=== PATIENT | male | born 1955 | race African-American/Black ===

== ENCOUNTER 2022-12-24 16:46 | Inpatient (IN) | payer OTHER, SELFPAY ==
--- NOTE | ~2022-12-24 | US_ITS ---
EXAMINATION: US EXTRACRANIAL CAROTID DUPLEX, BILATERAL CLINICAL INFORMATION: Acute cva COMPARISON: None TECHNIQUE: Real-time ultrasound and Doppler techniques (integrating B-mode 2-D vascular images, Doppler spectral analysis and color-flow Doppler imaging) were utilized to interrogate the extracranial carotid arteries, the vertebral arteries and proximal subclavian arteries bilaterally. The degree of stenosis is determined by criteria similar to NASCET. FINDINGS: Right Side: 1. There is mild atherosclerotic plaque seen in the bifurcation/proximal ICA region. 2. The common carotid artery PSV proximally is 137 cm/s and distally 121 cm/s. 3. The proximal internal carotid artery velocities are 60 cm/s systolic and 15 cm/s diastolic. 4. The proximal external carotid artery PSV is 118 cm/s. 5. The vertebral artery shows antegrade flow. 6. The subclavian artery waveforms are normal. Left Side: 1. There is no significant atherosclerotic plaque seen in the bifurcation/proximal ICA region. 2. The common carotid artery PSV proximally is 148 cm/s and distally 96 cm/s. 3. The proximal internal carotid artery velocities are 108 cm/s systolic and 21 cm/s diastolic. 4. The proximal external carotid artery PSV is 107 cm/s. 5. The vertebral artery shows antegrade flow. 6. The subclavian artery waveforms are normal. US/US carotid duplex BI IMPRESSION: 1. RIGHT: Minimal, non-hemodynamically significant stenosis of the proximal right internal carotid artery corresponding to a 0-49% stenosis by velocity criteria. 2. LEFT: Normal left internal carotid artery without atherosclerotic plaque or hemodynamically significant stenosis.
--- NOTE | ~2022-12-24 | XR_ITS ---
EXAMINATION: XR CHEST CLINICAL INFORMATION: Shortness of breath COMPARISON: Chest x-ray 12/24/2022 TECHNIQUE: Frontal view of the chest was obtained. FINDINGS: The lungs are clear. No airspace consolidation, pleural effusion, or pneumothorax. The cardiomediastinal silhouette is within normal limits. No acute osseous injury. XR/XR chest 1V IMPRESSION: No acute pulmonary disease.
--- NOTE | ~2022-12-24 | MR_ITS ---
MRI OF THE BRAIN WITHOUT IV CONTRAST INDICATION: CVA. COMPARISON: Head CT 12/24/2022. TECHNIQUE: Multiplanar multisequence MR imaging of the brain was obtained without IV contrast. FINDINGS: There is no hydrocephalus, extra-axial surface collection, or herniation. There is global cerebral volume loss, there is moderate chronic microangiopathy, and there are chronic lacunar infarcts within the deep reynoso nuclei bilaterally and the left willis. The major flow voids at the skull base are preserved. There is a punctate acute to subacute infarct within the right peritrigonal white matter. No additional acute infarcts. There is no intracranial hemorrhage on the gradient recalled echo acquisition. The midline structures are normal. The cerebellar tonsils are normally positioned. The craniocervical junction is normal. Osseous marrow signal intensity is homogenous. The visualized soft tissues are unremarkable. Small left mastoid effusion. MR/MR head/brain wo con IMPRESSION: - There is a punctate acute to subacute infarct within the right peritrigonal white matter. No additional acute infarcts. - There is global cerebral volume loss, there is moderate chronic microangiopathy, and there are chronic lacunar infarcts within the deep reynoso nuclei bilaterally and the left willis.
--- NOTE | ~2022-12-24 | CT_ITS ---
EXAMINATION: CT HEAD WITHOUT CONTRAST (STROKE PROTOCOL) CLINICAL INFORMATION: Stroke protocol. Unresponsive COMPARISON: CT head 12/24/2022. MRI of the brain 12/25/2022 TECHNIQUE: Contiguous axial imaging was performed from the skull base to vertex without intravenous administration of contrast. This CT examination was performed using dose optimization techniques as appropriate, variously including the following: *Automated exposure control *Adjustment of mA and/or kV according to patient size (this includes techniques or standardized protocols for targeted exams where dose is matched to indication/reason for exam; i.e. extremities or head) *Use of iterative reconstruction technique DLP: 740 mGy-cm FINDINGS: There is no evidence of acute intracranial hemorrhage or territorial infarction. No abnormal mass-effect or midline shift is seen. [place] to white matter differentiation is well preserved. No extra-axial fluid collections are identified. There is generalized global volume loss. There is moderate prominence of the ventricles and the sulci . There is moderate hypodensity of the periventricular white matter due to chronic small vessel ischemic disease. There are vascular calcifications of the internal carotid arteries bilaterally. There is no osseous abnormality. The mastoid air cells and visualized portions of the paranasal sinuses are well-aerated. CT/CT head for stroke IMPRESSION: No acute intracranial pathology. This critical result was discussed with Donnell Shaver at 2025 hours on 12/26/2022. It was ascertained that the content and urgency of the report was understood at the time of direct communication.
--- NOTE | ~2022-12-24 | CT_ITS ---
EXAMINATION: CT head/brain wo IV con CLINICAL INFORMATION: Reason for Exam left UE weakness, 3 days old stroke?? COMPARISON: None. TECHNIQUE: Contiguous axial imaging was performed from the skull base to vertex without intravenous contrast. Sagittal and coronal reformatted images were obtained. This CT examination was performed using dose optimization techniques as appropriate, variously including the following: * Automated exposure control * Adjustment of mA and/or kV according to patient size (this includes techniques or standardized protocols for targeted exams where dose is matched to indication/reason for exam; i.e. extremities or head) Use of iterative reconstruction technique DLP: 663 mGy-cm FINDINGS: No acute osseous or soft tissue abnormality. The mastoid air cells and visualized portions of the paranasal sinuses are well aerated. There is no evidence of acute intracranial hemorrhage or territorial infarction. No abnormal mass effect or midline shift is seen. [place] to white matter differentiation is well preserved. No extra-axial fluid collections are identified. No hydrocephalus. Proportional prominence of the ventricles and sulcal spaces is consistent with mild to moderate volume loss. Patchy periventricular and deep white matter hypoattenuation is consistent with mild small vessel ischemic changes. Small chronic lacunar infarcts involving the deep eldridge nuclei. CT/CT head/brain wo IV con IMPRESSION: No acute intracranial abnormality including hemorrhage, mass effect, hydrocephalus, or acute territorial edematous infarction.
--- NOTE | ~2022-12-24 | XR_ITS ---
EXAMINATION: XR CHEST CLINICAL INFORMATION: Upper extremity weakness. COMPARISON: None TECHNIQUE: Frontal view of the chest was obtained. FINDINGS: No significant abnormality is noted involving the heart, lungs, mediastinum, bony thorax or soft tissues. XR/XR chest 1V IMPRESSION: No acute cardiopulmonary process.
[2022-12-24 16:56] VITALS: BP 138/82; PULSE 72
[2022-12-24 17:00] VITALS: BP 137/88; PULSE 65; RESP 15; O2SAT 98; BMI 23.3
--- NOTE | 2022-12-24 17:40 | ECG_ITS ---
Test Reason : weakness Blood Pressure : / mmHG Vent. Rate : 066 BPM Atrial Rate : 066 BPM P-R Int : 150 ms QRS Dur : 084 ms QT Int : 458 ms P-R-T Axes : 080 -44 -78 degrees QTc Int : 480 ms Sinus rhythm with occasional Premature ventricular complexes Left axis deviation Minimal voltage criteria for LVH, may be normal variant ( Stefan product ) ST & T wave abnormality, consider inferolateral ischemia Prolonged QT Abnormal ECG When compared with ECG of 10-DEC-2019 19:26, Premature ventricular complexes are now Present Non-specific change in ST segment in Lateral leads T wave inversion now evident in Anterolateral leads Referred By: Ronald Dodson Electronically Signed By:BRAD CORBETT
--- NOTE | 2022-12-24 17:43 | ED.NEUROSD ---
HPI - Neuro Symptoms/Deficit General Chief Complaint: Stroke Stated Complaint: STROKE ALERT,LEFT SIDED WEAKNESS X'S 4 DAYS Time Seen by Provider: 12/24/22 17:18 Source: patient and EMS Mode of arrival: EMS Limitations: no limitations History of Present Illness HPI Narrative: 67-year-old male came in by EMS for evaluation of left upper extremities weakness for the past 3 days. Patient lives home alone mostly independently started to notice left upper extremities weakness and numbness for the past 3 days patient did not seek medical attention thought is due to temporary situation, no speech problem, no other weakness or numbness. No headache, nausea or vomiting. Related Data Allergies Allergy/AdvReac Type Severity Reaction Status Date / Time fish derived [FISH] Allergy Unknown UNKNOWN Unverified 07/20/20 18:20 morphine [MORPHINE] Allergy Unknown UNKNOWN Unverified 07/20/20 18:20 Review of Systems Review of Systems: All other systems are reviewed and are negative Constitutional: Reports as per HPI and Reports no additional constitutional complaints Eyes: Reports as per HPI and Reports no additional eye complaints Reports system reviewed and no additional complaints, except as documented Cardiovascular: Reports as per HPI and Reports no additional cardiovascular complaints Respiratory: Reports as per HPI and Reports no additional respiratory complaints Gastrointestinal: Reports as per HPI and Reports no additional gastrointestinal complaints Genitourinary: Reports no additional female genitourinary complaints Musculoskeletal: Reports no additional musculoskeletal complaints Skin/Breast: Reports system reviewed and no additional complaints, except as docu Psychiatric: Reports no additional psychiatric complaints Endocrine: Reports no additional endocrine complaints Hematologic/Lymphatic: Reports no additional hematologic/lymphatic complaints Allergic/Immunologic: Reports no additional allergic/immunologic complaints Reports system reviewed and no additional complaints, except as documented and Reports Abnormal speech present [facility] Social History Social History Advance Directives: No Advance Directives Information Provided: Yes Physical Exam Vital Signs: Vital Signs: Last Vital Signs Temp 98.0 F 12/24/22 19:49 Pulse 71 12/24/22 19:49 Resp 17 12/24/22 19:49 BP 121/79 12/24/22 19:49 Pulse Ox 96 12/24/22 19:49 O2 Del Method 12/24/22 19:49 BMI result Body Mass Index 23.3 Vital signs have been reviewed as appeared to be correct. Blood pressure normal. Heart rate normal. Respiration rate normal. Temperature normal. Oxygen saturation normal. Appearance: Alert. Oriented X3. No acute distress. Head: Normal external exam. Normocephalic. Atraumatic. No Pichardo signs noted. No raccoon eyes noted Eyes: PERRLA. EOMI. Conjunctiva and sclera normal. Eyelids normal. ENT: TM's Normal. Pharynx normal. Uvula midline. Moist mucous membranes. No trismus noted. No drooling noted. No muffled voice noted. Neck: Normal inspection. Neck supple. FROM. No adenopathy. Thyroid Normal. No meningeal signs. No neck mass noted. CVS: Normal heart rate and rhythm. Heart sound normal. No murmurs noted. Pulses normal throughout. Respiratory: No respiratory distress. Painless inspiration. Breath sounds normal. No wheezes/rales/rhonchi noted. Chest nontender. No accessory muscle usage noted or decreased air movement noted. Abdomen: Soft and nontender. Bowel sounds normal in all 4 quadrants. No distention noted. No organomegaly noted. No visible injury noted. Back: No CVA tenderness. Full range of motion noted. Skin: Skin warm and dry. Normal skin color. Normal skin turgor. No rashes/lesions/lacerations noted. Extremities: No lower extremity edema. Extremities exhibit normal range of motion. Extremities nontender. Neuro: Oriented X 3. Cranial nerve exam: II-XII are grossly intact Left upper extremity weakness with pronator drift. No sensory deficit. Reflexes normal. Course Course Course Narrative: 67-year-old male came in with a left upper extremity weakness, NIH score is 2, symptoms happened 3 days ago patient did not seek medical attention the but came in today patient is out of window for tPA, unremarkable a screening workup in the ED, will administer aspirin and admit for further neurological evaluation. Patient in acute kidney insufficiency would not consider CT angiogram of the head and neck now. Medications Administered Discontinued Medications Generic Name Dose Route Start Last Admin Trade Name Freq PRN Reason Stop Dose Admin Sodium Chloride 1,000 mls @ 999 mls/hr 12/24/22 17:40 12/24/22 18:40 Ns IV 12/24/22 18:40 999 mls/hr .Q1H1M ONE Administration Medical Decision Making Differential Diagnosis Differential Diagnoses: The differential diagnosis associated with the presentation includes (Ian, CVA ischemic, hemorrhagic CVA unlikely, cardiac arrhythmia, ACS.) Admission/Observation Consideration of admission/observation: Escalation of care including admission/observation considered Consult Healthcare Provider Management of the patient was discussed with: Hospitalist Lab Data MDM Lab Attestation statement: I reviewed the patient's lab results. 12/24/22 18:25 12/24/22 18:25 Labs: Lab Results 12/24/22 12/24/22 12/24/22 Range/Units 17:51 18:25 18:25 WBC 8.4 (4.8-10.8) X10*3/uL RBC 5.00 (4.60-5.80) X10*6/uL Hgb 14.2 (14.0-18.0) g/dl Hct 44.8 (42.0-52.0) % MCV 89.6 (80.0-98.0) fL MCH 28.4 (27.0-33.0) pg MCHC 31.7 (31.0-36.0) g/dl RDW 13.3 (11.0-16.0) % Plt Count 289 (160-400) X10*3/uL MPV 10.1 (9.4-12.4) fL Immature Gran % (Auto) 0.5 H (0.0-0.4) % Neut % (Auto) 59.3 (45-73) % Lymph % (Auto) 25.0 (20-40) % [place] % (Auto) 14.7 H (2-11) % Eos % (Auto) 0.1 (0-4) % Baso % (Auto) 0.4 (0-2) % Lymph # (Auto) 2.1 (1.2-4.9) X10*3/uL [place] # (Auto) 1.2 (0.1-1.2) X10*3/uL Eos # (Auto) 0.0 (0.0-0.4) X10*3/uL Baso # (Auto) 0.0 (0.0-0.2) X10*3/uL Abs Immat Gran (auto) 0.04 H (0.00-0.03) X10*3/uL Absolute Neuts (auto) 5.0 (2.0-8.3) x10*3/uL Absolute Nucleated RBC 0.000 (0.0-0.012) X10*3/uL Nucleated RBC % (auto) 0.0 (0.0-0.2) /100WBC Sodium 139 (135-145) mmol/L Potassium 4.2 (3.3-5.1) mmol/L Chloride 102 (96-108) mmol/L Carbon Dioxide 24 (22-29) mmol/L Anion Gap 17 (12-20) BUN 25 H (9-16) mg/dL Creatinine 2.07 H (0.5-1.4) mg/dL Estim Creat Clear Calc 32.1 Estimated GFR 32 Random Glucose 108 (60-115) mg/dL Calcium 9.4 (8.4-10.2) mg/dL Total Bilirubin 0.7 (0.0-1.0) mg/dL Direct Bilirubin < 0.2 (0.0-0.5) mg/dL AST 37 (5-37) U/L ALT 28 (0-40) U/L Alkaline Phosphatase 78 (39-117) U/L Troponin I High Sens (<3.5-35.0) ng/L Total Protein 8.1 H (6.5-8.0) g/dL Albumin 4.2 (3.5-5.0) g/dL Lipase 16 (8-78) U/L COVID-19 (MARK) Negative (Negative) COVID-19 Clin Com See Note 12/24/22 Range/Units 18:25 WBC (4.8-10.8) X10*3/uL RBC (4.60-5.80) X10*6/uL Hgb (14.0-18.0) g/dl Hct (42.0-52.0) % MCV (80.0-98.0) fL MCH (27.0-33.0) pg MCHC (31.0-36.0) g/dl RDW (11.0-16.0) % Plt Count (160-400) X10*3/uL MPV (9.4-12.4) fL Immature Gran % (Auto) (0.0-0.4) % Neut % (Auto) (45-73) % Lymph % (Auto) (20-40) % [place] % (Auto) (2-11) % Eos % (Auto) (0-4) % Baso % (Auto) (0-2) % Lymph # (Auto) (1.2-4.9) X10*3/uL Baldwin # (Auto) (0.1-1.2) X10*3/uL Eos # (Auto) (0.0-0.4) X10*3/uL Baso # (Auto) (0.0-0.2) X10*3/uL Abs Immat Gran (auto) (0.00-0.03) X10*3/uL Absolute Neuts (auto) (2.0-8.3) x10*3/uL Absolute Nucleated RBC (0.0-0.012) X10*3/uL Nucleated RBC % (auto) (0.0-0.2) /100WBC Sodium (135-145) mmol/L Potassium (3.3-5.1) mmol/L Chloride (96-108) mmol/L Carbon Dioxide (22-29) mmol/L Anion Gap (12-20) BUN (9-16) mg/dL Creatinine (0.5-1.4) mg/dL Estim Creat Clear Calc Estimated GFR Random Glucose (60-115) mg/dL Calcium (8.4-10.2) mg/dL Total Bilirubin (0.0-1.0) mg/dL Direct Bilirubin (0.0-0.5) mg/dL AST (5-37) U/L ALT (0-40) U/L Alkaline Phosphatase (39-117) U/L Troponin I High Sens 37.9 H (<3.5-35.0) ng/L Total Protein (6.5-8.0) g/dL Albumin (3.5-5.0) g/dL Lipase (8-78) U/L COVID-19 (MARK) (Negative) COVID-19 Clin Com Independent Interpretation I performed an independent interpretation of an: EKG (Normal sinus rhythm at 66 beats per minutes, occasional PVCs, left axis deviation, LVH, nonspecific ST-T changes. No old EKG to compare.), Plain X-Ray (Chest: No acute intrathoracic pathology.) and CT Scan (Head: No acute intracranial pathology.) Radiology Impression Discussion of test interpretation with radiology: I have reviewed the radiologist's reading. NIH Stroke Scale Time: 17:52 Level of Consciousness: Alert Level of Consciousness Questions: Answers both questions correctly Level of Consciousness Commands: Performs both tasks correctly Best Gaze: Normal Visual: No visual loss Facial Palsy: Normal Motor Arm (Right): No drift Motor Arm (Left): Some effort against gravity Motor Leg (Right): No drift Motor Leg (Left): No drift Limb Ataxia: Absent Sensory: Normal Best Language: No aphasia Dysarthia: Normal Extinction and Inattention: No abnormality Score: 2 Discharge Plan Discharge Clinical Impression: Cerebrovascular accident, IAN (acute kidney injury) Patient Disposition: Admitted As Inpatient
[2022-12-24 18:32] LABS: MANUAL DIFF FLAG NO
[2022-12-24 18:33] LABS: Basophils Percent Auto 0.4 % (0-2); Eosinophils Percent Auto 0.1 % (0-4); Hematocrit 44.8 % (42.0-52.0); Hemoglobin 14.2 g/dl (14.0-18.0); Imm Gran Abs Auto 0.04 X10*3/uL (0.00-0.03); Imm Gran Pct Auto 0.5 % (0.0-0.4); Lymphocytes Absolute Auto 2.1 X10*3/uL (1.2-4.9); Mean Corpuscular HGB Conc 31.7 g/dl (31.0-36.0); Mean Corpuscular Hemoglobin 28.4 pg (27.0-33.0); Mean Corpuscular Volume 89.6 fL (80.0-98.0); Mean Platelet Volume 10.1 fL (9.4-12.4); Monocytes Absolute Auto 1.2 X10*3/uL (0.1-1.2); Monocytes Percent Auto 14.7 % (2-11); Neutrophils Percent Auto 59.3 % (45-73); Platelet Count 289 X10*3/uL (160-400); Red Cell Distribution Width 13.3 % (11.0-16.0); White Blood Count 8.4 X10*3/uL (4.8-10.8)
[2022-12-24] MEDS: 0.9 % Sodium Chloride 1,000 ML 999 ML IV (18:40)
[2022-12-24 19:08] LABS: Troponin-I High Sensitivity 37.9 ng/L (<3.5-35.0)
[2022-12-24 19:27] LABS: Alanine Aminotransferase 28 U/L (0-40); Albumin Level 4.2 g/dL (3.5-5.0); Alkaline Phosphatase 78 U/L (39-117); Anion Gap 17 (12-20); Aspartate Amino Transferase 37 U/L (5-37); Bilirubin Direct < 0.2 mg/dL (0.0-0.5); Bilirubin Total 0.7 mg/dL (0.0-1.0); Blood Urea Nitrogen 25 mg/dL (9-16); Calcium 9.4 mg/dL (8.4-10.2); Carbon Dioxide 24 mmol/L (22-29); Chloride 102 mmol/L (96-108); Creatinine Clr Calc Pharmacy 32.1; Estimated Glomerular Filt Rate 32; Glucose Random 108 mg/dL (60-115); Lipase 16 U/L (8-78); Potassium 4.2 mmol/L (3.3-5.1); Sodium 139 mmol/L (135-145); Total Protein 8.1 g/dL (6.5-8.0)
[2022-12-24 19:34] LABS: IDNOW Serial# 6674DD1D
[2022-12-24 19:35] LABS: COVID-19 Test Negative (Negative)
[2022-12-24 19:49] VITALS: BP 121/79; PULSE 71; RESP 17; TEMP 36.7; O2SAT 96
[2022-12-24] MEDS: Aspirin Enteric Coated 81 MG TABLET.DR PO (20:55)
[2022-12-24 21:35] LABS: Troponin-I High Sensitivity 40.3 ng/L (<3.5-35.0)
--- NOTE | 2022-12-24 22:34 | P.HPHOSP_ITS ---
History of Present Illness Date of Service: 12/24/22 Chief Complaint: left sided weakness 67-year-old male who denies any past medical history presents to the hospital with complaints of left-sided weakness. Patient reports weakness started about 3 days ago, has remained the same, weakness is related to the upper and lower extremity. Denies any speech change, no facial droop, no change in vision, no headache. Patient denies any right-sided weakness numbness or tingling. He reports no recent head injury. Denies any chest pain, no shortness of breath, no abdominal pain nausea or vomiting, no diarrhea constipation, no urinary symptoms and no lower extremity edema. On arrival to the ED patient hemodynamically stable with no significant abnormal vitals labs reviewed showed a creatinine of 2.07 with a BUN of 25, with no previous for comparison, labs otherwise unremarkable, has a troponin of 37.9 with a repeat of 40.3, patient denies any chest pain head CT without Ki be contrast shows no acute intracranial abnormality Review of Systems Review of Systems: Yes all other systems are reviewed and are negative [facility] Medical History (Updated 12/25/22 @ 06:25 by Donnell Strong MD) No pertinent past medical history Surgical History (Updated 12/25/22 @ 06:25 by Donnell Strong MD) History of left hip replacement Social History (Updated 12/25/22 @ 06:26 by Donnell Strong MD) Alcohol intake: current Patient Tobacco Use Status: Current everyday Tobacco user Cigarette Packs Per Day: 10 Use of substances other than those prescribed or required for medical reasons: No Advance Directives: No Advance Directives Information Provided: Yes Meds Allergies Allergy/AdvReac Type Severity Reaction Status Date / Time fish derived [FISH] Allergy Unknown UNKNOWN Unverified 07/20/20 18:20 morphine [MORPHINE] Allergy Unknown UNKNOWN Unverified 07/20/20 18:20 Active Medications: Current Medications Pharmacy Consult (Consult Rx Perform Med Rec) 1 each MISCELLANE ONCE PRN PRN Reason: Consult order Physical Exam Vital Signs and Narrative: Vital Signs: Last Vital Signs Temp 98.0 F 12/24/22 19:49 Pulse 71 12/24/22 19:49 Resp 17 12/24/22 19:49 BP 121/79 12/24/22 19:49 Pulse Ox 96 12/24/22 19:49 O2 Del Method 12/24/22 19:49 BMI result Body Mass Index 23.3 Const: General: cooperative and no acute distress Orientation/consciousness: patient oriented x3 Eyes: General: appearance normal, both eyes and all related structures Resp: Effort & Inspection: normal respiratory effort Auscultation: clear to auscultation bilaterally Cardio: Rate: regular rate Rhythm: regular rhythm GI: Palpation (GI): Soft to palpation Auscultation: normal bowel sounds Skin: General skin exam: no rashes or lesions noted Neuro: Other: cranial nerves 2-12 intact, no dysarthria, aphasia has 3/5 strength in left upper and lower extremity motor 5/5 in the right General: patient oriented x3 Cognition (Neuro): normal cognition Extrem: General: Yes normal to inspection and Yes no pedal edema Results Labs 12/24/22 18:25 12/24/22 18:25 Labs: Laboratory Results - last 24 hr 12/24/22 12/24/22 12/24/22 17:51 18:25 18:25 MCV 89.6 MCH 28.4 MCHC 31.7 RDW 13.3 Plt Count 289 MPV 10.1 Immature Gran % (Auto) 0.5 H Neut % (Auto) 59.3 Lymph % (Auto) 25.0 [place] % (Auto) 14.7 H Eos % (Auto) 0.1 Baso % (Auto) 0.4 Lymph # (Auto) 2.1 [place] # (Auto) 1.2 Eos # (Auto) 0.0 Baso # (Auto) 0.0 Abs Immat Gran (auto) 0.04 H Absolute Neuts (auto) 5.0 Absolute Nucleated RBC 0.000 Nucleated RBC % (auto) 0.0 Anion Gap 17 Estim Creat Clear Calc 32.1 Estimated GFR 32 Random Glucose 108 Calcium 9.4 Total Bilirubin 0.7 Direct Bilirubin < 0.2 AST 37 ALT 28 Alkaline Phosphatase 78 Troponin I High Sens Total Protein 8.1 H Albumin 4.2 Lipase 16 COVID-19 (MARK) Negative COVID-19 Clin Com See Note 12/24/22 12/24/22 18:25 20:59 MCV MCH MCHC RDW Plt Count MPV Immature Gran % (Auto) Neut % (Auto) Lymph % (Auto) [place] % (Auto) Eos % (Auto) Baso % (Auto) Lymph # (Auto) [place] # (Auto) Eos # (Auto) Baso # (Auto) Abs Immat Gran (auto) Absolute Neuts (auto) Absolute Nucleated RBC Nucleated RBC % (auto) Anion Gap Estim Creat Clear Calc Estimated GFR Random Glucose Calcium Total Bilirubin Direct Bilirubin AST ALT Alkaline Phosphatase Troponin I High Sens 37.9 H 40.3 H Total Protein Albumin Lipase COVID-19 (MARK) COVID-19 Clin Com Imaging Radiologist's Impressions: Impressions Chest X-Ray 12/24/22 18:35 IMPRESSION: No acute cardiopulmonary process. Head CT 12/24/22 19:28 IMPRESSION: No acute intracranial abnormality including hemorrhage, mass effect, hydrocephalus, or acute territorial edematous infarction. Assessment and Plan (1) Cerebrovascular accident: Status: Acute (2) CHIOMA (acute kidney injury): Status: Acute Plan 67-year-old male with no significant past medical history that he reports comes into the hospital complaints of left-sided weakness # acute CVA - pending MRI - head CT negative - has neurological deficits on the left upper and lower extremities - pending MRI of the brain - CT angiogram was unable to be obtained due to his underlying kidney disease - lipid battery, neurology consulted # CHIOMA - pre azotemia - unknown baseline - will treat with IV fluids - follow BMP DVT prophylaxis: Early ambulation Time Spent With Patient Time: Total time managing care of this patient today ____ minutes. Quality Stroke Does the patient have a stroke diagnosis?: No VTE Prior VTE?: No VTE Risk Level:: Medical - low VTE Device Contraindication: Treatment Not Indicated VTE Drug Contraindication: Treatment Not Indicated
[2022-12-24 22:43] VITALS: BP 112/76; PULSE 81; RESP 17; TEMP 36.7; O2SAT 95
[2022-12-24] MEDS: Lactated Ringers 1,000 ML 100 ML IVCONT (23:34)
[2022-12-24] MEDS: Acetaminophen 325 MG TABLET 650 MG PO (23:39)
--- NOTE | 2022-12-25 04:03 | PC.NURSE ---
Assumed care of pt. at 1900. Pt. resting in bed at this time. Pt. medicated approximately 2330 with tylenol for pain in the neck and head rated 4/10. Pt. requested food and liquids. Provided with a sandwich and juice. Pt. currently watching tv in bed, under no apparent distress. Will continue to monitor.
[2022-12-25 07:07] LABS: MANUAL DIFF FLAG NO
[2022-12-25 07:10] LABS: Basophils Percent Auto 0.6 % (0-2); Eosinophils Absolute Auto 0.1 X10*3/uL (0.0-0.4); Eosinophils Percent Auto 1.3 % (0-4); Hematocrit 38.8 % (42.0-52.0); Hemoglobin 12.3 g/dl (14.0-18.0); Imm Gran Abs Auto 0.02 X10*3/uL (0.00-0.03); Imm Gran Pct Auto 0.3 % (0.0-0.4); Lymphocytes Absolute Auto 2.1 X10*3/uL (1.2-4.9); Mean Corpuscular HGB Conc 31.7 g/dl (31.0-36.0); Mean Corpuscular Volume 91.5 fL (80.0-98.0); Monocytes Absolute Auto 0.9 X10*3/uL (0.1-1.2); Monocytes Percent Auto 11.9 % (2-11); Neutrophils Percent Auto 55.9 % (45-73); Platelet Count 225 X10*3/uL (160-400); Red Blood Count 4.24 X10*6/uL (4.60-5.80); Red Cell Distribution Width 13.2 % (11.0-16.0); White Blood Count 7.1 X10*3/uL (4.8-10.8)
[2022-12-25 07:15] LABS: Appearance Urine Clear; Color Urine Dark Yellow; Glucose Urine UA Negative (Negative); Leukocyte Esterase Urine Negative (Negative); Nitrite Urine Negative (Negative); Specific Gravity - Urine 1.025 (1.005-1.025); UMIC TRIGGER UACC YES; Urine Blood Negative (Negative); Urine Ketones Trace mg/dL (Negative); Urine Protein 30 (1+) mg/dL (Neg-Trace)
[2022-12-25 07:20] LABS: Bacteria Urine None Seen (None Seen); RBC Urine 0-2 /HPF (0-2); Squamous Epithelial Cell Urine 0-2 /HPF (0-2); WBC Urine 0-5 /HPF (0-5)
[2022-12-25 07:24] LABS: Anion Gap 13 (12-20); Blood Urea Nitrogen 38 mg/dL (9-16); Calcium 8.6 mg/dL (8.4-10.2); Carbon Dioxide 25 mmol/L (22-29); Chloride 104 mmol/L (96-108); Estimated Glomerular Filt Rate 42; Glucose Random 97 mg/dL (60-115); Potassium 3.9 mmol/L (3.3-5.1); Sodium 138 mmol/L (135-145)
[2022-12-25 07:27] LABS: Cholesterol 117 mg/dL; HDL Cholesterol 51 mg/dL; LDL Cholesterol Calculated 47 mg/dl; Triglycerides 95 mg/dL
[2022-12-25 07:57] VITALS: BP 184/92; PULSE 62; RESP 18; O2SAT 98
--- NOTE | 2022-12-25 08:09 | PC.NURSE ---
Patient AOx 4 some left sided weakness no respiratory distress noted tolerating IVF with no ill effect. MRI screening complete has orthopedic hardware and unsure of fragments in head will CTM
[2022-12-25] MEDS: Lactated Ringers 1,000 ML 100 ML IVCONT (08:20)
[2022-12-25] MEDS: Aspirin Enteric Coated 81 MG TABLET.DR PO (08:20)
[2022-12-25] MEDS: Nicotine 14 MG PATCH.TD24 TRANSDERMA (08:20)
--- NOTE | 2022-12-25 08:24 | PC.NURSE ---
Inpatient MD at bedside
--- NOTE | 2022-12-25 09:49 | PHA.MEDREC ---
Pharmacy Consult ? Medication Reconciliation Pharmacy has completed the medication reconciliation. Patient says he has been out of beds for 2 months
--- NOTE | 2022-12-25 09:56 | PC.NURSE ---
Inpatient MD notified patient is hypertensive, report to Dolores TAMEZ
[2022-12-25 10:37] VITALS: BP 164/89; PULSE 63; RESP 12; TEMP 37; O2SAT 99
[2022-12-25 10:44] VITALS: BMI 24.0
[2022-12-25 11:14] VITALS: BP 164/89; PULSE 63; O2SAT 99
--- NOTE | 2022-12-25 11:26 | PM.NEUROCN ---
History of Present Illness Data of Consult Service Date: 12/25/22 Primary Care Provider: Unknown Physician HPI Reason for consult: Stroke 67 years old man with hypertension who came to hospital with couple of days history of left-sided weakness. There was no pain headache blurred vision double vision or speech or language difficulty. Review of Systems Review of Systems: No recent cold or flu-like illness PMFSH Past Medical History Medical History No pertinent past medical history Surgical History Surgical History History of left hip replacement Social History Social History (Updated 12/25/22 @ 06:26 by Donnell Strong MD) Household Members: None Housing: Apartment Do you presently have visiting nurse or other home services: No Alcohol intake: current Patient Tobacco Use Status: Current everyday Tobacco user Cigarette Packs Per Day: 10 Meds Allergies Allergy/AdvReac Type Severity Reaction Status Date / Time fish derived [FISH] Allergy Unknown UNKNOWN Unverified 07/20/20 18:20 morphine [MORPHINE] Allergy Unknown UNKNOWN Unverified 07/20/20 18:20 cheese Allergy Anaphylaxis Uncoded 12/25/22 10:36 Active Medications: Current Medications Acetaminophen (Acetaminophen 325 Mg Tablet) 650 mg PO Q6H PRN PRN Reason: Pain, Mild (Pain Scale 1-3) Last Admin: 12/24/22 23:39 Dose: 650 mg Aspirin (Aspirin Enteric Coated 81 Mg Tablet.Dr) 81 mg PO DAILY [facility] Last Admin: 12/25/22 08:20 Dose: 81 mg Docusate Sodium (Docusate Sodium 100 Mg Capsule) 100 mg PO DAILY PRN PRN Reason: Constipation Lactated Ringer's (Lr) 1,000 mls @ 100 mls/hr IVCONT .Q10H [facility] Last Admin: 12/25/22 08:20 Dose: 100 mls/hr Nicotine (Nicotine 14 Mg Patch.Td24) 14 mg TRANSDERMA DAILY [facility] Last Admin: 12/25/22 08:20 Dose: 14 mg Ondansetron HCl (Ondansetron Hcl 4 Mg/2 Ml Vial) 4 mg IVPUSH Q8H PRN PRN Reason: Nausea and Vomiting Pharmacy Consult (Consult Rx Perform Med Rec) 1 each MISCELLANE ONCE PRN PRN Reason: Consult order Home Medications Medication Instructions Recorded Confirmed Last Taken Type clonidine HCl 0.1 mg tablet 0.2 mg PO BID 12/25/22 12/25/22 10/24/20 History lisinopril 10 mg tablet 1 tab PO DAILY 12/25/22 12/25/22 10/24/20 History Physical Exam Vital Signs: Vital Signs: Last Vital Signs Temp 98.6 F 12/25/22 10:37 Pulse 63 12/25/22 11:14 Resp 12 12/25/22 10:37 BP 164/89 H 12/25/22 11:14 Pulse Ox 99 12/25/22 11:14 O2 Del Method 12/25/22 10:37 BMI result Body Mass Index 24.0 Neuro: Other: Alert and awake with normal spontaneity of speech fluency comprehension and affect. Face is symmetrical. Visual mobley are full. Tongue is midline. There is [id number] left arm and leg weakness with equivocal plantars and trace reflexes. Results Labs 12/25/22 06:31 12/25/22 06:31 Labs: Short CBC 12/24/22 12/25/22 Range/Units 18:25 06:31 WBC 8.4 7.1 (4.8-10.8) X10*3/uL Hgb 14.2 12.3 L (14.0-18.0) g/dl Hct 44.8 38.8 L (42.0-52.0) % Plt Count 289 225 (160-400) X10*3/uL BMP 12/24/22 12/25/22 18:25 06:31 Sodium 139 138 Potassium 4.2 3.9 Chloride 102 104 Carbon Dioxide 24 25 BUN 25 H 38 H Creatinine 2.07 H 1.66 H Calcium 9.4 8.6 D Liver Function 12/24/22 Range/Units 18:25 Total Bilirubin 0.7 (0.0-1.0) mg/dL Direct Bilirubin < 0.2 (0.0-0.5) mg/dL AST 37 (5-37) U/L ALT 28 (0-40) U/L Alkaline Phosphatase 78 (39-117) U/L Albumin 4.2 (3.5-5.0) g/dL Urine 12/25/22 Range/Units 06:24 Urine Color Dark Yellow Urine Appearance Clear Urine pH 5.0 (5.0-9.0) Ur Specific [place] 1.025 (1.005-1.025) Urine Protein 30 (1+) H (Neg-Trace) mg/dL Urine Glucose (UA) Negative (Negative) mg/dL noncontrast head CT revealed moderate mostly central atrophy and some cerebellar atrophy would not with moderate amount of chronic microvascular ischemic changes. Assessment and Plan (1) Cerebrovascular accident: Status: Acute 67 years old man with uncontrolled hypertension chronic microvascular ischemic changes and some cerebral atrophy came with new onset of left-sided weakness started a day or 2 before he came to hospital. Overall evaluation was suggestive of a new ischemic infarct and right hemisphere. Mainstay of management is blood pressure control. For now anti-platelet agents such as baby aspirin daily and statin are also recommended. And noncontrast MRI of brain can help to definitively diagnose. Time Spent With Patient Time: Total time managing care of this patient today ____ minutes. Procedures Date of Service Date of Service: 12/25/22
--- NOTE | 2022-12-25 14:51 | P.PNIM_ITS ---
Subjective Subjective Date of Service: 12/25/22 Interval History: Complaining of persistent left-sided weakness, denies headache, no difficulty swallowing, no visual symptoms, eating breakfast, no new neuro deficits since admission. Review of Systems Review of Systems: Yes all other systems are reviewed and are negative Physical Exam Vital Signs: Vital Signs: Last Vital Signs Temp 98.6 F 12/25/22 10:37 Pulse 63 12/25/22 11:14 Resp 12 12/25/22 10:37 BP 164/89 H 12/25/22 11:14 Pulse Ox 99 12/25/22 11:14 O2 Del Method 12/25/22 10:37 BMI result Body Mass Index 24.0 Const: Other: General awake alert x3, sitting, comfortably in no acute distress. Neck is supple no JVD. CVS regular rate rhythm, Respiratory lungs clear to auscultation, no respiratory distress, no wheeze, no rhonchi. Gastrointestinal abdomen soft, nontender, bowel sounds audible, no guarding , no rigidity. Extremities no edema. 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 Skin no rash Psych appropriate affect Objective Data Active Medications Acetaminophen (Acetaminophen 325 Mg Tablet) 650 mg PO Q6H PRN PRN Reason: Pain, Mild (Pain Scale 1-3) Last Admin: 12/24/22 23:39 Dose: 650 mg Documented By: STEVE Aspirin (Aspirin Enteric Coated 81 Mg Tablet.Dr) 81 mg PO DAILY [facility] Last Admin: 12/25/22 08:20 Dose: 81 mg Documented By: HANDY Docusate Sodium (Docusate Sodium 100 Mg Capsule) 100 mg PO DAILY PRN PRN Reason: Constipation Lactated Ringer's (Lr) 1,000 mls @ 100 mls/hr IVCONT .Q10H [facility] Last Admin: 12/25/22 08:20 Dose: 100 mls/hr Documented By: HANDY Nicotine (Nicotine 14 Mg Patch.Td24) 14 mg TRANSDERMA DAILY [facility] Last Admin: 12/25/22 08:20 Dose: 14 mg Documented By: HANDY Ondansetron HCl (Ondansetron Hcl 4 Mg/2 Ml Vial) 4 mg IVPUSH Q8H PRN PRN Reason: Nausea and Vomiting Pharmacy Consult (Consult Rx Perform Med Rec) 1 each MISCELLANE ONCE PRN PRN Reason: Consult order Labs 12/25/22 06:31 12/25/22 06:31 Labs: Laboratory Results - last 24 hr 12/24/22 12/24/22 12/24/22 17:51 18:25 18:25 MCV 89.6 MCH 28.4 MCHC 31.7 RDW 13.3 Plt Count 289 MPV 10.1 Immature Gran % (Auto) 0.5 H Neut % (Auto) 59.3 Lymph % (Auto) 25.0 [place] % (Auto) 14.7 H Eos % (Auto) 0.1 Baso % (Auto) 0.4 Lymph # (Auto) 2.1 [place] # (Auto) 1.2 Eos # (Auto) 0.0 Baso # (Auto) 0.0 Abs Immat Gran (auto) 0.04 H Absolute Neuts (auto) 5.0 Absolute Nucleated RBC 0.000 Nucleated RBC % (auto) 0.0 Anion Gap 17 Estim Creat Clear Calc 32.1 Estimated GFR 32 Random Glucose 108 Calcium 9.4 Total Bilirubin 0.7 Direct Bilirubin < 0.2 AST 37 ALT 28 Alkaline Phosphatase 78 Troponin I High Sens Total Protein 8.1 H Albumin 4.2 Triglycerides Cholesterol LDL Cholesterol, Calc HDL Cholesterol Lipase 16 Urine Color Urine Appearance Urine pH Ur Specific [place] Urine Protein Urine Glucose (UA) Urine Ketones Urine Blood Urine Nitrite Ur Leukocyte Esterase Urine RBC Urine WBC Ur Squamous Epith Cells Urine Bacteria Hyaline Casts COVID-19 (MARK) Negative COVID-19 Clin Com See Note 12/24/22 12/24/22 12/25/22 18:25 20:59 06:24 MCV MCH MCHC RDW Plt Count MPV Immature Gran % (Auto) Neut % (Auto) Lymph % (Auto) [place] % (Auto) Eos % (Auto) Baso % (Auto) Lymph # (Auto) [place] # (Auto) Eos # (Auto) Baso # (Auto) Abs Immat Gran (auto) Absolute Neuts (auto) Absolute Nucleated RBC Nucleated RBC % (auto) Anion Gap Estim Creat Clear Calc Estimated GFR Random Glucose Calcium Total Bilirubin Direct Bilirubin AST ALT Alkaline Phosphatase Troponin I High Sens 37.9 H 40.3 H Total Protein Albumin Triglycerides Cholesterol LDL Cholesterol, Calc HDL Cholesterol Lipase Urine Color Dark Yellow Urine Appearance Clear Urine pH 5.0 Ur Specific [place] 1.025 Urine Protein 30 (1+) H Urine Glucose (UA) Negative Urine Ketones Trace Urine Blood Negative Urine Nitrite Negative Ur Leukocyte Esterase Negative Urine RBC 0-2 Urine WBC 0-5 Ur Squamous Epith Cells 0-2 Urine Bacteria None Seen Hyaline Casts 6-10 COVID-19 (MARK) COVID-19 Clin Com 12/25/22 12/25/22 12/25/22 06:31 06:31 06:31 MCV 91.5 MCH 29.0 MCHC 31.7 RDW 13.2 Plt Count 225 MPV 11.0 Immature Gran % (Auto) 0.3 Neut % (Auto) 55.9 Lymph % (Auto) 30.0 [place] % (Auto) 11.9 H Eos % (Auto) 1.3 Baso % (Auto) 0.6 Lymph # (Auto) 2.1 [place] # (Auto) 0.9 Eos # (Auto) 0.1 Baso # (Auto) 0.0 Abs Immat Gran (auto) 0.02 Absolute Neuts (auto) 4.0 Absolute Nucleated RBC 0.000 Nucleated RBC % (auto) 0.0 Anion Gap 13 Estim Creat Clear Calc 40.0 Estimated GFR 42 Random Glucose 97 Calcium 8.6 D Total Bilirubin Direct Bilirubin AST ALT Alkaline Phosphatase Troponin I High Sens Total Protein Albumin Triglycerides 95 Cholesterol 117 LDL Cholesterol, Calc 47 HDL Cholesterol 51 Lipase Urine Color Urine Appearance Urine pH Ur Specific [place] Urine Protein Urine Glucose (UA) Urine Ketones Urine Blood Urine Nitrite Ur Leukocyte Esterase Urine RBC Urine WBC Ur Squamous Epith Cells Urine Bacteria Hyaline Casts COVID-19 (MARK) COVID-19 Clin Com Assessment and Plan (1) Cerebrovascular accident: Status: Acute (2) CHIOMA (acute kidney injury): Status: Acute Plan 67-year-old male with past medical history of hypertension comes into the hospital complaints of left-sided weakness of 2 days duration, did not qualify for tPA. #? acute CVA Persistent left-sided weakness, normal CT head -?MRI brain showed acute to subacute infarction within the right jamie trigonal white matter, with global cerebral volume loss, moderate chronic microangiopathy and chronic lacunar infarction within deep reynoso nuclei bilaterally and and left willis ? CT angiogram unable to obtain due to his underlying kidney disease LDL 47, total cholesterol 117, hold Lipitor, continue aspirin, good blood p ressure control Patient seen by Dr. Padron he recommend echocardiogram, carotid ultrasound and urine toxicology #? CHIOMA -? pre azotemia,? unknown baseline, creatinine improved from 2 to 1.66 will DC IV fluids, follow BMP -? follow BMP, avoid nephrotoxins # hypertension, elevated blood pressure on clonidine and lisinopril at home , will place on Norvasc and follow blood pressures # tobacco use disorder continue nicotine patch ?DVT prophylaxis:? Lovenox Patient will need continued inpatient stay due to acute CVA requiring further testing PT and OT eval. Time Spent With Patient Time: Total time managing care of this patient today ____ minutes. Quality Stroke Does the patient have a stroke diagnosis?: No VTE Prior VTE?: No VTE Risk Level:: Medical - low VTE Device Contraindication: Treatment Not Indicated VTE Drug Contraindication: Treatment Not Indicated
--- NOTE | 2022-12-25 15:07 | MHC.STROKE ---
Addendum entered by Beth Dennison RN 12/27/22 11:24: SEEN BY PSYCHIATRY FOR DEPRESSION, DRUG SCREEN RESULTS +FENTANYL AND +OPIATES, AT AROUND 1934 LAST EVENING, A RAPID RESPONSE WAS CALLED UNRESPONSIVE SEEN BY PROVIDER. CTH FOR STROKE DONE AT 2007, NO BLEED, BP PRIOR WAS 210/110. BS 130'S, DR. MOBLEY NOTIFIED AND MADE RECOMMENDATIONS. I DID [facility] WITH UPDATE THIS AM. Original Note: 12/24/22 1640 EMS PRE-NOTIFIED STROKE ALERT LEFT SIDED WEAKNESS ONSET 3-4 DAYS AGO. ARRIVED 1646. SEEN BY PROVIDER AT 1718 NIHSS = 2, OUT OF THE WINDOW FOR TPA-ALTEPLASE. CT HEAD DONE AT 1845. HE PASSED SWALLOW SCREEN PRIOR TO ANY PO. I MET WITH THE PATIENT TODAY AFTER HIS MRI, DR MOBLEY REVIEWED THE MRI, HE IS RECOMMENDING ECHO, CAROTID US AND DRUG SCREEN (HX OF IV DRUG USE, BUT HASN'T USED ANY DRUGS IN ORDER A YEAR). PATIENT SAID HE IS IN A GROUP LIVING SETTING IN [place] BUT HE IS IN THE PROCESS OF BEING EVICTED, HE HAS NOT TAKEN ANY OF HIS BP MEDS IN MONTHS. HE SAID SOMEONE STOLE HIS DISABILITY CHECKS. I DID RELAY ALL OF THIS INFORMATION TO KELIS THE MORTAR MAN. I PROVIDED STROKE EDUCATION, WE REVIEWED ALL ITEMS INCLUDING HIS INDIVIDUAL RISK FACTORS, PT IS RECOMMENDING ACUTE REHAB AND HE IS WILLING TO GO BUT IS CONCERNED ABOUT WHERE HE CAN GO AFTER THAT REHAB STAY. I EXPLAINED THE PLAN OF CARE, ADDITIONAL TESTS AND WHY. VTE PROPHYLAXIS RECOMMENDED TO DR MOSQUERA WELL DR MOBLEY'S RECOMMENDATIONS IN HIS ADDENDUM. WE TALKED ABOUT SMOKING CESSATION, USING THE NICOTINE PATCH. I REVIEWED THE PLAN OF CARE WITH OMAR TAMEZ. I WILL CONTINUE TO FOLLOW.
[2022-12-25] MEDS: Enoxaparin Sodium 40 MG/0.4 ML SYRINGE SUBCUT (15:16)
--- NOTE | 2022-12-25 15:20 | MHC.CM.PN ---
IMM DELIVERED CM MET WITH PT, LIVES AT [facility] IN AN APT, CONCERNED THAT HE IS GOING TO BE EVICTED FROM APT FOR NON PAYMENT. VERY EMOTIONAL. UNABLE TO TELL ME WHO TO CONTACT AT FACILITY TO ENSURE THEY ARE AWARE HE IS IN THE HOSPITAL. NO HCP OR NEXT OF KIN, NO CONTACTS. +COVID VAX X3. PCP DR. LEES IN [place]. DP: PT REC AR, REFERRALS SENT, PT HAS NO PREFERENCE. CM WILL CONT TO FOLLOW
[2022-12-25 16:00] VITALS: BP 170/99; PULSE 68; RESP 18; TEMP 37.1; O2SAT 100
[2022-12-25 18:18] LABS: Amphetamine Screen Urine Not Detected (Not Detect); Barbiturates, Urine Not Detected (Not Detect); Benzodiazepines Screen Urine Not Detected (Not Detect); Cannabinoid Screen Urine Not Detected (Not Detect); Cocaine Screen Urine Not Detected (Not Detect); Fentanyl, urine POSITIVE (Not Detect); Opiate Screen Urine POSITIVE (Not Detect); Phencyclidine Screen Urine Not Detected (Not Detect)
[2022-12-25 19:35] VITALS: BP 185/78; PULSE 69; RESP 17; TEMP 37.1; O2SAT 96
[2022-12-26] VITALS (8 sets, daily range): BP systolic 160–210; BP diastolic 63–110; PULSE 63–79; RESP 14–18; TEMP 36.4–37.1; O2SAT 98–100
--- NOTE | 2022-12-26 | ECG_ITS ---
Test Reason : CP Blood Pressure : / mmHG Vent. Rate : 071 BPM Atrial Rate : 071 BPM P-R Int : 162 ms QRS Dur : 088 ms QT Int : 444 ms P-R-T Axes : 076 -46 -62 degrees QTc Int : 482 ms Normal sinus rhythm Minimal voltage criteria for LVH, may be normal variant ( [place] product ) ST & T wave abnormality, consider inferior ischemia Abnormal ECG When compared with ECG of 26-DEC-2022 13:10, No significant change was found Referred By: Donnell Strong Electronically Signed By:BRAD CORBETT
--- NOTE | 2022-12-26 | ECG_ITS ---
Test Reason : bigeminy Blood Pressure : / mmHG Vent. Rate : 067 BPM Atrial Rate : 067 BPM P-R Int : 162 ms QRS Dur : 080 ms QT Int : 458 ms P-R-T Axes : 054 -49 -64 degrees QTc Int : 483 ms Normal sinus rhythm Left anterior fascicular block ST & T wave abnormality, consider inferior ischemia Abnormal ECG When compared with ECG of 24-DEC-2022 17:22, Premature ventricular complexes are no longer Present Referred By: Inge Dixon Electronically Signed By:BRAD CORBETT
--- NOTE | 2022-12-26 | EEG_ITS ---
This is a 16 channel EEG with an EKG lead. The patient is reported awake, drowsy, and sleeping during the tracing. Background EEG rhythm is low to medium amplitude fast with no obvious asymmetry or paroxysmal tendency. Photic stimulation does not produce any significant abnormality. Hyperventilation is not performed. Cardiac lead does not reveal any significant abnormality. IMPRESSION: Unremarkable EEG. MD ALBERTO Newton/BRANDEE / [id number]
--- NOTE | 2022-12-26 07:00 | CA_ITS ---
Transthoracic Echocardiogram Patient (Last, First, Middle): Dewey Antoine, Gender: Male Date of : 1955 Age: 67 Procedure Date: 12/26/2022 Procedure Type: Transthoracic [place]ogram [place] [facility] [place]: 167. cm Weight: 67.13 kg BSA: 1.76 m2 Heart Rate: 67 bpm BP: 164 / 88 mmHg Roll Setter: OLI Referring MD: Osei Zarco MD Symptoms: acute cva Study Quality: Good ECG Rhythm: Sinus Conclusions: - The left ventricular systolic function is normal. The calculated ejection fraction is 56% by biplane method. - No obvious valvular pathology seen on this study. Findings Left Ventricle Normal left ventricular cavity size. There is moderately increased left ventricular wall thickness. The left ventricular systolic function is normal. The calculated ejection fraction is 56% by biplane method. There is no evidence of regional wall motion abnormalities. Diastolic function is normal for age. Right Ventricle Mildly increased right ventricular cavity size. There is normal right ventricular systolic function. Atria Both atria are normal in size. Aortic Valve There is a normal trileaflet aortic valve. There is no aortic valve stenosis. There is no aortic valve regurgitation. Mitral Valve There is mild anterior mitral leaflet thickening. There is no mitral valve regurgitation. There is no mitral valve stenosis. Pulmonic Valve The pulmonic valve is likely normal. Tricuspid Valve Normal tricuspid valve structure. There is trace tricuspid valve regurgitation. There is no evidence of pulmonary hypertension. Great Vessels The asc aorta is normal in size. Venous The inferior vena cava is normal in size and collapses greater than 50% with inspiration. Pericardium/Pleural There is no evidence of pericardial effusion. Prior Study Comparison No prior study available for comparison. If clinically indicated, consider bubble study. Recommendations, Care & Conclusions No obvious valvular pathology seen on this study. Measurements 2D Linear Measurements IVSd: 1.30 0.6-0.9/0.6-1.0 cm LVIDd: 5.02 3.9-5.3/4.2-5.9 cm LVIDd Index: 2.85 2.4-3.2/2.2-3.1 cm/m2 LVIDs: 3.21 2.0-3.6 cm LVPWd: 1.22 0.7-1.1 cm LA Diam: 3.40 2.7-3.8/3.0-4.0 cm LAIDs Index: 1.93 1.5-2.3 cm/m2 LV Mass: 314.24 67-162/88-224 g LV Mass Index: 178.55 43-95/49-115 g/m2 LVOT Diam: 2.40 3.0+(-)1.3 cm 2D Systolic Function EF 4C: 52.10 >55% EF 2C: 60.70 >55% EF BiP: 56.30 >55% Mitral Valve MV Pk E: 0.68 MV PK A: 0.96 MV Decel Time: 247.00 E/A: 0.70 E'Lateral: 8.49 E'Medial: 6.31 E/E' Med: 10.80 E/E' Lat: 8.10 PHT: 72.00 MVA PHT: 3.06 Decel Sevier: 2.77 Aortic Valve AoV Pk Neptali: 1.53 AoV Mn Neptali: 0.95 AoV VTI: 0.29 AoV Pk Grad: 9.00 Aov Mn Grad: 4.00 ROSALEE Cont.VTI: 3.51 LVOT LVOT Pk Neptali: 1.34 LVOT Mn Neptali: 0.78 LVOT VTI: 0.22 LVOT Pk Grad: 7.00 LVOT Mn Grad: 3.00 LVOT Diam: 2.40 LVOT Area: 4.52 Diastolic Function MV Pk E: 0.68 MV Pk A: 0.96 E/A: 0.70 E'Medial: 6.31 E/E' Med: 10.80 E' Laterial: 8.49 E/E' Lat: 8.10 Right Ventricle TAPSE (mm): 32.50 TVS' Neptali: 16.10 Tricuspid Valve TR Pk Neptali: 1.69 TR Pk Grad: 11.00 RA Press: 3.00 RVSP: 14.00 Great Vessels Aorta Sinus of Valsalva: 3.40 2.0-3.5 cm Ao Asc: 2.60 2.1-3.4 cm Pulmonary Valve PV Pk Neptali: 1.13 Peak PV Grad: 5.00 Updated in Other Vendor System with Status of Final Jeyson Echevarria MD electronically signed on 12/26/2022 4:28:47 PM with status of Final
[2022-12-26 07:57] LABS: Anion Gap 11 (12-20); Blood Urea Nitrogen 25 mg/dL (9-16); Calcium 8.9 mg/dL (8.4-10.2); Carbon Dioxide 26 mmol/L (22-29); Chloride 109 mmol/L (96-108); Creatinine Clr Calc Pharmacy 59.8; Estimated Glomerular Filt Rate > 60; Glucose Random 105 mg/dL (60-115); Potassium 4.3 mmol/L (3.3-5.1); Sodium 142 mmol/L (135-145)
[2022-12-26] MEDS: Aspirin Enteric Coated 81 MG TABLET.DR PO (08:31)
[2022-12-26] MEDS: Nicotine 14 MG PATCH.TD24 TRANSDERMA (08:31)
[2022-12-26] MEDS: amLODIPine Besylate 5 MG TABLET PO (08:31)
--- NOTE | 2022-12-26 11:50 | PC.NURSE ---
Pt refusing bed alarm. pt agreed to keep Camera in room for safety. Stated that he will use call hathaway if he needs to ambulate, but that he did not want the bed alarm on.
--- NOTE | 2022-12-26 13:29 | HO.PM.IMPN ---
Subjective Subjective Date of Service: 12/26/22 Interval History: seen and examined this morning follow up for stroke initially responding, then had a period of not verbally answering questions although remained awake, lasting a minute or so and then began talking again reports feeling tired today, no other specific complaints. no chest pain, palpitations, shortness of breath Review of Systems Review of Systems: Yes all other systems are reviewed and are negative Constitutional Constitutional: Denies chills and Denies fever(s) Cardiovascular Cardiovascular: Denies chest pain, Denies palpitations and Denies dyspnea Respiratory Respiratory: Denies cough and Denies dyspnea Gastrointestinal Gastrointestinal: Denies abdominal pain Endocrine Endocrine: Denies palpitations Physical Exam Vital Signs: Vital Signs: Last Vital Signs Temp 98.6 F 12/26/22 11:16 Pulse 63 12/26/22 11:24 Resp 16 12/26/22 11:16 BP 163/79 H 12/26/22 11:24 Pulse Ox 100 12/26/22 11:24 O2 Del Method 12/26/22 11:16 BMI result Body Mass Index 24.0 Const: General: alert and awake Nutritional Appearance: average body habitus Resp: Effort & Inspection: normal respiratory effort and able to speak in complete sentences Cardio: Rate: regular rate Heart sounds: S1 normal heart sound present and S2 normal heart sound present GI: Inspection: No distended Palpation (GI): Soft to palpation Neuro: Other: awake, alert (except for episode as above) weakness LUE, left hand grasp weak; able to move all extremities spontaneously Extrem: General: Yes no pedal edema Objective Data Active Medications Acetaminophen (Acetaminophen 325 Mg Tablet) 650 mg PO Q6H PRN PRN Reason: Pain, Mild (Pain Scale 1-3) Last Admin: 12/24/22 23:39 Dose: 650 mg Documented By: STEVE Amlodipine Besylate (Amlodipine Besylate 5 Mg Tablet) 5 mg PO DAILY [facility]; Protocol Last Admin: 12/26/22 08:31 Dose: 5 mg Documented By: MILES Aspirin (Aspirin Enteric Coated 81 Mg Tablet.) 81 mg PO DAILY [facility] Last Admin: 12/26/22 08:31 Dose: 81 mg Documented By: MILES Docusate Sodium (Docusate Sodium 100 Mg Capsule) 100 mg PO DAILY PRN PRN Reason: Constipation Enoxaparin Sodium (Enoxaparin Sodium 40 Mg/0.4 Ml Syringe) 40 mg SUBCUT Q24H [facility] Last Admin: 12/25/22 15:16 Dose: 40 mg Documented By: MILES Nicotine (Nicotine 14 Mg Patch.Td24) 14 mg TRANSDERMA DAILY [facility] Last Admin: 12/26/22 08:31 Dose: 14 mg Documented By: MILES Ondansetron HCl (Ondansetron Hcl 4 Mg/2 Ml Vial) 4 mg IVPUSH Q8H PRN PRN Reason: Nausea and Vomiting Pharmacy Consult (Consult Rx Perform Med Rec) 1 each MISCELLANE ONCE PRN PRN Reason: Consult order Labs 12/25/22 06:31 12/26/22 07:02 Labs: Laboratory Results - last 24 hr 12/25/22 12/26/22 16:49 07:02 Anion Gap 11 L Estim Creat Clear Calc 59.8 Estimated GFR > 60 Random Glucose 105 Calcium 8.9 Urine Opiates Screen POSITIVE H Urine Fentanyl Screen POSITIVE H Ur Barbiturates Screen Not Detected Ur Phencyclidine Scrn Not Detected Ur Amphetamines Screen Not Detected U Benzodiazepines Scrn Not Detected Urine Cocaine Screen Not Detected U Marijuana (THC) Screen Not Detected Assessment and Plan (1) Cerebrovascular accident: Status: Acute (2) CHIOMA (acute kidney injury): Status: Acute Plan 67-year-old male with past medical history of hypertension comes into the hospital complaints of left-sided weakness of 2 days duration, did not qualify for tPA. acute CVA Persistent left-sided weakness, normal CT head MRI brain showed acute to subacute infarction within the right peritrigonal white matter, with global cerebral volume loss, moderate chronic microangiopathy and chronic lacunar infarction within deep reynoso nuclei bilaterally and and left willis CT angiogram unable to obtain due to his underlying kidney disease, carotid doppler with no hemodynamically significant stenosis LDL 47, total cholesterol 117, hold Lipitor, continue aspirin, good blood pressure control seen by neuro, recommend echocardiogram (pending), and urine toxicology - positive for opiates and fentanyl -pt unsure how this got in his system episode of decreased responsiveness this morning - discussed with neurology - no need to repeat brain CT, rec EEG, but no need to initiate seizure meds at this time seen by PT - rec acute rehab CHIOMA pre azotemia,? unknown baseline, creatinine improved from 2 to 1.11 with IVF follow BMP, avoid nephrotoxins consider resuming home dose of lisinopril in am hypertension elevated blood pressure on clonidine and lisinopril at home, have been on hold was started on Norvasc monitor bp closely abnormal EKG having bigeminy on monitor, EKG from day of admission reviewed, showing some twave inversions repeat EKG obtained, showing new t wave inversions echo pending for stroke protocol lytes checked and wnl will obtain cardiology consult tobacco use disorder NRT DVT prophylaxis:? Rita attending - dr. Owusu Patient will need continued inpatient stay due to acute CVA, work up for abnormal EKG and EEG Time Spent With Patient Time: Total time managing care of this patient today ____ minutes. Quality Stroke Does the patient have a stroke diagnosis?: No VTE Prior VTE?: No VTE Risk Level:: Medical - low VTE Device Contraindication: Treatment Not Indicated VTE Drug Contraindication: Treatment Not Indicated
[2022-12-26 13:35] LABS: Magnesium 2.2 mg/dL (1.6-2.6)
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
[2022-12-26] MEDS: Enoxaparin Sodium 40 MG/0.4 ML SYRINGE SUBCUT (17:38)
[2022-12-26 19:47] LABS: Glucose, Whole Blood 131 mg/dL (60-115)
--- NOTE | 2022-12-26 19:51 | PM.EVENT ---
Event Note Date of Service: 12/26/22 Event Note: a rapid was called on the pt for unresponsiveness. Pt had come back from the bathroom and became dyspneic and several minutes later became unresponsive, ultimately gaining responsiveness about 30 seconds later. during the rapid response evaluation, pt had several more similar episodes where he becomes unresponsive lasting about 30-45 seconds, then he gains consciousness. Pt is very anxious and scared. States that he can hear our voices but is unable to respond. Head CT for stroke was ordered which was negative for acute changes. Vitals showed elevated bp, all other vitals including O2 stable. Spoke to neurology likely seizure episodes will start him on Keppra for seizures Time Spent With Patient Time: Total time managing care of this patient today ____ minutes.
[2022-12-26 20:10] LABS: MANUAL DIFF FLAG NO
[2022-12-26 20:12] LABS: Basophils Percent Auto 0.3 % (0-2); Eosinophils Absolute Auto 0.1 X10*3/uL (0.0-0.4); Eosinophils Percent Auto 0.9 % (0-4); Hematocrit 39.9 % (42.0-52.0); Hemoglobin 13.3 g/dl (14.0-18.0); Imm Gran Abs Auto 0.02 X10*3/uL (0.00-0.03); Imm Gran Pct Auto 0.3 % (0.0-0.4); Lymphocytes Absolute Auto 1.5 X10*3/uL (1.2-4.9); Lymphocytes Percent Auto 25.1 % (20-40); Mean Corpuscular HGB Conc 33.3 g/dl (31.0-36.0); Mean Corpuscular Hemoglobin 29.4 pg (27.0-33.0); Mean Corpuscular Volume 88.3 fL (80.0-98.0); Mean Platelet Volume 9.9 fL (9.4-12.4); Monocytes Absolute Auto 0.5 X10*3/uL (0.1-1.2); Monocytes Percent Auto 8.3 % (2-11); Neutrophils Absolute Auto 3.8 x10*3/uL (2.0-8.3); Neutrophils Percent Auto 65.1 % (45-73); Platelet Count 239 X10*3/uL (160-400); Red Blood Count 4.52 X10*6/uL (4.60-5.80); White Blood Count 5.8 X10*3/uL (4.8-10.8)
[2022-12-26 20:19] LABS: Prothrombin Time 11.8 SEC (10.0-13.1)
[2022-12-26 20:26] LABS: Lactic Acid 1.9 mmol/L (0.5-2.0)
[2022-12-26 20:30] LABS: Alanine Aminotransferase 17 U/L (0-40); Alkaline Phosphatase 76 U/L (39-117); Anion Gap 16 (12-20); Aspartate Amino Transferase 16 U/L (5-37); Bilirubin Total 0.7 mg/dL (0.0-1.0); Blood Urea Nitrogen 25 mg/dL (9-16); Calcium 9.1 mg/dL (8.4-10.2); Carbon Dioxide 23 mmol/L (22-29); Chloride 107 mmol/L (96-108); Creatinine Clr Calc Pharmacy 59.3; Estimated Glomerular Filt Rate > 60; Glucose Random 131 mg/dL (60-115); Potassium 3.9 mmol/L (3.3-5.1); Sodium 142 mmol/L (135-145); Total Protein 6.8 g/dL (6.5-8.0)
[2022-12-26 20:37] LABS: Troponin-I High Sensitivity 20.7 ng/L (<3.5-35.0)
[2022-12-26 21:11] LABS: B Type Natriuretic Peptide 111 pg/mL (<100)
[2022-12-26] MEDS: LORazepam 2 MG/ML VIAL 0.5 MG IVPUSH ×2 (21:27→22:33)
[2022-12-26] MEDS: Labetalol HCL 100 MG/20 ML VIAL 10 MG IVPUSH (21:27)
[2022-12-26] MEDS: levETIRAcetam in NaCl (iso-os) 1,000 MG/100 ML PIGGYBACK 400 MG IV (21:39)
[2022-12-26 22:10] LABS: ABG Refer to POC result
[2022-12-26] MEDS: traZODone HCL 50 MG TABLET PO (22:10)
[2022-12-26 22:13] LABS: ABG Base Excess -0.3 mmol/L; ABG HCO3 22 mmol/L (22-26); ABG pCO2 30 mmHg (32-45); ABG pH 7.46 (7.35-7.45); ABG pO2 151 mmHg (83-108)
[2022-12-27] VITALS (7 sets, daily range): BP systolic 167–193; BP diastolic 80–106; PULSE 66–87; RESP 16–18; TEMP 36.5–37.2; O2SAT 97–100
[2022-12-27] MEDS: diphenhydrAMINE HCL 25 MG CAPSULE 50 MG PO (02:43)
--- NOTE | 2022-12-27 07:23 | PC.NURSE ---
193 Upon entering the room I found the patient to be having dyspnea on exertion , he was getting up fro the chair and became weak and dizzy he was appearing to black out, he then fell forward the BULL BUCKER and I secured him and moved him into bed, where he became unresponsive to sternal rub and name. MERCHANDISE TEAM MANAGER called , ordered EKG, BS taken , ativan IV push given , lebetolol given for BP 140/84 Pt then brought to CT, NIH scale of 3 reported to . referring patient to Neurologist.
[2022-12-27 08:40] LABS: Anion Gap 14 (12-20); Blood Urea Nitrogen 18 mg/dL (9-16); Carbon Dioxide 24 mmol/L (22-29); Chloride 110 mmol/L (96-108); Creatinine Clr Calc Pharmacy 71.4; Estimated Glomerular Filt Rate > 60; Folate 12.2 ng/mL (> or = 4.0); Glucose Random 108 mg/dL (60-115); Potassium 4.1 mmol/L (3.3-5.1); Sodium 144 mmol/L (135-145); Thyroid Stimulating Hormone 0.21 uIU/mL (0.32-4.0); Vitamin B12 532 pg/mL (200-900)
[2022-12-27] MEDS: amLODIPine Besylate 10 MG TABLET PO (09:29)
[2022-12-27] MEDS: Aspirin Enteric Coated 81 MG TABLET.DR PO (09:29)
[2022-12-27] MEDS: levETIRAcetam 500 MG TABLET PO ×2 (09:29→20:07)
[2022-12-27] MEDS: Nicotine 14 MG PATCH.TD24 TRANSDERMA (09:30)
--- NOTE | 2022-12-27 10:54 | P.CONCA_ITS ---
History of Present Illness History of Present Illness Date of Service: 12/27/22 Chief complaint: Depression Narrative: This is a cardiology consultation regarding EKG abnormalities. Patient has been admitted to the hospital with left-sided weakness. He has been diagnosed with acute stroke. In this context, EKG thought to be abnormal and hence we have been asked to see him. Patient himself denies any cardiac issues like coronary disease myocardial infarction or in fact any other cardiac issues in the past. He has a history of smoking. Also hypertension. He states he takes medications at baseline. Has had some random chest pains in the past but no clear-cut anginal-type symptoms. Review of Systems Review of Systems: Yes all other systems are reviewed and are negative Constitutional: Constitutional: Reports as per HPI and Reports no additional constitutional complaints Eyes: Eyes: Reports as per HPI and Denies no additional eye complaints ENT: Denies system reviewed and no additional complaints, except as documented and Reports as per HPI Cardiovascular: Cardiovascular: Reports as per HPI, Reports no additional cardiovascular complaints, Denies acrocyanosis, Denies cool extremities, Denies chest pain, Denies leg edema, Denies lightheadedness, Denies palpitations and Denies dyspnea Respiratory: Respiratory: Reports as per HPI, Denies no additional respiratory complaints and Denies dyspnea Gastrointestinal: Gastrointestinal: Reports as per HPI and Denies no additional gastrointestinal complaints Genitourinary: Genitourinary: Reports no additional male genitourinary complaints and Reports as per HPI Musculoskeletal: Musculoskeletal: Reports no additional musculoskeletal complaints and Reports as per HPI Integumentary/Breasts: Skin/Breast: Reports system reviewed and no additional complaints, except as docu Neurologic: Reports system reviewed and no additional complaints, except as d ocumented and Reports as per HPI Psychiatric: Psychiatric: Reports no additional psychiatric complaints and Reports as per HPI Endocrine: Endocrine: Reports no additional endocrine complaints, Reports as per HPI and Denies palpitations Hematologic/Lymphatic: Hematologic/Lymphatic: Reports no additional hematologic/lymphatic complaints and Reports as per HPI Allergic/Immunologic: Allergic/Immunologic: Reports no additional allergic/immunologic complaints and Reports as per HPI [facility] [place] Past Medical History Medical History (Updated 12/27/22 @ 10:59 by Jeyson Echevarria MD) No pertinent past medical history Recurrent major depression-severe Family History Family History Mother No problems noted. Father No problems noted. Surgical History Surgical History History of left hip replacement Social History Social History (Updated 12/25/22 @ 06:26 by Donnell Strong MD) Household Members: None Housing: Apartment Do you presently have visiting nurse or other home services: No Alcohol intake: current Patient Tobacco Use Status: Current everyday Tobacco user Cigarette Packs Per Day: 10 service: No Current occupational status: unemployed Meds Allergies Allergy/AdvReac Type Severity Reaction Status Date / Time fish derived [FISH] Allergy Unknown UNKNOWN Unverified 07/20/20 18:20 morphine [MORPHINE] Allergy Unknown UNKNOWN Unverified 07/20/20 18:20 cheese Allergy Anaphylaxis Uncoded 12/25/22 10:36 Active Medications: Current Medications Acetaminophen (Acetaminophen 325 Mg Tablet) 650 mg PO Q6H PRN PRN Reason: Pain, Mild (Pain Scale 1-3) Last Admin: 12/24/22 23:39 Dose: 650 mg Amlodipine Besylate (Amlodipine Besylate 10 Mg Tablet) 10 mg PO DAILY [facility]; Protocol Last Admin: 12/27/22 09:29 Dose: 10 mg Aspirin (Aspirin Enteric Coated 81 Mg Tablet.Dr) 81 mg PO DAILY [facility] Last Admin: 12/27/22 09:29 Dose: 81 mg Docusate Sodium (Docusate Sodium 100 Mg Capsule) 100 mg PO DAILY PRN PRN Reason: Constipation Enoxaparin Sodium (Enoxaparin Sodium 40 Mg/0.4 Ml Syringe) 40 mg SUBCUT Q24H [facility] Last Admin: 12/26/22 17:38 Dose: 40 mg Levetiracetam (Levetiracetam 500 Mg Tablet) 500 mg PO BID [facility] Last Admin: 12/27/22 09:29 Dose: 500 mg Nicotine (Nicotine 14 Mg Patch.Td24) 14 mg TRANSDERMA DAILY [facility] Last Admin: 12/27/22 09:30 Dose: 14 mg Ondansetron HCl (Ondansetron Hcl 4 Mg/2 Ml Vial) 4 mg IVPUSH Q8H PRN PRN Reason: Nausea and Vomiting Pharmacy Consult (Consult Rx Perform Med Rec) 1 each MISCELLANE ONCE PRN PRN Reason: Consult order Home Medications Medication Instructions Recorded Confirmed Last Taken Type clonidine HCl 0.1 mg tablet 0.2 mg PO BID 12/25/22 12/25/22 10/24/20 History lisinopril 10 mg tablet 1 tab PO DAILY 12/25/22 12/25/22 10/24/20 History Physical Exam Vital Signs: Vital Signs: Last Vital Signs Temp 98.6 F 12/27/22 07:03 Pulse 70 12/27/22 07:03 Resp 18 12/27/22 07:03 BP 179/101 H 12/27/22 07:03 Pulse Ox 97 12/27/22 07:03 O2 Del Method 12/27/22 07:03 BMI result Body Mass Index 24.0 Const: General: comfortable and no acute distress Orientation/consciousness: patient oriented x3 HEENT: Other: Unremarkable Head: Yes normal to inspection Neck: Neck: Yes normal visual inspection Chest: Chest palpation & inspection: normal inspection of the chest Resp: Auscultation: clear to auscultation bilaterally Cardio: Palpation: normal PMI Heart sounds: S1 normal heart sound present, S2 normal heart sound present, no gallops, no murmurs and no rubs GI: Palpation (GI): Soft to palpation Back/Spine/Pelvis: Other: unremarkable Skin: General skin exam: no rashes or lesions noted Neuro: General: patient oriented x3 Extrem: General: Yes normal to inspection Psych: Mental Status: mental status grossly normal Objective Labs and Meds 12/26/22 20:06 12/27/22 06:50 Lab results: Laboratory Results - last 24 hr 12/26/22 12/26/22 12/26/22 07:02 19:44 20:06 WBC 5.8 RBC 4.52 L Hgb 13.3 L Hct 39.9 L MCV 88.3 MCH 29.4 MCHC 33.3 RDW 13.0 Plt Count 239 MPV 9.9 Immature Gran % (Auto) 0.3 Neut % (Auto) 65.1 Lymph % (Auto) 25.1 Roberts % (Auto) 8.3 Eos % (Auto) 0.9 Baso % (Auto) 0.3 Lymph # (Auto) 1.5 Roberts # (Auto) 0.5 Eos # (Auto) 0.1 Baso # (Auto) 0.0 Abs Immat Gran (auto) 0.02 Absolute Neuts (auto) 3.8 Absolute Nucleated RBC 0.000 Nucleated RBC % (auto) 0.0 PT INR O2 Saturation ABG pH at Pt Temp ABG pCO2 at Pt Temp ABG pO2 at Pt Temp ABG HCO3 ABG Base Excess (Actual) Sodium Potassium Chloride Carbon Dioxide Anion Gap BUN Creatinine Estim Creat Clear Calc Estimated GFR POC Glucose 131 H Random Glucose Lactic Acid Calcium Magnesium 2.2 Total Bilirubin AST ALT Alkaline Phosphatase Troponin I High Sens B-Natriuretic Peptide Total Protein Albumin Vitamin B12 Folate [facility] 12/26/22 12/26/22 12/26/22 20:06 20:06 20:06 WBC RBC Hgb Hct MCV MCH MCHC RDW Plt Count MPV Immature Gran % (Auto) Neut % (Auto) Lymph % (Auto) Roberts % (Auto) Eos % (Auto) Baso % (Auto) Lymph # (Auto) Roberts # (Auto) Eos # (Auto) Baso # (Auto) Abs Immat Gran (auto) Absolute Neuts (auto) Absolute Nucleated RBC Nucleated RBC % (auto) PT INR O2 Saturation ABG pH at Pt Temp ABG pCO2 at Pt Temp ABG pO2 at Pt Temp ABG HCO3 ABG Base Excess (Actual) Sodium 142 Potassium 3.9 Chloride 107 Carbon Dioxide 23 Anion Gap 16 BUN 25 H Creatinine 1.12 Estim Creat Clear Calc 59.3 Estimated GFR > 60 POC Glucose Random Glucose 131 H Lactic Acid 1.9 Calcium 9.1 Magnesium Total Bilirubin 0.7 AST 16 ALT 17 Alkaline Phosphatase 76 Troponin I High Sens 20.7 B-Natriuretic Peptide Total Protein 6.8 Albumin 4.0 Vitamin B12 Folate [facility] 12/26/22 12/26/22 12/26/22 20:06 20:06 22:06 WBC RBC Hgb Hct MCV MCH MCHC RDW Plt Count MPV Immature Gran % (Auto) Neut % (Auto) Lymph % (Auto) Roberts % (Auto) Eos % (Auto) Baso % (Auto) Lymph # (Auto) Roberts # (Auto) Eos # (Auto) Baso # (Auto) Abs Immat Gran (auto) Absolute Neuts (auto) Absolute Nucleated RBC Nucleated RBC % (auto) PT 11.8 INR 1.0 O2 Saturation 99.0 ABG pH at Pt Temp 7.46 H ABG pCO2 at Pt Temp 30 L ABG pO2 at Pt Temp 151 H ABG HCO3 22 ABG Base Excess (Actual) -0.3 Sodium Potassium Chloride Carbon Dioxide Anion Gap BUN Creatinine Estim Creat Clear Calc Estimated GFR POC Glucose Random Glucose Lactic Acid Calcium Magnesium Total Bilirubin AST ALT Alkaline Phosphatase Troponin I High Sens B-Natriuretic Peptide 111 H Total Protein Albumin Vitamin B12 Folate TSH 12/27/22 06:50 WBC RBC Hgb Hct MCV MCH MCHC RDW Plt Count MPV Immature Gran % (Auto) Neut % (Auto) Lymph % (Auto) Roberts % (Auto) Eos % (Auto) Baso % (Auto) Lymph # (Auto) Roberts # (Auto) Eos # (Auto) Baso # (Auto) Abs Immat Gran (auto) Absolute Neuts (auto) Absolute Nucleated RBC Nucleated RBC % (auto) PT INR O2 Saturation ABG pH at Pt Temp ABG pCO2 at Pt Temp ABG pO2 at Pt Temp ABG HCO3 ABG Base Excess (Actual) Sodium 144 Potassium 4.1 Chloride 110 H Carbon Dioxide 24 Anion Gap 14 BUN 18 H Creatinine 0.93 Estim Creat Clear Calc 71.4 Estimated GFR > 60 POC Glucose Random Glucose 108 Lactic Acid Calcium 9.0 Magnesium Total Bilirubin AST ALT Alkaline Phosphatase Troponin I High Sens B-Natriuretic Peptide Total Protein Albumin Vitamin B12 532 Folate 12.2 TSH 0.21 L ECG Interpretation: EKG with sinus rhythm at 67/Min; inferior T inversions. Prior EKG of 2018, 2019 show these findings. Currently, but more prominent. Imaging Radiologist's impression: Impressions Head CT 12/26/22 20:13 IMPRESSION: No acute intracranial pathology. This critical result was discussed with Donnell Shaver at 2025 hours on 12/26/2022. It was ascertained that the content and urgency of the report was understood at the time of direct communication. Chest X-Ray 12/26/22 20:55 IMPRESSION: No acute pulmonary disease. Assessment and Plan (1) Cerebrovascular accident: Status: Acute (2) Abnormal EKG: Status: Acute (3) Uncontrolled hypertension: Status: Acute Plan High sensitivity troponins are 37.9 and 40.3. Most recently 20.7. Cardiac BNP is 111. Echocardiogram with LVEF of 56%. Moderate LVH. Otherwise unremarkable. He has had 2 stress tests in the past that I could find. 2018, fixed defect in the inferior segment with normal wall motion, thought to be artifactual. Another stress test in 2019, [facility] again mild fixed defect in the inferior wall thought to be artifactual. No ischemia. MRI brain does reveal acute infarct in the right side. Moderate chronic microangiopathy and chronic lacunar infarcts. Carotid Doppler does not show any significant stenosis. He probably has sequelae of poorly controlled hypertension. EKG changes seem fairly chronic. Based on the prior stress test, no ischemic findings. Overall, aggressive risk factor modification. Smoking cessation. Blood pressure management. Aspirin. Statins. LDL is reasonable even at baseline. Discussed with Inge Dixon. Time Spent With Patient Time: Total time managing care of this patient today 75 minutes. Procedures Date of Service Date of Service: 12/27/22
[2022-12-27] MEDS: lisinopriL 10 MG TABLET PO (11:26)
--- NOTE | 2022-12-27 13:05 | MHC.CM.PN ---
Per MD rounds no discharge today. Patient s/p CVA. Seizure activity overnight. Keppra ordered. Patient had a Rapid Response today. Pt sent to CT . DP Acute rehab via BLS.
--- NOTE | 2022-12-27 13:59 | HO.PM.IMPN ---
Subjective Subjective Date of Service: 12/27/22 Interval History: seen and examined this morning follow up for stroke had another episode of decreased mental status necessitating rapid response and was started on keppra for likely seizure denies chest pain, shortness of breath Review of Systems Review of Systems: Yes all other systems are reviewed and are negative Constitutional Constitutional: Denies chills and Denies fever(s) Cardiovascular Cardiovascular: Denies chest pain, Denies palpitations and Denies dyspnea Respiratory Respiratory: Denies cough and Denies dyspnea Gastrointestinal Gastrointestinal: Denies abdominal pain Endocrine Endocrine: Denies palpitations Physical Exam Vital Signs: Vital Signs: Last Vital Signs Temp 98.6 F 12/27/22 07:03 Pulse 70 12/27/22 07:03 Resp 18 12/27/22 07:03 BP 193/102 H 12/27/22 11:44 Pulse Ox 97 12/27/22 07:03 O2 Del Method 12/27/22 07:03 BMI result Body Mass Index 24.0 Const: General: alert and awake Nutritional Appearance: average body habitus Orientation/consciousness: patient oriented x3 Resp: Effort & Inspection: normal respiratory effort and able to speak in complete sentences Cardio: Rate: regular rate Heart sounds: S1 normal heart sound present and S2 normal heart sound present GI: Inspection: No distended Palpation (GI): Soft to palpation Neuro: Other: awake, alert, weakness LUE, left hand grasp; able to move all extremities spontaneously General: patient oriented x3 Extrem: General: Yes no pedal edema Objective Data Active Medications Acetaminophen (Acetaminophen 325 Mg Tablet) 650 mg PO Q6H PRN PRN Reason: Pain, Mild (Pain Scale 1-3) Last Admin: 12/24/22 23:39 Dose: 650 mg Documented By: STEVE Amlodipine Besylate (Amlodipine Besylate 10 Mg Tablet) 10 mg PO DAILY [facility]; Protocol Last Admin: 12/27/22 09:29 Dose: 10 mg Documented By: MIKAYLA Aspirin (Aspirin Enteric Coated 81 Mg Tablet.) 81 mg PO DAILY [facility] Last Admin: 12/27/22 09:29 Dose: 81 mg Documented By: MIKAYLA Docusate Sodium (Docusate Sodium 100 Mg Capsule) 100 mg PO DAILY PRN PRN Reason: Constipation Enoxaparin Sodium (Enoxaparin Sodium 40 Mg/0.4 Ml Syringe) 40 mg SUBCUT Q24H [facility] Last Admin: 12/26/22 17:38 Dose: 40 mg Documented By: MILES Levetiracetam (Levetiracetam 500 Mg Tablet) 500 mg PO BID [facility] Last Admin: 12/27/22 09:29 Dose: 500 mg Documented By: MIKAYLA Lisinopril (Lisinopril 10 Mg Tablet) 10 mg PO DAILY [facility]; Protocol Last Admin: 12/27/22 11:26 Dose: 10 mg Documented By: MIKAYLA Nicotine (Nicotine 14 Mg Patch.Td24) 14 mg TRANSDERMA DAILY [facility] Last Admin: 12/27/22 09:30 Dose: 14 mg Documented By: MIKAYLA Ondansetron HCl (Ondansetron Hcl 4 Mg/2 Ml Vial) 4 mg IVPUSH Q8H PRN PRN Reason: Nausea and Vomiting Pharmacy Consult (Consult Rx Perform Med Rec) 1 each MISCELLANE ONCE PRN PRN Reason: Consult order Labs 12/26/22 20:06 12/27/22 06:50 Labs: Laboratory Results - last 24 hr 12/26/22 12/26/22 12/26/22 19:44 20:06 20:06 MCV 88.3 MCH 29.4 MCHC 33.3 RDW 13.0 Plt Count 239 MPV 9.9 Immature Gran % (Auto) 0.3 Neut % (Auto) 65.1 Lymph % (Auto) 25.1 [place] % (Auto) 8.3 Eos % (Auto) 0.9 Baso % (Auto) 0.3 Lymph # (Auto) 1.5 [place] # (Auto) 0.5 Eos # (Auto) 0.1 Baso # (Auto) 0.0 Abs Immat Gran (auto) 0.02 Absolute Neuts (auto) 3.8 Absolute Nucleated RBC 0.000 Nucleated RBC % (auto) 0.0 PT INR O2 Saturation ABG pH at Pt Temp ABG pCO2 at Pt Temp ABG pO2 at Pt Temp ABG HCO3 ABG Base Excess (Actual) Anion Gap 16 Estim Creat Clear Calc 59.3 Estimated GFR > 60 POC Glucose 131 H Random Glucose 131 H Lactic Acid Calcium 9.1 Total Bilirubin 0.7 AST 16 ALT 17 Alkaline Phosphatase 76 Troponin I High Sens B-Natriuretic Peptide Total Protein 6.8 Albumin 4.0 Vitamin B12 Folate TSH 12/26/22 12/26/22 12/26/22 20:06 20:06 20:06 MCV MCH MCHC RDW Plt Count MPV Immature Gran % (Auto) Neut % (Auto) Lymph % (Auto) [place] % (Auto) Eos % (Auto) Baso % (Auto) Lymph # (Auto) [place] # (Auto) Eos # (Auto) Baso # (Auto) Abs Immat Gran (auto) Absolute Neuts (auto) Absolute Nucleated RBC Nucleated RBC % (auto) PT 11.8 INR 1.0 O2 Saturation ABG pH at Pt Temp ABG pCO2 at Pt Temp ABG pO2 at Pt Temp ABG HCO3 ABG Base Excess (Actual) Anion Gap Estim Creat Clear Calc Estimated GFR POC Glucose Random Glucose Lactic Acid 1.9 Calcium Total Bilirubin AST ALT Alkaline Phosphatase Troponin I High Sens 20.7 B-Natriuretic Peptide Total Protein Albumin Vitamin B12 Folate [facility] 12/26/22 12/26/22 12/27/22 20:06 22:06 06:50 MCV MCH MCHC RDW Plt Count MPV Immature Gran % (Auto) Neut % (Auto) Lymph % (Auto) [place] % (Auto) Eos % (Auto) Baso % (Auto) Lymph # (Auto) [place] # (Auto) Eos # (Auto) Baso # (Auto) Abs Immat Gran (auto) Absolute Neuts (auto) Absolute Nucleated RBC Nucleated RBC % (auto) PT INR O2 Saturation 99.0 ABG pH at Pt Temp 7.46 H ABG pCO2 at Pt Temp 30 L ABG pO2 at Pt Temp 151 H ABG HCO3 22 ABG Base Excess (Actual) -0.3 Anion Gap 14 Estim Creat Clear Calc 71.4 Estimated GFR > 60 POC Glucose Random Glucose 108 Lactic Acid Calcium 9.0 Total Bilirubin AST ALT Alkaline Phosphatase Troponin I High Sens B-Natriuretic Peptide 111 H Total Protein Albumin Vitamin B12 532 Folate 12.2 TSH 0.21 L Assessment and Plan (1) Uncontrolled hypertension: Status: Acute (2) Abnormal EKG: Status: Acute (3) Cerebrovascular accident: Status: Acute (4) CHIOMA (acute kidney injury): Status: Acute Plan 67-year-old male with past medical history of hypertension comes into the hospital complaints of left-sided weakness of 2 days duration, did not qualify for tPA. acute CVA Persistent left-sided weakness, normal CT head MRI brain showed acute to subacute infarction within the right peritrigonal white matter, with global cerebral volume loss, moderate chronic microangiopathy and chronic lacunar infarction within deep reynoso nuclei bilaterally and and left willis CT angiogram unable to obtain due to his underlying kidney disease, carotid doppler with no hemodynamically significant stenosis LDL 47, total cholesterol 117 continue aspirin, start statin seen by neuro, recommend echocardiogram (pending), and urine toxicology - positive for opiates and fentanyl -pt unsure how this got in his system episode of decreased responsiveness - repeat brain CT negative, started on keppra due to concern for seizure EEG obtained - unremarkable seen by PT - rec acute rehab CHIOMA pre azotemia,? unknown baseline, creatinine improved from 2 to 1.11 with IVF follow BMP, avoid nephrotoxins hypertension elevated blood pressure on clonidine and lisinopril at home, have been on hold was started on Norvasc, will increase dose to 10 mg will resume home dose of lisinopril monitor bp closely - if continues to be elevated cardiology rec to add coreg abnormal EKG having bigeminy on monitor, EKG from day of admission reviewed, showing some twave inversions repeat EKG obtained, showing new t wave inversions lytes checked and wnl echo wnl seen by cardiology - [place] [facility] [place] x2 in past no further cardiac work up indicated at this time tobacco use disorder smoking cessation advised NRT depression seen by psych did not want to start medication at this time DVT prophylaxis:? Rita attending - dr. Owsuu Patient will need continued inpatient stay due to acute CVA, work up for abnormal EKG and EEG Time Spent With Patient Time: Total time managing care of this patient today ____ minutes. Quality Stroke Does the patient have a stroke diagnosis?: No VTE Prior VTE?: No VTE Risk Level:: Medical - low VTE Device Contraindication: Treatment Not Indicated VTE Drug Contraindication: Treatment Not Indicated
[2022-12-27] MEDS: Enoxaparin Sodium 40 MG/0.4 ML SYRINGE SUBCUT (15:12)
[2022-12-27] MEDS: carvediloL 3.125 MG TABLET PO ×2 (15:22→20:07)
[2022-12-27] MEDS: Atorvastatin Calcium 40 MG TABLET PO (20:07)
[2022-12-28] MEDS: diphenhydrAMINE HCL 50 MG/ML VIAL 25 MG IVPUSH (01:57)
[2022-12-28] MEDS: levETIRAcetam 500 MG TABLET PO ×2 (09:27→23:30)
[2022-12-28] MEDS: carvediloL 3.125 MG TABLET PO ×2 (09:27→23:30)
[2022-12-28] MEDS: amLODIPine Besylate 10 MG TABLET PO (09:28)
[2022-12-28] MEDS: Aspirin Enteric Coated 81 MG TABLET.DR PO (09:28)
[2022-12-28] MEDS: lisinopriL 10 MG TABLET PO (09:28)
[2022-12-28 09:31] VITALS: BP 144/72; PULSE 78; RESP 20; TEMP 37.1; O2SAT 96
--- NOTE | 2022-12-28 09:53 | MHC.CM.PN ---
All 3 Acute Rehabs in this area are following Patient and all 3 have indicated that they will need to go for [facility] auth on Friday.YEHUDA has relayed this message to Naima. CM will update referrals on Friday and provide choice of accepting facilities as well. CM will follow.
--- NOTE | 2022-12-28 11:41 | PM.EVENT ---
Event Note Date of Service: 12/28/22 Event Note: Addiction consult placed for patient with CVA and +UDS (fentanyl) Attempted to meet with patient this morning, patient sleeping--opened eyes briefly and fell back to sleep. Will check back in Friday --no concern or risk for opiate withdrawal Time Spent With Patient Time: Total time managing care of this patient today ____ minutes.
--- NOTE | 2022-12-28 11:47 | HO.PM.IMPN ---
Subjective Subjective Date of Service: 12/28/22 Interval History: seen and examined this morning follow up for stroke, elevated blood pressure bp better this am still with right side weakness no further seizure episodes Review of Systems Review of Systems: Yes all other systems are reviewed and are negative Constitutional Constitutional: Denies chills and Denies fever(s) Cardiovascular Cardiovascular: Denies chest pain, Denies palpitations and Denies dyspnea Respiratory Respiratory: Denies cough and Denies dyspnea Gastrointestinal Gastrointestinal: Denies abdominal pain, Denies nausea and Denies vomiting Endocrine Endocrine: Denies palpitations Physical Exam Vital Signs: Vital Signs: Last Vital Signs Temp 98.7 F 12/28/22 09:31 Pulse 78 12/28/22 09:31 Resp 20 12/28/22 09:31 BP 144/72 H 12/28/22 09:31 Pulse Ox 96 12/28/22 09:31 O2 Del Method 12/28/22 09:31 BMI result Body Mass Index 24.0 Const: General: comfortable, no acute distress, alert and awake Nutritional Appearance: average body habitus Orientation/consciousness: patient oriented x3 Resp: Effort & Inspection: normal respiratory effort and able to speak in complete sentences Cardio: Rate: regular rate Heart sounds: S1 normal heart sound present and S2 normal heart sound present GI: Inspection: No distended Palpation (GI): Soft to palpation Neuro: Other: awake, alert, weakness LUE, left hand grasp; able to move all extremities spontaneously General: patient oriented x3 Extrem: General: Yes no pedal edema Objective Data Active Medications Acetaminophen (Acetaminophen 325 Mg Tablet) 650 mg PO Q6H PRN PRN Reason: Pain, Mild (Pain Scale 1-3) Last Admin: 12/24/22 23:39 Dose: 650 mg Documented By: STEVE Amlodipine Besylate (Amlodipine Besylate 10 Mg Tablet) 10 mg PO DAILY [facility]; Protocol Last Admin: 12/28/22 09:28 Dose: 10 mg Documented By: MICKI Aspirin (Aspirin Enteric Coated 81 Mg Tablet.) 81 mg PO DAILY [facility] Last Admin: 12/28/22 09:28 Dose: 81 mg Documented By: MICKI Atorvastatin Calcium (Atorvastatin Calcium 40 Mg Tablet) 40 mg PO BEDTIME [facility] Last Admin: 12/27/22 20:07 Dose: 40 mg Documented By: JOY Carvedilol (Carvedilol 3.125 Mg Tablet) 3.125 mg PO BID [facility]; Protocol Last Admin: 12/28/22 09:27 Dose: 3.125 mg Documented By: MICKI Docusate Sodium (Docusate Sodium 100 Mg Capsule) 100 mg PO DAILY PRN PRN Reason: Constipation Enoxaparin Sodium (Enoxaparin Sodium 40 Mg/0.4 Ml Syringe) 40 mg SUBCUT Q24H [facility] Last Admin: 12/27/22 15:12 Dose: 40 mg Documented By: MIKAYLA Levetiracetam (Levetiracetam 500 Mg Tablet) 500 mg PO BID [facility] Last Admin: 12/28/22 09:27 Dose: 500 mg Documented By: MICKI Lisinopril (Lisinopril 10 Mg Tablet) 10 mg PO DAILY [facility]; Protocol Last Admin: 12/28/22 09:28 Dose: 10 mg Documented By: MICKI Nicotine (Nicotine 14 Mg Patch.Td24) 14 mg TRANSDERMA DAILY [facility] Last Admin: 12/28/22 09:29 Dose: Not Given Documented By: MICKI Non-Admin Reason: Patient Refused Ondansetron HCl (Ondansetron Hcl 4 Mg/2 Ml Vial) 4 mg IVPUSH Q8H PRN PRN Reason: Nausea and Vomiting Pharmacy Consult (Consult Rx Perform Med Rec) 1 each MISCELLANE ONCE PRN PRN Reason: Consult order Trazodone HCl (Trazodone Hcl 25 Mg Halftab) 25 mg PO BEDTIME MRX1 PRN PRN Reason: Sleep Labs 12/26/22 20:06 12/27/22 06:50 Assessment and Plan (1) Cerebrovascular accident: Status: Acute (2) Seizure: Status: Acute Plan 67-year-old male with past medical history of hypertension comes into the hospital complaints of left-sided weakness of 2 days duration, did not qualify for tPA. acute CVA Persistent left-sided weakness, normal CT head MRI brain showed acute to subacute infarction within the right peritrigonal white matter, with global cerebral volume loss, moderate chronic microangiopathy and chronic lacunar infarction within deep reynoso nuclei bilaterally and and left willis CT angiogram unable to obtain due to his underlying kidney disease, carotid doppler with no hemodynamically significant stenosis LDL 47, total cholesterol 117 continue aspirin, start statin seen by neuro, recommend echocardiogram (pending), and urine toxicology - positive for opiates and fentanyl -pt unsure how this got in his system episode of decreased responsiveness - repeat brain CT negative, started on keppra due to concern for seizure EEG obtained - unremarkable seen by PT - rec acute rehab seizure. no further episodes continue keppra as above EEG unremarkable [facility] pre azotemia,? unknown baseline, creatinine improved with IVF follow BMP, avoid nephrotoxins hypertension, bp improving elevated blood pressure on clonidine and lisinopril at home, have been on hold was started on Norvasc, will increase dose to 10 mg will resume home dose of lisinopril coreg added abnormal EKG having bigeminy on monitor, EKG from day of admission reviewed, showing some twave inversions repeat EKG obtained, showing new t wave inversions lytes checked and wnl echo wnl seen by cardiology - EKG similar to records from [facility] [place], stress test negative x2 in past no further cardiac work up indicated at this time tobacco use disorder smoking cessation advised NRT depression seen by psych - does not want to start medication at this time +tox screen patient denies using drugs addiction med consult pending DVT prophylaxis:? Rita attending - dr. Rios dispo - Acute rehab Friday, needs insurance auth Patient will need continued inpatient stay due to acute CVA, placement in acute rehab Time Spent With Patient Time: Total time managing care of this patient today ____ minutes. Quality Stroke Does the patient have a stroke diagnosis?: No VTE Prior VTE?: No VTE Risk Level:: Medical - low VTE Device Contraindication: Treatment Not Indicated VTE Drug Contraindication: Treatment Not Indicated
[2022-12-28 11:59] VITALS: BP 162/94; PULSE 67; RESP 20; TEMP 36.8; O2SAT 99
[2022-12-28] MEDS: Enoxaparin Sodium 40 MG/0.4 ML SYRINGE SUBCUT (14:54)
[2022-12-28 15:33] VITALS: BP 163/100; PULSE 76; RESP 20; TEMP 37.2; O2SAT 97
[2022-12-28 19:20] VITALS: PULSE 84; RESP 20; TEMP 37.3; O2SAT 96
[2022-12-28 23:10] VITALS: BP 156/70; PULSE 80; RESP 20; TEMP 37.3; O2SAT 98
[2022-12-28] MEDS: Atorvastatin Calcium 40 MG TABLET PO (23:30)
[2022-12-29 09:22] VITALS: BP 182/90; PULSE 78; RESP 20; TEMP 36.3; O2SAT 98
[2022-12-29] MEDS: lisinopriL 10 MG TABLET PO (09:43)
[2022-12-29] MEDS: carvediloL 3.125 MG TABLET PO (09:43)
[2022-12-29] MEDS: levETIRAcetam 500 MG TABLET PO ×2 (09:43→20:04)
[2022-12-29] MEDS: amLODIPine Besylate 10 MG TABLET PO (09:43)
[2022-12-29] MEDS: Aspirin Enteric Coated 81 MG TABLET.DR PO (09:43)
[2022-12-29 12:46] VITALS: BP 180/90; PULSE 72; RESP 20; TEMP 37.1; O2SAT 98
--- NOTE | 2022-12-29 15:00 | P.PNIM_ITS ---
Subjective Subjective Date of Service: 12/29/22 Interval History: seen and examined this morning follow up for stroke, seizure having weakness when walking to the bathroom still with left side weakness, especially left arm had an episode of diarrhea this morning Review of Systems Review of Systems: Yes all other systems are reviewed and are negative Constitutional Constitutional: Denies chills and Denies fever(s) ENT Ears, Nose, Mouth, and Throat: Denies dizziness Cardiovascular Cardiovascular: Denies chest pain, Denies palpitations and Denies dyspnea Respiratory Respiratory: Denies cough and Denies dyspnea Gastrointestinal Gastrointestinal: Denies abdominal pain Neurologic Neurologic: Denies dizziness Endocrine Endocrine: Denies palpitations Physical Exam Vital Signs: Vital Signs: Last Vital Signs Temp 98.7 F 12/29/22 12:46 Pulse 72 12/29/22 12:46 Resp 20 12/29/22 12:46 BP 180/90 H 12/29/22 12:46 Pulse Ox 98 12/29/22 12:46 O2 Del Method 12/29/22 12:46 BMI result Body Mass Index 24.0 Const: General: comfortable, no acute distress, alert and awake Nutritional Appearance: average body habitus Orientation/consciousness: patient oriented x3 Resp: Effort & Inspection: normal respiratory effort and able to speak in complete sentences Cardio: Rate: regular rate Heart sounds: S1 normal heart sound present and S2 normal heart sound present GI: Inspection: No distended Palpation (GI): Soft to palpation Neuro: Other: awake, alert, weakness LUE, left hand grasp; able to move all extremities spontaneously General: patient oriented x3 Extrem: General: Yes no pedal edema Objective Data Active Medications Acetaminophen (Acetaminophen 325 Mg Tablet) 650 mg PO Q6H PRN PRN Reason: Pain, Mild (Pain Scale 1-3) Last Admin: 12/24/22 23:39 Dose: 650 mg Documented By: STEVE Amlodipine Besylate (Amlodipine Besylate 10 Mg Tablet) 10 mg PO DAILY [facility]; Protocol Last Admin: 12/29/22 09:43 Dose: 10 mg Documented By: ALEC Aspirin (Aspirin Enteric Coated 81 Mg Tablet.) 81 mg PO DAILY [facility] Last Admin: 12/29/22 09:43 Dose: 81 mg Documented By: ALEC Atorvastatin Calcium (Atorvastatin Calcium 40 Mg Tablet) 40 mg PO BEDTIME [facility] Last Admin: 12/28/22 23:30 Dose: 40 mg Documented By: BERENICE Carvedilol (Carvedilol 3.125 Mg Tablet) 3.125 mg PO BID [facility]; Protocol Last Admin: 12/29/22 09:43 Dose: 3.125 mg Documented By: ALEC Docusate Sodium (Docusate Sodium 100 Mg Capsule) 100 mg PO DAILY PRN PRN Reason: Constipation Enoxaparin Sodium (Enoxaparin Sodium 40 Mg/0.4 Ml Syringe) 40 mg SUBCUT Q24H [facility] Last Admin: 12/28/22 14:54 Dose: 40 mg Documented By: MICKI Levetiracetam (Levetiracetam 500 Mg Tablet) 500 mg PO BID [facility] Last Admin: 12/29/22 09:43 Dose: 500 mg Documented By: ALEC Lisinopril (Lisinopril 10 Mg Tablet) 10 mg PO DAILY [facility]; Protocol Last Admin: 12/29/22 09:43 Dose: 10 mg Documented By: ALEC Nicotine (Nicotine 14 Mg Patch.Td24) 14 mg TRANSDERMA DAILY [facility] Last Admin: 12/29/22 09:44 Dose: Not Given Documented By: ALEC Non-Admin Reason: Patient Refused Ondansetron HCl (Ondansetron Hcl 4 Mg/2 Ml Vial) 4 mg IVPUSH Q8H PRN PRN Reason: Nausea and Vomiting Pharmacy Consult (Consult Rx Perform Med Rec) 1 each MISCELLANE ONCE PRN PRN Reason: Consult order Trazodone HCl (Trazodone Hcl 25 Mg Halftab) 25 mg PO BEDTIME MRX1 PRN PRN Reason: Sleep Labs 12/26/22 20:06 12/27/22 06:50 Assessment and Plan (1) Seizure: Status: Acute (2) Uncontrolled hypertension: Status: Acute (3) Cerebrovascular accident: Status: Acute Plan 67-year-old male with past medical history of hypertension comes into the hospital complaints of left-sided weakness of 2 days duration, did not qualify for tPA. acute CVA Persistent left-sided weakness, normal CT head MRI brain showed acute to subacute infarction within the right peritrigonal white matter, with global cerebral volume loss, moderate chronic microangiopathy and chronic lacunar infarction within deep reynoso nuclei bilaterally and and left willis CT angiogram unable to obtain due to his underlying kidney disease, carotid doppler with no hemodynamically significant stenosis LDL 47, total cholesterol 117 continue aspirin, start statin seen by neuro, recommend echocardiogram (pending), and urine toxicology - positive for opiates and fentanyl -pt unsure how this got in his system episode of decreased responsiveness - repeat brain CT negative, started on keppra due to concern for seizure EEG obtained - unremarkable seen by PT - rec acute rehab seizure. no further episodes continue keppra as above EEG unremarkable [facility] pre azotemia,? unknown baseline, creatinine improved with IVF follow BMP, avoid nephrotoxins hypertension, bp improving elevated blood pressure on clonidine and lisinopril at home, have been on hold was started on Norvasc, will increase dose to 10 mg will resume home dose of lisinopril coreg added, will increase to 6.25 abnormal EKG having bigeminy on monitor, EKG from day of admission reviewed, showing some twave inversions repeat EKG obtained, showing new t wave inversions lytes checked and wnl echo wnl seen by cardiology - [place] [facility] test negative x2 in past no further cardiac work up indicated at this time tobacco use disorder smoking cessation advised NRT depression seen by psych - does not want to start medication at this time +tox screen patient denies using drugs addiction med consult pending DVT prophylaxis:? Rita attending - dr. Strong dispo - Acute rehab Friday, needs insurance auth Patient will need continued inpatient stay due to acute CVA, placement in acute rehab Time Spent With Patient Time: Total time managing care of this patient today ____ minutes. Quality Stroke Does the patient have a stroke diagnosis?: No VTE Prior VTE?: No VTE Risk Level:: Medical - low VTE Device Contraindication: Treatment Not Indicated VTE Drug Contraindication: Treatment Not Indicated
[2022-12-29] MEDS: Enoxaparin Sodium 40 MG/0.4 ML SYRINGE SUBCUT (15:04)
[2022-12-29 15:18] VITALS: BP 170/92; PULSE 80; RESP 20; TEMP 37.3; O2SAT 94
[2022-12-29 19:13] VITALS: BP 182/97; PULSE 79; RESP 20; TEMP 37.1; O2SAT 96
[2022-12-29] MEDS: Atorvastatin Calcium 40 MG TABLET PO (20:03)
[2022-12-29] MEDS: carvediloL 3.125 MG TABLET 6.25 MG PO (20:04)
[2022-12-29] MEDS: diphenhydrAMINE HCL 50 MG/ML VIAL 25 MG IM (22:25)
[2022-12-30 00:31] VITALS: BP 186/98; PULSE 78; RESP 20; TEMP 37.2; O2SAT 97
[2022-12-30 00:45] VITALS: BP 174/100
[2022-12-30 08:00] VITALS: BP 150/85; PULSE 75; RESP 18; TEMP 36.9; O2SAT 98
[2022-12-30 08:30] VITALS: BP 159/87; PULSE 76; O2SAT 96
[2022-12-30] MEDS: levETIRAcetam 500 MG TABLET PO (08:56)
[2022-12-30] MEDS: Aspirin Enteric Coated 81 MG TABLET.DR PO (08:57)
[2022-12-30] MEDS: amLODIPine Besylate 10 MG TABLET PO (09:01)
[2022-12-30] MEDS: carvediloL 3.125 MG TABLET 6.25 MG PO (09:01)
[2022-12-30] MEDS: lisinopriL 5 MG TABLET 15 MG PO (09:02)
--- NOTE | 2022-12-30 10:57 | PM.DS ---
DS: Providers Provider Date of Service: 12/30/22 Date of admission: 12/24/22 22:26 Primary care physician: Ysabel Beaulieu MD Consults: 12/24/22 22:26 Consult to Neurology Routine Consulting Provider: [facility] Reason for consultation: CVA Has provider been notified: No 12/26/22 13:28 Consult to Psychiatry Routine Consulting Provider: Psych Covering Reason for consultation: depression; not on meds Has provider been notified: No 12/26/22 13:29 Consult to Cardiology Routine Consulting Provider: Jeyson Echevarria Reason for consultation: ischemic EKG changes; admitted for stroke Has provider been notified: No 12/27/22 11:41 Addiction Medicine Routine Consulting Provider: Addiction Covering Reason for consultation: stroke; tox +for opiates/fentanyl Has provider been notified: No 12/30/22 09:30 Consult to Psychiatry Routine Consulting Provider: Psych Covering Reason for consultation: severe depression after stroke Has provider been notified: No Attending physician on discharge: John Owusu Discharging clinician: Beth Nina DS: Diagnosis Discharge Diagnosis (1) Seizure: Status: Acute (2) Uncontrolled hypertension: Status: Acute (3) Cerebrovascular accident: Status: Acute DS: Summary Hospital Course Hospital Course: History and physical as per admitting provider 67-year-old male who denies any past medical history presents to the hospital with complaints of left-sided weakness.? Patient reports weakness started about 3 days ago, has remained the same, weakness is related to the upper and lower extremity.? Denies any speech change, no facial droop, no change in vision, no headache.? Patient denies any right-sided weakness numbness or tingling.? He reports no recent head injury.? Denies any chest pain, no shortness of breath, no abdominal pain nausea or vomiting, no diarrhea constipation, no urinary symptoms and no lower extremity edema. On arrival to the ED patient hemodynamically stable with no significant abnormal vitals?labs reviewed showed a creatinine of 2.07 with a BUN of 25, with no previous for comparison, labs otherwise unremarkable, has a troponin of 37.9 with a repeat of 40.3, patient denies any chest pain head CT without Ki be contrast shows no acute intracranial abnormality . Acute CVA. Persistent left-sided weakness but able to lift left upper and lower extremities at this point. MRI brain showed acute to subacute infarction within the right peritrigonal white matter, with global cerebral volume loss, moderate chronic microangiopathy and chronic lacunar infarction within deep reynoso nuclei bilaterally and and left willis . carotid doppler with no hemodynamically significant stenosis . LDL 47, total cholesterol 117. Continue aspirin and statin. Seen and evaluated by Physical therapy with recommendation for acute rehab. seizure. no further episodes. Unremarkable EEG. Continue Keppra. Follow-up with outpatient Neurology if needed [facility] . Pre azotemia. Creatinine improved with IV fluids hypertension, bp improving. Lisinopril increased to 15 mg daily, Norvasc increased to 10 mg daily, Coreg 6.25 mg twice daily. Will need to continue titrating medication side on outpatient basis. abnormal EKG. Noted bigeminy on telemetry monitoring with some new T-wave inversions on EKG. Electrolytes within normal limits as well as echocardiogram not showing any cardiomyopathy or other abnormalities. Seen and evaluated by Cardiology had a similar EKG had [facility] with negative stress test in the past. No further cardiac workup indicated. tobacco use disorder. Discussed importance of smoking cessation. NRT offered Depression. seen by psych - does not want to start medication at this time , but would benefit from them as he is pretty depressed after this stroke. +tox screen. patient denies using drugs. Time Spent with Patient Time attestation: Total time managing care of this patient today ____ minutes. Discharge coordination time: Greater than 30 minutes Quality: Safe Use of Opioids Does Pt have an Active Cancer Diagnosis on the Problem List?: No Quality: Stroke Does the patient have a stroke diagnosis?: No Physical Exam Vital Signs: Vital Signs: Last Vital Signs Temp 98.5 F 12/30/22 08:00 Pulse 76 12/30/22 08:30 Resp 18 12/30/22 08:00 BP 159/87 H 12/30/22 08:30 Pulse Ox 96 12/30/22 08:30 O2 Del Method 12/30/22 08:30 BMI result Body Mass Index 24.0 Appearing in no acute distress head is normocephalic atraumatic eyes pupils are PERRLA sclera is anicteric mouth throat mucous membranes are intact and moist neck is supple no lymphadenopathy, no JVD noted lung sounds are clear to auscultation heart regular rate rhythm, clear S1, S2 positive bowel sounds, abdomen is soft, nontender neuro patient is alert x3, no focal deficits, left upper and lower extremity 2/5 strength, right upper and lower extremity 5/5 strength Discharge Plan Discharge Anticipated Discharge Date/Time: 12/30/22 11:04 Patient Disposition: Xfer Inpatient Rehab Fac Discharge Diagnosis: acute stroke seizure [facility] Referrals: Ysabel Beaulieu MD [Primary Care Provider] - 1 Week Cesar Padron MD [Physician] - 1 Month Discharge Medications: New levetiracetam 500 mg Tablet 500 mg PO BID 30 Days Qty: 60 0RF amlodipine 10 mg Tablet 10 mg PO DAILY 30 Days Qty: 30 0RF Protocol: Hold for SBP< HOLD for SBP < : 90 atorvastatin 40 mg Tablet 40 mg PO BEDTIME 30 Days Qty: 30 0RF aspirin 81 mg Tablet,Delayed Release (Dr/Ec) 81 mg PO DAILY 30 Days Qty: 30 0RF nicotine 14 mg/24 hr Patch 24 Hour 14 mg transdermal DAILY Qty: 7 0RF carvedilol 3.125 mg Tablet 6.25 mg PO BID 30 Days Qty: 120 0RF Protocol: Hold for SBP/HR < HOLD for SBP < : 90 HOLD for HR < : 60 Changed lisinopril 10 mg tablet 15 mg PO DAILY Qty: 45 0RF Discontinued clonidine HCl 0.1 mg tablet 0.2 mg PO BID Diet: Advance to usual diet Activity on Discharge: As tolerated Stand Alone Forms: Patient Portal Discharge page Care Plan Goals: Improving in left side weakness, blood pressure Health Concerns: acute stroke seizures uncontrolled blood pressure [facility] Plan of Treatment: you have been started on amlodipine and Coreg for blood pressure control your lisinopril dose was increased to 15 mg daily Stop taking clonidine for stroke start taking Liptor and baby aspirin for seizures start taking Keppra as prescribed no driving for 6 months outpatient follow up with neurology Assessment: acute stroke and seizure with persistent left side weakness
[2022-12-30 11:41] LABS: COVID-19 Test Negative (Negative); IDNOW Serial# 16C4AD1C
--- NOTE | 2022-12-30 11:51 | HO.PM.IMPN ---
Subjective Subjective Date of Service: 12/30/22 Interval History: seen and examined this morning follow up for stroke, seizure having weakness when walking to the bathroom still with left side weakness, especially left arm had an episode of diarrhea this morning Review of Systems Review of Systems: Yes all other systems are reviewed and are negative Constitutional Constitutional: Denies chills and Denies fever(s) ENT Ears, Nose, Mouth, and Throat: Denies dizziness Cardiovascular Cardiovascular: Denies chest pain, Denies palpitations and Denies dyspnea Respiratory Respiratory: Denies cough and Denies dyspnea Gastrointestinal Gastrointestinal: Denies abdominal pain Neurologic Neurologic: Denies dizziness Endocrine Endocrine: Denies palpitations Physical Exam Vital Signs: Vital Signs: Last Vital Signs Temp 98.5 F 12/30/22 08:00 Pulse 76 12/30/22 08:30 Resp 18 12/30/22 08:00 BP 159/87 H 12/30/22 08:30 Pulse Ox 96 12/30/22 08:30 O2 Del Method 12/30/22 08:30 BMI result Body Mass Index 24.0 Appearing in no acute distress lung sounds are clear to auscultation heart regular rate rhythm, clear S1, S2 positive bowel sounds, abdomen is soft, nontender neuro patient is alert x3, Left upper and lower ext weakness 2/5 Objective Data Active Medications Acetaminophen (Acetaminophen 325 Mg Tablet) 650 mg PO Q6H PRN PRN Reason: Pain, Mild (Pain Scale 1-3) Last Admin: 12/24/22 23:39 Dose: 650 mg Documented By: STEVE Amlodipine Besylate (Amlodipine Besylate 10 Mg Tablet) 10 mg PO DAILY [facility]; Protocol Last Admin: 12/30/22 09:01 Dose: 10 mg Documented By: SARA Aspirin (Aspirin Enteric Coated 81 Mg Tablet.) 81 mg PO DAILY [facility] Last Admin: 12/30/22 08:57 Dose: 81 mg Documented By: SARA Atorvastatin Calcium (Atorvastatin Calcium 40 Mg Tablet) 40 mg PO BEDTIME [facility] Last Admin: 12/29/22 20:03 Dose: 40 mg Documented By: DAMON Carvedilol (Carvedilol 3.125 Mg Tablet) 6.25 mg PO BID [facility]; Protocol Last Admin: 12/30/22 09:01 Dose: 6.25 mg Documented By: SARA Docusate Sodium (Docusate Sodium 100 Mg Capsule) 100 mg PO DAILY PRN PRN Reason: Constipation Enoxaparin Sodium (Enoxaparin Sodium 40 Mg/0.4 Ml Syringe) 40 mg SUBCUT Q24H [facility] Last Admin: 12/29/22 15:04 Dose: 40 mg Documented By: ALEC Levetiracetam (Levetiracetam 500 Mg Tablet) 500 mg PO BID [facility] Last Admin: 12/30/22 08:56 Dose: 500 mg Documented By: SARA Lisinopril (Lisinopril 5 Mg Tablet) 15 mg PO DAILY [facility]; Protocol Last Admin: 12/30/22 09:02 Dose: 15 mg Documented By: SARA Nicotine (Nicotine 14 Mg Patch.Td24) 14 mg TRANSDERMA DAILY [facility] Last Admin: 12/30/22 09:03 Dose: Not Given Documented By: SARA Non-Admin Reason: Patient Refused Ondansetron HCl (Ondansetron Hcl 4 Mg/2 Ml Vial) 4 mg IVPUSH Q8H PRN PRN Reason: Nausea and Vomiting Pharmacy Consult (Consult Rx Perform Med Rec) 1 each MISCELLANE ONCE PRN PRN Reason: Consult order Trazodone HCl (Trazodone Hcl 25 Mg Halftab) 25 mg PO BEDTIME MRX1 PRN PRN Reason: Sleep Labs 12/26/22 20:06 12/27/22 06:50 Labs: Laboratory Results - last 24 hr 12/30/22 11:00 COVID-19 ([facility]) Negative COVID-19 Clin Com See Note Assessment and Plan (1) Seizure: Status: Acute (2) Uncontrolled hypertension: Status: Acute (3) Cerebrovascular accident: Status: Acute Plan 67-year-old male with past medical history of hypertension comes into the hospital complaints of left-sided weakness of 2 days duration, did not qualify for tPA. acute CVA Persistent left-sided weakness, normal CT head MRI brain showed acute to subacute infarction within the right peritrigonal white matter, with global cerebral volume loss, moderate chronic microangiopathy and chronic lacunar infarction within deep reynoso nuclei bilaterally and and left willis CT angiogram unable to obtain due to his underlying kidney disease, carotid doppler with no hemodynamically significant stenosis LDL 47, total cholesterol 117 continue aspirin, start statin seen by neuro, recommend echocardiogram (pending), and urine toxicology - positive for opiates and fentanyl -pt unsure how this got in his system episode of decreased responsiveness - repeat brain CT negative, started on keppra due to concern for seizure EEG obtained - unremarkable seen by PT - rec acute rehab seizure. no further episodes continue keppra as above EEG unremarkable CHIOMA pre azotemia,? unknown baseline, creatinine improved with IVF follow BMP, avoid nephrotoxins hypertension, bp improving elevated blood pressure on clonidine and lisinopril at home, have been on hold was started on Norvasc, will increase dose to 10 mg will resume home dose of lisinopril coreg added, will increase to 6.25 abnormal EKG having bigeminy on monitor, EKG from day of admission reviewed, showing some twave inversions repeat EKG obtained, showing new t wave inversions lytes checked and wnl echo wnl seen by cardiology - EKG similar to records from [facility] [place], stress test negative x2 in past no further cardiac work up indicated at this time tobacco use disorder smoking cessation advised NRT depression seen by psych - does not want to start medication at this time +tox screen patient denies using drugs addiction med consult pending DVT prophylaxis:? Rita attending - dr. Owusu dispo - Acute rehab Friday, needs insurance auth Patient will need continued inpatient stay due to acute CVA, placement in acute rehab Time Spent With Patient Time: Total time managing care of this patient today ____ minutes. Quality Stroke Does the patient have a stroke diagnosis?: No VTE Prior VTE?: No VTE Risk Level:: Medical - low VTE Device Contraindication: Treatment Not Indicated VTE Drug Contraindication: Treatment Not Indicated
--- NOTE | 2022-12-30 13:38 | HO.ADDICTPRO ---
Subjective Subjective Date of Service: 12/30/22 Reason For Visit: Depression Interim History: Patient is a 67 year old male currently medically admitted following CVA. Consult requested as UDS +fentantyl at time of admission. This loan underwriter met briefly with patient as he reported he does not have issues with drug use, and buys pills every once in a while . Discussed fentanyl in drug supply at this time, and risk of overdose much higher due to infrequent use. Patient verbalized understading. He did not appear to be experiencing any withdrawal sx, and denied any sx. Tearful towards the end of the visit discussing lack of family supports and feeling alone. Review of Systems Constitutional: Reports as per HPI Mental Status Exam Mental Status Exam Patient Appearance: Well Grooomed and Appropriate Level of Consciousness: Awake, Appropriate and Alert Patient Behavior: Cooperative Mood Description: Calm and Sad Affect Description: Blunted Speech Pattern: Clear Judgement: Good Diagnostics Vital Signs (24Hr): Vital Signs - 24 hr 12/29/22 15:18 12/29/22 19:13 12/30/22 00:31 Temperature 99.1 F 98.8 F 99.0 F Pulse Rate 80 79 78 Respiratory Rate 20 20 20 Blood Pressure 170/92 H 182/97 H 186/98 H Pulse Oximetry 94 96 97 Oxygen Delivery Method Room Air Room Air Room Air 12/30/22 00:45 12/30/22 08:00 12/30/22 08:30 Temperature 98.5 F Pulse Rate 75 76 Respiratory Rate 18 Blood Pressure 174/100 H 150/85 H 159/87 H Pulse Oximetry 98 96 Oxygen Delivery Method Room Air Room Air BMI result Body Mass Index 24.0 Labs 12/26/22 20:06 12/27/22 06:50 Labs: Laboratory Results - last 48 hr 12/30/22 11:00 COVID-19 ([facility]) Negative COVID-19 Clin Com See Note Imaging Radiology Impressions: ITS Impressions Chest X-Ray 12/24/22 18:35 IMPRESSION: No acute cardiopulmonary process. Head CT 12/24/22 19:28 IMPRESSION: No acute intracranial abnormality including hemorrhage, mass effect, hydrocephalus, or acute territorial edematous infarction. Brain MRI 12/25/22 13:05 IMPRESSION: - There is a punctate acute to subacute infarct within the right peritrigonal white matter. No additional acute infarcts. - There is global cerebral volume loss, there is moderate chronic microangiopathy, and there are chronic lacunar infarcts within the deep reynoso nuclei bilaterally and the left willis. Carotid Doppler Study 12/25/22 18:39 IMPRESSION: 1. RIGHT: Minimal, non-hemodynamically significant stenosis of the proximal right internal carotid artery corresponding to a 0-49% stenosis by velocity criteria. 2. LEFT: Normal left internal carotid artery without atherosclerotic plaque or hemodynamically significant stenosis. Head CT 12/26/22 20:13 IMPRESSION: No acute intracranial pathology. This critical result was discussed with Donnell Shaver at 2025 hours on 12/26/2022. It was ascertained that the content and urgency of the report was understood at the time of direct communication. Chest X-Ray 12/26/22 20:55 IMPRESSION: No acute pulmonary disease. Medications Medications Current Medications Acetaminophen (Acetaminophen 325 Mg Tablet) 650 mg PO Q6H PRN PRN Reason: Pain, Mild (Pain Scale 1-3) Last Admin: 12/24/22 23:39 Dose: 650 mg Amlodipine Besylate (Amlodipine Besylate 10 Mg Tablet) 10 mg PO DAILY [facility]; Protocol Last Admin: 12/30/22 09:01 Dose: 10 mg Aspirin (Aspirin Enteric Coated 81 Mg Tablet.) 81 mg PO DAILY [facility] Last Admin: 12/30/22 08:57 Dose: 81 mg Atorvastatin Calcium (Atorvastatin Calcium 40 Mg Tablet) 40 mg PO BEDTIME [facility] Last Admin: 12/29/22 20:03 Dose: 40 mg Carvedilol (Carvedilol 3.125 Mg Tablet) 6.25 mg PO BID [facility]; Protocol Last Admin: 12/30/22 09:01 Dose: 6.25 mg Docusate Sodium (Docusate Sodium 100 Mg Capsule) 100 mg PO DAILY PRN PRN Reason: Constipation Enoxaparin Sodium (Enoxaparin Sodium 40 Mg/0.4 Ml Syringe) 40 mg SUBCUT Q24H [facility] Last Admin: 12/29/22 15:04 Dose: 40 mg Levetiracetam (Levetiracetam 500 Mg Tablet) 500 mg PO BID [facility] Last Admin: 12/30/22 08:56 Dose: 500 mg Lisinopril (Lisinopril 5 Mg Tablet) 15 mg PO DAILY [facility]; Protocol Last Admin: 12/30/22 09:02 Dose: 15 mg Nicotine (Nicotine 14 Mg Patch.Td24) 14 mg TRANSDERMA DAILY [facility] Last Admin: 12/30/22 09:03 Dose: Not Given Ondansetron HCl (Ondansetron Hcl 4 Mg/2 Ml Vial) 4 mg IVPUSH Q8H PRN PRN Reason: Nausea and Vomiting Pharmacy Consult (Consult Rx Perform Med Rec) 1 each MISCELLANE ONCE PRN PRN Reason: Consult order Trazodone HCl (Trazodone Hcl 25 Mg Halftab) 25 mg PO BEDTIME MRX1 PRN PRN Reason: Sleep Allergies Allergies Allergy/AdvReac Type Severity Reaction Status Date / Time fish derived [FISH] Allergy Unknown UNKNOWN Verified 12/28/22 09:27 morphine [MORPHINE] Allergy Unknown UNKNOWN Verified 12/28/22 09:27 cheese Allergy Anaphylaxis Uncoded 12/25/22 10:36 Assessment & Plan Assessment & Plan (1) Cerebrovascular accident: Status: Acute Code(s): I63.9 - Cerebral infarction, unspecified Assessment and Plan: overdose prevention discussion no follow up indicated, please re consult if needed Total time managing care of this patient today __20__ minutes.
[2022-12-30] MEDS: Enoxaparin Sodium 40 MG/0.4 ML SYRINGE SUBCUT (14:31)
[2022-12-30 15:21] VITALS: BP 135/83; PULSE 80; RESP 18; TEMP 36.6; O2SAT 98
--- NOTE | 2022-12-30 15:35 | MHC.CM.PN ---
Addendum entered by Erlinda Veloz 12/30/22 16:28: auth obtained, will transport to [facility] at 5: 30 pm. Original Note: DP: PT HAS BEEN MEDICALLY CLEARED FOR DC TO [facility]. RN AWARE. PT AWARE HIS FIRST CHOICE ([facility] ) WAS NOT ABLE TO OFFER . TRANSPORT BOOKED FOR 5:30 PM VIA [facility]. (STILL AWAITING AUTH FROM [facility])
== END 2022-12-30 18:19 | DRG 65 ==
LOC: HO.ED 20:31 → HO.EDOVER 22:36 → HO.IMC 12-25 08:45
PROVIDERS: Clinical Nurse Specialist Psychiatric/Mental Health, Adult; Hospitalist; Physician Assistant Medical; Admitting Provider Internal Medicine; Emergency Provider Emergency Medicine; PCP Family Medicine; Visit Provider Nurse Practitioner Acute Care
DX: I63.9 Cerebral infarction, unspecified (principal); G81.94 Hemiplegia, unspecified affecting left nondominant side; N17.9 Acute kidney failure, unspecified; R29.702 NIHSS score 2; I10 Essential (primary) hypertension; R56.9 Unspecified convulsions; Z20.822 Contact with and (suspected) exposure to COVID-19; Z88.5 Allergy status to narcotic agent; Z79.82 Long term (current) use of aspirin; Z79.899 Other long term (current) drug therapy
CPT/HCPCS: 36415; 36600; 70450; 70551; 71045; 80048; 80053; 80061; 80076; 80307; 81001; 81003; 82607; 82746; 82803; 82947; 83605; 83690; 83735; 83880; 84443; 84484; 85025; 85610; 87635; 93005; 93306; 93880; 95816; 97110; 97116; 97162; 97166; 97530; 99285; J1200; J1650; J1953; J2060; Q9957

== ENCOUNTER 2023-01-07 16:16 | Emergency (ER) | payer OTHER, SELFPAY ==
[2023-01-07] VITALS (10 sets, daily range): BP systolic 100–159; BP diastolic 67–97; PULSE 18–95; RESP 14–18; TEMP 36.6–36.7; O2SAT 94–98; BMI 19.3
--- NOTE | 2023-01-07 16:25 | ED.ALCOHOL ---
HPI - Alcohol General Chief Complaint: ETOH/Substance Use Stated Complaint: ETOH USE PER EMS Time Seen by Provider: 01/07/23 16:22 Source: patient and EMS Mode of arrival: EMS Limitations: altered mental status History of Present Illness HPI narrative: 67-year-old male signs of being on domiciled presents to the emergency department after being found altered outside of a grocery store patient did not want to come in he has no complaints appears intoxicated concerns for PCP and alcohol abuse patient was seen here approximately Two weeks ago. he has very strange affect moaning very loudly but then comes down answers questions and then starts to gurgle and make very large sounds and moan. complaint: alcohol intoxication Related Data Previous Rx's Medication Instructions Recorded amlodipine 10 mg tablet 10 mg PO DAILY 30 days #30 tabs 12/29/22 aspirin 81 mg tablet,delayed 81 mg PO DAILY 30 days #30 tabs 12/29/22 release atorvastatin 40 mg tablet 40 mg PO BEDTIME 30 days #30 tabs 12/29/22 carvedilol 3.125 mg tablet 6.25 mg PO BID 30 days #120 tabs 12/29/22 levetiracetam 500 mg tablet 500 mg PO BID 30 days #60 tabs 12/29/22 nicotine 14 mg/24 hr daily 14 mg transdermal DAILY #7 ea 12/29/22 transdermal patch lisinopril 10 mg tablet 15 mg PO DAILY #45 tabs 12/30/22 Allergies Allergy/AdvReac Type Severity Reaction Status Date / Time fish derived [FISH] Allergy Unknown UNKNOWN Verified 01/07/23 16:24 morphine [MORPHINE] Allergy Unknown UNKNOWN Verified 01/07/23 16:24 cheese Allergy Anaphylaxis Uncoded 01/07/23 16:24 Review of Systems Review of Systems: Yes Unobtainable due to mental status PMFSH Past Medical History Medical History (Updated 01/07/23 @ 21:02 by Francisco Rolle DO) No pertinent past medical history Recurrent major depression-severe Surgical History History of left hip replacement Family History Family History (Updated 12/27/22 @ 10:55 by Jeyson Echevarria MD) Mother No problems noted. Father No problems noted. Social History Social History (Updated 12/25/22 @ 06:26 by Donnell Strong MD) Household Members: None Housing: Apartment Do you presently have visiting nurse or other home services: No Alcohol intake: unknown Patient Tobacco Use Status: Current everyday Tobacco user Cigarette Packs Per Day: 10 Use of substances other than those prescribed or required for medical reasons: Unknown Advance Directives: No Advance Directives Information Provided: Yes service: No Current occupational status: unemployed Physical Exam ED Vital Signs: Vital Signs - 24 hr 01/07/23 16:18 01/07/23 17:15 01/07/23 17:30 Temperature Pulse Rate 95 Respiratory Rate 18 18 16 Blood Pressure 114/76 Pulse Oximetry 97 Oxygen Delivery Method Room Air 01/07/23 17:45 01/07/23 18:00 01/07/23 18:35 Temperature 98.0 F Pulse Rate 60 61 Respiratory Rate 14 14 14 Blood Pressure 100/67 Pulse Oximetry 94 95 Oxygen Delivery Method Room Air Room Air 01/07/23 19:38 Temperature Pulse Rate 62 Respiratory Rate 16 Blood Pressure 131/77 Pulse Oximetry 95 Oxygen Delivery Method Room Air BMI result Body Mass Index 19.3 General: Well-appearing well-nourished in no signs of distress HEENT: Normocephalic atraumatic Neck: No signs of JVD, no masses no tenderness or lymphadenopathy Cardiovascular: Regular rate and rhythm Respiratory: Clear to auscultation bilaterally Abdomen: Soft nontender no masses Extremities: Normal pedal pulses no signs of edema Skin: Dry warm no rashes Back: No tenderness full ROM Medical Decision Making Medical Decision Making MDM Narrative: Concern for altered mental status patient is in the home he does have seizures are or give Ativan on arrival consistent waking up from his seizure and he is postictal also give patient some Haldol concern for fall risk and has altered mental status. Is could be danger to himself. Again EKG labs. Patient was admitted here recently for stroke and CHIOMA. I will give fluids as well. no concerns for head trauma I will hold off on CT at this time. Labs were all normal patient was medicated initially woke up and states he took a pill from a friend. he doesn't know what it was. I have no reason to keep him here I will discharge him home. Differential Diagnosis Differential Diagnoses: The differential diagnosis associated with the presentation includes Admission/Observation Consideration of admission/observation: Escalation of care including admission/observation considered Lab Data MDM Lab Attestation statement: I reviewed the patient's lab results. 01/07/23 17:00 01/07/23 17:00 Labs: Lab Results 01/07/23 01/07/23 01/07/23 Range/Units 17:00 17:02 17:37 WBC 6.7 (4.8-10.8) X10*3/uL RBC 4.13 L (4.60-5.80) X10*6/uL Hgb 12.1 L (14.0-18.0) g/dl Hct 39.2 L (42.0-52.0) % MCV 94.9 (80.0-98.0) fL MCH 29.3 (27.0-33.0) pg MCHC 30.9 L (31.0-36.0) g/dl RDW 13.3 (11.0-16.0) % Plt Count 244 (160-400) X10*3/uL MPV 10.5 (9.4-12.4) fL Immature Gran % (Auto) 0.9 H (0.0-0.4) % Neut % (Auto) 58.9 (45-73) % Lymph % (Auto) 28.3 (20-40) % [place] % (Auto) 9.6 (2-11) % Eos % (Auto) 1.6 (0-4) % Baso % (Auto) 0.7 (0-2) % Lymph # (Auto) 1.9 (1.2-4.9) X10*3/uL [place] # (Auto) 0.7 (0.1-1.2) X10*3/uL Eos # (Auto) 0.1 (0.0-0.4) X10*3/uL Baso # (Auto) 0.1 (0.0-0.2) X10*3/uL Abs Immat Gran (auto) 0.06 H (0.00-0.03) X10*3/uL Absolute Neuts (auto) 4.0 (2.0-8.3) x10*3/uL Absolute Nucleated RBC 0.000 (0.0-0.012) X10*3/uL Nucleated RBC % (auto) 0.0 (0.0-0.2) /100WBC Sodium 141 (135-145) mmol/L Potassium 4.7 (3.3-5.1) mmol/L Chloride 106 (96-108) mmol/L Carbon Dioxide 24 (22-29) mmol/L Anion Gap 16 (12-20) BUN 28 H (9-16) mg/dL Creatinine 1.57 H (0.5-1.4) mg/dL Estim Creat Clear Calc 36.1 Estimated GFR 45 Random Glucose 106 (60-115) mg/dL Calcium 9.1 (8.4-10.2) mg/dL Total Bilirubin 0.5 (0.0-1.0) mg/dL Direct Bilirubin 0.2 (0.0-0.5) mg/dL AST 65 H (5-37) U/L ALT 91 H (0-40) U/L Alkaline Phosphatase 64 (39-117) U/L Total Protein 6.9 (6.5-8.0) g/dL Albumin 4.3 (3.5-5.0) g/dL Lipase 35 (8-78) U/L Ethyl Alcohol < 10 mg/dL COVID-19 ([facility]) Negative (Negative) COVID-19 Clin Com See Note Independent Interpretation I performed an independent interpretation of an: EKG Interpretation: Rate 63 nsr normal intervals no signs of ischemia Medications Administered Discontinued Medications Generic Name Dose Route Start Last Admin Trade Name Freq PRN Reason Stop Dose Admin Haloperidol Lactate 5 mg 01/07/23 16:27 01/07/23 17:00 Haloperidol Lactate 5 Mg/Ml Vial IM 01/07/23 16:28 5 mg STAT STA Administration Sodium Chloride 1,000 mls @ 999 mls/hr 01/07/23 16:45 01/07/23 18:31 Ns IV 01/07/23 17:45 Infused .Q1H1M [facility] Infusion Sodium Chloride 1,000 mls @ 999 mls/hr 01/07/23 18:30 01/07/23 19:26 Ns IV 01/07/23 19:30 Infused .Q1H1M [facility] Infusion Lorazepam 2 mg 01/07/23 16:27 01/07/23 17:00 Lorazepam 2 Mg/Ml Vial IM 01/07/23 16:28 2 mg ONCE ONE Administration Discharge Plan Discharge Clinical Impression: Active substance abuse, Acute delirium Patient Disposition: Home, Self-Care Instructions: Acute Delirium (ED), Polysubstance Abuse (ED) Additional Instructions: Please call to follow up as needed. Prescriptions: No Action nicotine 14 mg/24 hr Patch 24 Hour 14 mg transdermal DAILY Qty: 7 0RF amlodipine 10 mg Tablet 10 mg PO DAILY 30 Days Qty: 30 0RF Protocol: Hold for SBP< HOLD for SBP < : 90 atorvastatin 40 mg Tablet 40 mg PO BEDTIME 30 Days Qty: 30 0RF carvedilol 3.125 mg Tablet 6.25 mg PO BID 30 Days Qty: 120 0RF Protocol: Hold for SBP/HR < HOLD for SBP < : 90 HOLD for HR < : 60 aspirin 81 mg Tablet,Delayed Release (Dr/Ec) 81 mg PO DAILY 30 Days Qty: 30 0RF levetiracetam 500 mg Tablet 500 mg PO BID 30 Days Qty: 60 0RF lisinopril 10 mg tablet 15 mg PO DAILY Qty: 45 0RF
--- NOTE | 2023-01-07 16:31 | ECG_ITS ---
Test Reason : AMS Blood Pressure : / mmHG Vent. Rate : 063 BPM Atrial Rate : 063 BPM P-R Int : 160 ms QRS Dur : 078 ms QT Int : 442 ms P-R-T Axes : 051 -24 -43 degrees QTc Int : 452 ms Normal sinus rhythm Minimal voltage criteria for LVH, may be normal variant ( Stefan product ) T inversion inferior leads, consider ischemia Nonspecific ST and T wave abnormality Abnormal ECG When compared with ECG of 26-DEC-2022 19:59, lateral non specific ST-T changes more prominent Referred By: Francisco Rolle Electronically Signed By:BRAD CORBETT
[2023-01-07] MEDS: Haloperidol Lactate 5 MG/ML VIAL IM (17:00)
[2023-01-07] MEDS: LORazepam 2 MG/ML VIAL IM (17:00)
[2023-01-07 17:06] LABS: MANUAL DIFF FLAG NO
[2023-01-07] MEDS: 0.9 % Sodium Chloride 1,000 ML 999 ML IV ×2 (17:06→18:25)
[2023-01-07 17:08] LABS: Basophils Absolute Auto 0.1 X10*3/uL (0.0-0.2); Basophils Percent Auto 0.7 % (0-2); Eosinophils Absolute Auto 0.1 X10*3/uL (0.0-0.4); Eosinophils Percent Auto 1.6 % (0-4); Hematocrit 39.2 % (42.0-52.0); Hemoglobin 12.1 g/dl (14.0-18.0); Imm Gran Abs Auto 0.06 X10*3/uL (0.00-0.03); Imm Gran Pct Auto 0.9 % (0.0-0.4); Lymphocytes Absolute Auto 1.9 X10*3/uL (1.2-4.9); Lymphocytes Percent Auto 28.3 % (20-40); Mean Corpuscular HGB Conc 30.9 g/dl (31.0-36.0); Mean Corpuscular Hemoglobin 29.3 pg (27.0-33.0); Mean Corpuscular Volume 94.9 fL (80.0-98.0); Mean Platelet Volume 10.5 fL (9.4-12.4); Monocytes Absolute Auto 0.7 X10*3/uL (0.1-1.2); Monocytes Percent Auto 9.6 % (2-11); Neutrophils Percent Auto 58.9 % (45-73); Platelet Count 244 X10*3/uL (160-400); Red Blood Count 4.13 X10*6/uL (4.60-5.80); Red Cell Distribution Width 13.3 % (11.0-16.0); White Blood Count 6.7 X10*3/uL (4.8-10.8)
--- NOTE | 2023-01-07 17:15 | PC.NURSE ---
pt uncooperative, agitated and alert only to self, pt medicated chemical restraint- unable to obtain vitals at this time.
[2023-01-07 17:27] LABS: COVID-19 Test Negative (Negative); IDNOW Serial# 16C4AD1C
--- NOTE | 2023-01-07 18:00 | PC.NURSE ---
pt currently sleeping, full set of vitals was obtained, pt noted to be hypotensive, provider notified, additional ivf ordered
[2023-01-07 18:13] LABS: Alanine Aminotransferase 91 U/L (0-40); Albumin Level 4.3 g/dL (3.5-5.0); Alkaline Phosphatase 64 U/L (39-117); Anion Gap 16 (12-20); Aspartate Amino Transferase 65 U/L (5-37); Bilirubin Direct 0.2 mg/dL (0.0-0.5); Bilirubin Total 0.5 mg/dL (0.0-1.0); Blood Urea Nitrogen 28 mg/dL (9-16); Calcium 9.1 mg/dL (8.4-10.2); Carbon Dioxide 24 mmol/L (22-29); Chloride 106 mmol/L (96-108); Creatinine Clr Calc Pharmacy 36.1; Estimated Glomerular Filt Rate 45; Ethanol < 10 mg/dL; Glucose Random 106 mg/dL (60-115); Lipase 35 U/L (8-78); Potassium 4.7 mmol/L (3.3-5.1); Sodium 141 mmol/L (135-145); Total Protein 6.9 g/dL (6.5-8.0)
--- NOTE | 2023-01-07 18:25 | PC.NURSE ---
pt continues to sleep, ivf were put on pressure bag, repeat vitals performed, pts pressure soft but wnl, vitals otherwise stable.
--- NOTE | 2023-01-07 19:40 | PC.NURSE ---
pt continues to sleep, vitals stable, sitter at bedside, will continue to monitor
--- NOTE | 2023-01-07 20:05 | PC.NURSE ---
Report received and care assumed; pt noted to be resting comfortably and quietly with eyes closed, respirations even and unlabored without distress noted. Patient observer at bedside for observation
--- NOTE | 2023-01-07 20:32 | MHC.RECOVSUP ---
? Reason for consult:ETOH o? Current location:ED6H? o? Identified substance use concern:? ? Intervention: o? Community resources provided ? Plan: ? Additional information:RC attempted to speak with this pt, but he was heavily sedated. I attempted to call his name and tapped him on his shoulder but he didn't wake up. Please follow up with this pt!
--- NOTE | 2023-01-07 20:42 | PC.NURSE ---
patient woke to verbal stimulus, pt was asked if he took any drugs, pt stated that a friend gave him a pill and he thought it was oxycontin. pt currently calm, resting, vitals continue to be stable, will notify the provider and continue to monitor.
--- NOTE | 2023-01-07 23:51 | PC.NURSE ---
RN to bedside to provide the pt with a sandwich and gingerale per request. The pt remains awake and alert, conversing in full and complete sentences without distress noted. Pt reports having no means of transportation home as he is alone without family in the area. RN communicated this information with the charge aide who will be working on obtaining a Ly[employer] ride for the patient. IV line discontinued with catheter tip intact, discarhe instructions reviewed and understanding verbalized.
== END 2023-01-08 05:24 | disposition home or self-care (01) ==
PROVIDERS: Emergency Provider Student in an Organized Health Care Education/Training Program
DX: F16.121 Hallucinogen abuse with intoxication with delirium (principal); F10.129 Alcohol abuse with intoxication, unspecified; Y90.0 Blood alcohol level of less than 20 mg/100 ml; F17.210 Nicotine dependence, cigarettes, uncomplicated; Z20.822 Contact with and (suspected) exposure to COVID-19; Z20.828 Contact with and (suspected) exposure to other viral communicable diseases; Z79.899 Other long term (current) drug therapy; Z71.6 Tobacco abuse counseling
CPT/HCPCS: 80048; 80076; 82077; 83690; 85025; 87635; 93005; 96360; 96361; 96372; 99284; 99285; J2060

== ENCOUNTER 2023-03-20 14:37 | Observation (INO) | payer OTHER, SELFPAY ==
[2023-03-20] VITALS (9 sets, daily range): BP systolic 182–210; BP diastolic 100–127; PULSE 60–77; RESP 15–23; TEMP 36.2–37.6; O2SAT 94–99; BMI 26.6
--- NOTE | 2023-03-20 | ECG_ITS ---
Test Reason : WEAKNESS Blood Pressure : / mmHG Vent. Rate : 075 BPM Atrial Rate : 075 BPM P-R Int : 170 ms QRS Dur : 084 ms QT Int : 432 ms P-R-T Axes : 077 -58 -35 degrees QTc Int : 482 ms Normal sinus rhythm Left anterior fascicular block Left ventricular hypertrophy with repolarization abnormality ( Stefan product ) Prolonged QT Abnormal ECG When compared with ECG of 07-JAN-2023 17:23, ST less depressed in Inferior leads Referred By: Generic ED Physician Electronically Signed By:
--- NOTE | ~2023-03-20 | XR_ITS ---
EXAMINATION: XR CHEST CLINICAL INFORMATION: Reason for Exam sob COMPARISON: Chest radiograph 12/26/2022 TECHNIQUE: One view of the chest FINDINGS: Lines and tubes: EKG leads overlies the patient. Clear lungs. No pleural effusion. No pneumothorax. Unchanged cardiomediastinal silhouette. XR/XR chest 1V IMPRESSION: * Clear lungs.
--- NOTE | ~2023-03-20 | CT_ITS ---
EXAMINATION: CT head/brain wo IV con CLINICAL INFORMATION: Reason for Exam AMS COMPARISON: CT brain 12/26/2022 TECHNIQUE: Contiguous axial imaging was performed from the skull base to vertex without intravenous contrast. Sagittal and coronal reformatted images were obtained. This CT examination was performed using dose optimization techniques as appropriate, variously including the following: * Automated exposure control * Adjustment of mA and/or kV according to patient size (this includes techniques or standardized protocols for targeted exams where dose is matched to indication/reason for exam; i.e. extremities or head) Use of iterative reconstruction technique DLP: 723.37 mGy-cm mGy-cm FINDINGS: No acute osseous or soft tissue abnormality. Partial opacification of the right ethmoid air cells. There is no evidence of acute intracranial hemorrhage or territorial infarction. No abnormal mass effect or midline shift is seen. [place] to white matter differentiation is well preserved. No extra-axial fluid collections are identified. No hydrocephalus. Proportional prominence of the ventricles and sulcal spaces is consistent with moderate volume loss. Patchy periventricular and deep white matter hypoattenuation is consistent with moderate small vessel ischemic changes. Stable appearance of bilateral basal ganglia and left pontine lacunar infarcts. CT/CT head/brain wo IV con IMPRESSION: 1. No acute intracranial abnormality. 2. Stable appearance of bilateral basal ganglia and left pontine lacunar infarcts, superimposed on a background of moderate chronic small vessel ischemic change and moderate global volume loss.
[2023-03-20] MEDS: hydrALAZINE HCl 20 MG/ML VIAL 5 MG IVPUSH (16:15)
[2023-03-20] MEDS: levETIRAcetam 500 MG/5 ML VIAL 1500 MG IV (16:16)
[2023-03-20 16:19] LABS: MANUAL DIFF FLAG NO
[2023-03-20 16:22] LABS: Basophils Percent Auto 0.3 % (0-2); Eosinophils Percent Auto 0.2 % (0-4); Hematocrit 44.4 % (42.0-52.0); Hemoglobin 14.5 g/dl (14.0-18.0); Imm Gran Abs Auto 0.01 X10*3/uL (0.00-0.03); Imm Gran Pct Auto 0.2 % (0.0-0.4); Lymphocytes Percent Auto 17.2 % (20-40); Mean Corpuscular HGB Conc 32.7 g/dl (31.0-36.0); Mean Corpuscular Hemoglobin 28.8 pg (27.0-33.0); Mean Corpuscular Volume 88.3 fL (80.0-98.0); Mean Platelet Volume 10.1 fL (9.4-12.4); Monocytes Absolute Auto 0.4 X10*3/uL (0.1-1.2); Monocytes Percent Auto 6.4 % (2-11); Neutrophils Absolute Auto 4.4 x10*3/uL (2.0-8.3); Neutrophils Percent Auto 75.7 % (45-73); Platelet Count 334 X10*3/uL (160-400); Red Blood Count 5.03 X10*6/uL (4.60-5.80); Red Cell Distribution Width 12.8 % (11.0-16.0); White Blood Count 5.8 X10*3/uL (4.8-10.8)
[2023-03-20 16:31] LABS: Lactic Acid 1.1 mmol/L (0.5-2.0)
[2023-03-20 16:37] LABS: Alanine Aminotransferase 19 U/L (0-40); Albumin Level 4.9 g/dL (3.5-5.0); Alkaline Phosphatase 92 U/L (39-117); Anion Gap 15 (12-20); Aspartate Amino Transferase 22 U/L (5-37); Blood Urea Nitrogen 14 mg/dL (9-16); Calcium 10.8 mg/dL (8.4-10.2); Carbon Dioxide 28 mmol/L (22-29); Chloride 103 mmol/L (96-108); Creatinine Clr Calc Pharmacy 65.5; Estimated Glomerular Filt Rate > 60; Glucose Random 99 mg/dL (60-115); Potassium 4.2 mmol/L (3.3-5.1); Sodium 142 mmol/L (135-145); Total Protein 8.7 g/dL (6.5-8.0)
[2023-03-20 16:39] LABS: Ethanol < 10 mg/dL
[2023-03-20 16:44] LABS: Troponin-I High Sensitivity 16.1 ng/L (<3.5-35.0)
[2023-03-20] MEDS: Labetalol HCL 100 MG/20 ML VIAL 20 MG IVPUSH ×2 (16:53→22:14)
[2023-03-20 17:02] LABS: Magnesium 2.3 mg/dL (1.6-2.6)
--- NOTE | 2023-03-20 17:03 | ED_ITS ---
HPI - Weakness General Chief complaint: Failure to Thrive <Davina Frey MD - Last Filed: 03/20/23 17:12> Stated complaint: weakness per ems <Davina Frey MD - Last Filed: 03/20/23 17:12> Time Seen by Provider: 03/20/23 15:38 <Davina Frey MD - Last Filed: 03/20/23 17:12> Source: patient <Davina Frey MD - Last Filed: 03/20/23 17:12> Mode of arrival: EMS <Davina Frey MD - Last Filed: 03/20/23 17:12> History of Present Illness HPI Narrative: 67-year-old male who is brought in by EMS who states that he was disch arged from rehab and has been declining over the past few weeks, had some residual left-sided deficits to include left upper extremity and left lower extremity. Patient states he does not have food home he has been incredibly weak and fatigued. Patient reports that he lives on the [address] floor apartment without visiting nurse assignment that he states was supposed to be scheduled for him but no one ever showed up. Patient denies any family and states that he ran out of medication. <Davina Frey MD - Last Filed: 03/20/23 17:12> 67-year-old male who is brought in by EMS who states that he was discharged from rehab and has been declining over the past few weeks, had some residual left-sided deficits to include left upper extremity and left lower extremity. Patient states he does not have food home he has been incredibly weak and fatigued. Patient reports that he lives on the [address] floor apartment without visiting nurse assignment that he states was supposed to be scheduled for him but no one ever showed up. Patient denies any family and states that he ran out of medication for last 6 days <Yazan Shrestha MD - Last Filed: 03/21/23 01:07> Related Data Home medications: Previous Rx's Medication Instructions Recorded amlodipine 10 mg tablet 10 mg PO DAILY 30 days #30 tabs 12/29/22 aspirin 81 mg tablet,delayed 81 mg PO DAILY 30 days #30 tabs 12/29/22 release atorvastatin 40 mg tablet 40 mg PO BEDTIME 30 days #30 tabs 02/26/23 carvedilol 3.125 mg tablet 6.25 mg PO BID 30 days #120 tabs 12/29/22 levetiracetam 500 mg tablet 500 mg PO BID 30 days #60 tabs 12/29/22 nicotine 14 mg/24 hr daily 14 mg transdermal DAILY #7 ea 12/29/22 transdermal patch lisinopril 10 mg tablet 15 mg PO DAILY #45 tabs 12/30/22 <Davina Frey MD - Last Filed: 03/20/23 17:12> Allergies/Adverse reactions: Allergies Allergy/AdvReac Type Severity Reaction Status Date / Time fish derived [FISH] Allergy Unknown UNKNOWN Verified 01/07/23 16:24 morphine [MORPHINE] Allergy Unknown UNKNOWN Verified 01/07/23 16:24 lactose Allergy Unknown Verified 03/20/23 18:07 cheese Allergy Anaphylaxis Uncoded 01/07/23 16:24 <Davina Frey MD - Last Filed: 03/20/23 17:12> Review of Systems Review of Systems: Pertinent positives and negatives as stated in HPI <Davina Frey MD - Last Filed: 03/20/23 17:12> Yes all other systems are reviewed and are negative <Yazan Shrestha MD - Last Filed: 03/21/23 01:07> PMFSH Past Medical History Medical History: Medical History No pertinent past medical history Recurrent major depression-severe <Davina Frey MD - Last Filed: 03/20/23 17:12> Surgical History: Surgical History History of left hip replacement <Davina Frey MD - Last Filed: 03/20/23 17:12> Family History Family History: Family History Mother No problems noted. Father No problems noted. <Davina Frey MD - Last Filed: 03/20/23 17:12> Social History Social History: Social History Household Members: None Housing: Apartment Do you presently have visiting nurse or other home services: No Alcohol intake: never Patient Tobacco Use Status: Current everyday Tobacco user Cigarette Packs Per Day: 10 Smoked in Last 30 Days: Yes Use of substances other than those prescribed or required for medical reasons: No Advance Directives: No Advance Directives Information Provided: No service: No Current occupational status: unemployed <Davina Frey MD - Last Filed: 03/20/23 17:12> Physical Exam Vital Signs: Vital Signs: Last Vital Signs Temp 98.3 F 03/21/23 01:02 Pulse 76 03/21/23 01:02 Resp 24 H 03/21/23 01:02 BP 149/76 H 03/21/23 01:02 Pulse Ox 96 03/21/23 01:02 O2 Del Method Room Air 03/21/23 00:32 BMI result Body Mass Index 26.6 VITAL SIGNS: Reviewed. GENERAL: Chronically ill, cachectic, in no acute distress. HEAD: Normocephalic/atraumatic, EYES: PERRLA, EOMI EARS: Ext canals without abnormality NOSE: Nares patent bilateral OROPHARYNX: no oral lesions noted, posterior pharynx clear, dry mucosa NECK: Supple, no adenopathy LUNGS: Good inspiratory effort, left-sided crackles noted, no tachypnea. SpO2<98> CARDIOVASCULAR: Regular rate and rhythm without noted murmurs ABDOMEN: Soft, non-tender, non-distended with bowel sounds. MUSCULOSKELETAL: No tenderness, deformities, or effusions noted on gross inspection. EXTREMITIES: No cyanosis, clubbing or edema. SKIN: Inspection of the skin reveals no rashes NEUROLOGIC: Alert and oriented x 4. Strength and sensation to light touch were grossly intact x 4, baseline left-sided hemiparesis, intermittent dysarthria noted, spasms noted <Davina Frey MD - Last Filed: 03/20/23 17:12> Vital Signs: Last Vital Signs Temp 98.3 F 03/21/23 01:02 Pulse 76 03/21/23 01:02 Resp 24 H 03/21/23 01:02 BP 149/76 H 03/21/23 01:02 Pulse Ox 96 03/21/23 01:02 O2 Del Method Room Air 03/21/23 00:32 BMI result Body Mass Index 26.6 <Yazan Shrestha MD - Last Filed: 03/21/23 01:07> Medications Administered Discontinued Medications Generic Name Dose Route Start Last Admin Trade Name Freq PRN Reason Stop Dose Admin Amlodipine Besylate 10 mg 03/20/23 22:35 03/20/23 22:53 Amlodipine Besylate 10 Mg Tablet PO 03/20/23 22:36 10 mg ONCE ONE Administration Protocol Clonidine HCl 0.2 mg 03/20/23 22:48 03/20/23 22:52 Clonidine Hcl 0.2 Mg Tablet PO 03/20/23 22:49 0.2 mg ONCE ONE Administration Protocol Hydralazine HCl 5 mg 03/20/23 15:42 03/20/23 16:15 Hydralazine Hcl 20 Mg/Ml Vial IVPUSH 03/20/23 15:43 5 mg ONCE ONE Administration Protocol Hydralazine HCl 10 mg 03/20/23 23:38 03/20/23 23:43 Hydralazine Hcl 20 Mg/Ml Vial IVPUSH 03/20/23 23:39 10 mg ONCE ONE Administration Protocol Sodium Chloride 1,000 mls @ 999 mls/hr 03/20/23 16:35 03/20/23 18:08 Ns IV 03/20/23 17:35 Infused .Q1H1M ONE Infusion Labetalol HCl 20 mg 03/20/23 16:34 03/20/23 16:53 Labetalol Hcl 100 Mg/20 Ml Vial IVPUSH 03/20/23 16:35 20 mg ONCE ONE Administration Labetalol HCl 20 mg 03/20/23 21:57 03/20/23 22:14 Labetalol Hcl 100 Mg/20 Ml Vial IVPUSH 03/20/23 21:58 20 mg ONCE ONE Administration Levetiracetam 1,500 mg 03/20/23 15:52 03/20/23 16:16 Levetiracetam 500 Mg/5 Ml Vial IV 03/20/23 15:53 1,500 mg ONCE ONE Administration Lisinopril 10 mg 03/20/23 22:35 03/20/23 22:52 Lisinopril 10 Mg Tablet PO 03/20/23 22:36 10 mg ONCE ONE Administration Protocol Lorazepam 1 mg 03/20/23 23:05 03/20/23 23:09 Lorazepam 2 Mg/Ml Vial IVPUSH 03/20/23 23:06 1 mg ONCE ONE Administration Nitroglycerin 1 inch 03/20/23 23:38 03/20/23 23:44 Nitroglycerin 2 % Oint 1 Gm Packet TRANSDERMA 03/20/23 23:39 1 inch ONCE ONE Administration <Davina Frey MD - Last Filed: 03/20/23 17:12> Medications Administered Discontinued Medications Generic Name Dose Route Start Last Admin Trade Name Freq PRN Reason Stop Dose Admin Amlodipine Besylate 10 mg 03/20/23 22:35 03/20/23 22:53 Amlodipine Besylate 10 Mg Tablet PO 03/20/23 22:36 10 mg ONCE ONE Administration Protocol Clonidine HCl 0.2 mg 03/20/23 22:48 03/20/23 22:52 Clonidine Hcl 0.2 Mg Tablet PO 03/20/23 22:49 0.2 mg ONCE ONE Administration Protocol Hydralazine HCl 5 mg 03/20/23 15:42 03/20/23 16:15 Hydralazine Hcl 20 Mg/Ml Vial IVPUSH 03/20/23 15:43 5 mg ONCE ONE Administration Protocol Hydralazine HCl 10 mg 03/20/23 23:38 03/20/23 23:43 Hydralazine Hcl 20 Mg/Ml Vial IVPUSH 03/20/23 23:39 10 mg ONCE ONE Administration Protocol Sodium Chloride 1,000 mls @ 999 mls/hr 03/20/23 16:35 03/20/23 18:08 Ns IV 03/20/23 17:35 Infused .Q1H1M ONE Infusion Labetalol HCl 20 mg 03/20/23 16:34 03/20/23 16:53 Labetalol Hcl 100 Mg/20 Ml Vial IVPUSH 03/20/23 16:35 20 mg ONCE ONE Administration Labetalol HCl 20 mg 03/20/23 21:57 03/20/23 22:14 Labetalol Hcl 100 Mg/20 Ml Vial IVPUSH 03/20/23 21:58 20 mg ONCE ONE Administration Levetiracetam 1,500 mg 03/20/23 15:52 03/20/23 16:16 Levetiracetam 500 Mg/5 Ml Vial IV 03/20/23 15:53 1,500 mg ONCE ONE Administration Lisinopril 10 mg 03/20/23 22:35 03/20/23 22:52 Lisinopril 10 Mg Tablet PO 03/20/23 22:36 10 mg ONCE ONE Administration Protocol Lorazepam 1 mg 03/20/23 23:05 03/20/23 23:09 Lorazepam 2 Mg/Ml Vial IVPUSH 03/20/23 23:06 1 mg ONCE ONE Administration Nitroglycerin 1 inch 03/20/23 23:38 03/20/23 23:44 Nitroglycerin 2 % Oint 1 Gm Packet TRANSDERMA 03/20/23 23:39 1 inch ONCE ONE Administration <Yazan Shrestha MD - Last Filed: 03/21/23 01:07> Medical Decision Making Medical Decision Making MDM Narrative: 67-year-old male with uncontrolled hypertension arrives in poor clinical status apparently dehydrated and intermittent waxing and waning responsiveness but unclear whether not this is at baseline. Labs, blood pressure control, imaging studies. Signed out to Dr Shrestha. <Davina rFey MD - Last Filed: 03/20/23 17:12> 67-year-old male with uncontrolled hypertension arrives in poor clinical status apparently dehydrated and intermittent waxing and waning responsiveness but unclear whether not this is at baseline. Labs, blood pressure control, imaging studies. Signed out to Dr Shrestha. 18:00 patient seen and evaluated patient noncompliant with medication came with hypertension and like a medication for last 60 blood pressure improved after IV labetalol and hydralazine lab workup is stable will get Case Management involved for placement 01:00 Patient requiring multiple doses of IV antihypertensive medications to control the blood pressure drug screening showed positive for fentanyl and opiates likely patient with withdrawal patient's blood pressure improved after clonidine p.o. 0.2 mg and Ativan IV blood pressure now 156/79 will admit patient to medical service <Yazan Shrestha MD - Last Filed: 03/21/23 01:07> Differential Diagnosis Please see the discussion above <Davina Frey MD - Last Filed: 03/20/23 17:12> Lab Data [facility] Lab Attestation statement: I reviewed the patient's lab results. <Yazan Shrestha MD - Last Filed: 03/21/23 01:07> Result Diagrams: 03/20/23 16:12 03/20/23 16:12 <Davina Frey MD - Last Filed: 03/20/23 17:12> Labs: Lab Results 03/20/23 03/20/23 03/20/23 Range/Units 16:12 16:12 16:12 WBC 5.8 (4.8-10.8) X10*3/uL RBC 5.03 D (4.60-5.80) X10*6/uL Hgb 14.5 (14.0-18.0) g/dl Hct 44.4 (42.0-52.0) % MCV 88.3 (80.0-98.0) fL MCH 28.8 (27.0-33.0) pg MCHC 32.7 (31.0-36.0) g/dl RDW 12.8 (11.0-16.0) % Plt Count 334 D (160-400) X10*3/uL MPV 10.1 (9.4-12.4) fL Immature Gran % (Auto) 0.2 (0.0-0.4) % Neut % (Auto) 75.7 H (45-73) % Lymph % (Auto) 17.2 L (20-40) % [place] % (Auto) 6.4 (2-11) % Eos % (Auto) 0.2 (0-4) % Baso % (Auto) 0.3 (0-2) % Lymph # (Auto) 1.0 L (1.2-4.9) X10*3/uL [place] # (Auto) 0.4 (0.1-1.2) X10*3/uL Eos # (Auto) 0.0 (0.0-0.4) X10*3/uL Baso # (Auto) 0.0 (0.0-0.2) X10*3/uL Abs Immat Gran (auto) 0.01 (0.00-0.03) X10*3/uL Absolute Neuts (auto) 4.4 (2.0-8.3) x10*3/uL Absolute Nucleated RBC 0.000 (0.0-0.012) X10*3/uL Nucleated RBC % (auto) 0.0 (0.0-0.2) /100WBC Sodium 142 (135-145) mmol/L Potassium 4.2 (3.3-5.1) mmol/L Chloride 103 (96-108) mmol/L Carbon Dioxide 28 (22-29) mmol/L Anion Gap 15 (12-20) BUN 14 (9-16) mg/dL Creatinine 1.05 (0.5-1.4) mg/dL Estim Creat Clear Calc 65.5 Estimated GFR > 60 Random Glucose 99 (60-115) mg/dL Lactic Acid (0.5-2.0) mmol/L Calcium 10.8 H D (8.4-10.2) mg/dL Magnesium 2.3 (1.6-2.6) mg/dL Total Bilirubin 1.0 (0.0-1.0) mg/dL AST 22 (5-37) U/L ALT 19 (0-40) U/L Alkaline Phosphatase 92 (39-117) U/L Total Creatine Kinase 138 (38-174) U/L Troponin I High Sens 16.1 (<3.5-35.0) ng/L Total Protein 8.7 H (6.5-8.0) g/dL Albumin 4.9 (3.5-5.0) g/dL Urine Color Urine Appearance Urine pH (5.0-9.0) Ur Specific [place] (1.005-1.025) Urine Protein (Neg-Trace) mg/dL Urine Glucose (UA) (Negative) mg/dL Urine Ketones (Negative) mg/dL Urine Blood (Negative) Urine Nitrite (Negative) Ur Leukocyte Esterase (Negative) Urine Opiates Screen (Not Detect) Urine Fentanyl Screen (Not Detect) Ur Barbiturates Screen (Not Detect) Ur Phencyclidine Scrn (Not Detect) Ur Amphetamines Screen (Not Detect) U Benzodiazepines Scrn (Not Detect) Urine Cocaine Screen (Not Detect) U Marijuana (THC) Screen (Not Detect) Ethyl Alcohol mg/dL 03/20/23 03/20/23 03/20/23 Range/Units 16:12 16:13 17:40 WBC (4.8-10.8) X10*3/uL RBC (4.60-5.80) X10*6/uL Hgb (14.0-18.0) g/dl Hct (42.0-52.0) % MCV (80.0-98.0) fL MCH (27.0-33.0) pg MCHC (31.0-36.0) g/dl RDW (11.0-16.0) % Plt Count (160-400) X10*3/uL MPV (9.4-12.4) fL Immature Gran % (Auto) (0.0-0.4) % Neut % (Auto) (45-73) % Lymph % (Auto) (20-40) % [place] % (Auto) (2-11) % Eos % (Auto) (0-4) % Baso % (Auto) (0-2) % Lymph # (Auto) (1.2-4.9) X10*3/uL [place] # (Auto) (0.1-1.2) X10*3/uL Eos # (Auto) (0.0-0.4) X10*3/uL Baso # (Auto) (0.0-0.2) X10*3/uL Abs Immat Gran (auto) (0.00-0.03) X10*3/uL Absolute Neuts (auto) (2.0-8.3) x10*3/uL Absolute Nucleated RBC (0.0-0.012) X10*3/uL Nucleated RBC % (auto) (0.0-0.2) /100WBC Sodium (135-145) mmol/L Potassium (3.3-5.1) mmol/L Chloride (96-108) mmol/L Carbon Dioxide (22-29) mmol/L Anion Gap (12-20) BUN (9-16) mg/dL Creatinine (0.5-1.4) mg/dL Estim Creat Clear Calc Estimated GFR Random Glucose (60-115) mg/dL Lactic Acid 1.1 (0.5-2.0) mmol/L Calcium (8.4-10.2) mg/dL Magnesium (1.6-2.6) mg/dL Total Bilirubin (0.0-1.0) mg/dL AST (5-37) U/L ALT (0-40) U/L Alkaline Phosphatase (39-117) U/L Total Creatine Kinase (38-174) U/L Troponin I High Sens (<3.5-35.0) ng/L Total Protein (6.5-8.0) g/dL Albumin (3.5-5.0) g/dL Urine Color Yellow Urine Appearance Clear Urine pH 8.0 (5.0-9.0) Ur Specific [place] 1.010 (1.005-1.025) Urine Protein Negative (Neg-Trace) mg/dL Urine Glucose (UA) Negative (Negative) mg/dL Urine Ketones Negative (Negative) mg/dL Urine Blood Negative (Negative) Urine Nitrite Negative (Negative) Ur Leukocyte Esterase Negative (Negative) Urine Opiates Screen (Not Detect) Urine Fentanyl Screen (Not Detect) Ur Barbiturates Screen (Not Detect) Ur Phencyclidine Scrn (Not Detect) Ur Amphetamines Screen (Not Detect) U Benzodiazepines Scrn (Not Detect) Urine Cocaine Screen (Not Detect) U Marijuana (THC) Screen (Not Detect) Ethyl Alcohol < 10 mg/dL 03/20/23 03/20/23 Range/Units 17:40 23:15 WBC (4.8-10.8) X10*3/uL RBC (4.60-5.80) X10*6/uL Hgb (14.0-18.0) g/dl Hct (42.0-52.0) % MCV (80.0-98.0) fL MCH (27.0-33.0) pg MCHC (31.0-36.0) g/dl RDW (11.0-16.0) % Plt Count (160-400) X10*3/uL MPV (9.4-12.4) fL Immature Gran % (Auto) (0.0-0.4) % Neut % (Auto) (45-73) % Lymph % (Auto) (20-40) % [place] % (Auto) (2-11) % Eos % (Auto) (0-4) % Baso % (Auto) (0-2) % Lymph # (Auto) (1.2-4.9) X10*3/uL [place] # (Auto) (0.1-1.2) X10*3/uL Eos # (Auto) (0.0-0.4) X10*3/uL Baso # (Auto) (0.0-0.2) X10*3/uL Abs Immat Gran (auto) (0.00-0.03) X10*3/uL Absolute Neuts (auto) (2.0-8.3) x10*3/uL Absolute Nucleated RBC (0.0-0.012) X10*3/uL Nucleated RBC % (auto) (0.0-0.2) /100WBC Sodium (135-145) mmol/L Potassium (3.3-5.1) mmol/L Chloride (96-108) mmol/L Carbon Dioxide (22-29) mmol/L Anion Gap (12-20) BUN (9-16) mg/dL Creatinine (0.5-1.4) mg/dL Estim Creat Clear Calc Estimated GFR Random Glucose (60-115) mg/dL Lactic Acid 2.0 (0.5-2.0) mmol/L Calcium (8.4-10.2) mg/dL Magnesium (1.6-2.6) mg/dL Total Bilirubin (0.0-1.0) mg/dL AST (5-37) U/L ALT (0-40) U/L Alkaline Phosphatase (39-117) U/L Total Creatine Kinase (38-174) U/L Troponin I High Sens (<3.5-35.0) ng/L Total Protein (6.5-8.0) g/dL Albumin (3.5-5.0) g/dL Urine Color Urine Appearance Urine pH (5.0-9.0) Ur Specific [place] (1.005-1.025) Urine Protein (Neg-Trace) mg/dL Urine Glucose (UA) (Negative) mg/dL Urine Ketones (Negative) mg/dL Urine Blood (Negative) Urine Nitrite (Negative) Ur Leukocyte Esterase (Negative) Urine Opiates Screen POSITIVE H (Not Detect) Urine Fentanyl Screen POSITIVE H (Not Detect) Ur Barbiturates Screen Not Detected (Not Detect) Ur Phencyclidine Scrn Not Detected (Not Detect) Ur Amphetamines Screen Not Detected (Not Detect) U Benzodiazepines Scrn Not Detected (Not Detect) Urine Cocaine Screen Not Detected (Not Detect) U Marijuana (THC) Screen Not Detected (Not Detect) Ethyl Alcohol mg/dL <Davina Frey MD - Last Filed: 03/20/23 17:12> Lab Results 03/20/23 03/20/23 03/20/23 Range/Units 16:12 16:12 16:12 WBC 5.8 (4.8-10.8) X10*3/uL RBC 5.03 D (4.60-5.80) X10*6/uL Hgb 14.5 (14.0-18.0) g/dl Hct 44.4 (42.0-52.0) % MCV 88.3 (80.0-98.0) fL MCH 28.8 (27.0-33.0) pg MCHC 32.7 (31.0-36.0) g/dl RDW 12.8 (11.0-16.0) % Plt Count 334 D (160-400) X10*3/uL MPV 10.1 (9.4-12.4) fL Immature Gran % (Auto) 0.2 (0.0-0.4) % Neut % (Auto) 75.7 H (45-73) % Lymph % (Auto) 17.2 L (20-40) % [place] % (Auto) 6.4 (2-11) % Eos % (Auto) 0.2 (0-4) % Baso % (Auto) 0.3 (0-2) % Lymph # (Auto) 1.0 L (1.2-4.9) X10*3/uL [place] # (Auto) 0.4 (0.1-1.2) X10*3/uL Eos # (Auto) 0.0 (0.0-0.4) X10*3/uL Baso # (Auto) 0.0 (0.0-0.2) X10*3/uL Abs Immat Gran (auto) 0.01 (0.00-0.03) X10*3/uL Absolute Neuts (auto) 4.4 (2.0-8.3) x10*3/uL Absolute Nucleated RBC 0.000 (0.0-0.012) X10*3/uL Nucleated RBC % (auto) 0.0 (0.0-0.2) /100WBC Sodium 142 (135-145) mmol/L Potassium 4.2 (3.3-5.1) mmol/L Chloride 103 (96-108) mmol/L Carbon Dioxide 28 (22-29) mmol/L Anion Gap 15 (12-20) BUN 14 (9-16) mg/dL Creatinine 1.05 (0.5-1.4) mg/dL Estim Creat Clear Calc 65.5 Estimated GFR > 60 Random Glucose 99 (60-115) mg/dL Lactic Acid (0.5-2.0) mmol/L Calcium 10.8 H D (8.4-10.2) mg/dL Magnesium 2.3 (1.6-2.6) mg/dL Total Bilirubin 1.0 (0.0-1.0) mg/dL AST 22 (5-37) U/L ALT 19 (0-40) U/L Alkaline Phosphatase 92 (39-117) U/L Total Creatine Kinase 138 (38-174) U/L Troponin I High Sens 16.1 (<3.5-35.0) ng/L Total Protein 8.7 H (6.5-8.0) g/dL Albumin 4.9 (3.5-5.0) g/dL Urine Color Urine Appearance Urine pH (5.0-9.0) Ur Specific [place] (1.005-1.025) Urine Protein (Neg-Trace) mg/dL Urine Glucose (UA) (Negative) mg/dL Urine Ketones (Negative) mg/dL Urine Blood (Negative) Urine Nitrite (Negative) Ur Leukocyte Esterase (Negative) Urine Opiates Screen (Not Detect) Urine Fentanyl Screen (Not Detect) Ur Barbiturates Screen (Not Detect) Ur Phencyclidine Scrn (Not Detect) Ur Amphetamines Screen (Not Detect) U Benzodiazepines Scrn (Not Detect) Urine Cocaine Screen (Not Detect) U Marijuana (THC) Screen (Not Detect) Ethyl Alcohol mg/dL 03/20/23 03/20/23 03/20/23 Range/Units 16:12 16:13 17:40 WBC (4.8-10.8) X10*3/uL RBC (4.60-5.80) X10*6/uL Hgb (14.0-18.0) g/dl Hct (42.0-52.0) % MCV (80.0-98.0) fL MCH (27.0-33.0) pg MCHC (31.0-36.0) g/dl RDW (11.0-16.0) % Plt Count (160-400) X10*3/uL MPV (9.4-12.4) fL Immature Gran % (Auto) (0.0-0.4) % Neut % (Auto) (45-73) % Lymph % (Auto) (20-40) % [place] % (Auto) (2-11) % Eos % (Auto) (0-4) % Baso % (Auto) (0-2) % Lymph # (Auto) (1.2-4.9) X10*3/uL [place] # (Auto) (0.1-1.2) X10*3/uL Eos # (Auto) (0.0-0.4) X10*3/uL Baso # (Auto) (0.0-0.2) X10*3/uL Abs Immat Gran (auto) (0.00-0.03) X10*3/uL Absolute Neuts (auto) (2.0-8.3) x10*3/uL Absolute Nucleated RBC (0.0-0.012) X10*3/uL Nucleated RBC % (auto) (0.0-0.2) /100WBC Sodium (135-145) mmol/L Potassium (3.3-5.1) mmol/L Chloride (96-108) mmol/L Carbon Dioxide (22-29) mmol/L Anion Gap (12-20) BUN (9-16) mg/dL Creatinine (0.5-1.4) mg/dL Estim Creat Clear Calc Estimated GFR Random Glucose (60-115) mg/dL Lactic Acid 1.1 (0.5-2.0) mmol/L Calcium (8.4-10.2) mg/dL Magnesium (1.6-2.6) mg/dL Total Bilirubin (0.0-1.0) mg/dL AST (5-37) U/L ALT (0-40) U/L Alkaline Phosphatase (39-117) U/L Total Creatine Kinase (38-174) U/L Troponin I High Sens (<3.5-35.0) ng/L Total Protein (6.5-8.0) g/dL Albumin (3.5-5.0) g/dL Urine Color Yellow Urine Appearance Clear Urine pH 8.0 (5.0-9.0) Ur Specific [place] 1.010 (1.005-1.025) Urine Protein Negative (Neg-Trace) mg/dL Urine Glucose (UA) Negative (Negative) mg/dL Urine Ketones Negative (Negative) mg/dL Urine Blood Negative (Negative) Urine Nitrite Negative (Negative) Ur Leukocyte Esterase Negative (Negative) Urine Opiates Screen (Not Detect) Urine Fentanyl Screen (Not Detect) Ur Barbiturates Screen (Not Detect) Ur Phencyclidine Scrn (Not Detect) Ur Amphetamines Screen (Not Detect) U Benzodiazepines Scrn (Not Detect) Urine Cocaine Screen (Not Detect) U Marijuana (THC) Screen (Not Detect) Ethyl Alcohol < 10 mg/dL 03/20/23 03/20/23 Range/Units 17:40 23:15 WBC (4.8-10.8) X10*3/uL RBC (4.60-5.80) X10*6/uL Hgb (14.0-18.0) g/dl Hct (42.0-52.0) % MCV (80.0-98.0) fL MCH (27.0-33.0) pg MCHC (31.0-36.0) g/dl RDW (11.0-16.0) % Plt Count (160-400) X10*3/uL MPV (9.4-12.4) fL Immature Gran % (Auto) (0.0-0.4) % Neut % (Auto) (45-73) % Lymph % (Auto) (20-40) % [place] % (Auto) (2-11) % Eos % (Auto) (0-4) % Baso % (Auto) (0-2) % Lymph # (Auto) (1.2-4.9) X10*3/uL [place] # (Auto) (0.1-1.2) X10*3/uL Eos # (Auto) (0.0-0.4) X10*3/uL Baso # (Auto) (0.0-0.2) X10*3/uL Abs Immat Gran (auto) (0.00-0.03) X10*3/uL Absolute Neuts (auto) (2.0-8.3) x10*3/uL Absolute Nucleated RBC (0.0-0.012) X10*3/uL Nucleated RBC % (auto) (0.0-0.2) /100WBC Sodium (135-145) mmol/L Potassium (3.3-5.1) mmol/L Chloride (96-108) mmol/L Carbon Dioxide (22-29) mmol/L Anion Gap (12-20) BUN (9-16) mg/dL Creatinine (0.5-1.4) mg/dL Estim Creat Clear Calc Estimated GFR Random Glucose (60-115) mg/dL Lactic Acid 2.0 (0.5-2.0) mmol/L Calcium (8.4-10.2) mg/dL Magnesium (1.6-2.6) mg/dL Total Bilirubin (0.0-1.0) mg/dL AST (5-37) U/L ALT (0-40) U/L Alkaline Phosphatase (39-117) U/L Total Creatine Kinase (38-174) U/L Troponin I High Sens (<3.5-35.0) ng/L Total Protein (6.5-8.0) g/dL Albumin (3.5-5.0) g/dL Urine Color Urine Appearance Urine pH (5.0-9.0) Ur Specific [place] (1.005-1.025) Urine Protein (Neg-Trace) mg/dL Urine Glucose (UA) (Negative) mg/dL Urine Ketones (Negative) mg/dL Urine Blood (Negative) Urine Nitrite (Negative) Ur Leukocyte Esterase (Negative) Urine Opiates Screen POSITIVE H (Not Detect) Urine Fentanyl Screen POSITIVE H (Not Detect) Ur Barbiturates Screen Not Detected (Not Detect) Ur Phencyclidine Scrn Not Detected (Not Detect) Ur Amphetamines Screen Not Detected (Not Detect) U Benzodiazepines Scrn Not Detected (Not Detect) Urine Cocaine Screen Not Detected (Not Detect) U Marijuana (THC) Screen Not Detected (Not Detect) Ethyl Alcohol mg/dL <Yazan Shrestha MD - Last Filed: 03/21/23 01:07> Independent Interpretation I performed an independent interpretation of an: EKG <Yazan Shrestha MD - Last Filed: 03/21/23 01:07> Interpretation: Normal sinus rhythm heart rate 75 beats per minute left anterior fascicular block no acute ST changes no acute ischemia <Yazan Shrestha MD - Last Filed: 03/21/23 01:07> Critical Care Time Critical Care Time Critical Care Time: Yes <Yazan Shrestha MD - Last Filed: 03/21/23 01:07> Total Critical Care Time: 100 <Yazan Shrestha MD - Last Filed: 03/21/23 01:07> Attestation: The patient was critically ill with a high probability of imminent or life threatening deterioration. I spent greater than 105 minutes of discontinuous time evaluating the patient,delivering critical care at the bedside, discussing and evaluating pertinent data with consultants. Critical care time does not include time spent performing separately billable procedures or teaching. Total time spent performing critical care was 100 minutes. <Yazan Shrestha MD - Last Filed: 03/21/23 01:07> Discharge Plan Discharge Clinical Impression: Uncontrolled hypertension, Adult failure to thrive, Physical deconditioning <Davina Frey MD - Last Filed: 03/20/23 17:12> Patient Disposition: Admitted As Inpatient <Davina Frey MD - Last Filed: 03/20/23 17:12>
[2023-03-20] MEDS: 0.9 % Sodium Chloride 1,000 ML 999 ML IV (17:07)
[2023-03-20 18:00] LABS: Amphetamine Screen Urine Not Detected (Not Detect); Barbiturates, Urine Not Detected (Not Detect); Benzodiazepines Screen Urine Not Detected (Not Detect); Cannabinoid Screen Urine Not Detected (Not Detect); Cocaine Screen Urine Not Detected (Not Detect); Fentanyl, urine POSITIVE (Not Detect); Opiate Screen Urine POSITIVE (Not Detect); Phencyclidine Screen Urine Not Detected (Not Detect)
[2023-03-20 18:10] LABS: Appearance Urine Clear; Color Urine Yellow; Glucose Urine UA Negative (Negative); Leukocyte Esterase Urine Negative (Negative); Nitrite Urine Negative (Negative); Urine Blood Negative (Negative); Urine Ketones Negative (Negative); Urine Protein Negative (Neg-Trace)
--- NOTE | 2023-03-20 19:49 | MHC.CM.ED ---
Addendum entered by Janine Lopes 03/20/23 21:44: Patient is finally awake and able to participate in CM interview. Pt very unkempt. Dirty and covered in old, dried feces. Odor quite strong. Pt lives alone at [facility] on 6th floor. Pt does not have a cell phone. States friend called the ambulance, since he has been going down hill since he left rehab. Pt was in [place] for acute rehab after a CVA. [place] [facility] Pt has cane. [facility] insurance. No family. No HCP. States [facility] did not come to his house. CM explained that if he doesn't have a phone, then the [facility] cannot call him. Pt states he needs help. Has no food and ran out of medications 6 days ago. Pt has u-tox that was positive for opiates and fentanyl. Pt denies drug use. Pt did meet with addiction medicine on 12/25, but denied substance abuse at that time. Pt has hx of depression. Was seen on last admission by Dee REDDY and patient refused any medication for depression. Pt states he wishes he would , but does not express suicide ideation. Pt states he is tired of living. Pt states he was in the 40 years ago and had a medical discharge. Has no VA services. Does not believe he is eligible. CM called [facility], as that was listed as ambulance that brought [place] [facility] They had no record of this patient.Called [facility]. They did transport patient [place] [facility] [place] CM spoke with Catalog Librarian who transported patient. He tells CM that a friend in the building called the ambulance for the patient and told him the patient has been going down hill since he came home from rehab. Pt appeared unkempt to patient, but was A&Ox3. They picked up patient in a community room in the apartment house. They did not see the patients living situation. PT is pending. CM will need to call [facility] in the morning. CM spoke with patient about need for STR with possible LTC. Patient is thinking about needing LTC. Pt does admit that he cannot care for himself. D/C plan: STR with possible transition to LTC. Local referrals placed. Will need to report to [facility] [employer] services if patient d/c home for self neglect. Original Note: CM attempted to meet with patient twice for discharge planning. Pt opens eyes to name, but does not engage or answer any questions. Dr. Henrietta cabrera.
--- NOTE | 2023-03-20 20:11 | PC.NURSE ---
Assumed care from DASHAWN Benítez at 19:00 ,pt change management lead to hospital attire, pt reposition for comfort, Will continue to monitor.
--- NOTE | 2023-03-20 20:34 | MHC.EDTECH ---
Patient clean and given new clarissa and new bed linen
--- NOTE | 2023-03-20 21:02 | MHC.EDTECH ---
Food and drink given
--- NOTE | 2023-03-20 21:54 | PC.NURSE ---
Pharmacy called for med rec.
--- NOTE | 2023-03-20 21:54 | PC.NURSE ---
Pt b/p high. Provider made aware. Waiting on orders. Will continue to monitor.
--- NOTE | 2023-03-20 22:20 | PC.NURSE ---
provider notified of elevated blood pressure, medicated for per Mar will continue to monitor.
[2023-03-20] MEDS: cloNIDine HCL 0.2 MG TABLET PO (22:52)
[2023-03-20] MEDS: lisinopriL 10 MG TABLET PO (22:52)
[2023-03-20] MEDS: amLODIPine Besylate 10 MG TABLET PO (22:53)
[2023-03-20] MEDS: LORazepam 2 MG/ML VIAL 1 MG IVPUSH (23:09)
[2023-03-20] MEDS: hydrALAZINE HCl 20 MG/ML VIAL 10 MG IVPUSH (23:43)
[2023-03-20] MEDS: Nitroglycerin 2 % Oint 1 GM Packet 1 INCH TRANSDERMA (23:44)
--- NOTE | 2023-03-20 23:59 | PC.NURSE ---
pt is extremely sleepy, pt medicated multiple time for hypertension, provider into assess. pt denies any pain at this time, will continue to monitor.
[2023-03-21] VITALS (15 sets, daily range): BP systolic 149–185; BP diastolic 76–101; PULSE 23–99; RESP 15–24; TEMP 36.2–37.2; O2SAT 94–100; BMI 22.1
--- NOTE | 2023-03-21 00:34 | PC.NURSE ---
Updated provider on blood pressure, will continue to monitor.
--- NOTE | 2023-03-21 01:18 | PC.NURSE ---
Removed nitro paste off, provider aware. Will continue to monitor.
[2023-03-21] MEDS: Lactated Ringers 1,000 ML 100 ML IVCONT ×3 (01:36→20:22)
--- NOTE | 2023-03-21 01:56 | PC.NURSE ---
New IV line placed by fire extinguisher charger on rt forearm. Old IV on rt ac no longer working, removed. IV fluids started. Pt resting comfortably. Will continue to monitor.
--- NOTE | 2023-03-21 03:42 | PC.NURSE ---
Pt a&ox3, no signs of distress. Pt denies pain and sob. Will continue to monitor.
--- NOTE | 2023-03-21 03:55 | PC.NURSE ---
Provider made aware of pts b/p. anupam continue to monitor.
--- NOTE | 2023-03-21 04:16 | PC.NURSE ---
Pt ca&ox3, no signs of distress. Pt used urinal at bedside. Pt then requesting to use bathroom, pt assisted to bathroom by matilda paulino. Will continue to monitor.
--- NOTE | 2023-03-21 04:25 | PC.NURSE ---
Bed change completed, pt requested and given drink. Pt back in bed resting comfortably. Will continue to monitor.
--- NOTE | 2023-03-21 06:00 | P.HPHOSP_ITS ---
History of Present Illness Date of Service: 03/21/23 Chief Complaint: fatigue, weakness keith is a 67-year-old male with recent history of stroke with left-sided residual hemiparesis, history of seizures, HTN who presents to the hospital from home stating weakness, and inability to obtain food and medication. Patient is not cooperating with my exam, not answering my questions, waking up but goes right back to sleep, therefore history is obtained mostly from ED physician. It appears the patient was recently discharged from hospital in December, he states that after being discharged from rehab he was unable to obtain any food or his medication, he was supposed to have a visiting nurse but no one visited him, he has had progressive weakness, and fatigue, he lives on the 6th floor, and was unable to get around due to the worsening weakness. Unable to obtain review of system is patient is not cooperating On arrival to the ED patient found to have blood pressure of 207/112, continue to be hypertensive, received several doses of labetalol, hydralazine, clonidine, and nitro paste with improvement of his blood pressure. head CT showed no acute intracranial abnormality, stable appearance of bi lateral basal ganglia and left pontine lacunar infarcts, superimposed on a background of moderate chronic small-vessel ischemic change and moderate global volume loss labs reviewed positive for opioids, and fentanyl, otherwise unremarkable Review of Systems Review of Systems: Yes Unobtainable due to mental condition and Unobtainable due to mental status PMFSH Medical History CHIOMA (acute kidney injury) Cerebrovascular accident No pertinent past medical history Recurrent major depression-severe Seizure Uncontrolled hypertension Family History Mother No problems noted. Father No problems noted. Surgical History History of left hip replacement Social History Household Members: None Housing: Apartment Do you presently have visiting nurse or other home services: No Alcohol intake: never Patient Tobacco Use Status: Current everyday Tobacco user Cigarette Packs Per Day: 10 Smoked in Last 30 Days: Yes Use of substances other than those prescribed or required for medical reasons: No Advance Directives: No Advance Directives Information Provided: No service: No Current occupational status: unemployed Meds Allergies Allergy/AdvReac Type Severity Reaction Status Date / Time fish derived [FISH] Allergy Unknown UNKNOWN Verified 01/07/23 16:24 morphine [MORPHINE] Allergy Unknown UNKNOWN Verified 01/07/23 16:24 lactose Allergy Unknown Verified 03/20/23 18:07 cheese Allergy Anaphylaxis Uncoded 01/07/23 16:24 Active Medications: Current Medications Acetaminophen (Acetaminophen 325 Mg Tablet) 650 mg PO Q6H PRN PRN Reason: Pain, Mild (Pain Scale 1-3) Lactated Ringer's (Lr) 1,000 mls @ 100 mls/hr IVCONT .Q10H [facility] Last Admin: 03/21/23 01:36 Dose: 100 mls/hr Ondansetron HCl (Ondansetron Hcl 4 Mg/2 Ml Vial) 4 mg IVPUSH Q8H PRN PRN Reason: Nausea and Vomiting Sodium Chloride (0.9 % Sodium Chloride Flush 3 Ml Syringe) 3 ml IVFLUSH QSHIFT [facility] Physical Exam Vital Signs and Narrative: Vital Signs: Last Vital Signs Temp 98.2 F 03/21/23 02:10 Pulse 68 03/21/23 02:40 Resp 21 H 03/21/23 02:40 BP 170/94 H 03/21/23 02:40 Pulse Ox 94 03/21/23 02:10 O2 Del Method Room Air 03/21/23 02:10 BMI result Body Mass Index 26.6 Const: Other: patient obtunded but arousable, when I try to examine his pupils, patient jerked and closed his eyes unable to obtain complete physical exam General: cooperative and no acute distress Eyes: General: appearance normal, both eyes and all related structures Resp: Effort & Inspection: normal respiratory effort Auscultation: clear to auscultation bilaterally Cardio: Rate: regular rate Rhythm: regular rhythm GI: Palpation (GI): Soft to palpation Auscultation: normal bowel sounds Skin: General skin exam: no rashes or lesions noted Extrem: General: Yes normal to inspection and Yes no pedal edema Results Labs 03/20/23 16:12 03/20/23 16:12 Labs: Laboratory Results - last 24 hr 03/20/23 03/20/23 03/20/23 16:12 16:12 16:12 MCV 88.3 MCH 28.8 MCHC 32.7 RDW 12.8 Plt Count 334 D MPV 10.1 Immature Gran % (Auto) 0.2 Neut % (Auto) 75.7 H Lymph % (Auto) 17.2 L [place]field % (Auto) 6.4 Eos % (Auto) 0.2 Baso % (Auto) 0.3 Lymph # (Auto) 1.0 L [place] # (Auto) 0.4 Eos # (Auto) 0.0 Baso # (Auto) 0.0 Abs Immat Gran (auto) 0.01 Absolute Neuts (auto) 4.4 Absolute Nucleated RBC 0.000 Nucleated RBC % (auto) 0.0 Anion Gap 15 Estim Creat Clear Calc 65.5 Estimated GFR > 60 Random Glucose 99 Lactic Acid Calcium 10.8 H D Magnesium 2.3 Total Bilirubin 1.0 AST 22 ALT 19 Alkaline Phosphatase 92 Total Creatine Kinase 138 Troponin I High Sens 16.1 Total Protein 8.7 H Albumin 4.9 Urine Color Urine Appearance Urine pH Ur Specific [place] Urine Protein Urine Glucose (UA) Urine Ketones Urine Blood Urine Nitrite Ur Leukocyte Esterase Urine Opiates Screen Urine Fentanyl Screen Ur Barbiturates Screen Ur Phencyclidine Scrn Ur Amphetamines Screen U Benzodiazepines Scrn Urine Cocaine Screen U Marijuana (THC) Screen Ethyl Alcohol 03/20/23 03/20/23 03/20/23 16:12 16:13 17:40 MCV MCH MCHC RDW Plt Count MPV Immature Gran % (Auto) Neut % (Auto) Lymph % (Auto) [place] % (Auto) Eos % (Auto) Baso % (Auto) Lymph # (Auto) [place] # (Auto) Eos # (Auto) Baso # (Auto) Abs Immat Gran (auto) Absolute Neuts (auto) Absolute Nucleated RBC Nucleated RBC % (auto) Anion Gap Estim Creat Clear Calc Estimated GFR Random Glucose Lactic Acid 1.1 Calcium Magnesium Total Bilirubin AST ALT Alkaline Phosphatase Total Creatine Kinase Troponin I High Sens Total Protein Albumin Urine Color Yellow Urine Appearance Clear Urine pH 8.0 Ur Specific [place] 1.010 Urine Protein Negative Urine Glucose (UA) Negative Urine Ketones Negative Urine Blood Negative Urine Nitrite Negative Ur Leukocyte Esterase Negative Urine Opiates Screen Urine Fentanyl Screen Ur Barbiturates Screen Ur Phencyclidine Scrn Ur Amphetamines Screen U Benzodiazepines Scrn Urine Cocaine Screen U Marijuana (THC) Screen Ethyl Alcohol < 10 03/20/23 03/20/23 17:40 23:15 MCV MCH MCHC RDW Plt Count MPV Immature Gran % (Auto) Neut % (Auto) Lymph % (Auto) [place] % (Auto) Eos % (Auto) Baso % (Auto) Lymph # (Auto) [place] # (Auto) Eos # (Auto) Baso # (Auto) Abs Immat Gran (auto) Absolute Neuts (auto) Absolute Nucleated RBC Nucleated RBC % (auto) Anion Gap Estim Creat Clear Calc Estimated GFR Random Glucose Lactic Acid 2.0 Calcium Magnesium Total Bilirubin AST ALT Alkaline Phosphatase Total Creatine Kinase Troponin I High Sens Total Protein Albumin Urine Color Urine Appearance Urine pH Ur Specific [place] Urine Protein Urine Glucose (UA) Urine Ketones Urine Blood Urine Nitrite Ur Leukocyte Esterase Urine Opiates Screen POSITIVE H Urine Fentanyl Screen POSITIVE H Ur Barbiturates Screen Not Detected Ur Phencyclidine Scrn Not Detected Ur Amphetamines Screen Not Detected U Benzodiazepines Scrn Not Detected Urine Cocaine Screen Not Detected U Marijuana (THC) Screen Not Detected Ethyl Alcohol Imaging Radiologist's Impressions: Impressions Chest X-Ray 03/20/23 16:49 IMPRESSION: * Clear lungs. Head CT 03/20/23 16:56 IMPRESSION: 1. No acute intracranial abnormality. 2. Stable appearance of bilateral basal ganglia and left pontine lacunar infarcts, superimposed on a background of moderate chronic small vessel ischemic change and moderate global volume loss. Assessment and Plan (1) Hypertensive urgency: Status: Acute (2) Physical deconditioning: Status: Acute (3) Adult failure to thrive: Status: Acute (4) Uncontrolled hypertension: Status: Acute Plan 67-year-old male with recent diagnosis of CVA, seizure disorder presents to the hospital after being released from rehab and unable to take care of himself, find food or medications # hypertensive urgency - on arrival patient had blood pressures systolic in the 210s, diastolic in the 110s to 120s - controlled with several different medications including way below, h ydralazine, patient also received clonidine and nitro paste was seen to work - appears that he has not been able to obtain his medications for the past 6 days - will resume his lisinopril, and amlodipine - monitor BP q.4 hours - head CT negative for any new changes # physical deconditioning, failure to thrive - possibly due to recent hospitalization , but he was discharged to rehab except that he states inability to find food for the past week - will obtain physical therapy consult - continue regular diet - ensure with meals # seizure disorder - continue Keppra 500 b.i.d. # CVA - continue aspirin, statin DVT prophylaxis: Lovenox given patient's need for further management of his hypertensive urgency patient will require minimum 2 night inpatient hospital stay for further management and monitoring Time Spent With Patient Time: Total time managing care of this patient today ____ minutes. Quality Stroke Does the patient have a stroke diagnosis?: No VTE Prior VTE?: No VTE Risk Level:: Medical - low VTE Device Contraindication: N/A - Device Ordered VTE Drug Contraindication: Treatment Not Indicated
[2023-03-21] MEDS: Enoxaparin Sodium 40 MG/0.4 ML SYRINGE SUBCUT (06:40)
--- NOTE | 2023-03-21 06:43 | PC.NURSE ---
Meds admin per jan. Pt a&ox3, no signs of distress. will continue to monitor.
--- NOTE | 2023-03-21 06:51 | PC.NURSE ---
Report received from DASHAWN Julien
[2023-03-21 08:08] LABS: Alanine Aminotransferase 16 U/L (0-40); Albumin Level 4.1 g/dL (3.5-5.0); Alkaline Phosphatase 75 U/L (39-117); Anion Gap 15 (12-20); Aspartate Amino Transferase 18 U/L (5-37); Bilirubin Total 0.9 mg/dL (0.0-1.0); Blood Urea Nitrogen 10 mg/dL (9-16); Calcium 9.5 mg/dL (8.4-10.2); Carbon Dioxide 21 mmol/L (22-29); Chloride 108 mmol/L (96-108); Estimated Glomerular Filt Rate > 60; Glucose Random 132 mg/dL (60-115); Potassium 3.8 mmol/L (3.3-5.1); Sodium 140 mmol/L (135-145); Total Protein 7.2 g/dL (6.5-8.0)
--- NOTE | 2023-03-21 08:14 | PHA.MEDREC ---
Pharmacy Consult ? Medication Reconciliation Pharmacy has completed the medication reconciliation. Patient only knows of keppra, atorvastatin and lisinopril. He states that he was fine until his stroke, and then was started on a bunch of medications. He was transferred to a detention for a while, where he said he received better care, but since then, he has not been taking medications. States that when he is sick, he cannot leave is apartment and everything close by to him has closed so he cannot get his meds. Cannot quantify how long he has been without meds. States that he takes random ones on random days, but has not had them for a few weeks. Per patient, the meds he left here on would be the most accurate representation of what he thinks he should take. Prior to stroke pt reports nonadherence Rogelio
--- NOTE | 2023-03-21 08:23 | PC.NURSE ---
Attempt to call report to [facility]. [facility] will call back.
[2023-03-21] MEDS: 0.9 % Sodium Chloride Flush 3 ML SYRINGE IVFLUSH ×2 (08:40→20:23)
[2023-03-21] MEDS: Nicotine 14 MG PATCH.TD24 TRANSDERMA (08:40)
[2023-03-21] MEDS: amLODIPine Besylate 10 MG TABLET PO (08:40)
[2023-03-21] MEDS: lisinopriL 20 MG TABLET PO (08:40)
[2023-03-21] MEDS: levETIRAcetam 500 MG TABLET PO ×2 (08:40→20:21)
--- NOTE | 2023-03-21 09:15 | PC.NURSE ---
Report called to SHEELA Alicea RN
--- NOTE | 2023-03-21 13:09 | MHC.CM.PN ---
CM attempted to meet with patient to deliver GRAHAM notice- patient would not engage to sign, patient opened eyes but would not engage in conversation. CM will follow patient during hospitalization for d/c planning needs.
--- NOTE | 2023-03-21 14:52 | HO.PM.IMPN ---
Subjective Subjective Date of Service: 03/21/23 Interval History: hypertensive urgency Review of Systems Denies any chest pain shortness of breath abdominal pain or fever chills or cough or phlegm. Blood pressure improving Physical Exam Vital Signs: Vital Signs: Last Vital Signs Temp 98.6 F 03/21/23 11:23 Pulse 84 03/21/23 14:24 Resp 20 03/21/23 11:23 BP 156/90 H 03/21/23 14:24 Pulse Ox 100 03/21/23 14:24 O2 Del Method Room Air 03/21/23 11:23 BMI result Body Mass Index 22.1 Appearance: Alert.? Oriented X3.? not in distress.? cvs: [id number], [id number]. res: clear to auscultation ,no rhonchii or wheezing abd: no rebound or guarding ,nt, bs present. ext pulses present , no cyanosis. neuro: axo3 , nonfocal. Objective Data Active Medications Acetaminophen (Acetaminophen 325 Mg Tablet) 650 mg PO Q6H PRN PRN Reason: Pain, Mild (Pain Scale 1-3) Amlodipine Besylate (Amlodipine Besylate 10 Mg Tablet) 10 mg PO DAILY [facility]; Protocol Last Admin: 03/21/23 08:40 Dose: 10 mg Documented By: PAULINO Atorvastatin Calcium (Atorvastatin Calcium 40 Mg Tablet) 40 mg PO BEDTIME [facility] Enoxaparin Sodium (Enoxaparin Sodium 40 Mg/0.4 Ml Syringe) 40 mg SUBCUT Q24H [facility] Last Admin: 03/21/23 06:40 Dose: 40 mg Documented By: CHRISTY Lactated Ringer's (Lr) 1,000 mls @ 100 mls/hr IVCONT .Q10H [facility] Last Admin: 03/21/23 13:07 Dose: 100 mls/hr Documented By: DAREK Levetiracetam (Levetiracetam 500 Mg Tablet) 500 mg PO BID [facility] Last Admin: 03/21/23 08:40 Dose: 500 mg Documented By: PAULINO Lisinopril (Lisinopril 20 Mg Tablet) 20 mg PO DAILY [facility]; Protocol Last Admin: 03/21/23 08:40 Dose: 20 mg Documented By: PAULINO Nicotine (Nicotine 14 Mg Patch.Td24) 14 mg TRANSDERMA DAILY [facility] Last Admin: 03/21/23 08:40 Dose: 14 mg Documented By: PAULINO Ondansetron HCl (Ondansetron Hcl 4 Mg/2 Ml Vial) 4 mg IVPUSH Q8H PRN PRN Reason: Nausea and Vomiting Sodium Chloride (0.9 % Sodium Chloride Flush 3 Ml Syringe) 3 ml IVFLUSH QSHIFT [facility] Last Admin: 03/21/23 08:40 Dose: 3 ml Documented By: PAULINO Labs 03/20/23 16:12 03/21/23 07:41 Labs: Laboratory Results - last 24 hr 03/20/23 03/20/23 03/20/23 16:12 16:12 16:12 MCV 88.3 MCH 28.8 MCHC 32.7 RDW 12.8 Plt Count 334 D MPV 10.1 Immature Gran % (Auto) 0.2 Neut % (Auto) 75.7 H Lymph % (Auto) 17.2 L [place] % (Auto) 6.4 Eos % (Auto) 0.2 Baso % (Auto) 0.3 Lymph # (Auto) 1.0 L [place] # (Auto) 0.4 Eos # (Auto) 0.0 Baso # (Auto) 0.0 Abs Immat Gran (auto) 0.01 Absolute Neuts (auto) 4.4 Absolute Nucleated RBC 0.000 Nucleated RBC % (auto) 0.0 Anion Gap 15 Estim Creat Clear Calc 65.5 Estimated GFR > 60 Random Glucose 99 Lactic Acid Calcium 10.8 H D Magnesium 2.3 Total Bilirubin 1.0 AST 22 ALT 19 Alkaline Phosphatase 92 Total Creatine Kinase 138 Troponin I High Sens 16.1 Total Protein 8.7 H Albumin 4.9 Urine Color Urine Appearance Urine pH Ur Specific [place] Urine Protein Urine Glucose (UA) Urine Ketones Urine Blood Urine Nitrite Ur Leukocyte Esterase Urine Opiates Screen Urine Fentanyl Screen Ur Barbiturates Screen Ur Phencyclidine Scrn Ur Amphetamines Screen U Benzodiazepines Scrn Urine Cocaine Screen U Marijuana (THC) Screen Ethyl Alcohol 03/20/23 03/20/23 03/20/23 16:12 16:13 17:40 MCV MCH MCHC RDW Plt Count MPV Immature Gran % (Auto) Neut % (Auto) Lymph % (Auto) [place] % (Auto) Eos % (Auto) Baso % (Auto) Lymph # (Auto) [place] # (Auto) Eos # (Auto) Baso # (Auto) Abs Immat Gran (auto) Absolute Neuts (auto) Absolute Nucleated RBC Nucleated RBC % (auto) Anion Gap Estim Creat Clear Calc Estimated GFR Random Glucose Lactic Acid 1.1 Calcium Magnesium Total Bilirubin AST ALT Alkaline Phosphatase Total Creatine Kinase Troponin I High Sens Total Protein Albumin Urine Color Yellow Urine Appearance Clear Urine pH 8.0 Ur Specific [place] 1.010 Urine Protein Negative Urine Glucose (UA) Negative Urine Ketones Negative Urine Blood Negative Urine Nitrite Negative Ur Leukocyte Esterase Negative Urine Opiates Screen Urine Fentanyl Screen Ur Barbiturates Screen Ur Phencyclidine Scrn Ur Amphetamines Screen U Benzodiazepines Scrn Urine Cocaine Screen U Marijuana (THC) Screen Ethyl Alcohol < 10 03/20/23 03/20/23 03/21/23 17:40 23:15 07:41 MCV MCH MCHC RDW Plt Count MPV Immature Gran % (Auto) Neut % (Auto) Lymph % (Auto) [place] % (Auto) Eos % (Auto) Baso % (Auto) Lymph # (Auto) [place] # (Auto) Eos # (Auto) Baso # (Auto) Abs Immat Gran (auto) Absolute Neuts (auto) Absolute Nucleated RBC Nucleated RBC % (auto) Anion Gap 15 Estim Creat Clear Calc 81.0 Estimated GFR > 60 Random Glucose 132 H Lactic Acid 2.0 Calcium 9.5 D Magnesium Total Bilirubin 0.9 AST 18 ALT 16 Alkaline Phosphatase 75 Total Creatine Kinase Troponin I High Sens Total Protein 7.2 Albumin 4.1 Urine Color Urine Appearance Urine pH Ur Specific [place] Urine Protein Urine Glucose (UA) Urine Ketones Urine Blood Urine Nitrite Ur Leukocyte Esterase Urine Opiates Screen POSITIVE H Urine Fentanyl Screen POSITIVE H Ur Barbiturates Screen Not Detected Ur Phencyclidine Scrn Not Detected Ur Amphetamines Screen Not Detected U Benzodiazepines Scrn Not Detected Urine Cocaine Screen Not Detected U Marijuana (THC) Screen Not Detected Ethyl Alcohol Assessment and Plan (1) Hypertensive urgency: Status: Acute (2) CHIOMA (acute kidney injury): Status: Acute (3) Uncontrolled hypertension: Status: Acute Plan 67-year-old male with recent diagnosis of CVA, seizure disorder presents to the hospital after being released from rehab and unable to take care of himself, find food or medications Unconrtolled hhtn improving ? controlled with several different medications including way below, hydralazine, patient also received clonidine and nitro paste was seen to work -? appears that he has not been able to obtain his medications for the past 6 days resorated his lisinopril, and amlodipine,head CT negative for any new changes physical deconditioning, poor oral inatke -? possibly due to recent hospitalization ,? but he was discharged to rehab except that he states inability to find food for the past week -? will obtain physical therapy consult -? continue regular diet -? ensure? with meals seizure disorder-? continue Keppra 500 b.i.d. ? CVA-? continue aspirin, statin ?DVT prophylaxis:? Lovenox continue stay need-uncontrolled htn was off meds ,need close monitering blood pressure ,,pt eval for deconditioning. Says Time Spent With Patient Time: Total time managing care of this patient today ____ minutes. Quality Stroke Does the patient have a stroke diagnosis?: No VTE Prior VTE?: No VTE Risk Level:: Medical - low VTE Device Contraindication: N/A - Device Ordered VTE Drug Contraindication: Treatment Not Indicated
--- NOTE | 2023-03-21 15:05 | MHC.CLN ---
PT DOES NOT HAVE ALLERGY TO LACTOSE. PT IS LACTOSE INTOLERANT. PT CAN TOLERATE SMALL AMOUNTS OF MILK AND MILK PRODUCTS REMOVED LACTOSE AN ALLERGY
[2023-03-21] MEDS: Atorvastatin Calcium 40 MG TABLET PO (20:21)
[2023-03-21] MEDS: ondansetron HCL 4 MG/2 ML VIAL IVPUSH (20:57)
[2023-03-22] VITALS (8 sets, daily range): BP systolic 152–200; BP diastolic 74–110; PULSE 65–84; RESP 16–20; TEMP 36.8–37.3; O2SAT 92–98
[2023-03-22] MEDS: Lactated Ringers 1,000 ML 100 ML IVCONT (06:24)
[2023-03-22] MEDS: Enoxaparin Sodium 40 MG/0.4 ML SYRINGE SUBCUT (06:25)
[2023-03-22] MEDS: Acetaminophen 325 MG TABLET 650 MG PO (06:33)
[2023-03-22] MEDS: hydrALAZINE HCl 20 MG/ML VIAL 5 MG IVPUSH (06:34)
[2023-03-22] MEDS: Nicotine 14 MG PATCH.TD24 TRANSDERMA (08:30)
[2023-03-22] MEDS: levETIRAcetam 500 MG TABLET PO ×2 (08:30→20:07)
[2023-03-22] MEDS: lisinopriL 20 MG TABLET PO (08:30)
[2023-03-22] MEDS: amLODIPine Besylate 10 MG TABLET PO (08:30)
[2023-03-22] MEDS: carvediloL 3.125 MG TABLET PO (08:30)
--- NOTE | 2023-03-22 10:32 | PC.NURSE ---
md informed of pt's elevated bp throughout the day. no new orders at this time. also informed md of pt's neuro event, md arrived to bedside (see chart for more details), no new orders at this time.
--- NOTE | 2023-03-22 12:18 | P.PNIM_ITS ---
Subjective Subjective Date of Service: 03/23/23 Interval History: htn uncontrolled Review of Systems Denies any chest pain shortness of breath abdominal pain or fever chills or cough or phlegm. Blood pressure improving Physical Exam Vital Signs: Vital Signs: Last Vital Signs Temp 98.9 F 03/22/23 11:24 Pulse 76 03/22/23 11:24 Resp 20 03/22/23 11:24 BP 180/74 H 03/22/23 11:24 Pulse Ox 97 03/22/23 11:24 O2 Del Method Room Air 03/22/23 11:24 BMI result Body Mass Index 22.1 Appearance: Alert.? Oriented X3.? not in distress.? cvs: [id number], [id number]. res: clear to auscultation ,no rhonchii or wheezing abd: no rebound or guarding ,nt, bs present. ext pulses present , no cyanosis. neuro: axo3 , nonfocal. Objective Data Active Medications Acetaminophen (Acetaminophen 325 Mg Tablet) 650 mg PO Q6H PRN PRN Reason: Pain, Mild (Pain Scale 1-3) Last Admin: 03/22/23 06:33 Dose: 650 mg Documented By: YUKI Amlodipine Besylate (Amlodipine Besylate 10 Mg Tablet) 10 mg PO DAILY [facility]; Protocol Last Admin: 03/22/23 08:30 Dose: 10 mg Documented By: WALTER Atorvastatin Calcium (Atorvastatin Calcium 40 Mg Tablet) 40 mg PO BEDTIME [facility] Last Admin: 03/21/23 20:21 Dose: 40 mg Documented By: YUKI Carvedilol (Carvedilol 3.125 Mg Tablet) 3.125 mg PO BID [facility]; Protocol Last Admin: 03/22/23 08:30 Dose: 3.125 mg Documented By: WALTER Enoxaparin Sodium (Enoxaparin Sodium 40 Mg/0.4 Ml Syringe) 40 mg SUBCUT Q24H [facility] Last Admin: 03/22/23 06:25 Dose: 40 mg Documented By: YUKI Levetiracetam (Levetiracetam 500 Mg Tablet) 500 mg PO BID [facility] Last Admin: 03/22/23 08:30 Dose: 500 mg Documented By: WALTER Lisinopril (Lisinopril 20 Mg Tablet) 20 mg PO DAILY [facility]; Protocol Last Admin: 03/22/23 08:30 Dose: 20 mg Documented By: WALTER Nicotine (Nicotine 14 Mg Patch.Td24) 14 mg TRANSDERMA DAILY [facility] Last Admin: 03/22/23 08:30 Dose: 14 mg Documented By: WALTER Ondansetron HCl (Ondansetron Hcl 4 Mg/2 Ml Vial) 4 mg IVPUSH Q8H PRN PRN Reason: Nausea and Vomiting Last Admin: 03/21/23 20:57 Dose: 4 mg Documented By: YUKI Sodium Chloride (0.9 % Sodium Chloride Flush 3 Ml Syringe) 3 ml IVFLUSH QSHIFT [facility] Last Admin: 03/22/23 07:23 Dose: Not Given Documented By: WALTER Non-Admin Reason: See Note Labs 03/20/23 16:12 03/21/23 07:41 Microbiology Microbiology Results: Microbiology 03/21/23 07:41 Blood Culture - Preliminary Blood - Venous No growth after 24 hours. 03/21/23 07:41 Blood Culture - Preliminary Blood - Venous No growth after 24 hours. 03/20/23 20:16 Blood Culture - Preliminary Blood - Venous No growth after 24 hours. 03/20/23 16:13 Blood Culture - Preliminary Blood - Venous No growth after 24 hours. Assessment and Plan (1) Uncontrolled hypertension: Status: Acute (2) Physical deconditioning: Status: Acute Plan 67-year-old male with recent diagnosis of CVA, seizure disorder presents to the hospital after being released from rehab and unable to take care of himself, find food or medications Unconrtolled? htn head CT negative for any new changes improving ?controlled with several different medications including way below, hydralazine, patient also received clonidine and nitro paste was seen to work appears that he has not been able to obtain his medications for the past 6 days resorated his lisinopril, and amlodipine,added hydralazine also. ?physical deconditioning, poor oral inatke possibly due to recent hospitalization ,? but he was discharged to rehab except that he states inability to find food for the past wee.k continue regular diet ensure? with meals PT -recomends rehab ?seizure disorder-? continue Keppra 500 b.i.d. ? CVA-? continue aspirin, statin tox screen positive for -fentanyl ,opoids ?DVT prophylaxis:? Lovenox continue stay need-uncontrolled htn was off meds ,need close monitering blood pressure ,pt eval for deconditioning-pt recomends rehab-awaiting placement.? Time Spent With Patient Time: Total time managing care of this patient today ____ minutes. Quality Stroke Does the patient have a stroke diagnosis?: No VTE Prior VTE?: No VTE Risk Level:: Medical - low VTE Device Contraindication: N/A - Device Ordered VTE Drug Contraindication: Treatment Not Indicated
--- NOTE | 2023-03-22 13:37 | MHC.CM.PN ---
Per MD, Patient is medically cleared for dc to SNF/STR. CM has updated SNF referrals and awaits a bed offer, pending [facility] auth on a Friday. CM will follow.
--- NOTE | 2023-03-22 14:29 | MHC.CM.PN ---
Patient has a bed offer at [facility], who will attempt [facility] auth on 03/24/2023. CM will follow.
[2023-03-22] MEDS: hydrALAZINE HCl 10 MG TABLET PO ×2 (14:51→20:08)
[2023-03-22] MEDS: 0.9 % Sodium Chloride Flush 3 ML SYRINGE IVFLUSH (15:32)
[2023-03-22] MEDS: Atorvastatin Calcium 40 MG TABLET PO (20:08)
[2023-03-23] MEDS: 0.9 % Sodium Chloride Flush 3 ML SYRINGE IVFLUSH ×4 (00:03→21:37)
[2023-03-23 03:17] VITALS: BP 160/105; PULSE 87; RESP 20; TEMP 37.2; O2SAT 98
--- NOTE | 2023-03-23 06:15 | PC.NURSE ---
Patient has a 42 beat of question Vtach vs SVT / asymptomatic . Notified Dr. Strong . Lab work ordered for am BMP, CBC, and Magnesium level. Will continue to monitor.
[2023-03-23] MEDS: Enoxaparin Sodium 40 MG/0.4 ML SYRINGE SUBCUT (06:43)
[2023-03-23] MEDS: Acetaminophen 325 MG TABLET 650 MG PO (06:43)
--- NOTE | 2023-03-23 06:59 | PM.EVENT ---
Event Note Date of Service: 03/23/23 Event Note: Pt had run of vtach labs ordered Time Spent With Patient Time: Total time managing care of this patient today ____ minutes.
[2023-03-23 07:06] LABS: MANUAL DIFF FLAG NO
[2023-03-23 07:08] LABS: Basophils Percent Auto 0.3 % (0-2); Eosinophils Percent Auto 0.5 % (0-4); Hematocrit 39.3 % (42.0-52.0); Hemoglobin 12.8 g/dl (14.0-18.0); Imm Gran Abs Auto 0.04 X10*3/uL (0.00-0.03); Imm Gran Pct Auto 0.5 % (0.0-0.4); Lymphocytes Absolute Auto 1.3 X10*3/uL (1.2-4.9); Lymphocytes Percent Auto 17.3 % (20-40); Mean Corpuscular HGB Conc 32.6 g/dl (31.0-36.0); Mean Corpuscular Hemoglobin 28.4 pg (27.0-33.0); Mean Corpuscular Volume 87.3 fL (80.0-98.0); Mean Platelet Volume 9.5 fL (9.4-12.4); Monocytes Absolute Auto 0.8 X10*3/uL (0.1-1.2); Monocytes Percent Auto 9.7 % (2-11); Neutrophils Absolute Auto 5.5 x10*3/uL (2.0-8.3); Neutrophils Percent Auto 71.7 % (45-73); Platelet Count 272 X10*3/uL (160-400); Red Cell Distribution Width 13.1 % (11.0-16.0); White Blood Count 7.7 X10*3/uL (4.8-10.8)
[2023-03-23 07:31] LABS: Anion Gap 10 (12-20); Blood Urea Nitrogen 15 mg/dL (9-16); Calcium 9.5 mg/dL (8.4-10.2); Carbon Dioxide 25 mmol/L (22-29); Chloride 109 mmol/L (96-108); Creatinine Clr Calc Pharmacy 80.1; Estimated Glomerular Filt Rate > 60; Glucose Random 111 mg/dL (60-115); Magnesium 2.2 mg/dL (1.6-2.6); Potassium 3.8 mmol/L (3.3-5.1); Sodium 140 mmol/L (135-145)
[2023-03-23 07:32] VITALS: BP 170/80; PULSE 69; RESP 20; TEMP 36.8; O2SAT 98
[2023-03-23] MEDS: lisinopriL 20 MG TABLET PO (09:34)
[2023-03-23] MEDS: hydrALAZINE HCl 25 MG TABLET PO (09:34)
[2023-03-23] MEDS: levETIRAcetam 500 MG TABLET PO ×2 (09:34→21:34)
[2023-03-23] MEDS: amLODIPine Besylate 10 MG TABLET PO (09:35)
[2023-03-23 11:12] VITALS: BP 170/80; PULSE 63; RESP 20; TEMP 36.7; O2SAT 99
--- NOTE | 2023-03-23 11:57 | P.PNIM_ITS ---
Subjective Subjective Date of Service: 03/23/23 Interval History: htn uncontrolled Review of Systems Denies any chest pain shortness of breath abdominal pain or fever chills or cough or phlegm. Blood pressure improving Physical Exam Vital Signs: Vital Signs: Last Vital Signs Temp 98.0 F 03/23/23 11:12 Pulse 63 03/23/23 11:12 Resp 20 03/23/23 11:12 BP 170/80 H 03/23/23 11:12 Pulse Ox 99 03/23/23 11:12 O2 Del Method Room Air 03/23/23 11:12 BMI result Body Mass Index 22.1 Appearance: Alert.? Oriented X3.? not in distress.? cvs: rrr, [id number]. res: clear to auscultation ,no rhonchii or wheezing abd: no rebound or guarding ,nt, bs present. ext pulses present , no cyanosis. neuro: axo3 , nonfocal. Objective Data Active Medications Acetaminophen (Acetaminophen 325 Mg Tablet) 650 mg PO Q6H PRN PRN Reason: Pain, Mild (Pain Scale 1-3) Last Admin: 03/23/23 06:43 Dose: 650 mg Documented By: CHRISTINE Amlodipine Besylate (Amlodipine Besylate 10 Mg Tablet) 10 mg PO DAILY [facility]; Protocol Last Admin: 03/23/23 09:35 Dose: 10 mg Documented By: ROSIE Atorvastatin Calcium (Atorvastatin Calcium 40 Mg Tablet) 40 mg PO BEDTIME [facility] Last Admin: 03/22/23 20:08 Dose: 40 mg Documented By: ASA Enoxaparin Sodium (Enoxaparin Sodium 40 Mg/0.4 Ml Syringe) 40 mg SUBCUT Q24H [facility] Last Admin: 03/23/23 06:43 Dose: 40 mg Documented By: CHRISTINE Hydralazine HCl (Hydralazine Hcl 25 Mg Tablet) 25 mg PO TID [facility]; Protocol Last Admin: 03/23/23 09:34 Dose: 25 mg Documented By: ROSIE Levetiracetam (Levetiracetam 500 Mg Tablet) 500 mg PO BID [facility] Last Admin: 03/23/23 09:34 Dose: 500 mg Documented By: ROSIE Lisinopril (Lisinopril 20 Mg Tablet) 20 mg PO DAILY [facility]; Protocol Last Admin: 03/23/23 09:34 Dose: 20 mg Documented By: ROSIE Nicotine (Nicotine 14 Mg Patch.Td24) 14 mg TRANSDERMA DAILY [facility] Last Admin: 03/23/23 09:40 Dose: Not Given Documented By: ROSIE Non-Admin Reason: Patient Refused Ondansetron HCl (Ondansetron Hcl 4 Mg/2 Ml Vial) 4 mg IVPUSH Q8H PRN PRN Reason: Nausea and Vomiting Last Admin: 03/21/23 20:57 Dose: 4 mg Documented By: YUKI Sodium Chloride (0.9 % Sodium Chloride Flush 3 Ml Syringe) 3 ml IVFLUSH QSHIFT [facility] Last Admin: 03/23/23 09:35 Dose: 3 ml Documented By: ROSIE Labs 03/23/23 06:58 03/23/23 06:58 Labs: Laboratory Results - last 24 hr 03/23/23 03/23/23 06:58 06:58 MCV 87.3 MCH 28.4 MCHC 32.6 RDW 13.1 Plt Count 272 MPV 9.5 Immature Gran % (Auto) 0.5 H Neut % (Auto) 71.7 Lymph % (Auto) 17.3 L [place] % (Auto) 9.7 Eos % (Auto) 0.5 Baso % (Auto) 0.3 Lymph # (Auto) 1.3 [place] # (Auto) 0.8 Eos # (Auto) 0.0 Baso # (Auto) 0.0 Abs Immat Gran (auto) 0.04 H Absolute Neuts (auto) 5.5 Absolute Nucleated RBC 0.000 Nucleated RBC % (auto) 0.0 Anion Gap 10 L Estim Creat Clear Calc 80.1 Estimated GFR > 60 Random Glucose 111 Calcium 9.5 Magnesium 2.2 Microbiology Microbiology Results: Microbiology 03/21/23 07:41 Blood Culture - Preliminary Blood - Venous No growth after 48 hours. 03/21/23 07:41 Blood Culture - Preliminary Blood - Venous No growth after 48 hours. 03/20/23 20:16 Blood Culture - Preliminary Blood - Venous No growth after 48 hours. 03/20/23 16:13 Blood Culture - Preliminary Blood - Venous No growth after 48 hours. Assessment and Plan (1) Uncontrolled hypertension: Status: Acute (2) Physical deconditioning: Status: Acute (3) NSVT (nonsustained ventricular tachycardia): Status: Acute Plan 67-year-old male with recent diagnosis of CVA, seizure disorder presents to the hospital after being released from rehab and unable to take care of himself, find food or medications Unconrtolled? htn head CT negative for any new changes improving ?controlled with several different medications including way below, hydralazine, patient also received clonidine and nitro paste was seen to work appears that he has not been able to obtain his medications for the past 6 days resorated his lisinopril, and amlodipine,coreg also. patient had run of nsvt ? 19 beats last night no new episode so far afterwards ,only few pvc's bmp noted -keep potassium 4 ,magnesium 2.2 range added po potassium, coreg. patient is asymptomatic If any new episode of NSVT consider Cardiology eval. ?physical deconditioning, poor oral inatke possibly due to recent hospitalization ,? but he was discharged to rehab except that he states inability to find food for the past wee.k continue regular diet ensure? with meals PT -recomends rehab ?seizure disorder-? continue Keppra 500 b.i.d. ? CVA-? continue aspirin, statin tox screen positive for -fentanyl ,opoids ?DVT prophylaxis:? Lovenox continue stay need-uncontrolled htn was off meds ,need close monitering blood pressure ,pt eval for deconditioning-pt recomends rehab-awaiting placement.? Time Spent With Patient Time: Total time managing care of this patient today ____ minutes. Quality Stroke Does the patient have a stroke diagnosis?: No VTE Prior VTE?: No VTE Risk Level:: Medical - low VTE Device Contraindication: N/A - Device Ordered VTE Drug Contraindication: Treatment Not Indicated
[2023-03-23] MEDS: Potassium Chloride Packet 20 MEQ PACKET PO (12:32)
[2023-03-23 15:52] VITALS: BP 152/81; PULSE 81; RESP 18; TEMP 36.8; O2SAT 97
[2023-03-23 19:56] VITALS: BP 159/89; PULSE 89; RESP 18; TEMP 36.7; O2SAT 98
[2023-03-23] MEDS: carvediloL 6.25 MG TABLET PO (21:34)
[2023-03-23] MEDS: Atorvastatin Calcium 40 MG TABLET PO (21:34)
[2023-03-23 23:24] VITALS: BP 172/91; PULSE 80; RESP 18; TEMP 37.4; O2SAT 100
[2023-03-24] MEDS: traZODone HCL 50 MG TABLET PO (03:27)
[2023-03-24 03:34] VITALS: BP 154/91; PULSE 67; RESP 18; TEMP 36.9; O2SAT 97
[2023-03-24 07:55] VITALS: BP 170/98; PULSE 74; RESP 20; TEMP 36.9; O2SAT 100
[2023-03-24] MEDS: lisinopriL 10 MG TABLET 30 MG PO (08:56)
[2023-03-24] MEDS: levETIRAcetam 500 MG TABLET PO ×2 (08:57→20:08)
[2023-03-24] MEDS: 0.9 % Sodium Chloride Flush 3 ML SYRINGE IVFLUSH ×2 (08:57→16:22)
[2023-03-24] MEDS: carvediloL 6.25 MG TABLET PO ×2 (08:57→20:08)
[2023-03-24] MEDS: amLODIPine Besylate 10 MG TABLET PO (08:57)
--- NOTE | 2023-03-24 09:36 | PC.NURSE ---
Patient agitated about bed alarm and high fall risk interventions. Patient asking for this RN to removed bed alarm. Patient ambulated steady to bathroom with walker. Patient downgraded to low fall risk. Camera in place at bedside for safety. Patient educated on using call bed for assistance if needed.
[2023-03-24 12:00] VITALS: BP 170/98; PULSE 82; RESP 20; TEMP 36.9; O2SAT 99
--- NOTE | 2023-03-24 12:25 | MHC.CM.PN ---
EMR reviewed and per MD rounds, pt medically cleared for D/C. [facility] in [place] willing to accept pt and have requested auth. CM will continue to follow for pts D/C.
--- NOTE | 2023-03-24 14:07 | PC.NURSE ---
Patient ambulating with walker out of room with PT and had an episode of weakness and blacking out per patient. Patient was assisted into chair with PT and wheeled back into room. MD notified. NSR on tele with no changes during event. VSS. Patient refusing bed alarm on. Patient educated on importance of high risk interventions for safety. Patient still refusing bed alarm but insists he will call for assistance with any ambulation or transfers. Camera at bedside for safety.
[2023-03-24 14:45] VITALS: BP 149/91; BP 152/90; BP 169/99; PULSE 73; PULSE 78; PULSE 87
--- NOTE | 2023-03-24 15:15 | P.PNIM_ITS ---
Subjective Subjective Date of Service: 03/24/23 Interval History: htn uncontrolled Review of Systems ? mild dizzinessbrief episode while walking with PT. Denies any chest pain or palpitations or any new symptoms Telemetry seems fine Physical Exam Vital Signs: Vital Signs: Last Vital Signs Temp 98.4 F 03/24/23 12:00 Pulse 87 03/24/23 14:45 Resp 20 03/24/23 12:00 BP 152/90 H 03/24/23 14:45 Pulse Ox 99 03/24/23 12:00 O2 Del Method Room Air 03/24/23 12:00 BMI result Body Mass Index 22.1 Appearance: Alert.? Oriented X3.? not in distress.? cvs: rrr, [id number]. res: clear to auscultation ,no rhonchii or wheezing abd: no rebound or guarding ,nt, bs present. ext pulses present , no cyanosis. neuro: axo3 , nonfocal. Objective Data Active Medications Acetaminophen (Acetaminophen 325 Mg Tablet) 650 mg PO Q6H PRN PRN Reason: Pain, Mild (Pain Scale 1-3) Last Admin: 03/23/23 06:43 Dose: 650 mg Documented By: CHRISTINE Amlodipine Besylate (Amlodipine Besylate 10 Mg Tablet) 10 mg PO DAILY [facility]; Protocol Last Admin: 03/24/23 08:57 Dose: 10 mg Documented By: CELSO Atorvastatin Calcium (Atorvastatin Calcium 40 Mg Tablet) 40 mg PO BEDTIME [facility] Last Admin: 03/23/23 21:34 Dose: 40 mg Documented By: DOV Carvedilol (Carvedilol 6.25 Mg Tablet) 6.25 mg PO BID [facility]; Protocol Last Admin: 03/24/23 08:57 Dose: 6.25 mg Documented By: CELSO Enoxaparin Sodium (Enoxaparin Sodium 40 Mg/0.4 Ml Syringe) 40 mg SUBCUT Q24H [facility] Last Admin: 03/24/23 09:09 Dose: Not Given Documented By: CELSO Non-Admin Reason: given by previous nurse at 0630, not scanned Levetiracetam (Levetiracetam 500 Mg Tablet) 500 mg PO BID [facility] Last Admin: 03/24/23 08:57 Dose: 500 mg Documented By: CELSO Lisinopril (Lisinopril 10 Mg Tablet) 30 mg PO DAILY [facility]; Protocol Last Admin: 03/24/23 08:56 Dose: 30 mg Documented By: CELSO Nicotine (Nicotine 14 Mg Patch.Td24) 14 mg TRANSDERMA DAILY [facility] Last Admin: 03/24/23 08:55 Dose: Not Given Documented By: CELSO Non-Admin Reason: Patient Refused Ondansetron HCl (Ondansetron Hcl 4 Mg/2 Ml Vial) 4 mg IVPUSH Q8H PRN PRN Reason: Nausea and Vomiting Last Admin: 03/21/23 20:57 Dose: 4 mg Documented By: YUKI Sodium Chloride (0.9 % Sodium Chloride Flush 3 Ml Syringe) 3 ml IVFLUSH QSHIFT [facility] Last Admin: 03/24/23 08:57 Dose: 3 ml Documented By: CELSO Labs 03/23/23 06:58 03/23/23 06:58 Assessment and Plan (1) NSVT (nonsustained ventricular tachycardia): Status: Acute (2) Hypertensive urgency: Status: Acute Plan 67-year-old male with recent diagnosis of CVA, seizure disorder presents to the hospital after being released from rehab and unable to take care of himself, find food or medications Unconrtolled? htn head CT negative for any new changes improving ?controlled with several different medications including way below, hydralazine, patient also received clonidine and nitro paste was seen to work ?appears that he has not been able to obtain his medications for the past 6 days continue lisinopril, amlodipine,coreg? also. patient had run of nsvt ? 19 beats yesterday,today episode of dizziness ? keep potassium 4 ,magnesium 2.2 range continue po potassium, coreg. patient is asymptomatic check orthostasis echo 12/26:Normal left ventricular cavity size.? There is moderately increased left ventricular wall thickness.? The left ventricular systolic function is normal.? The calculated ejection fraction is 56% by biplane method.? There is no evidence of regional wall motion abnormalities.? Diastolic function is normal for age. will add cardiology eval . ?physical deconditioning, poor oral inatke ?possibly due to recent hospitalization ,? but he was discharged to rehab except that he states inability to find food for the past wee.k ?continue regular diet ensure? with meals PT -recomends rehab ?seizure disorder-? continue Keppra 500 b.i.d. ? CVA-? continue aspirin, statin tox screen positive for -fentanyl ,opoids ?DVT prophylaxis:? Lovenox. pt recomends rehab-awaiting placement.? continue stay need-uncontrolled htn was off meds ,need close monitering blood pressure ,cardio eval,pt eval for deconditioning Time Spent With Patient Time: Total time managing care of this patient today ____ minutes. Quality Stroke Does the patient have a stroke diagnosis?: No VTE Prior VTE?: No VTE Risk Level:: Medical - low VTE Device Contraindication: N/A - Device Ordered VTE Drug Contraindication: Treatment Not Indicated
[2023-03-24 15:19] VITALS: BP 157/82; PULSE 73; RESP 18; TEMP 37; O2SAT 96
--- NOTE | 2023-03-24 15:24 | P.CDIM_ITS ---
PROVIDER RESPONSE TEXT: To clarify, the appropriate diagnosis supported by the clinical indicators: Other (explain): no guevara QUERY TEXT: PHYSICIAN'S DOCUMENTATION REQUEST Date of Query: 03/24/2023 09:52 AM EDT Patient Name: Dewey Antoine Admit Date: 03/21/2023 Dear Vicki Strong, A review of the medical record indicates additional documentation may be needed. Please review below and update the documentation accordingly. Clinical Indicators: Per Hospitalist Progress Note 03/21/23: GUEVARA On 03/21/23: BUN 10 Creatinine .85 Please clarify which of the following accurately represents the patient's renal status: Acute renal failure, treated Acute renal failure, ruled out Other (explain)Clinically unable to determine (explain)Thank you, Violeta Venegas RN Use of terms such as suspected, likely, concern for, or probable (associated with a specific diagnosi s that is being evaluated, monitored, or treated as if it exists) are acceptable and can be coded in the inpatient se tting, when documented at the time of discharge. Please use your independent medical judgment in providing your response. THIS QUERY IS PART OF THE PERMANENT MEDICAL RECORD
[2023-03-24] MEDS: Potassium Chloride ER 10 MEQ TABLET.ER PO (16:21)
[2023-03-24 19:23] VITALS: BP 158/76; PULSE 89; RESP 18; TEMP 37; O2SAT 98
[2023-03-24] MEDS: Atorvastatin Calcium 40 MG TABLET PO (20:08)
[2023-03-25 04:00] VITALS: BP 159/89; PULSE 72; RESP 18; TEMP 36.6; O2SAT 98
[2023-03-25] MEDS: Enoxaparin Sodium 40 MG/0.4 ML SYRINGE SUBCUT (06:47)
[2023-03-25 07:36] VITALS: BP 162/88; PULSE 66; RESP 20; TEMP 36.6; O2SAT 99
[2023-03-25] MEDS: levETIRAcetam 500 MG TABLET PO ×2 (08:49→20:06)
[2023-03-25] MEDS: Acetaminophen 325 MG TABLET 650 MG PO ×2 (08:49→20:06)
[2023-03-25] MEDS: carvediloL 6.25 MG TABLET PO ×2 (08:49→20:06)
[2023-03-25] MEDS: 0.9 % Sodium Chloride Flush 3 ML SYRINGE IVFLUSH ×3 (08:50→20:06)
[2023-03-25] MEDS: amLODIPine Besylate 10 MG TABLET PO (08:50)
[2023-03-25] MEDS: lisinopriL 10 MG TABLET 30 MG PO (08:50)
--- NOTE | 2023-03-25 11:24 | P.CONCA_ITS ---
History of Present Illness History of Present Illness Date of Service: 03/25/23 Chief complaint: hypertensive emergency Narrative: This is a cardiology consultation regarding question of NSVT. Patient was seen in consultation in December of this year. At that time, he is admitted to the hospital with left-sided weakness. At that time, it was felt that issues are related to poorly controlled hypertension. At the current time, he was admitted to the hospital because of weakness, inability to obtain food or medication. It seems that he was initially uncooperative and was just waking up and going back in to sleep. Today he is able to give some information. He states he is going through a rough times and does not have much of help in his living situation finance extra. Hence has not been taking any medications. Any question more drugs, he is denying it but when I questioned him or he finally accepted the fact that he was doing drugs. He was actually positive for fentanyl as well as opioids when he came in. Prior to that, used heroin. Cocaine is also been used but not recently according to him. However, not truly reliable. He is not having any chest pain or any clear-cut anginal-type symptoms at this time. Review of Systems Review of Systems: Yes all other systems are reviewed and are negative Constitutional: Constitutional: Reports as per HPI and Reports no additional constitutional complaints Eyes: Eyes: Reports as per HPI and Denies no additional eye complaints ENT: Denies system reviewed and no additional complaints, except as documented and Reports as per HPI Cardiovascular: Cardiovascular: Reports as per HPI, Reports no additional cardiovascular complaints, Denies acrocyanosis, Denies cool extremities, Denies chest pain, Denies leg edema, Denies lightheadedness, Denies palpitations and Denies dyspnea Respiratory: Respiratory: Reports as per HPI, Denies no additional respiratory complaints and Denies dyspnea Gastrointestinal: Gastrointestinal: Reports as per HPI and Denies no additional gastrointestinal complaints Genitourinary: Genitourinary: Reports no additional male genitourinary complaints and Reports as per HPI Musculoskeletal: Musculoskeletal: Reports no additional musculoskeletal complaints and Reports as per HPI Integumentary/Breasts: Skin/Breast: Reports system reviewed and no additional complaints, except as docu Neurologic: Reports system reviewed and no additional complaints, except as documented and Reports as per HPI Psychiatric: Psychiatric: Reports no additional psychiatric complaints and Reports as per HPI Endocrine: Endocrine: Reports no additional endocrine complaints, Reports as per HPI and Denies palpitations Hematologic/Lymphatic: Hematologic/Lymphatic: Reports no additional hematologic/lymphatic complaints and Reports as per HPI Allergic/Immunologic: Allergic/Immunologic: Reports no additional allergic/immunologic complaints and Reports as per HPI PMFSH Past Medical History Medical History CHIOMA (acute kidney injury) Cerebrovascular accident No pertinent past medical history Recurrent major depression-severe Seizure Uncontrolled hypertension Family History Family History Mother No problems noted. Father No problems noted. Surgical History Surgical History History of left hip replacement Social History Social History Household Members: None Housing: Apartment Do you presently have visiting nurse or other home services: No Alcohol intake: never Patient Tobacco Use Status: Former Tobacco user Tobacco use type: Cigarette Cigarette Packs Per Day: 10 service: No Current occupational status: unemployed Meds Allergies Allergy/AdvReac Type Severity Reaction Status Date / Time fish derived [FISH] Allergy Unknown UNKNOWN Verified 01/07/23 16:24 morphine [MORPHINE] Allergy Unknown UNKNOWN Verified 01/07/23 16:24 cheese Allergy Anaphylaxis Uncoded 01/07/23 16:24 Active Medications: Current Medications Acetaminophen (Acetaminophen 325 Mg Tablet) 650 mg PO Q6H PRN PRN Reason: Pain, Mild (Pain Scale 1-3) Last Admin: 03/25/23 08:49 Dose: 650 mg Amlodipine Besylate (Amlodipine Besylate 10 Mg Tablet) 10 mg PO DAILY [facility]; Protocol Last Admin: 03/25/23 08:50 Dose: 10 mg Atorvastatin Calcium (Atorvastatin Calcium 40 Mg Tablet) 40 mg PO BEDTIME [facility] Last Admin: 03/24/23 20:08 Dose: 40 mg Carvedilol (Carvedilol 6.25 Mg Tablet) 6.25 mg PO BID [facility]; Protocol Last Admin: 03/25/23 08:49 Dose: 6.25 mg Enoxaparin Sodium (Enoxaparin Sodium 40 Mg/0.4 Ml Syringe) 40 mg SUBCUT Q24H [facility] Last Admin: 03/25/23 06:47 Dose: 40 mg Levetiracetam (Levetiracetam 500 Mg Tablet) 500 mg PO BID [facility] Last Admin: 03/25/23 08:49 Dose: 500 mg Lisinopril (Lisinopril 10 Mg Tablet) 30 mg PO DAILY [facility]; Protocol Last Admin: 03/25/23 08:50 Dose: 30 mg Nicotine (Nicotine 14 Mg Patch.Td24) 14 mg TRANSDERMA DAILY [facility] Last Admin: 03/25/23 08:51 Dose: Not Given Ondansetron HCl (Ondansetron Hcl 4 Mg/2 Ml Vial) 4 mg IVPUSH Q8H PRN PRN Reason: Nausea and Vomiting Last Admin: 03/21/23 20:57 Dose: 4 mg Sodium Chloride (0.9 % Sodium Chloride Flush 3 Ml Syringe) 3 ml IVFLUSH QSHIFT [facility] Last Admin: 03/25/23 08:50 Dose: 3 ml Physical Exam Vital Signs: Vital Signs: Last Vital Signs Temp 97.9 F 03/25/23 07:36 Pulse 66 03/25/23 07:36 Resp 20 03/25/23 07:36 BP 162/88 H 03/25/23 07:36 Pulse Ox 99 03/25/23 07:36 O2 Del Method Room Air 03/25/23 07:36 BMI result Body Mass Index 22.1 Const: General: comfortable and no acute distress Orientation/consciousness: patient oriented x3 HEENT: Other: Unremarkable Head: Yes normal to inspection Neck: Neck: Yes normal visual inspection Chest: Chest palpation & inspection: normal inspection of the chest Resp: Auscultation: clear to auscultation bilaterally Cardio: Palpation: normal PMI Heart sounds: S1 normal heart sound present, S2 normal heart sound present, no gallops, no murmurs and no rubs GI: Palpation (GI): Soft to palpation Back/Spine/Pelvis: Other: unremarkable Skin: General skin exam: no rashes or lesions noted Neuro: General: patient oriented x3 Extrem: General: Yes normal to inspection Psych: Mental Status: mental status grossly normal Objective Labs and Meds 03/23/23 06:58 03/23/23 06:58 ECG Interpretation: EKG with sinus rhythm at 73/Min; T inversions along the inferior leads. These were seen in January as well. Assessment and Plan (1) NSVT (nonsustained ventricular tachycardia): Status: Acute (2) Hypertensive urgency: Status: Acute (3) Adult failure to thrive: Status: Acute Plan Telemetry data reviewed. There is a short run of around 23-24 beats where could be NSVT but could also be a supraventricular rhythm with aberrant conduction. Difficult to say d efinitively. Echocardiogram from December shows LVEF of 56%. No significant valvular issues. Unremarkable wall motion. Two prior stress test in [facility]. In 2018, fixed inferior defect with normal wall motion, thought to be artifactual. Another stress test 2019, [facility], mild inferior fixed defect thought to be artifactual. Currently, high sensitivity troponin is within range. Blood pressures are fairly high. As much as into the 200s upon arrival but improved since that time. Overall, main issue seems to be rather financial and poor living conditions. Hence would minimize any cardiac testing and rather improved compliance and figure out a way of ensuring that he takes all his medications without interruptions. If necessary, will need to switch his medications to something generic an affordable. With regard to the question of NSVT, not definitive but possible. Can up titrate beta-blockers but would hold off anything further this time . Discussed with hospitalist. Time Spent With Patient Time: Total time managing care of this patient today ____ minutes. Procedures Date of Service Date of Service: 03/25/23
[2023-03-25 11:32] VITALS: BP 140/77; PULSE 77; RESP 20; TEMP 37.1; O2SAT 98
--- NOTE | 2023-03-25 11:35 | P.PNIM_ITS ---
Subjective Subjective Date of Service: 03/25/23 Interval History: f/u on unontrolled HTN, nSVT, fall no further arrythmia Physical Exam Vital Signs: Vital Signs: Last Vital Signs Temp 98.7 F 03/25/23 11:32 Pulse 77 03/25/23 11:32 Resp 20 03/25/23 11:32 BP 140/77 H 03/25/23 11:32 Pulse Ox 98 03/25/23 11:32 O2 Del Method Room Air 03/25/23 11:32 BMI result Body Mass Index 22.1 Const: Other: General: AO X 3, no acute distress Resp: CTA bilateral CVS: S1,S2,RRR GI: +BS, NT, no distention Skin: No rash Neuro: motor grossly intact Psych: appropriate affect Objective Data Active Medications Acetaminophen (Acetaminophen 325 Mg Tablet) 650 mg PO Q6H PRN PRN Reason: Pain, Mild (Pain Scale 1-3) Last Admin: 03/25/23 08:49 Dose: 650 mg Documented By: MIREYA Amlodipine Besylate (Amlodipine Besylate 10 Mg Tablet) 10 mg PO DAILY [facility]; Protocol Last Admin: 03/25/23 08:50 Dose: 10 mg Documented By: MIREYA Atorvastatin Calcium (Atorvastatin Calcium 40 Mg Tablet) 40 mg PO BEDTIME [facility] Last Admin: 03/24/23 20:08 Dose: 40 mg Documented By: GENNY Carvedilol (Carvedilol 6.25 Mg Tablet) 6.25 mg PO BID [facility]; Protocol Last Admin: 03/25/23 08:49 Dose: 6.25 mg Documented By: MIREYA Enoxaparin Sodium (Enoxaparin Sodium 40 Mg/0.4 Ml Syringe) 40 mg SUBCUT Q24H [facility] Last Admin: 03/25/23 06:47 Dose: 40 mg Documented By: SALLY Levetiracetam (Levetiracetam 500 Mg Tablet) 500 mg PO BID [facility] Last Admin: 03/25/23 08:49 Dose: 500 mg Documented By: MIREYA Lisinopril (Lisinopril 10 Mg Tablet) 30 mg PO DAILY [facility]; Protocol Last Admin: 03/25/23 08:50 Dose: 30 mg Documented By: MIREYA Nicotine (Nicotine 14 Mg Patch.Td24) 14 mg TRANSDERMA DAILY [facility] Last Admin: 03/25/23 08:51 Dose: Not Given Documented By: MIREYA Non-Admin Reason: Patient Refused Ondansetron HCl (Ondansetron Hcl 4 Mg/2 Ml Vial) 4 mg IVPUSH Q8H PRN PRN Reason: Nausea and Vomiting Last Admin: 03/21/23 20:57 Dose: 4 mg Documented By: YUKI Sodium Chloride (0.9 % Sodium Chloride Flush 3 Ml Syringe) 3 ml IVFLUSH QSHIFT [facility] Last Admin: 03/25/23 08:50 Dose: 3 ml Documented By: MIREYA Labs 03/23/23 06:58 03/23/23 06:58 Assessment and Plan (1) NSVT (nonsustained ventricular tachycardia): Status: Acute (2) Hypertensive urgency: Status: Acute Plan 67-year-old male with recent diagnosis of CVA, seizure disorder presents to the hospital after being released from rehab and unable to take care of himself, find food or medications Unconrtolled? htn-- bp is better on multiple lisinopril and norvasc, and coregl NSVT--electrlytes and divalent ok, keep K around 4, and mag 2 Coreg no further cadiac testing at this time. Physical deconditioning, PT recommends rehab ?seizure disorder-? continue Keppra 500 b.i.d. ?CVA-? continue aspirin, statin tox screen positive for -fentanyl ,opoids ?DVT prophylaxis:? Lovenox. pt recomends rehab-awaiting placement.? Need for inpatient: [place] for cardiac arrythmia and need for placment Time Spent With Patient Time: Total time managing care of this patient today ____ minutes. Quality Stroke Does the patient have a stroke diagnosis?: No VTE Prior VTE?: No VTE Risk Level:: Medical - low VTE Device Contraindication: N/A - Device Ordered VTE Drug Contraindication: Treatment Not Indicated
--- NOTE | 2023-03-25 12:14 | MHC.CM.PN ---
EMR reviewed and per MD rounds, pt medically cleared for D/C. Auth still pending from [facility] in [place]. CM will continue to follow.
--- NOTE | 2023-03-25 13:58 | MHC.CM.PN ---
Pt endorsing feelings of depression and suicidal ideation/hopelessness, and is worried about his future. MD updated. Pt worried about going to [facility] in [place], because he is worried about what would come after that. [facility], however [facility] are unable to accept pt without a HCP. We are unable to fill out a HCP, due to patient not having a single person he can call upon in his life. He was interested in VNA services, but due to not having a phone, they couldn't reach him in the past and he was not provided those services. Pt has attempted to reach out to his sister whom he hasn't spoken to in many years in attempt to reconnect, but has been unable to reach her. [place] [facility] outreach services pamphlet given to the patient. CM will continue to follow.
--- NOTE | 2023-03-25 15:18 | PC.NURSE ---
Patient alert but forgetful. Refuses alarms pt educated on need for safety and need to use call [place] when getting up out of bed. Continues to refuse alarms throughout shift. Does not ring for help despite education on use of call [place] throughout shift constant reminders provided to patient to use walker while ambulating. OOB frequently without walker. Psych consult ordered. Plan for rehab when ready. Will continue to monitor
[2023-03-25 15:36] VITALS: BP 156/72; PULSE 84; RESP 14; TEMP 37.4; O2SAT 99
--- NOTE | 2023-03-25 15:53 | MHC.CM.PN ---
CM WORKING ON SAFE D/C PLAN FOR PT WHO DOES NOT FEEL HE CAN CARE FOR SELF AT HOME, PT WAS AUTHED FOR STR HOWEVER FACILITY WILL NOT TAKE PT W/OUT A HCP. CM ATTEMPTED TO CONTACT [facility] AND MESSAGE WAS LEFT FOR ADMISSIONS, CM RECEIVED A CALL BACK FROM JOE WHO REPORTS THEY DO HAVE A MALE BED AVAILABLE, CM TO DISCUSS W/PT AND APPLICATION TO BE FILLED OUT IF PT IS AGREEABLE. CM HAS VERIFIED PT IS ACTIVE PCP RICH LEES.
[2023-03-25 19:26] VITALS: BP 143/88; PULSE 79; RESP 14; TEMP 37.1; O2SAT 98
[2023-03-25] MEDS: Atorvastatin Calcium 40 MG TABLET PO (20:06)
[2023-03-25 23:26] VITALS: BP 122/84; PULSE 66; RESP 18; TEMP 36.8; O2SAT 97
[2023-03-26] MEDS: Melatonin 3 MG TABLET 6 MG PO (01:43)
[2023-03-26] MEDS: Acetaminophen 325 MG TABLET 650 MG PO ×2 (01:43→09:55)
[2023-03-26 03:22] VITALS: BP 151/74; PULSE 79; RESP 18; TEMP 37.2; O2SAT 97
[2023-03-26] MEDS: Enoxaparin Sodium 40 MG/0.4 ML SYRINGE SUBCUT (06:28)
[2023-03-26 07:53] VITALS: BP 140/90; PULSE 73; RESP 20; TEMP 36.8; O2SAT 98
[2023-03-26] MEDS: levETIRAcetam 500 MG TABLET PO ×2 (08:47→20:52)
[2023-03-26] MEDS: lisinopriL 10 MG TABLET 30 MG PO (08:47)
[2023-03-26] MEDS: carvediloL 6.25 MG TABLET PO ×2 (08:47→20:51)
[2023-03-26] MEDS: amLODIPine Besylate 10 MG TABLET PO (08:47)
[2023-03-26] MEDS: 0.9 % Sodium Chloride Flush 3 ML SYRINGE IVFLUSH ×3 (08:47→20:52)
--- NOTE | 2023-03-26 10:45 | HO.PM.IMPN ---
Subjective Subjective Date of Service: 03/26/23 Interval History: f/u on unontrolled HTN, nSVT, fall no further arrythmia Physical Exam Vital Signs: Vital Signs: Last Vital Signs Temp 98.2 F 03/26/23 07:53 Pulse 73 03/26/23 07:53 Resp 20 03/26/23 07:53 BP 140/90 H 03/26/23 07:53 Pulse Ox 98 03/26/23 07:53 O2 Del Method Room Air 03/26/23 07:53 BMI result Body Mass Index 22.1 Const: Other: General: AO X 3, no acute distress Resp: CTA bilateral CVS: S1,S2,RRR GI: +BS, NT, no distention Skin: No rash Neuro: motor grossly intact Psych: appropriate affect Objective Data Active Medications Acetaminophen (Acetaminophen 325 Mg Tablet) 650 mg PO Q6H PRN PRN Reason: Pain, Mild (Pain Scale 1-3) Last Admin: 03/26/23 09:55 Dose: 650 mg Documented By: DAREK Amlodipine Besylate (Amlodipine Besylate 10 Mg Tablet) 10 mg PO DAILY [facility]; Protocol Last Admin: 03/26/23 08:47 Dose: 10 mg Documented By: DAREK Atorvastatin Calcium (Atorvastatin Calcium 40 Mg Tablet) 40 mg PO BEDTIME [facility] Last Admin: 03/25/23 20:06 Dose: 40 mg Documented By: BERENICE Carvedilol (Carvedilol 6.25 Mg Tablet) 6.25 mg PO BID [facility]; Protocol Last Admin: 03/26/23 08:47 Dose: 6.25 mg Documented By: DAREK Enoxaparin Sodium (Enoxaparin Sodium 40 Mg/0.4 Ml Syringe) 40 mg SUBCUT Q24H [facility] Last Admin: 03/26/23 06:28 Dose: 40 mg Documented By: BERENICE Levetiracetam (Levetiracetam 500 Mg Tablet) 500 mg PO BID [facility] Last Admin: 03/26/23 08:47 Dose: 500 mg Documented By: DAREK Lisinopril (Lisinopril 10 Mg Tablet) 30 mg PO DAILY [facility]; Protocol Last Admin: 03/26/23 08:47 Dose: 30 mg Documented By: DAREK Melatonin (Melatonin 3 Mg Tablet) 6 mg PO BEDTIME PRN PRN Reason: Insomnia Last Admin: 03/26/23 01:43 Dose: 6 mg Documented By: BERENICE Nicotine (Nicotine 14 Mg Patch.Td24) 14 mg TRANSDERMA DAILY [facility] Last Admin: 03/26/23 08:50 Dose: Not Given Documented By: DAREK Non-Admin Reason: Patient Refused Ondansetron HCl (Ondansetron Hcl 4 Mg/2 Ml Vial) 4 mg IVPUSH Q8H PRN PRN Reason: Nausea and Vomiting Last Admin: 03/21/23 20:57 Dose: 4 mg Documented By: YUKI Sodium Chloride (0.9 % Sodium Chloride Flush 3 Ml Syringe) 3 ml IVFLUSH QSHIFT [facility] Last Admin: 03/26/23 08:47 Dose: 3 ml Documented By: DAREK Labs 03/23/23 06:58 03/23/23 06:58 Microbiology Microbiology Results: Microbiology 03/21/23 07:41 Blood Culture - Final Blood - Venous No growth after 5 days. 03/21/23 07:41 Blood Culture - Final Blood - Venous No growth after 5 days. 03/20/23 20:16 Blood Culture - Final Blood - Venous No growth after 5 days. 03/20/23 16:13 Blood Culture - Final Blood - Venous No growth after 5 days. Assessment and Plan (1) NSVT (nonsustained ventricular tachycardia): Status: Acute (2) Hypertensive urgency: Status: Acute Plan 67-year-old male with recent diagnosis of CVA, seizure disorder presents to the hospital after being released from rehab and unable to take care of himself, find food or medications Uncontrolled? htn-- bp is better on multiple lisinopril and norvasc, and coregl NSVT--electrlytes and divalent ok, keep K around 4, and mag 2 continue Coreg no further cadiac testing at this time. Physical deconditioning, PT recommends rehab ?seizure disorder-? continue Keppra 500 b.i.d. ?CVA-? continue aspirin, statin tox screen positive for -fentanyl ,opoids Depression denies SI but has made prior insinuation about SI that if discharge home might as well be ?DVT prophylaxis:? Lovenox. pt recommends rehab-awaiting placement.? Need for inpatient: [place] for cardiac arrhythmia and need for placement Time Spent With Patient Time: Total time managing care of this patient today ____ minutes. Quality Stroke Does the patient have a stroke diagnosis?: No VTE Prior VTE?: No VTE Risk Level:: Medical - low VTE Device Contraindication: N/A - Device Ordered VTE Drug Contraindication: Treatment Not Indicated
[2023-03-26 11:38] VITALS: BP 126/74; PULSE 76; RESP 20; TEMP 37.2; O2SAT 98
[2023-03-26 15:42] VITALS: BP 151/99; PULSE 82; RESP 17; TEMP 36.9; O2SAT 96
--- NOTE | 2023-03-26 15:48 | P.CNPS_ITS ---
History of Present Illness Date of Service: 03/26/23 Chief Complaint: hypertensive emergency Reason for Consult: depression. eval for meds. HPI Narrative: per 03/21 medical admission note: Chief Complaint:? fatigue, weakness ?keith is a 67-year-old male with recent? history of stroke with left-sided residual? hemiparesis, history of seizures, HTN who presents to the hospital from home stating weakness, and inability to obtain food and medication.? Patient is not cooperating with my exam, not answering my questions, waking up but goes right back to sleep, therefore history is obtained mostly from ED physician.? It [facility], he states that after being discharged from rehab he was unable to obtain any food or his medication, he was supposed to have a visiting nurse but no one visited him, he has had progressive weakness, and fatigue, he lives on the 6th floor, and was unable to get around due to the worsening weakness.? Unable to obtain review of system is patient is not cooperating On arrival to the ED patient found to have blood pressure of 207/112, continue to be hypertensive, received several doses of labetalol, hydralazine, clonidine, and nitro paste with improvement of his blood pressure.? ?head CT showed no acute intracranial abnormality, stable appearance of bilateral basal ganglia and left pontine lacunar infarcts, superimposed on a background of moderate chronic small-vessel ischemic change and moderate global volume loss ?labs reviewed positive for opioids, and fentanyl, otherwise unremarkable 03/26 psychiatric interview: since admission pt's level of consciousness has normalized and he has become medically stable. discharge planning is underway, and pt is slated to be referred to STR. psych was consulted for depression/?SI. on interview pt is calm and cooperative, while making it known he does not have confidence in psychiatry and psychiatrists. he is willing to engage in a conversation, however, and supplies the elements of a general psychiatric history as solicited. pt spends much time describing the sort of person he is, his values, his priorities. of note, he appears most emotional when describing his sense of loss and loneliness, stating he has nobody to call, no friends or family for support. this was mentioned in connection with his describing regular fleeting passive SI: sometimes i think maybe it'd be better if i weren't here. he denies any intent or plan, and he identifies his zena and spiritual/zoroastrianism background as protective factors. he denies h/o SA/SIB or current SI. he reports he is depressed, but states he will never go on psychiatric medication. he stated he generally has thought of psychiatrists as demons who get people dependent on their medications; those people inevitably attempt to wean off of the medications later in life and when they do, that's when people sometimes kills themselves. he is much more positive about therapy, describing his experiences in AA meetings; he is open to referral for therapy. he denies any regular substance use aside from several cigarettes daily and states that his positive utox must be because he used one time last week, took a pill he thought was oxy, which he does very occasionally when he is not feeling himself. he feels opioids re-center him in such times. he is quite suspicious and stand-offish initially and at points throughout the interview. at other points he is quite congenial and gracious. he is unable to recall a great many things, particularly having met with jules adams in december or having told anyone in the world some of the things he told her. he states he has been on a medication for anxiety in the past, but he cannot recall the name of it. he seems to have a hard time recalling information he has recently discussed with the medical team here as well. Past Psychiatric History: IP: Denies hosps: denies SA: denies SIB: denies OP: denies any h/o outpt Tx Trials: Affirmed for 12/26 interview, denied for 03/25 interview, although did make reference to having been prescribed an anxiety medication for a long time, the name of which he could not recall. 12/26: Reports hx of treatment for anxiety and depression and temper issues. Reports he feliciano above symptoms in recovery, got a job, moved to [place], got an apartment and had a good life. 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 He sees medication as a dependence and wants to work on these issues without that. [facility] Medical History CHIOMA (acute kidney injury) Cerebrovascular accident No pertinent past medical history Recurrent major depression-severe Seizure Uncontrolled hypertension Surgical History History of left hip replacement Family History: Anxiety per 12/26 interview. per 03/25 interview denies psych FH, reports father was an alcoholic. Social History: from [place], moved to [place] in 2008, lost contact with family members in [place] at that time. says he has no family members left post-COVID and describes feeling incredibly lonely and without social supports. lives alone in an apartment, unemployed. Substance History: alcohol - sober 20 yrs. long Hx in AA. tobacco - smokes several cigarettes daily. opioids - utox fentanyl and opiate POS. reports sporadic use throughout his life, reports one such episode more than a week ago. states he took a pill he believed was oxy. Diagnostics Vital Signs (24Hr): Vital Signs - 24 hr 03/25/23 19:26 03/25/23 23:26 03/26/23 03:22 Temperature 98.8 F 98.3 F 98.9 F Pulse Rate 79 66 79 Respiratory Rate 14 18 18 Blood Pressure 143/88 H 122/84 151/74 H Pulse Oximetry 98 97 97 Oxygen Delivery Method Room Air Room Air Room Air 03/26/23 07:53 03/26/23 11:38 Temperature 98.2 F 98.9 F Pulse Rate 73 76 Respiratory Rate 20 20 Blood Pressure 140/90 H 126/74 Pulse Oximetry 98 98 Oxygen Delivery Method Room Air Room Air BMI result Body Mass Index 22.1 Labs 03/23/23 06:58 03/23/23 06:58 Imaging Radiology Impressions: ITS Impressions Chest X-Ray 03/20/23 16:49 IMPRESSION: * Clear lungs. Head CT 03/20/23 16:56 IMPRESSION: 1. No acute intracranial abnormality. 2. Stable appearance of bilateral basal ganglia and left pontine lacunar infarcts, superimposed on a background of moderate chronic small vessel ischemic change and moderate global volume loss. Mental Status Exam Mental Status Exam Narrative: malodorous, dressed in hospital clar[facility]. disheveled, but not more so than most other medical inpatients. no PMA/PMR. general left-sided hemiparesis. cooperative. speech nml rate, incr amount, decr latency, nml prosody, nml loudness. thoughts often linear but tending spontaneously to the digressive. affect constricted, normo-intense, non-labile. mood pretty somber. denies SI/HI/AVH. reports regular fleeting passive SI. denies any intent or plan. Medications Medications Current Medications Acetaminophen (Acetaminophen 325 Mg Tablet) 650 mg PO Q6H PRN PRN Reason: Pain, Mild (Pain Scale 1-3) Last Admin: 03/26/23 09:55 Dose: 650 mg Amlodipine Besylate (Amlodipine Besylate 10 Mg Tablet) 10 mg PO DAILY [facility]; Protocol Last Admin: 03/26/23 08:47 Dose: 10 mg Atorvastatin Calcium (Atorvastatin Calcium 40 Mg Tablet) 40 mg PO BEDTIME [facility] Last Admin: 03/25/23 20:06 Dose: 40 mg Carvedilol (Carvedilol 6.25 Mg Tablet) 6.25 mg PO BID [facility]; Protocol Last Admin: 03/26/23 08:47 Dose: 6.25 mg Enoxaparin Sodium (Enoxaparin Sodium 40 Mg/0.4 Ml Syringe) 40 mg SUBCUT Q24H [facility] Last Admin: 03/26/23 06:28 Dose: 40 mg Levetiracetam (Levetiracetam 500 Mg Tablet) 500 mg PO BID [facility] Last Admin: 03/26/23 08:47 Dose: 500 mg Lisinopril (Lisinopril 10 Mg Tablet) 30 mg PO DAILY [facility]; Protocol Last Admin: 03/26/23 08:47 Dose: 30 mg Melatonin (Melatonin 3 Mg Tablet) 6 mg PO BEDTIME PRN PRN Reason: Insomnia Last Admin: 03/26/23 01:43 Dose: 6 mg Nicotine (Nicotine 14 Mg Patch.Td24) 14 mg TRANSDERMA DAILY [facility] Last Admin: 03/26/23 08:50 Dose: Not Given Ondansetron HCl (Ondansetron Hcl 4 Mg/2 Ml Vial) 4 mg IVPUSH Q8H PRN PRN Reason: Nausea and Vomiting Last Admin: 03/21/23 20:57 Dose: 4 mg Sodium Chloride (0.9 % Sodium Chloride Flush 3 Ml Syringe) 3 ml IVFLUSH QSHIFT [facility] Last Admin: 03/26/23 08:47 Dose: 3 ml Allergies Allergies Allergy/AdvReac Type Severity Reaction Status Date / Time fish derived [FISH] Allergy Unknown UNKNOWN Verified 01/07/23 16:24 morphine [MORPHINE] Allergy Unknown UNKNOWN Verified 01/07/23 16:24 cheese Allergy Anaphylaxis Uncoded 01/07/23 16:24 Assessment & Plan Assessment & Plan (1) Depressive disorder: Status: Acute Code(s): F32.A - Depression, unspecified (2) Cognitive disorder: Status: Acute Code(s): F09 - Unspecified mental disorder due to known physiological condition Plan pt declines medications for mental health. he is open to therapy; therapy referral should be made when appropriate. he has gross cognitive deficits, very likely vascular dementia. may consider requesting input from neuro for Dx and mgmt of cognitive deficits/dementia. continue medical plans as elaborated; STR upon discharge. Total time managing care of this patient today __75__ minutes.
--- NOTE | 2023-03-26 15:57 | MHC.CM.PN ---
CM RECEIVED CALL BACK FROM [facility] WHO REPORTED THEY WILL HAVE A SALES SERVICE TECHNICIANSUPERVISOR BACKFILLING US TOMORROW REGARDING PT NEEDS. ON PROVIDED W/CM OFFICE NUMBER.
--- NOTE | 2023-03-26 16:00 | MHC.CM.PN ---
EMR reviewed and per MD rounds, pt medically cleared for D/C, however we are actively working on a safe D/C plan for pt. This CM started filling out [facility] application with pt today, and called [place] on to get pt a case planner and potentially assist with additional resources. Pt stating that he wants a fresh start and a safe place to go. CM will continue to follow.
[2023-03-26 16:14] LABS: Levetiracetam Keppra <2.0 mcg/mL (6.0-46.0)
[2023-03-26 20:00] VITALS: BP 138/80; PULSE 75; RESP 17; TEMP 37.4; O2SAT 99
[2023-03-26] MEDS: Atorvastatin Calcium 40 MG TABLET PO (20:51)
[2023-03-26 23:13] VITALS: BP 144/79; PULSE 76; RESP 18; TEMP 37.3; O2SAT 98
[2023-03-27] MEDS: Melatonin 3 MG TABLET 6 MG PO (00:39)
[2023-03-27 04:00] VITALS: BP 147/94; PULSE 83; RESP 18; TEMP 37.2; O2SAT 97
[2023-03-27 07:08] VITALS: BP 142/87; PULSE 68; RESP 20; TEMP 36.6; O2SAT 98
[2023-03-27] MEDS: lisinopriL 10 MG TABLET 30 MG PO (09:09)
[2023-03-27] MEDS: amLODIPine Besylate 10 MG TABLET PO (09:09)
[2023-03-27] MEDS: levETIRAcetam 500 MG TABLET PO ×2 (09:09→21:40)
[2023-03-27] MEDS: carvediloL 6.25 MG TABLET PO ×2 (09:10→21:40)
[2023-03-27] MEDS: 0.9 % Sodium Chloride Flush 3 ML SYRINGE IVFLUSH (09:10)
[2023-03-27] MEDS: Enoxaparin Sodium 40 MG/0.4 ML SYRINGE SUBCUT (09:11)
[2023-03-27] MEDS: Acetaminophen 325 MG TABLET 650 MG PO ×2 (09:17→18:32)
--- NOTE | 2023-03-27 09:57 | HO.PM.IMPN ---
Subjective Subjective Date of Service: 03/27/23 Interval History: f/u on unontrolled HTN, nSVT, fall no further arrythmia, doesn't want meds for psych Physical Exam Vital Signs: Vital Signs: Last Vital Signs Temp 97.9 F 03/27/23 07:08 Pulse 68 03/27/23 07:08 Resp 20 03/27/23 07:08 BP 142/87 H 03/27/23 07:08 Pulse Ox 98 03/27/23 07:08 O2 Del Method Room Air 03/27/23 07:08 BMI result Body Mass Index 22.1 Const: Other: General: AO X 3, no acute distress Resp: CTA bilateral CVS: S1,S2,RRR GI: +BS, NT, no distention Skin: No rash Neuro: motor grossly intact Psych: appropriate affect Objective Data Active Medications Acetaminophen (Acetaminophen 325 Mg Tablet) 650 mg PO Q6H PRN PRN Reason: Pain, Mild (Pain Scale 1-3) Last Admin: 03/27/23 09:17 Dose: 650 mg Documented By: SHANNON Amlodipine Besylate (Amlodipine Besylate 10 Mg Tablet) 10 mg PO DAILY [facility]; Protocol Last Admin: 03/27/23 09:09 Dose: 10 mg Documented By: SHANNON Atorvastatin Calcium (Atorvastatin Calcium 40 Mg Tablet) 40 mg PO BEDTIME [facility] Last Admin: 03/26/23 20:51 Dose: 40 mg Documented By: SOLOMON Carvedilol (Carvedilol 6.25 Mg Tablet) 6.25 mg PO BID [facility]; Protocol Last Admin: 03/27/23 09:10 Dose: 6.25 mg Documented By: SHANNON Enoxaparin Sodium (Enoxaparin Sodium 40 Mg/0.4 Ml Syringe) 40 mg SUBCUT Q24H [facility] Last Admin: 03/27/23 09:11 Dose: 40 mg Documented By: SHANNON Levetiracetam (Levetiracetam 500 Mg Tablet) 500 mg PO BID [facility] Last Admin: 03/27/23 09:09 Dose: 500 mg Documented By: SHANNON Lisinopril (Lisinopril 10 Mg Tablet) 30 mg PO DAILY [facility]; Protocol Last Admin: 03/27/23 09:09 Dose: 30 mg Documented By: SHANNON Melatonin (Melatonin 3 Mg Tablet) 6 mg PO BEDTIME PRN PRN Reason: Insomnia Last Admin: 03/27/23 00:39 Dose: 6 mg Documented By: SOLOMON Nicotine (Nicotine 14 Mg Patch.Td24) 14 mg TRANSDERMA DAILY [facility] Last Admin: 03/27/23 09:14 Dose: Not Given Documented By: SHANNON Non-Admin Reason: Patient Refused Ondansetron HCl (Ondansetron Hcl 4 Mg/2 Ml Vial) 4 mg IVPUSH Q8H PRN PRN Reason: Nausea and Vomiting Last Admin: 03/21/23 20:57 Dose: 4 mg Documented By: YUKI Sodium Chloride (0.9 % Sodium Chloride Flush 3 Ml Syringe) 3 ml IVFLUSH QSHIFT [facility] Last Admin: 03/27/23 09:10 Dose: 3 ml Documented By: SHANNON Labs 03/23/23 06:58 03/23/23 06:58 Labs: Laboratory Results - last 24 hr 03/20/23 16:12 Levetiracetam <2.0 L Microbiology Microbiology Results: Microbiology 03/21/23 07:41 Blood Culture - Final Blood - Venous No growth after 5 days. 03/21/23 07:41 Blood Culture - Final Blood - Venous No growth after 5 days. Assessment and Plan (1) Cognitive disorder: Status: Acute (2) Depressive disorder: Status: Acute (3) NSVT (nonsustained ventricular tachycardia): Status: Acute Plan 67-year-old male with recent diagnosis of CVA, seizure disorder presents to the hospital after being released from rehab and unable to take care of himself, find food or medications Uncontrolled? htn-- bp is better on multiple lisinopril and? norvasc, and coregl NSVT--electrlytes and divalent ok, keep K around 4, and mag 2 continue Coreg no further cadiac testing at this time. Physical deconditioning, PT recommends rehab ?seizure disorder-? continue Keppra 500 b.i.d. ?CVA-? continue aspirin, statin tox screen positive for -fentanyl ,opoids Depression denies SI but has made prior insinuation about SI that if discharge home might as well be Seen by Psych with the following recommendation: pt declines medications for mental health. he is open to therapy; therapy referral should be made when appropriate. he has gross cognitive deficits, very likely vascular dementia.? may consider requesting input from neuro for Dx and mgmt of cognitive deficits/dementia. continue medical plans as elaborated; STR upon discharge. Psych to comment on compentency, Neuro consult for ? dementia Neuro eval can be done on outpatient, not acute issue at this time ?DVT prophylaxis:? Lovenox. Need for inpatient: monitoing for cardiac arrhythmia and need for placement Total time managing care of this patient today __75__ minutes. Time Spent With Patient Time: Total time managing care of this patient today ____ minutes. Quality Stroke Does the patient have a stroke diagnosis?: No VTE Prior VTE?: No VTE Risk Level:: Medical - low VTE Device Contraindication: N/A - Device Ordered VTE Drug Contraindication: Treatment Not Indicated
[2023-03-27 11:33] VITALS: BP 147/81; PULSE 67; RESP 20; TEMP 36.7; O2SAT 99
--- NOTE | 2023-03-27 12:00 | MHC.STROKE ---
I WENT TO SEE PATIENT, HE IS KNOWN TO STROKE SERVICE FROM PRIOR ADMIT FOR STROKE IN DEC 2022. i AM RECOMMENDING OT FOR LEFT HAND DROP, ? SPLINT. i DID DISUCSS THIS WITH OT, RN, AND DR DU.
--- NOTE | 2023-03-27 13:11 | MHC.CM.PN ---
This sign writer hand placed call to patient's sister w/ pt's consent @ [phone], Left VM and received return phone call from Kell (Sister). Kell staed that she had been looking for her brother for years and is so glad to hear that he is alive. She verbally agreed to be patient's HCP. This sign writer hand along with witness completed HCP w/ patient- copy placed in chart and uploaded to EMR, original to patient. This sign writer hand discussed d/c planning with patient - 2 options for d/c 1.) home w/ [facility] supports 2.) [facility] w/ plan to transfer to [place] when bed available. Stated to patient that if he does not accept bed today, facility would no longer be able to offer a bed. Patient agreed to plan of d/c today to [facility] via BLS. RN aware, CM aware.
--- NOTE | 2023-03-27 13:21 | P.DS_ITS ---
DS: Providers Provider Date of Service: 03/27/23 Date of admission: 03/21/23 01:21 Primary care physician: Ysabel Beaulieu MD Consults: 03/24/23 15:22 Consult to Cardiology Routine Consulting Provider: [facility] Reason for consultation: nsvt ,dizziness Has provider been notified: No 03/25/23 14:42 Consult to Psychiatry Routine Consulting Provider: Psych Covering Reason for consultation: Depression Has provider been notified: No 03/27/23 10:15 Consult to Psychiatry Routine Consulting Provider: Psych [facility] Reason for consultation: Is the patient competent Has provider been notified: No 03/27/23 10:16 Consult to Neurology Routine Consulting Provider: [facility] Reason for consultation: cognitive impairment? D[place]ia DS: Diagnosis Discharge Diagnosis (1) Cognitive disorder: Status: Acute (2) Depressive disorder: Status: Acute (3) NSVT (nonsustained ventricular tachycardia): Status: Acute DS: Summary Hospital Course Hospital Course: Chief Complaint:? fatigue, weakness ?keith is a 67-year-old male with recent? history of stroke with left-sided resi dual? hemiparesis, history of seizures, HTN who presents to the hospital from home stating weakness, and inability to obtain food and medication.? Patient is not cooperating with my exam, not answering my questions, waking up but goes right back to sleep, therefore history is obtained mostly from ED physician.? [facility] he states that after being discharged from rehab he was unable to obtain any food or his medication, he was supposed to have a visiting nurse but no one visited him, he has had progressive weakness, and fatigue, he lives on the 6th floor, and was unable to get around due to the worsening weakness.? Unable to obtain review of system is patient is not cooperating On arrival to the ED patient found to have blood pressure of 207/112, continue to be hypertensive, received several doses of labetalol, hydralazine, clonidine, and nitro paste with improvement of his blood pressure.? ?head CT showed no acute intracranial abnormality, stable appearance of bilateral basal ganglia and left pontine lacunar infarcts, superimposed on a background of moderate chronic small-vessel ischemic change and moderate global volume loss ?labs reviewed positive for opioids, and fentanyl, otherwise unremarkable Hospital course: Patient has history of recent :Patient has history of CVA in December of 2022 with left sided residual hemiparesis and presented with generalized weakness and fatigue and found to have accelerated HTN with BP of 207/112, CT showed new stroke. He has non been compliant with his medication. During hospitalization was noted to have episode of NSVT but assymptomatic. Patient was restarted on medication Uncontrolled HTN/ HTN urgency d/t non compliant with meds. He has been restarted on home meds of Amlodipine 10 daily , Coreg 6.25 bid, and Lisinopril 30 daily (15 at home) with much better blood pressure control NSVT--No further episode and likely realted to not taking his BB and therefore should continue Coreg, K is within normal 3.8 and mag is normal. Was seen by cardiology encourge to take meds as prescribed and no further cardiac testing at this time Physical deconditioning, PT recommends rehab, he is agreable Seizure disorder-? continue Keppra 500 b.i.d. ?History ofCVA-? continue aspirin, lipitor and Blood pressure medication tox screen positive for -fentanyl ,opoids--cessation discussed and encouraged Depression denies SI Seen by Psych with the following recommendation: pt declines medications for mental health and seem competent Neuro eval can be done on outpatient, not acute issue at this time To short rehab for less than 30 days Time Spent with Patient Time attestation: Total time managing care of this patient today ____ minutes. Discharge coordination time: Greater than 30 minutes Quality: Safe Use of Opioids Does Pt have an Active Cancer Diagnosis on the Problem List?: No Quality: Stroke Does the patient have a stroke diagnosis?: No Physical Exam Vital Signs: Vital Signs: Last Vital Signs Temp 98.1 F 03/27/23 11:33 Pulse 67 03/27/23 11:33 Resp 20 03/27/23 11:33 BP 147/81 H 03/27/23 11:33 Pulse Ox 99 03/27/23 11:33 O2 Del Method Room Air 03/27/23 11:33 BMI result Body Mass Index 22.1 DS: Data Data Completed and Pending Labs on day of discharge: Laboratory Results - last 24 hr 03/20/23 16:12 Levetiracetam <2.0 L Discharge Plan Discharge Anticipated Discharge Date/Time: 03/27/23 13:20 Patient Disposition: Xfer SNF Discharge Diagnosis: NSVT, Referrals: Ysabel Beaulieu MD [Primary Care Provider] - 1 Week Physician,Unknown J [Physician] - 1 Week Discharge Medications: New lisinopril 10 mg Tablet 30 mg PO DAILY Qty: 30 0RF Protocol: Hold for SBP< HOLD for SBP < : 90 melatonin 3 mg Tablet 6 mg PO BEDTIME PRN (Reason: Insomnia) Qty: 20 0RF Continued nicotine 14 mg/24 hr Patch 24 Hour 14 mg transdermal DAILY Qty: 7 0RF amlodipine 10 mg Tablet 10 mg PO DAILY 30 Days Qty: 30 0RF Protocol: Hold for SBP< HOLD for SBP < : 90 atorvastatin 40 mg Tablet 40 mg PO BEDTIME 30 Days Qty: 30 0RF carvedilol 3.125 mg Tablet 6.25 mg PO BID 30 Days Qty: 120 0RF Protocol: Hold for SBP/HR < HOLD for SBP < : 90 HOLD for HR < : 60 aspirin 81 mg Tablet,Delayed Release (Dr/Ec) 81 mg PO DAILY 30 Days Qty: 30 0RF levetiracetam 500 mg Tablet 500 mg PO BID 30 Days Qty: 60 0RF Discontinued lisinopril 10 mg tablet 15 mg PO DAILY Qty: 45 0RF Discharge Orders: Discharge Order (Routine); Ordered 03/27/23 Ordered By: Willie Chicas Diet: Advance to usual diet Activity on Discharge: As tolerated Stand Alone Forms: Patient Portal Discharge page Care Plan Goals: Full recovery from weakness, controll blood pressure, and recovery from history of stroke Health Concerns: Substance use desorder Non compliant with medication history of stroke, uncontolled high blood pressure Plan of Treatment: Take all medication as prescribed, avoid ilicit substances and follow up with Doctor, participate in rehab To short term rehab for less than 30 days Assessment: as above
--- NOTE | 2023-03-27 13:57 | PM.NEUROCN ---
History of Present Illness Data of Consult Service Date: 03/27/23 Primary Care Provider: Ysabel Beaulieu MD [facility] Reason for consult: Dementia 67-year-old male with recent? history of stroke with left-sided residual? hemiparesis, history of seizures, HTN who presents to the hospital from home stating weakness, and inability to obtain food and medication.? 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 He did not have any children or why for any measured family members. He knew some family members but was not able to get in touch with. He said that due to COVID related problems the got . At this point he was having difficulty taking care of himself. Review of Systems Review of Systems: No seizure-like episode. [facility] Past Medical History Medical History CHIOMA (acute kidney injury) Cerebrovascular accident No pertinent past medical history Recurrent major depression-severe Seizure Uncontrolled hypertension Family History Family History Mother No problems noted. Father No problems noted. Surgical History Surgical History History of left hip replacement Social History Social History Household Members: None Housing: Apartment Do you presently have visiting nurse or other home services: No Alcohol intake: never Patient Tobacco Use Status: Former Tobacco user Tobacco use type: Cigarette Cigarette Packs Per Day: 10 service: No Current occupational status: unemployed Meds Allergies Allergy/AdvReac Type Severity Reaction Status Date / Time fish derived [FISH] Allergy Unknown UNKNOWN Verified 01/07/23 16:24 morphine [MORPHINE] Allergy Unknown UNKNOWN Verified 01/07/23 16:24 cheese Allergy Anaphylaxis Uncoded 01/07/23 16:24 Active Medications: Current Medications Acetaminophen (Acetaminophen 325 Mg Tablet) 650 mg PO Q6H PRN PRN Reason: Pain, Mild (Pain Scale 1-3) Last Admin: 03/27/23 09:17 Dose: 650 mg Amlodipine Besylate (Amlodipine Besylate 10 Mg Tablet) 10 mg PO DAILY [facility]; Protocol Last Admin: 05/25/23 09:09 Dose: 10 mg Atorvastatin Calcium (Atorvastatin Calcium 40 Mg Tablet) 40 mg PO BEDTIME [facility] Last Admin: 03/26/23 20:51 Dose: 40 mg Carvedilol (Carvedilol 6.25 Mg Tablet) 6.25 mg PO BID [facility]; Protocol Last Admin: 03/27/23 09:10 Dose: 6.25 mg Enoxaparin Sodium (Enoxaparin Sodium 40 Mg/0.4 Ml Syringe) 40 mg SUBCUT Q24H [facility] Last Admin: 03/27/23 09:11 Dose: 40 mg Levetiracetam (Levetiracetam 500 Mg Tablet) 500 mg PO BID [facility] Last Admin: 03/27/23 09:09 Dose: 500 mg Lisinopril (Lisinopril 10 Mg Tablet) 30 mg PO DAILY [facility]; Protocol Last Admin: 03/27/23 09:09 Dose: 30 mg Melatonin (Melatonin 3 Mg Tablet) 6 mg PO BEDTIME PRN PRN Reason: Insomnia Last Admin: 03/27/23 00:39 Dose: 6 mg Nicotine (Nicotine 14 Mg Patch.Td24) 14 mg TRANSDERMA DAILY [facility] Last Admin: 03/27/23 09:14 Dose: Not Given Ondansetron HCl (Ondansetron Hcl 4 Mg/2 Ml Vial) 4 mg IVPUSH Q8H PRN PRN Reason: Nausea and Vomiting Last Admin: 03/21/23 20:57 Dose: 4 mg Sodium Chloride (0.9 % Sodium Chloride Flush 3 Ml Syringe) 3 ml IVFLUSH QSHIFT [facility] Last Admin: 03/27/23 09:10 Dose: 3 ml Physical Exam Vital Signs: Vital Signs: Last Vital Signs Temp 98.1 F 03/27/23 11:33 Pulse 67 03/27/23 11:33 Resp 20 03/27/23 11:33 BP 147/81 H 03/27/23 11:33 Pulse Ox 99 03/27/23 11:33 O2 Del Method Room Air 03/27/23 11:33 BMI result Body Mass Index 22.1 Neuro: Other: Alert and awake with normal spontaneity of speech fluency comprehension and affect. He knew where he was and answered questions appropriately. There was [id number] left hemiparesis. Results Labs 03/23/23 06:58 03/23/23 06:58 Labs: Head CT and MRI brain were reviewed. They revealed moderately severe central cortical atrophy and moderately severe microvascular ischemic changes. Microbiology Microbiology Results: Microbiology 03/21/23 07:41 Blood - Venous Blood Culture - Final No growth after 5 days. 03/21/23 07:41 Blood - Venous Blood Culture - Final No growth after 5 days. 03/20/23 20:16 Blood - Venous Blood Culture - Final No growth after 5 days. 03/20/23 16:13 Blood - Venous Blood Culture - Final No growth after 5 days. Assessment and Plan (1) Cognitive disorder: Status: Acute 67 years old man with multifactorial, at Alzheimer +microvascular ischemic disease, dementia and left hemiparesis. Mainstay of management is education and proper placement. He might have difficulty taking care of himself including obtaining medications and taking them on time. Time Spent With Patient Time: Total time managing care of this patient today ____ minutes. Procedures Date of Service Date of Service: 03/27/23
--- NOTE | 2023-03-27 14:23 | MHC.CM.PN ---
THIS CM AND CM DIRECTOR MET W/PT TO COMPLETE A HCP, PT NAMED HIS SISTER JATIN ARMENDARIZ [phone] HIS [facility] AND NO ALTERNATE, PT PROVIDED W/EDUCATIONAL HANDOUT, ORIGINAL AND 2 COPIES, W/PT PERMISSION COPY TO BE MAILED TO JATIN, UPLOADED TO [facility] AND PLACED IN CHART. IMM 03/27/23 DELIVERED TO BEDSIDE AND ANTIC PT TO D/C TO [facility] BETWEEN 5:30-6PM VIA [facility]
[2023-03-27 15:10] LABS: COVID-19 Test Negative (Negative); IDNOW Serial# BCCEAD1C
[2023-03-27 15:45] VITALS: BP 149/83; PULSE 67; RESP 18; TEMP 37; O2SAT 98
[2023-03-27 20:00] VITALS: BP 147/65; PULSE 77; RESP 18; TEMP 37; O2SAT 98
[2023-03-27] MEDS: Atorvastatin Calcium 40 MG TABLET PO (21:40)
[2023-03-27] MEDS: diphenhydrAMINE HCL 25 MG CAPSULE 50 MG PO (21:40)
[2023-03-28] VITALS: BP 160/92; PULSE 82; RESP 18; TEMP 37.4; O2SAT 95
[2023-03-28 04:00] VITALS: BP 158/76; PULSE 73; RESP 18; TEMP 36.7; O2SAT 96
--- NOTE | 2023-03-28 06:02 | PC.NURSE ---
pt has no access at the beginning of 19:00 shift. pt refuses iv access, MD notified. no further orders placed.
[2023-03-28 07:37] VITALS: BP 143/80; PULSE 73; RESP 20; TEMP 36.9; O2SAT 98
[2023-03-28] MEDS: amLODIPine Besylate 10 MG TABLET PO (08:04)
[2023-03-28] MEDS: carvediloL 6.25 MG TABLET PO (08:04)
[2023-03-28] MEDS: lisinopriL 10 MG TABLET 30 MG PO (08:05)
[2023-03-28] MEDS: levETIRAcetam 500 MG TABLET PO (08:05)
--- NOTE | 2023-03-28 09:04 | MHC.CM.PN ---
CM RECEIVED CONFIRMATION FROM [facility] WE CAN SEND PT AT 11AM TO [facility], [facility] TRANSPORT ARRANGED Gian/[facility].
--- NOTE | 2023-03-28 10:48 | PC.NURSE ---
report received from overnight RN, media relations specialist per JAN. pt due for discharge to [facility] in [place] today, facility called x3 with no answer. Discharge paperwork printed and sent with pt to facility, education provided. No IV access, tele monitor removed. EMS to transport.
--- NOTE | 2023-03-29 09:50 | P.CDIM_ITS ---
PROVIDER RESPONSE TEXT: To clarify, the appropriate diagnosis supported by the clinical indicators: Malnutrition, please specify if mild, moderate or severe QUERY TEXT: PHYSICIAN'S DOCUMENTATION REQUEST Date of Query: 03/26/2023 02:32 PM EDT Patient Name: Dewey Antoine Admit Date: 03/21/2023 Dear Willie Welch, A review of the medical record indicates additional documentation may be needed. Please review below and update the documentation accordingly. Clinical Indicators: Height: ( ) 5'7 Weight: ( ) 63.9 BMI: ( ) 22.1 Other Clinical Notes Supporting Significance of the BMI: Per Nutritional Risk Assessment 03/21/23: on therapeutic diet Failure to thrive per H&P 03/21/23 ensure with meals If possible, please provide an associated diagnosis related to the abnormal BMI, such as: Underweight Weight loss Cachexia Anorexia Malnutrition, please specify if mild, moderate or severe Other (explain)Clinically unable to determine (explain)Thank you, Violeta Venegas RN Use of terms such as suspected, likely, concern for, or probable (associated with a specific diagnosi s that is being evaluated, monitored, or treated as if it exists) are acceptable and can be coded in the inpatient se tting, when documented at the time of discharge. Please use your independent medical judgment in providing your response. THIS QUERY IS PART OF THE PERMANENT MEDICAL RECORD
--- NOTE | 2023-03-29 13:01 | MHC.CM.ED ---
Addendum entered by Sherrell Jung 03/29/23 14:05: Per [facility] ER documentation, patient left facility AMA, met a friend in [place] and arrived at [facility] ER due to overdose. Patient received nasal Narcan x1. Once it was identified patient was stable, was discharged home/ Original Note: Received telephone call from patient's sister, Stefania. Stefania can be reached via telephone at [phone], . Patient was supposed to be discharged to [facility] on 03/28 at 11am. Family has tried to call facility to contact patient. Family was told he is not a patient there. It appears patient was sent to [facility] as scheduled. However last night, was transferred to [facility] ER. Appears patient was discharged home at 130am. Stefania made aware.
== END 2023-03-28 11:37 | disposition skilled nursing facility (03) ==
LOC: HO.ED 03-21 01:04 → HO.EDOVER 03-21 01:39 → HO.IMC 03-21 07:41
PROVIDERS: Student in an Organized Health Care Education/Training Program; Admitting Provider Internal Medicine; Emergency Provider Internal Medicine; PCP Family Medicine; Visit Provider Internal Medicine
DX: I16.0 Hypertensive urgency (principal); R53.81 Other malaise; R62.7 Adult failure to thrive; Z68.26 Body mass index [BMI] 26.0-26.9, adult; I47.29 Other ventricular tachycardia; F09 Unspecified mental disorder due to known physiological condition; I10 Essential (primary) hypertension; F32.A Depression, unspecified; I69.354 Hemiplegia and hemiparesis following cerebral infarction affecting left non-dominant side; F17.210 Nicotine dependence, cigarettes, uncomplicated; Z91.148 Patient's other noncompliance with medication regimen for other reason
CPT/HCPCS: 36415; 70450; 71045; 80048; 80053; 80177; 80307; 81003; 82550; 83605; 83735; 84484; 85025; 87040; 87635; 93005; 96361; 96372; 96374; 96375; 96376; 97116; 97162; 97166; 99222; 99285; J1650; J1953; J2060; J2405

== ENCOUNTER 2023-04-20 11:49 | Inpatient (IN) | payer OTHER, SELFPAY ==
[2023-04-20] VITALS (7 sets, daily range): BP systolic 160–220; BP diastolic 82–131; PULSE 59–80; RESP 17–21; TEMP 36.7–37; O2SAT 93–100; BMI 23.1
--- NOTE | ~2023-04-20 | XR_ITS ---
EXAMINATION: XR CHEST CLINICAL INFORMATION: SOB. COMPARISON: None available. TECHNIQUE: Frontal view of the chest was obtained. FINDINGS: No significant abnormality is noted involving the heart, lungs, mediastinum, bony thorax or soft tissues. XR/XR chest 1V IMPRESSION: Unremarkable chest examination.
--- NOTE | ~2023-04-20 | CT_ITS ---
EXAMINATION: CT HEAD WITHOUT CONTRAST CLINICAL INFORMATION: Lower extremity weakness. COMPARISON: CT head from 03/20/2023. Brain MRI from 12/25/2022. TECHNIQUE: Contiguous axial imaging was performed from the skull base to vertex without intravenous administration of contrast. This CT examination was performed using dose optimization techniques as appropriate, variously including the following: *Automated exposure control. *Adjustment of mA and/or kV according to patient size (this includes techniques or standardized protocols for targeted exams where dose is matched to indication/reason for exam; i.e. extremities or head). *Use of iterative reconstruction technique. DLP: 722 mGy-cm FINDINGS: There is no evidence of acute intracranial hemorrhage or edematous territorial infarction. Chronic lacunar infarcts of the left lentiform nucleus and left thalamus. No new loss of reynoso-white matter differentiation Confluent hypoattenuation in the periventricular and deep white matter. Proportional prominence of the ventricles and sulcal spaces without evidence of obstructive hydrocephalus. No abnormal mass effect or midline shift. No extra-axial fluid collections. No acute soft tissue or osseous abnormalities. Mild mucosal thickening of the paranasal sinuses. The mastoid air cells and middle ear cavities are clear. CT/CT head/brain wo IV con IMPRESSION: 1. No evidence of acute intracranial hemorrhage or edematous territorial infarction. 2. Extensive underlying microangiopathy and generalized cerebral volume loss. Chronic lacunar infarcts of the deep nuclei.
--- NOTE | 2023-04-20 11:58 | ECG_ITS ---
Test Reason : HYPERTENSION Blood Pressure : / mmHG Vent. Rate : 066 BPM Atrial Rate : 066 BPM P-R Int : 164 ms QRS Dur : 084 ms QT Int : 444 ms P-R-T Axes : 041 -50 -61 degrees QTc Int : 465 ms Normal sinus rhythm Left anterior fascicular block Minimal voltage criteria for LVH, may be normal variant ( [facility] product ) ST & T wave abnormality, consider inferior ischemia Abnormal ECG When compared with ECG of 20-MAR-2023 17:19, No significant change was found Referred By: Netta Dubon Electronically Signed By:BRAD CORBETT
--- NOTE | 2023-04-20 12:01 | ED.GENADULT ---
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 He states he has not been on his medications for the last 2 months due to follow up and transportation issues. His doctor told him because of his strokes his brain doesn't send the right connections to his legs when he is not on his meds. He uses a cane to ambulate at baseline and has been very weak and dyspneic with walking at home. No chest pains. No N/V/D or abdominal pain. He was recently [place] [facility] [place] for new stroke, HTN urgency due to medication noncompliance . He was discharged on increased dose of lisinopril and sent to a short term rehab, but signed out within 3 hours. He was seen by psych for depression and decisional capacity. He was found to have cognitive disorder, likely vascular dementia. He states he has not been taking any of his medications since discharge [place] [facility] MD complaint: SOB and LE weakness. Onset (ago): week(s) (2) Location: left, right and lower extremity Radiation: proximal Severity: moderate and similar to prior episodes Quality: aching Pain Consistency: intermittent Relieving factors: rest Exacerbating factors: movement Associated symptoms: malaise, shortness of breath and weakness Treatments prior to arrival: none Related Data Previous Rx's Medication Instructions Recorded amlodipine 10 mg tablet 10 mg PO DAILY 30 days #30 tabs 12/29/22 aspirin 81 mg tablet,delayed 81 mg PO DAILY 30 days #30 tabs 12/29/22 release atorvastatin 40 mg tablet 40 mg PO BEDTIME 30 days #30 tabs 12/29/22 carvedilol 3.125 mg tablet 6.25 mg PO BID 30 days #120 tabs 12/29/22 levetiracetam 500 mg tablet 500 mg PO BID 30 days #60 tabs 12/29/22 nicotine 14 mg/24 hr daily 14 mg transdermal DAILY #7 ea 12/29/22 transdermal patch lisinopril 10 mg tablet 30 mg PO DAILY #30 tabs 03/27/23 melatonin 3 mg tablet 6 mg PO BEDTIME PRN Insomnia #20 03/27/23 tabs Allergies Allergy/AdvReac Type Severity Reaction Status Date / Time fish derived [FISH] Allergy Unknown UNKNOWN Verified 01/07/23 16:24 morphine [MORPHINE] Allergy Unknown UNKNOWN Verified 01/07/23 16:24 cheese Allergy Anaphylaxis Uncoded 01/07/23 16:24 Review of Systems Review of Systems: Yes all other systems are reviewed and are negative PENDING SALE TO [facility] Past Medical History Medical History CHIOMA (acute kidney injury) Cerebrovascular accident No pertinent past medical history Recurrent major depression-severe Seizure Uncontrolled hypertension Surgical History History of left hip replacement Family History Family History Mother No problems noted. Father No problems noted. Social History Social History Household Members: None Housing: Apartment Do you presently have visiting nurse or other home services: No Alcohol intake: never Patient Tobacco Use Status: Former Tobacco user Tobacco use type: Cigarette Cigarette Packs Per Day: 10 Smoked in Last 30 Days: Yes Use of substances other than those prescribed or required for medical reasons: No Advance Directives: Yes Advance Directives on File: Yes Advance Directives Date on File: 04/01/23 service: No Current occupational status: unemployed Physical Exam ED Vital Signs: Vital Signs - 24 hr 04/20/23 12:02 04/20/23 14:00 04/20/23 15:31 Temperature 98.5 F 98.6 F 98.2 F Pulse Rate 67 59 61 Respiratory Rate 20 17 17 Blood Pressure 204/121 H 192/111 H 214/115 H Pulse Oximetry 100 93 98 Oxygen Delivery Method Room Air Room Air Room Air 04/20/23 15:34 04/20/23 16:05 Temperature 98.2 F Pulse Rate 70 67 Respiratory Rate 19 Blood Pressure 214/115 H 180/130 H Pulse Oximetry 97 Oxygen Delivery Method Room Air BMI result Body Mass Index 23.1 Appearance: Alert. Oriented X3. No acute distress. Head: normocephalic, atraumatic. Eyes: Pupils equal, round and reactive to light. ENT: Pharynx normal. No tonsillar swelling or exudate. Neck: Normal inspection. Neck supple. CVS: Normal heart rate and rhythm. Pulses normal. Respiratory: No respiratory distress. Breath sounds normal. Abdomen: Soft and nontender. +BS x4 Skin: Skin warm and dry. Normal skin color. Normal skin turgor. No rashes. Extremities: No lower extremity edema. No joint swelling. Neuro/psych: Oriented X 3. able to lift both legs off of the bed slightly, not against resistance. LUE weakness 3/5. CN II-XII intact. Normal speech and cognition. Course Reevaluation(s) Reevaluation #1: Had some improvement with IV labetalol down to 192/111. Heart rates in the high 50s now. Blood pressure back up to over 200 systolic. No chest pain, vision changes or headaches at this time. He was given oral lisinopril 30 mg and Norvasc 10 mg over an hour ago. IV hydralazine ordered. Will reassessing closely monitor. Anticipate admission for hypertensive urgency Time: 15:21 Reevaluation #2: Blood pressure 180/130 with heart rate 67. Will plan for admission to the hospital. Time: 16:13 Medications Administered Discontinued Medications Generic Name Dose Route Start Last Admin Trade Name Freq PRN Reason Stop Dose Admin Amlodipine Besylate 10 mg 04/20/23 14:17 04/20/23 14:50 Amlodipine Besylate 10 Mg Tablet PO 04/20/23 14:18 10 mg ONCE ONE Administration Protocol Hydralazine HCl 10 mg 04/20/23 15:12 04/20/23 15:35 Hydralazine Hcl 20 Mg/Ml Vial IVPUSH 04/20/23 15:13 10 mg ONCE ONE Administration Protocol Labetalol HCl 10 mg 04/20/23 12:12 04/20/23 12:40 Labetalol Hcl 100 Mg/20 Ml Vial IVPUSH 04/20/23 12:13 10 mg ONCE ONE Administration Lisinopril 30 mg 04/20/23 14:17 04/20/23 14:50 Lisinopril 10 Mg Tablet PO 06/18/23 14:18 30 mg ONCE ONE Administration Protocol Medical Decision Making Medical Decision Making MDM Narrative: 67 yo male with history of cognitive disorder, 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 Hypertensive 204/121 on arrival w/ HR 60s, no chest pain. SpO2 100% on room air with clear lungs. History of similar presentation in March where he was found to have a new stroke and HTN urgency due to medication noncompliance. 10mg IV Labetalol given with brief improvement in BP. PO lisinopril and amlodipine given as well with BP remaining >200 systolic. 10mg IV hydralazine given at 15:13 with improvement in BP to 180/130. Will plan for admission for further management. Differential Diagnosis Differential Diagnoses: The differential diagnosis associated with the presentation includes SOB possibly due to deconditioning, asthma, PNA, CHF, pleural effusion, less likely PE elevated BP due to medication noncompliance LE weakness possibly due to new vs old stroke, central demyelinating process, deconditioning, myositis Admission/Observation Consideration of admission/observation: Escalation of care including admission/observation considered HTN urgency requiring multiple doses of both IV and oral antihypertensive agents Consult Healthcare Provider Management of the patient was discussed with: Hospitalist Hospitalist eric gallego for admission at 16:08 Lab Data [facility] Lab Attestation statement: I reviewed the patient's lab results. Normal renal function, chronic proteinuria 04/20/23 13:05 04/20/23 13:05 Labs: Lab Results 04/20/23 04/20/23 04/20/23 Range/Units 12:24 13:05 13:05 WBC 5.1 (4.8-10.8) X10*3/uL RBC 4.88 (4.60-5.80) X10*6/uL Hgb 13.9 L (14.0-18.0) g/dl Hct 43.2 (42.0-52.0) % MCV 88.5 (80.0-98.0) fL MCH 28.5 (27.0-33.0) pg MCHC 32.2 (31.0-36.0) g/dl RDW 13.8 (11.0-16.0) % Plt Count 246 (160-400) X10*3/uL MPV 10.6 (9.4-12.4) fL Immature Gran % (Auto) 0.2 (0.0-0.4) % Neut % (Auto) 71.2 (45-73) % Lymph % (Auto) 18.6 L (20-40) % [place] % (Auto) 9.6 (2-11) % Eos % (Auto) 0.2 (0-4) % Baso % (Auto) 0.2 (0-2) % Lymph # (Auto) 1.0 L (1.2-4.9) X10*3/uL [place] # (Auto) 0.5 (0.1-1.2) X10*3/uL Eos # (Auto) 0.0 (0.0-0.4) X10*3/uL Baso # (Auto) 0.0 (0.0-0.2) X10*3/uL Abs Immat Gran (auto) 0.01 (0.00-0.03) X10*3/uL Absolute Neuts (auto) 3.6 (2.0-8.3) x10*3/uL Absolute Nucleated RBC 0.000 (0.0-0.012) X10*3/uL Nucleated RBC % (auto) 0.0 (0.0-0.2) /100WBC PT (10.0-13.1) SEC INR (0.9-1.1) APTT (26.0-36.4) SEC Sodium 138 (135-145) mmol/L Potassium 4.0 (3.3-5.1) mmol/L Chloride 107 (96-108) mmol/L Carbon Dioxide 20 L (22-29) mmol/L Anion Gap 15 (12-20) BUN 17 H (9-16) mg/dL Creatinine 0.87 (0.5-1.4) mg/dL Estim Creat Clear Calc 79.1 Estimated GFR > 60 Random Glucose 102 (60-115) mg/dL Calcium 10.1 D (8.4-10.2) mg/dL Magnesium 2.5 (1.6-2.6) mg/dL Total Bilirubin 1.1 H (0.0-1.0) mg/dL Direct Bilirubin 0.3 (0.0-0.5) mg/dL AST 18 (5-37) U/L ALT 15 (0-40) U/L Alkaline Phosphatase 84 (39-117) U/L Total Creatine Kinase 84 (38-174) U/L Troponin I High Sens 9.6 (<3.5-35.0) ng/L B-Natriuretic Peptide (<100) pg/mL Total Protein 8.3 H (6.5-8.0) g/dL Albumin 4.5 (3.5-5.0) g/dL TSH (0.32-4.0) uIU/mL Free T4 (0.71-1.85) ng/dL Urine Color Urine Appearance Urine pH (5.0-9.0) Ur Specific [place] (1.005-1.025) Urine Protein (Neg-Trace) mg/dL Urine Glucose (UA) (Negative) mg/dL Urine Ketones (Negative) mg/dL Urine Blood (Negative) Urine Nitrite (Negative) Ur Leukocyte Esterase (Negative) Urine RBC (0-2) /HPF Urine WBC (0-5) /HPF Ur Squamous Epith Cells (0-2) /HPF Urine Bacteria (None Seen) Hyaline Casts (0-2) /LPF Urine Opiates Screen (Not Detect) Urine Fentanyl Screen (Not Detect) Ur Barbiturates Screen (Not Detect) Ur Phencyclidine Scrn (Not Detect) Ur Amphetamines Screen (Not Detect) U Benzodiazepines Scrn (Not Detect) Urine Cocaine Screen (Not Detect) U Marijuana (THC) Screen (Not Detect) Ethyl Alcohol mg/dL 04/20/23 04/20/23 04/20/23 Range/Units 13:05 13:05 13:05 WBC (4.8-10.8) X10*3/uL RBC (4.60-5.80) X10*6/uL Hgb (14.0-18.0) g/dl Hct (42.0-52.0) % MCV (80.0-98.0) fL MCH (27.0-33.0) pg MCHC (31.0-36.0) g/dl RDW (11.0-16.0) % Plt Count (160-400) X10*3/uL MPV (9.4-12.4) fL Immature Gran % (Auto) (0.0-0.4) % Neut % (Auto) (45-73) % Lymph % (Auto) (20-40) % [place] % (Auto) (2-11) % Eos % (Auto) (0-4) % Baso % (Auto) (0-2) % Lymph # (Auto) (1.2-4.9) X10*3/uL [place] # (Auto) (0.1-1.2) X10*3/uL Eos # (Auto) (0.0-0.4) X10*3/uL Baso # (Auto) (0.0-0.2) X10*3/uL Abs Immat Gran (auto) (0.00-0.03) X10*3/uL Absolute Neuts (auto) (2.0-8.3) x10*3/uL Absolute Nucleated RBC (0.0-0.012) X10*3/uL Nucleated RBC % (auto) (0.0-0.2) /100WBC PT 12.3 (10.0-13.1) SEC INR 1.1 (0.9-1.1) APTT 37.1 H (26.0-36.4) SEC Sodium (135-145) mmol/L Potassium (3.3-5.1) mmol/L Chloride (96-108) mmol/L Carbon Dioxide (22-29) mmol/L Anion Gap (12-20) BUN (9-16) mg/dL Creatinine (0.5-1.4) mg/dL Estim Creat Clear Calc Estimated GFR Random Glucose (60-115) mg/dL Calcium (8.4-10.2) mg/dL Magnesium (1.6-2.6) mg/dL Total Bilirubin (0.0-1.0) mg/dL Direct Bilirubin (0.0-0.5) mg/dL AST (5-37) U/L ALT (0-40) U/L Alkaline Phosphatase (39-117) U/L Total Creatine Kinase (38-174) U/L Troponin I High Sens (<3.5-35.0) ng/L B-Natriuretic Peptide 128 H (<100) pg/mL Total Protein (6.5-8.0) g/dL Albumin (3.5-5.0) g/dL TSH 0.18 L (0.32-4.0) uIU/mL Free T4 1.04 (0.71-1.85) ng/dL Urine Color Urine Appearance Urine pH (5.0-9.0) Ur Specific [place] (1.005-1.025) Urine Protein (Neg-Trace) mg/dL Urine Glucose (UA) (Negative) mg/dL Urine Ketones (Negative) mg/dL Urine Blood (Negative) Urine Nitrite (Negative) Ur Leukocyte Esterase (Negative) Urine RBC (0-2) /HPF Urine WBC (0-5) /HPF Ur Squamous Epith Cells (0-2) /HPF Urine Bacteria (None Seen) Hyaline Casts (0-2) /LPF Urine Opiates Screen (Not Detect) Urine Fentanyl Screen (Not Detect) Ur Barbiturates Screen (Not Detect) Ur Phencyclidine Scrn (Not Detect) Ur Amphetamines Screen (Not Detect) U Benzodiazepines Scrn (Not Detect) Urine Cocaine Screen (Not Detect) U Marijuana (THC) Screen (Not Detect) Ethyl Alcohol mg/dL 04/20/23 04/20/23 04/20/23 Range/Units 13:05 13:45 13:46 WBC (4.8-10.8) X10*3/uL RBC (4.60-5.80) X10*6/uL Hgb (14.0-18.0) g/dl Hct (42.0-52.0) % MCV (80.0-98.0) fL MCH (27.0-33.0) pg MCHC (31.0-36.0) g/dl RDW (11.0-16.0) % Plt Count (160-400) X10*3/uL MPV (9.4-12.4) fL Immature Gran % (Auto) (0.0-0.4) % Neut % (Auto) (45-73) % Lymph % (Auto) (20-40) % [place] % (Auto) (2-11) % Eos % (Auto) (0-4) % Baso % (Auto) (0-2) % Lymph # (Auto) (1.2-4.9) X10*3/uL [place] # (Auto) (0.1-1.2) X10*3/uL Eos # (Auto) (0.0-0.4) X10*3/uL Baso # (Auto) (0.0-0.2) X10*3/uL Abs Immat Gran (auto) (0.00-0.03) X10*3/uL Absolute Neuts (auto) (2.0-8.3) x10*3/uL Absolute Nucleated RBC (0.0-0.012) X10*3/uL Nucleated RBC % (auto) (0.0-0.2) /100WBC PT (10.0-13.1) SEC INR (0.9-1.1) APTT (26.0-36.4) SEC Sodium (135-145) mmol/L Potassium (3.3-5.1) mmol/L Chloride (96-108) mmol/L Carbon Dioxide (22-29) mmol/L Anion Gap (12-20) BUN (9-16) mg/dL Creatinine (0.5-1.4) mg/dL Estim Creat Clear Calc Estimated GFR Random Glucose (60-115) mg/dL Calcium (8.4-10.2) mg/dL Magnesium (1.6-2.6) mg/dL Total Bilirubin (0.0-1.0) mg/dL Direct Bilirubin (0.0-0.5) mg/dL AST (5-37) U/L ALT (0-40) U/L Alkaline Phosphatase (39-117) U/L Total Creatine Kinase (38-174) U/L Troponin I High Sens (<3.5-35.0) ng/L B-Natriuretic Peptide (<100) pg/mL Total Protein (6.5-8.0) g/dL Albumin (3.5-5.0) g/dL TSH (0.32-4.0) uIU/mL Free T4 (0.71-1.85) ng/dL Urine Color Yellow Urine Appearance Clear Urine pH 6.0 (5.0-9.0) Ur Specific [place] 1.020 (1.005-1.025) Urine Protein 30 (1+) H (Neg-Trace) mg/dL Urine Glucose (UA) 250 H (Negative) mg/dL Urine Ketones Negative (Negative) mg/dL Urine Blood Negative (Negative) Urine Nitrite Negative (Negative) Ur Leukocyte Esterase Negative (Negative) Urine RBC 0-2 (0-2) /HPF Urine WBC 0-5 (0-5) /HPF Ur Squamous Epith Cells 0-2 (0-2) /HPF Urine Bacteria None Seen (None Seen) Hyaline Casts 0-2 (0-2) /LPF Urine Opiates Screen Not Detected (Not Detect) Urine Fentanyl Screen POSITIVE H (Not Detect) Ur Barbiturates Screen Not Detected (Not Detect) Ur Phencyclidine Scrn Not Detected (Not Detect) Ur Amphetamines Screen Not Detected (Not Detect) U Benzodiazepines Scrn Not Detected (Not Detect) Urine Cocaine Screen Not Detected (Not Detect) U Marijuana (THC) Screen Not Detected (Not Detect) Ethyl Alcohol < 10 mg/dL Independent Interpretation I performed an independent interpretation of an: EKG, Plain X-Ray and CT Scan Interpretation: ekg with normal sinus rhythm, HR 66 bpm, t-wave inversions in lead II,III, aVF which are old from prior. no ST segment elevations cxr w/ clear lungs, no PNA ct head with no acute bleed or edema, agree w/ radiology read Radiology Impression Discussion of test interpretation with radiology: I have reviewed the radiologist's reading. Radiologist Impression: ?XR/XR chest 1V IMPRESSION: Unremarkable chest examination. CT/CT head/brain wo IV con IMPRESSION: 1.? No evidence of acute intracranial hemorrhage or edematous territorial infarction. 2.? Extensive underlying microangiopathy and generalized cerebral volume loss. Chronic lacunar infarcts of the deep nuclei. Independent Historian Clinical information obtained from an independent historian. History obtained from or confirmed by: EMS External Record Review External record reviewed: Inpatient record, Outpatient record, Prior outpatient labs and Prior outpatient radiology Prescription Management I considered prescription management with: Other (anti-hypertensive) Chronic Conditions Patient?s care impacted by: Hypertension and Other (medication noncompliance) Social Determinants Patient?s care significantly limited by Social Determinants of Health including: Problems related to primary support group and Other Social Determinant of Health Critical Care Time Critical Care Time Critical Care Time: Yes Total Critical Care Time: 46 Attestation: I have personally provided critical care time exclusive of time spent on separately billable procedures. Time includes review of lab data, radiology results, discussion with consultants, and monitoring for potential decompensation. Intervention performed as documented. Discharge Plan Discharge Clinical Impression: Hypertensive urgency, Noncompliance with medication regimen Patient Disposition: Admitted As Inpatient
[2023-04-20] MEDS: Labetalol HCL 100 MG/20 ML VIAL 10 MG IVPUSH (12:40)
--- NOTE | 2023-04-20 12:40 | PC.NURSE ---
patient a&ox3, branch examiner applied, nrs/sinus va 60s, ekg performed, iv inserted- tech to draw labs as iv was difficult to draw from, pt noted to be hypertensive-provider aware, pt medicated per order, swallow eval performed-pt passed, neuro intact, pt sclera noted to be yellow, lungs clear, pt to ct.
[2023-04-20 12:52] LABS: Troponin-I High Sensitivity 9.6 ng/L (<3.5-35.0)
[2023-04-20 13:11] LABS: MANUAL DIFF FLAG NO
[2023-04-20 13:12] LABS: Basophils Percent Auto 0.2 % (0-2); Eosinophils Percent Auto 0.2 % (0-4); Hematocrit 43.2 % (42.0-52.0); Hemoglobin 13.9 g/dl (14.0-18.0); Imm Gran Abs Auto 0.01 X10*3/uL (0.00-0.03); Imm Gran Pct Auto 0.2 % (0.0-0.4); Lymphocytes Percent Auto 18.6 % (20-40); Mean Corpuscular HGB Conc 32.2 g/dl (31.0-36.0); Mean Corpuscular Hemoglobin 28.5 pg (27.0-33.0); Mean Corpuscular Volume 88.5 fL (80.0-98.0); Mean Platelet Volume 10.6 fL (9.4-12.4); Monocytes Absolute Auto 0.5 X10*3/uL (0.1-1.2); Monocytes Percent Auto 9.6 % (2-11); Neutrophils Absolute Auto 3.6 x10*3/uL (2.0-8.3); Neutrophils Percent Auto 71.2 % (45-73); Platelet Count 246 X10*3/uL (160-400); Red Blood Count 4.88 X10*6/uL (4.60-5.80); Red Cell Distribution Width 13.8 % (11.0-16.0); White Blood Count 5.1 X10*3/uL (4.8-10.8)
[2023-04-20 13:18] LABS: INTERNATIONAL NORM RATIO 1.1 (0.9-1.1); Prothrombin Time 12.3 SEC (10.0-13.1)
[2023-04-20 13:21] LABS: Partial Thromboplastin Time 37.1 SEC (26.0-36.4)
[2023-04-20 13:31] LABS: Ethanol < 10 mg/dL
[2023-04-20 13:32] LABS: Alanine Aminotransferase 15 U/L (0-40); Albumin Level 4.5 g/dL (3.5-5.0); Alkaline Phosphatase 84 U/L (39-117); Anion Gap 15 (12-20); Aspartate Amino Transferase 18 U/L (5-37); Bilirubin Direct 0.3 mg/dL (0.0-0.5); Bilirubin Total 1.1 mg/dL (0.0-1.0); Blood Urea Nitrogen 17 mg/dL (9-16); Calcium 10.1 mg/dL (8.4-10.2); Carbon Dioxide 20 mmol/L (22-29); Chloride 107 mmol/L (96-108); Creatinine Clr Calc Pharmacy 79.1; Estimated Glomerular Filt Rate > 60; Glucose Random 102 mg/dL (60-115); Magnesium 2.5 mg/dL (1.6-2.6); Sodium 138 mmol/L (135-145); Total Protein 8.3 g/dL (6.5-8.0)
[2023-04-20 13:34] LABS: B Type Natriuretic Peptide 128 pg/mL (<100)
[2023-04-20 13:52] LABS: TSH reflex Free T4 0.18 uIU/mL (0.32-4.0)
[2023-04-20 13:56] LABS: Appearance Urine Clear; Color Urine Yellow; Glucose Urine UA 250 mg/dL (Negative); Leukocyte Esterase Urine Negative (Negative); Nitrite Urine Negative (Negative); UMIC TRIGGER UACC YES; Urine Blood Negative (Negative); Urine Ketones Negative (Negative); Urine Protein 30 (1+) mg/dL (Neg-Trace)
[2023-04-20 14:06] LABS: Bacteria Urine None Seen (None Seen); Hyaline Casts Urine 0-2 /LPF (0-2); RBC Urine 0-2 /HPF (0-2); Squamous Epithelial Cell Urine 0-2 /HPF (0-2); WBC Urine 0-5 /HPF (0-5)
[2023-04-20 14:06] LABS: Amphetamine Screen Urine Not Detected (Not Detect); Barbiturates, Urine Not Detected (Not Detect); Benzodiazepines Screen Urine Not Detected (Not Detect); Cannabinoid Screen Urine Not Detected (Not Detect); Cocaine Screen Urine Not Detected (Not Detect); Fentanyl, urine POSITIVE (Not Detect); Opiate Screen Urine Not Detected (Not Detect); Phencyclidine Screen Urine Not Detected (Not Detect)
[2023-04-20 14:35] LABS: Free T4 (Free Thyroxine) 1.04 ng/dL (0.71-1.85)
--- NOTE | 2023-04-20 14:45 | PC.NURSE ---
sisters number isidro sister- [phone] pts sister is interested in having the patient move to a place closer to her- she is willing to talk to case management to get this arranged if he needs to go into a rehab facility she would like it close to her.
[2023-04-20] MEDS: lisinopriL 10 MG TABLET 30 MG PO (14:50)
[2023-04-20] MEDS: amLODIPine Besylate 10 MG TABLET PO (14:50)
--- NOTE | 2023-04-20 14:52 | PC.NURSE ---
pt medicated per order
[2023-04-20] MEDS: hydrALAZINE HCl 20 MG/ML VIAL 10 MG IVPUSH (15:35)
--- NOTE | 2023-04-20 16:19 | P.HPHOSP_ITS ---
the patient was seen and evaluated with ALEJANDRO Adam. I agree with his note, assessment and plan with the following. ?a 67-year-old male with a PMH significant for?poorly-controlled HTN, seizure disorder, hx of CVA among others who presented with?increasing SOB and generalized weakness. found to have elevated BP of 214/115. responded to IV and oral meds fairly. Hypertensive crisis secondary to medication noncompliance restart PO HTN meds Hydralazine PRN for SBP >180 Monitor BP telemetry PT eval for physical deconditioning Rest of evaluations by ALEJANDRO note. History of Present Illness Date of Service: 04/20/23 Attending physician on admission: Westley Caro Chief Complaint: Generalized weakness, SOB Pt is a 67-year-old male with a PMH significant for?poorly-controlled HTN, seizure disorder, hx of CVA in December 2022, PSVT, and hx of substance abuse who presents to the ED with?increasing SOB and bilateral lower leg weakness x4 days. In the ED pt was found to have uncontrolled BP of 214/115. Pt was recently admitted to the hospital around one month prior from 03/21/23-03/27/23 for similar complaints of weakness and fatigue and not being able to obtain medication or food. Pt was found then to be hypertensive at 207/112. There was no evidence of new stroke. Pt was discharged to short term rehab, but left AMA within 3 hours because he didn't feel safe. Since then pt says he has not taken any medications since he has been unable to walk to the pharmacy due to weakness and has no transportation. Patient states he also has not been able to eat much food for similar reasons. Has no close family nearby, though some apparently in [place]. Patient says that for the past 4 days he has been experiencing left-sided headache, shortness of breath with exertion, nausea, vomiting, and has had a dry cough. Patient denies any chest pain/pressure, palpitations. No fever or chills. Denies abdominal pain. Has had no known loss of consciousness or suffered any falls. Patient also complains of occasionally seen bright white spots. Denies eye pain, vision loss, or floaters. Patient currently smokes half pack of cigarettes daily. Denies alcohol use. Has a past history of snorting heroin, but states he has not used since sometime last year. In the ED patient was hypertensive up to 214/115. Labs were largely unremarkable, mildly elevated BNP of 128., TSH 0.18 but free T4 WNL at 1.04. Electrolytes WNL. Renal function at baseline. Hepatic function at baseline. Tox screen positive for fentanyl. UA positive for protein and glucose, but negative for UTI. CXR showed no acute cardiopulmonary process. CT of head showed no evidence of acute intracranial hemorrhage or edematous territorial infarction, but showed extensive underlying microangiopathy and generalized cerebral volume loss with a chronic lacunar infarcts of the deep nuclei. EKG demonstrated normal sinus rhythm with T-wave inversions in inferior leads, and mildly prolonged QTC of 465. Pt was treated with labetalol 10 mg IV, lisinopril 30 mg p.o., amlodipine 10 mg p.o., and hydralazine 10 mg IV. Pt will be admitted to the hospital for treatment and further management of hypertensive crisis and generalized deconditioning due to medication and follow-up noncompliance. Review of Systems Review of Systems: Shortness of breath with exertion Lower leg weakness bilaterally Left-sided headache Photopsias Nausea, vomiting Denies fever, chills, diarrhea, belly pain No chest pain/pressure, palpitations Yes all other systems are reviewed and are negative [facility] Medical History CHIOMA (acute kidney injury) Cerebrovascular accident Depressive disorder No pertinent past medical history Recurrent major depression-severe Seizure Uncontrolled hypertension Family History Mother No problems noted. Father No problems noted. Surgical History History of left hip replacement Social History Household Members: None Housing: Apartment Do you presently have visiting nurse or other home services: No Alcohol intake: never Patient Tobacco Use Status: Former Tobacco user Tobacco use type: Cigarette Cigarette Packs Per Day: 10 Smoked in Last 30 Days: Yes Use of substances other than those prescribed or required for medical reasons: No Advance Directives: Yes Advance Directives on File: Yes Advance Directives Date on File: 04/01/23 service: No Current occupational status: unemployed Meds Allergies Allergy/AdvReac Type Severity Reaction Status Date / Time fish derived [FISH] Allergy Unknown UNKNOWN Verified 01/07/23 16:24 morphine [MORPHINE] Allergy Unknown UNKNOWN Verified 01/07/23 16:24 cheese Allergy Anaphylaxis Uncoded 01/07/23 16:24 Active Medications: Current Medications Pharmacy Consult (Consult Rx Perform Med Rec) 1 each MISCELLANE ONCE PRN PRN Reason: Consult order Physical Exam Vital Signs and Narrative: Vital Signs: Last Vital Signs Temp 98.2 F 04/20/23 15:34 Pulse 67 04/20/23 16:05 Resp 19 04/20/23 15:34 BP 180/130 H 04/20/23 16:05 Pulse Ox 97 04/20/23 15:34 O2 Del Method Room Air 04/20/23 15:34 BMI result Body Mass Index 23.1 Constitutional: Alert, in no acute distress. Mental Status: Oriented to person, place and time. Eyes: Pupils are equal, round, and reactive to light. Slight corneal opacification bilaterally. Ear, Nose, and Throat: Oropharynx clear, mucous membranes moist. Ears and nose without deformities. Trachea midline. Respiratory: Expiratory rhonchi of lower lobes bilaterally. Cardiovascular: S1, S2 regular. No murmurs, rubs, or gallops. Gastrointestinal: Abdomen soft, non-tender, non-distended. Normal bowel sounds. Neurologic: Cranial nerves II-XII are grossly intact bilaterally. No focal neurological deficits. Moves all extremities spontaneously. Skin: No rashes or lesions noted. Musculoskeletal: No cyanosis or clubbing. Reduced strength bilaterally of lower extremities, 3/5. Extremities: No edema. Psychiatric: Normal mood and affect. Results Labs 04/20/23 13:05 04/20/23 13:05 Labs: Laboratory Results - last 24 hr 04/20/23 04/20/23 04/20/23 12:24 13:05 13:05 MCV 88.5 MCH 28.5 MCHC 32.2 RDW 13.8 Plt Count 246 MPV 10.6 Immature Gran % (Auto) 0.2 Neut % (Auto) 71.2 Lymph % (Auto) 18.6 L [place] % (Auto) 9.6 Eos % (Auto) 0.2 Baso % (Auto) 0.2 Lymph # (Auto) 1.0 L [place] # (Auto) 0.5 Eos # (Auto) 0.0 Baso # (Auto) 0.0 Abs Immat Gran (auto) 0.01 Absolute Neuts (auto) 3.6 Absolute Nucleated RBC 0.000 Nucleated RBC % (auto) 0.0 PT INR APTT Anion Gap 15 Estim Creat Clear Calc 79.1 Estimated GFR > 60 Random Glucose 102 Calcium 10.1 D Magnesium 2.5 Total Bilirubin 1.1 H Direct Bilirubin 0.3 AST 18 ALT 15 Alkaline Phosphatase 84 Total Creatine Kinase 84 Troponin I High Sens 9.6 B-Natriuretic Peptide Total Protein 8.3 H Albumin 4.5 TSH Free T4 Urine Color Urine Appearance Urine pH Ur Specific [place] Urine Protein Urine Glucose (UA) Urine Ketones Urine Blood Urine Nitrite Ur Leukocyte Esterase Urine RBC Urine WBC Ur Squamous Epith Cells Urine Bacteria Hyaline Casts Urine Opiates Screen Urine Fentanyl Screen Ur Barbiturates Screen Ur Phencyclidine Scrn Ur Amphetamines Screen U Benzodiazepines Scrn Urine Cocaine Screen U Marijuana (THC) Screen Ethyl Alcohol 04/20/23 04/20/23 04/20/23 13:05 13:05 13:05 MCV MCH MCHC RDW Plt Count MPV Immature Gran % (Auto) Neut % (Auto) Lymph % (Auto) [place] % (Auto) Eos % (Auto) Baso % (Auto) Lymph # (Auto) [place] # (Auto) Eos # (Auto) Baso # (Auto) Abs Immat Gran (auto) Absolute Neuts (auto) Absolute Nucleated RBC Nucleated RBC % (auto) PT 12.3 INR 1.1 APTT 37.1 H Anion Gap Estim Creat Clear Calc Estimated GFR Random Glucose Calcium Magnesium Total Bilirubin Direct Bilirubin AST ALT Alkaline Phosphatase Total Creatine Kinase Troponin I High Sens B-Natriuretic Peptide 128 H Total Protein Albumin TSH 0.18 L Free T4 1.04 Urine Color Urine Appearance Urine pH Ur Specific [place] Urine Protein Urine Glucose (UA) Urine Ketones Urine Blood Urine Nitrite Ur Leukocyte Esterase Urine RBC Urine WBC Ur Squamous Epith Cells Urine Bacteria Hyaline Casts Urine Opiates Screen Urine Fentanyl Screen Ur Barbiturates Screen Ur Phencyclidine Scrn Ur Amphetamines Screen U Benzodiazepines Scrn Urine Cocaine Screen U Marijuana (THC) Screen Ethyl Alcohol 04/20/23 04/20/23 04/20/23 13:05 13:45 13:46 MCV MCH MCHC RDW Plt Count MPV Immature Gran % (Auto) Neut % (Auto) Lymph % (Auto) [place] % (Auto) Eos % (Auto) Baso % (Auto) Lymph # (Auto) [place] # (Auto) Eos # (Auto) Baso # (Auto) Abs Immat Gran (auto) Absolute Neuts (auto) Absolute Nucleated RBC Nucleated RBC % (auto) PT INR APTT Anion Gap Estim Creat Clear Calc Estimated GFR Random Glucose Calcium Magnesium Total Bilirubin Direct Bilirubin AST ALT Alkaline Phosphatase Total Creatine Kinase Troponin I High Sens B-Natriuretic Peptide Total Protein Albumin TSH Free T4 Urine Color Yellow Urine Appearance Clear Urine pH 6.0 Ur Specific [place] 1.020 Urine Protein 30 (1+) H Urine Glucose (UA) 250 H Urine Ketones Negative Urine Blood Negative Urine Nitrite Negative Ur Leukocyte Esterase Negative Urine RBC 0-2 Urine WBC 0-5 Ur Squamous Epith Cells 0-2 Urine Bacteria None Seen Hyaline Casts 0-2 Urine Opiates Screen Not Detected Urine Fentanyl Screen POSITIVE H Ur Barbiturates Screen Not Detected Ur Phencyclidine Scrn Not Detected Ur Amphetamines Screen Not Detected U Benzodiazepines Scrn Not Detected Urine Cocaine Screen Not Detected U Marijuana (THC) Screen Not Detected Ethyl Alcohol < 10 Imaging Radiologist's Impressions: Impressions Head CT 04/20/23 12:41 IMPRESSION: 1. No evidence of acute intracranial hemorrhage or edematous territorial infarction. 2. Extensive underlying microangiopathy and generalized cerebral volume loss. Chronic lacunar infarcts of the deep nuclei. Chest X-Ray 04/20/23 12:51 IMPRESSION: Unremarkable chest examination. Assessment and Plan (1) Hypertensive urgency: Status: Acute (2) Noncompliance with medication regimen: Status: Acute Plan Pt is a 67-year-old male with a PMH significant for?poorly-controlled HTN, seizure disorder, hx of CVA in December 2022, PSVT, and hx of substance abuse who presents to the ED with?increasing SOB and bilateral lower leg weakness x4 days. In the ED pt was found to have uncontrolled BP of 214/115. Pt will be admitted to the hospital for treatment and further management of hypertensive crisis and generalized deconditioning due to medication and follow-up noncompliance. Hypertensive crisis Patient presented to the emergency room with blood pressure of 214/115 Patient symptomatic with headache, photopsias, shortness of breath Likely secondary to medication noncompliance Patient given labetalol 10 mg IV, hydralazine 10 mg IV, amlodipine 10 mg p.o., and lisinopril 30 mg p.o., SBP now in the 160-170s Will restart p.o. anti-hypertensives tomorrow Monitor BP closely Monitor on telemetry Patient needs a good plan at discharge to ensure medication compliance Bilateral leg weakness Likely due to deconditioning from poor po intake, medication noncompliance, leaving rehab AMA last month PT evaluation Hx of stroke Pt with previous stroke in December 2022 CT today with no evidence of acute intracranial pathology Continue aspirin, statin Photopsias, question of cataracts Patient should follow up outpatient with Ophthalmology Seizure disorder Continue Keppra Full Code Attending:?Dr. Caro DVT Prophylaxis: Lovenox Pt will require a hospitalization of at least two nights for treatment and further management of hypertensive crisis and generalized deconditioning due to medication and follow-up noncompliance. Time Spent With Patient Time: Total time managing care of this patient today ____ minutes. Quality Stroke Does the patient have a stroke diagnosis?: No VTE Prior VTE?: No VTE Risk Level:: Medical - moderate - high VTE Device Contraindication: Treatment Not Indicated VTE Drug Contraindication: N/A - Med Ordered
[2023-04-20] MEDS: carvediloL 6.25 MG TABLET PO (16:35)
--- NOTE | 2023-04-20 16:52 | PHA.MEDREC ---
Pharmacy Consult ? Medication Reconciliation Pharmacy has completed the medication reconciliation. Spoke to patient to confirm meds. Per patient, they haven't taken their medications in months outside of when they were last here (03/21-03/28). Patient only knows lisinopril, keppra, and clonidine that they were taking months ago. Confirmed meds based off recent discharge (03/28). No med changes made after discharge per claim history.
--- NOTE | 2023-04-20 18:03 | PC.NURSE ---
called floor to give report- nursing retail shift supervisor oc answered phone and stated the floor nurse would call us back shortly for report
[2023-04-20] MEDS: Aspirin Enteric Coated 81 MG TABLET.DR PO (18:35)
[2023-04-20] MEDS: Enoxaparin Sodium 40 MG/0.4 ML SYRINGE SUBCUT (18:35)
[2023-04-20] MEDS: levETIRAcetam 500 MG TABLET PO (18:35)
--- NOTE | 2023-04-20 18:42 | PC.NURSE ---
pt cantankerous pt upset because he didnt like the coffee given to him by a nurse who had made a pot of coffee for herself and shared with him as he was asking for a coffee and was unable to get one from the kitchen. pt also upset stating he didnt like he meal of chicken/beans/mashed potatoes- cafe was closed by the time he expressed his dislike of his meal. pt states he vomited his meal- this nurse noted no vomit in the patients room. pt also medicated per order and he refused the nicotine patch. vitals were obtained- pt continues to be hypertensive, call hathaway within reach, will continue to monitor
[2023-04-20] MEDS: carvediloL 3.125 MG TABLET 6.25 MG PO (21:50)
[2023-04-20] MEDS: Atorvastatin Calcium 40 MG TABLET PO (21:51)
[2023-04-21] VITALS (8 sets, daily range): BP systolic 137–188; BP diastolic 64–107; PULSE 65–87; RESP 17–20; TEMP 36.3–37.1; O2SAT 97–98
[2023-04-21] MEDS: hydrALAZINE HCl 20 MG/ML VIAL 10 MG IVPUSH (01:24)
[2023-04-21] MEDS: Melatonin 3 MG TABLET 6 MG PO (01:24)
[2023-04-21] MEDS: 0.9 % Sodium Chloride Flush 3 ML SYRINGE IVFLUSH ×4 (04:13→19:45)
[2023-04-21 05:47] LABS: Hematocrit 42.8 % (42.0-52.0); Hemoglobin 13.9 g/dl (14.0-18.0); Mean Corpuscular HGB Conc 32.5 g/dl (31.0-36.0); Mean Corpuscular Volume 89.2 fL (80.0-98.0); Mean Platelet Volume 10.6 fL (9.4-12.4); Platelet Count 260 X10*3/uL (160-400); Red Cell Distribution Width 13.7 % (11.0-16.0); White Blood Count 6.4 X10*3/uL (4.8-10.8)
[2023-04-21 06:00] LABS: Anion Gap 16 (12-20); Blood Urea Nitrogen 18 mg/dL (9-16); Calcium 9.9 mg/dL (8.4-10.2); Carbon Dioxide 19 mmol/L (22-29); Chloride 108 mmol/L (96-108); Creatinine Clr Calc Pharmacy 72.4; Estimated Glomerular Filt Rate > 60; Glucose Random 116 mg/dL (60-115); Potassium 3.8 mmol/L (3.3-5.1); Sodium 139 mmol/L (135-145)
--- NOTE | 2023-04-21 07:22 | PC.NURSE ---
pt refuses fall preventions measures. in room camera placed. educated on how to use call hathaway.
[2023-04-21] MEDS: amLODIPine Besylate 10 MG TABLET PO (10:24)
[2023-04-21] MEDS: Aspirin Enteric Coated 81 MG TABLET.DR PO (10:25)
[2023-04-21] MEDS: levETIRAcetam 500 MG TABLET PO ×2 (10:25→21:23)
[2023-04-21] MEDS: carvediloL 3.125 MG TABLET 6.25 MG PO ×2 (10:25→21:23)
[2023-04-21] MEDS: lisinopriL 10 MG TABLET 30 MG PO (10:25)
--- NOTE | 2023-04-21 10:38 | MHC.CM.PN ---
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 HE SAYS HE HAS HAD MORE DIFFICULTY PROBLEM SOLVING SINCE HIS STROKE. HE REPORTS HE RECENTLY RECEIVED A NOTICE FROM THE [facility] OFFICE SAYING THEY WOULD MOVE HIM OUT OF HIS APT ON May IF HE HAD NOT EVACUATED PRIOR TO THAT. PT REPORTS HE WENT TO THE [employer] [facility]ICE NEAR HIS HOME AND A WOMAN THERE WAS GOING TO HELP HIM, HE IS SUPPOSED TO MEET WITH HER TOMORROW AT 1000 HOURS. CM DID ATTEMPT TO CALL THE OFFICE TO DETERMINE IF THE APPT COULD BE COMPLETED VIA T/C, HOWEVER, THEY ARE CLOSED FOR THE HOLIDAY. THE PHONE NUMBER WAS GIVEN TO THE PT. STR REFERRALS WERE MADE, [facility] IS FOLLOWING PT IS MEDICALLY READY TO DC ONCE A BED IS SECURED HCP ON FILE PCP: RICH ELES IMM DELIVERED
--- NOTE | 2023-04-21 14:24 | HO.PM.IMPN ---
Subjective Subjective Date of Service: 04/21/23 Interval History: Seen and evaluated Feels better BP controlled no other overnight events Review of Systems Review of Systems: Yes all other systems are reviewed and are negative Physical Exam Vital Signs: Vital Signs: Last Vital Signs Temp 97.3 F 04/21/23 11:49 Pulse 82 04/21/23 11:49 Resp 20 04/21/23 11:49 BP 137/86 04/21/23 11:49 Pulse Ox 98 04/21/23 11:49 O2 Del Method Room Air 04/21/23 11:49 BMI result Body Mass Index 23.1 Const: Other: Constitutional : Awake, interactive, not in distress Neck : Normal inspection, Supple Cardiovascular : RRR, no JVP, no lower extremity edema Respiratory : good bilateral air entry, no crackles, wheezes or rhonchi Gastrointestinal: soft, lax, Normal bowel sounds, Non tender Skin : Warm, Dry Neurological : Alert & oriented x3, No focal deficit , CN 2-12 within normal Objective Data Active Medications Acetaminophen (Acetaminophen 325 Mg Tablet) 650 mg PO Q6H PRN PRN Reason: Pain, Mild (Pain Scale 1-3) Amlodipine Besylate (Amlodipine Besylate 10 Mg Tablet) 10 mg PO DAILY [facility]; Protocol Last Admin: 04/21/23 10:24 Dose: 10 mg Documented By: ALETA Aspirin (Aspirin Enteric Coated 81 Mg Tablet.) 81 mg PO DAILY [facility] Last Admin: 04/21/23 10:25 Dose: 81 mg Documented By: ALETA Atorvastatin Calcium (Atorvastatin Calcium 40 Mg Tablet) 40 mg PO BEDTIME [facility] Last Admin: 04/20/23 21:51 Dose: 40 mg Documented By: SOLOMON Carvedilol (Carvedilol 3.125 Mg Tablet) 6.25 mg PO BID [facility]; Protocol Last Admin: 04/21/23 10:25 Dose: 6.25 mg Documented By: ALETA Docusate Sodium (Docusate Sodium 100 Mg Capsule) 100 mg PO DAILY PRN PRN Reason: Constipation Enoxaparin Sodium (Enoxaparin Sodium 40 Mg/0.4 Ml Syringe) 40 mg SUBCUT Q24H [facility] Last Admin: 04/20/23 18:35 Dose: 40 mg Documented By: MAR Hydralazine HCl (Hydralazine Hcl 20 Mg/Ml Vial) 10 mg IVPUSH Q4H PRN; Protocol PRN Reason: Sbp > 180 Last Admin: 04/21/23 01:24 Dose: 10 mg Documented By: SOLOMON Levetiracetam (Levetiracetam 500 Mg Tablet) 500 mg PO BID [facility] Last Admin: 04/21/23 10:25 Dose: 500 mg Documented By: ALETA Lisinopril (Lisinopril 10 Mg Tablet) 30 mg PO DAILY [facility]; Protocol Last Admin: 04/21/23 10:25 Dose: 30 mg Documented By: ALETA Melatonin (Melatonin 3 Mg Tablet) 6 mg PO BEDTIME PRN PRN Reason: Insomnia Last Admin: 04/21/23 01:24 Dose: 6 mg Documented By: SOLOMON Nicotine (Nicotine 14 Mg Patch.Td24) 14 mg TRANSDERMA DAILY [facility] Last Admin: 04/21/23 10:26 Dose: Not Given Documented By: ALETA Non-Admin Reason: Patient Refused Pharmacy Consult (Consult Rx Perform Med Rec) 1 each MISCELLANE ONCE PRN PRN Reason: Consult order Sodium Chloride (0.9 % Sodium Chloride Flush 3 Ml Syringe) 3 ml IVFLUSH QSHIFT [facility] Last Admin: 04/21/23 10:25 Dose: 3 ml Documented By: ALETA Labs 04/21/23 05:31 04/21/23 05:31 Labs: Laboratory Results - last 24 hr 04/20/23 04/21/23 04/21/23 13:05 05:31 05:31 MCV 89.2 MCH 29.0 MCHC 32.5 RDW 13.7 Plt Count 260 MPV 10.6 Absolute Nucleated RBC 0.000 Nucleated RBC % (auto) 0.0 Anion Gap 16 Estim Creat Clear Calc 72.4 Estimated GFR > 60 Random Glucose 116 H Calcium 9.9 Free T4 1.04 Assessment and Plan (1) Hypertensive urgency: Status: Acute (2) Noncompliance with medication regimen: Status: Acute (3) Physical deconditioning: Status: Acute Plan Pt is a 67-year-old male with a PMH significant for?poorly-controlled HTN, seizure disorder, hx of CVA in December 2022, PSVT, and hx of substance abuse who presents to the ED with?increasing SOB and bilateral lower leg weakness x4 days. In the ED pt was found to have uncontrolled BP of 214/115. Pt will be admitted to the hospital for treatment and further management of hypertensive crisis and generalized deconditioning due to medication and follow-up noncompliance. Hypertensive crisis secondary to medication noncompliance resolved Home PO meds Monitor BP closely telemetry needs a good plan at discharge to ensure medication compliance Bilateral leg weakness Likely due to deconditioning from poor po intake, medication noncompliance, leaving rehab AMA last month PT evaluation Hx of stroke Pt with previous stroke in December 2022 CT today with no evidence of acute intracranial pathology Continue aspirin, statin Photopsias, question of cataracts Patient should follow up outpatient with Ophthalmology Seizure disorder Continue Keppra Full Code DVT Prophylaxis: Lovenox Pt will require a hospitalization of overnight pending safe discharge plan to SNF Time Spent With Patient Time: Total time managing care of this patient today ____ minutes. Quality Stroke Does the patient have a stroke diagnosis?: No VTE Prior VTE?: No VTE Risk Level:: Medical - moderate - high VTE Device Contraindication: Treatment Not Indicated VTE Drug Contraindication: N/A - Med Ordered
[2023-04-21] MEDS: Enoxaparin Sodium 40 MG/0.4 ML SYRINGE SUBCUT (18:27)
--- NOTE | 2023-04-21 19:51 | PC.NURSE ---
Assumed care at 11 am. Patient alert and oriented, some persistent requests for coffee and coca cola despite education that the salt content in soda would be bad for hypertension and that the soda was unavailable. Patient noncompliant with high falls risk precautions despite education about risk. Reports it makes him feel below his level of ability. Patient with seizure precautions and telesitter in place. Hypertension persists, but only one BP was above 180 systolically, and upon recheck was found to be 162/64. Sinus rhythm on telemetry. No pain, no SOB, no nausea.
[2023-04-21] MEDS: Atorvastatin Calcium 40 MG TABLET PO (21:23)
[2023-04-22 04:00] VITALS: BP 163/94; PULSE 74; RESP 18; TEMP 36.4; O2SAT 96
[2023-04-22 08:00] VITALS: BP 176/96; PULSE 69; RESP 19; TEMP 36.2; O2SAT 99
[2023-04-22] MEDS: Aspirin Enteric Coated 81 MG TABLET.DR PO (09:32)
[2023-04-22] MEDS: levETIRAcetam 500 MG TABLET PO (09:32)
[2023-04-22] MEDS: 0.9 % Sodium Chloride Flush 3 ML SYRINGE IVFLUSH (09:32)
[2023-04-22] MEDS: amLODIPine Besylate 10 MG TABLET PO (09:33)
[2023-04-22] MEDS: lisinopriL 40 MG TABLET PO (09:33)
[2023-04-22] MEDS: carvediloL 12.5 MG TABLET PO (09:33)
[2023-04-22] MEDS: Acetaminophen 325 MG TABLET 650 MG PO (09:35)
--- NOTE | 2023-04-22 10:30 | MHC.CM.PN ---
Patient is medically cleared for dc and has a bed offer at [facility]; CM has asked [facility] to initiate CCA auth. CM will follow.
--- NOTE | 2023-04-22 11:31 | P.DS_ITS ---
DS: Providers Provider Date of Service: 04/22/23 Date of admission: 04/20/23 17:15 Primary care physician: Ysabel Beaulieu MD DS: Diagnosis Discharge Diagnosis (1) Hypertensive urgency: Status: Inactive (2) Noncompliance with medication regimen: Status: Acute (3) Physical deconditioning: Status: Acute (4) Hypertensive emergency: Status: Acute DS: Summary Hospital Course Hospital Course: Admission note HPI Pt is a 67-year-old male with a PMH significant for?poorly-controlled HTN, seizure disorder, hx of CVA in December 2022, PSVT, and hx of substance abuse who presents to the ED with?increasing SOB and bilateral lower leg weakness x4 days. In the ED pt was found to have uncontrolled BP of 214/115. Pt was recently admitted to the hospital around one month prior from 03/21/23-03/27/23 for similar complaints of weakness and fatigue and not being able to obtain medication or food. Pt was found then to be hypertensive at 207/112. There was no evidence of new stroke. Pt was discharged to short term rehab, but left AMA within 3 hours because he didn't feel safe. Since then pt says he has not taken any medications since he has been unable to walk to the pharmacy due to weakness and has no transportation.? Patient states he also has not been able to eat much food for similar reasons.? Has no close family nearby, though some apparently in [place].? Patient says that for the past 4 days he has been experiencing left-sided headache, shortness of breath with exertion, nausea, vomiting, and has had a dry cough.? Patient denies any chest pain/pressure, palpitations.? No fever or chills.? Denies abdominal pain.? Has had no known loss of consciousness or suffered any falls.? Patient also complains of occasionally seen bright white spots.? Denies eye pain, vision loss, or floaters.? Patient currently smokes half pack of cigarettes daily.? Denies alcohol use.? Has a past history of snorting heroin, but states he has not used since sometime last year. In the ED patient was hypertensive up to 214/115. Labs were largely unremarkable, mildly elevated BNP of 128., TSH 0.18 but free T4 WNL at 1.04.? Electrolytes WNL.? Renal function at baseline.? Hepatic function at baseline.? Tox screen positive for fentanyl.? UA positive for protein and glucose, but negative for UTI. CXR showed no acute cardiopulmonary process.? CT of head showed no evidence of acute intracranial hemorrhage or edematous territorial infarction, but showed extensive underlying microangiopathy and generalized cerebral volume loss with a chronic lacunar infarcts of the deep nuclei. EKG demonstrated normal sinus rhythm with T-wave inversions in inferior leads, and mildly prolonged QTC of 465. Pt was treated with labetalol 10 mg IV, lisinopril 30 mg p.o., amlodipine 10 mg p.o., and hydralazine 10 mg IV. Pt will be admitted to the hospital for treatment and further management of hypertensive crisis and generalized deconditioning due to medication and follow-up noncompliance. Hospital course The patient was admitted to the hospital for evaluation of SOB 2/2 Hypertensive emergency?secondary to medication noncompliance. Treated with IV Labetalol and Hydralazine in ED with fair response as his home medications were restarted. shortness of breath improved as blood pressure became under control. his home medications we adjusted to a higher doses as below with fair control during hospital stay. He will need a good plan at discharge to ensure medication compliance by getting visiting nurses to follow him. Evaluated by PT for reported Bilateral leg weakness. Likely due to physical deconditioning. PT rec SNF placement for rehab. Expected length of stay in SNF less than 30 days. Lisinopril increased to 40 mg daily Carvedilol increased to 12.5 mg twice daily Continue Amlodipine 10 mg daily Monitor BP readings and report them to PCP for further adjustments. Time Spent with Patient Time attestation: Total time managing care of this patient today ____ minutes. Discharge coordination time: Greater than 30 minutes Quality: Safe Use of Opioids Does Pt have an Active Cancer Diagnosis on the Problem List?: No Quality: Stroke Does the patient have a stroke diagnosis?: No Physical Exam Vital Signs: Vital Signs: Last Vital Signs Temp 97.2 F 04/22/23 08:00 Pulse 69 04/22/23 08:00 Resp 19 04/22/23 08:00 BP 176/96 H 04/22/23 08:00 Pulse Ox 99 04/22/23 08:00 O2 Del Method Room Air 04/22/23 08:00 BMI result Body Mass Index 23.1 Const: Other: Constitutional : Awake, interactive, not in distress Neck : Normal inspection, Supple Cardiovascular : RRR, no JVP, no lower extremity edema Respiratory : good bilateral air entry, no crackles, wheezes or rhonchi Gastrointestinal: soft, lax, Normal bowel sounds, Non tender Skin : Warm, Dry Neurological : Alert & oriented x3, No focal deficit DS: Data Imaging Chest x-ray: Radiologist's impression: ITS Impressions Head CT 04/20/23 12:41 IMPRESSION: 1. No evidence of acute intracranial hemorrhage or edematous territorial infarction. 2. Extensive underlying microangiopathy and generalized cerebral volume loss. Chronic lacunar infarcts of the deep nuclei. Chest X-Ray 04/20/23 12:51 IMPRESSION: Unremarkable chest examination. Discharge Plan Discharge Anticipated Discharge Date/Time: 04/22/23 11:50 Patient Disposition: er [facility] Discharge Diagnosis: Hypertensive emergency Referrals: Laina Giles [facility] [Outside] - 1 Week Ysabel Beaulieu MD [Primary Care Provider] - 1 Week Discharge Medications: New carvedilol 12.5 mg Tablet 12.5 mg PO BID Qty: 60 0RF Protocol: Hold for SBP/HR < HOLD for SBP < : 90 HOLD for HR < : 60 lisinopril 40 mg Tablet 40 mg PO DAILY Qty: 30 0RF Protocol: Hold for SBP< HOLD for SBP < : 90 Continued nicotine 14 mg/24 hr Patch 24 Hour 14 mg transdermal DAILY Qty: 7 0RF amlodipine 10 mg Tablet 10 mg PO DAILY 30 Days Qty: 30 0RF Protocol: Hold for SBP< HOLD for SBP < : 90 atorvastatin 40 mg Tablet 40 mg PO BEDTIME 30 Days Qty: 30 0RF aspirin 81 mg Tablet,Delayed Release (Dr/Ec) 81 mg PO DAILY 30 Days Qty: 30 0RF levetiracetam 500 mg Tablet 500 mg PO BID 30 Days Qty: 60 0RF melatonin 3 mg Tablet 6 mg PO BEDTIME PRN (Reason: Insomnia) Qty: 20 0RF Discontinued carvedilol 3.125 mg Tablet 6.25 mg PO BID 30 Days Qty: 120 0RF Protocol: Hold for SBP/HR < HOLD for SBP < : 90 HOLD for HR < : 60 lisinopril 10 mg Tablet 30 mg PO DAILY Qty: 30 0RF Protocol: Hold for SBP< HOLD for SBP < : 90 Discharge Orders: Discharge Order (Routine); Ordered 04/22/23 Ordered By: Westley Caro Diet: Low salt diet Activity on Discharge: As tolerated Stand Alone Forms: Patient Portal Discharge page Care Plan Goals: Read below Health Concerns: Read below Plan of Treatment: Read below Assessment: You were admitted to the hospital for evaluation of difficulties breathing from elevated blood pressure readings. improved with IV and PO medications. seen by physical therapy team who recommended short term rehab. Lisinopril increased to 40 mg daily Carvedilol increased to 12.5 mg twice daily Continue Amlodipine 10 mg daily Monitor your BP readings and report them to PCP for further adjustments.
[2023-04-22 11:39] VITALS: BP 184/97; PULSE 62; RESP 18; TEMP 36.2; O2SAT 98
--- NOTE | 2023-04-22 13:35 | HO.PM.IMPN ---
Subjective Subjective Date of Service: 04/22/23 Interval History: Seen and evaluated Feels better BP remains elevated to 170s this morning No chest pain no other overnight events Review of Systems Review of Systems: Yes all other systems are reviewed and are negative Physical Exam Vital Signs: Vital Signs: Last Vital Signs Temp 97.2 F 04/22/23 11:39 Pulse 62 04/22/23 11:39 Resp 18 04/22/23 11:39 BP 184/97 H 04/22/23 11:39 Pulse Ox 98 04/22/23 11:39 O2 Del Method Room Air 04/22/23 11:39 BMI result Body Mass Index 23.1 Const: Other: Constitutional : Awake, interactive, not in distress Neck : Normal inspection, Supple Cardiovascular : RRR, no JVP, no lower extremity edema Respiratory : good bilateral air entry, no crackles, wheezes or rhonchi Gastrointestinal: soft, lax, Normal bowel sounds, Non tender Skin : Warm, Dry Neurological : Alert & oriented x3, No focal deficit Objective Data Active Medications Acetaminophen (Acetaminophen 325 Mg Tablet) 650 mg PO Q6H PRN PRN Reason: Pain, Mild (Pain Scale 1-3) Last Admin: 04/22/23 09:35 Dose: 650 mg Documented By: RUBEN Amlodipine Besylate (Amlodipine Besylate 10 Mg Tablet) 10 mg PO DAILY [facility]; Protocol Last Admin: 04/22/23 09:33 Dose: 10 mg Documented By: RUBEN Aspirin (Aspirin Enteric Coated 81 Mg Tablet.) 81 mg PO DAILY [facility] Last Admin: 04/22/23 09:32 Dose: 81 mg Documented By: RUBEN Atorvastatin Calcium (Atorvastatin Calcium 40 Mg Tablet) 40 mg PO BEDTIME [facility] Last Admin: 04/21/23 21:23 Dose: 40 mg Documented By: DONALDO Carvedilol (Carvedilol 12.5 Mg Tablet) 12.5 mg PO BID [facility]; Protocol Last Admin: 04/22/23 09:33 Dose: 12.5 mg Documented By: RUBEN Docusate Sodium (Docusate Sodium 100 Mg Capsule) 100 mg PO DAILY PRN PRN Reason: Constipation Enoxaparin Sodium (Enoxaparin Sodium 40 Mg/0.4 Ml Syringe) 40 mg SUBCUT Q24H [facility] Last Admin: 04/21/23 18:27 Dose: 40 mg Documented By: AROLDO Hydralazine HCl (Hydralazine Hcl 20 Mg/Ml Vial) 10 mg IVPUSH Q4H PRN; Protocol PRN Reason: Sbp > 180 Last Admin: 04/21/23 01:24 Dose: 10 mg Documented By: SOLOMON Levetiracetam (Levetiracetam 500 Mg Tablet) 500 mg PO BID [facility] Last Admin: 04/22/23 09:32 Dose: 500 mg Documented By: RUBEN Lisinopril (Lisinopril 40 Mg Tablet) 40 mg PO DAILY [facility]; Protocol Last Admin: 04/22/23 09:33 Dose: 40 mg Documented By: RUBEN Melatonin (Melatonin 3 Mg Tablet) 6 mg PO BEDTIME PRN PRN Reason: Insomnia Last Admin: 04/21/23 01:24 Dose: 6 mg Documented By: SOLOMON Nicotine (Nicotine 14 Mg Patch.Td24) 14 mg TRANSDERMA DAILY [facility] Last Admin: 04/22/23 09:35 Dose: Not Given Documented By: RUBEN Non-Admin Reason: Patient Refused Pharmacy Consult (Consult Rx Perform Med Rec) 1 each MISCELLANE ONCE PRN PRN Reason: Consult order Sodium Chloride (0.9 % Sodium Chloride Flush 3 Ml Syringe) 3 ml IVFLUSH QSHIFT [facility] Last Admin: 04/22/23 09:32 Dose: 3 ml Documented By: RUBEN Zolpidem Tartrate (Zolpidem Tartrate 5 Mg Tablet) 5 mg PO BEDTIME [facility] Labs 04/21/23 05:31 04/21/23 05:31 Assessment and Plan (1) Noncompliance with medication regimen: Status: Acute (2) Hypertensive emergency: Status: Acute (3) Physical deconditioning: Status: Acute Plan Pt is a 67-year-old male with a PMH significant for?poorly-controlled HTN, seizure disorder, hx of CVA in December 2022, PSVT, and hx of substance abuse who presents to the ED with?increasing SOB and bilateral lower leg weakness x4 days. In the ED pt was found to have uncontrolled BP of 214/115. Pt will be admitted to the hospital for treatment and further management of hypertensive crisis and generalized deconditioning due to medication and follow-up noncompliance. Hypertensive crisis secondary to medication noncompliance resolved Increase Lisinopril to 40 mg Increase Carvedilol to 12.5 bid Continue Amlodipine 10 mg daily Monitor BP closely telemetry needs a good plan at discharge to ensure medication compliance Bilateral leg weakness Likely due to deconditioning from poor po intake, medication noncompliance, leaving rehab AMA last month PT evaluation rec SNF Hx of stroke Pt with previous stroke in December 2022 CT today with no evidence of acute intracranial pathology Continue aspirin, statin Photopsias, question of cataracts Patient should follow up outpatient with Ophthalmology Seizure disorder Continue Keppra Full Code DVT Prophylaxis: Lovenox Pt will require a hospitalization of overnight pending safe discharge plan to SNF Time Spent With Patient Time: Total time managing care of this patient today ____ minutes. Quality Stroke Does the patient have a stroke diagnosis?: No VTE Prior VTE?: No VTE Risk Level:: Medical - moderate - high VTE Device Contraindication: Treatment Not Indicated VTE Drug Contraindication: N/A - Med Ordered
--- NOTE | 2023-04-22 13:55 | MHC.CM.PN ---
CM provided Patient with a pair of jeans and a t-shirt.
[2023-04-22 15:52] VITALS: BP 155/86; PULSE 64; RESP 19; TEMP 36.4; O2SAT 100
--- NOTE | 2023-04-22 16:09 | MHC.CM.PN ---
Patient has been medically cleared for dc to [facility]/SNF today. Patient was referred to [facility], who has accepted Patient (different [facility] SN[facility] that Patient came from and did not want to return to). Patient will dc to [facility] today at 6PM via [facility]. Last IMM addressed 04/21/2023.
== END 2023-04-22 18:00 | disposition skilled nursing facility (03) | DRG 305 ==
LOC: HO.ED 16:13 → HO.EDOVER 17:34 → HO.IMC 17:40
PROVIDERS: Physician Assistant; Admitting Provider Student in an Organized Health Care Education/Training Program; Emergency Provider Student in an Organized Health Care Education/Training Program; PCP Family Medicine; Visit Provider Student in an Organized Health Care Education/Training Program
DX: I16.0 Hypertensive urgency (principal); I69.354 Hemiplegia and hemiparesis following cerebral infarction affecting left non-dominant side; F33.9 Major depressive disorder, recurrent, unspecified; H26.9 Unspecified cataract; G40.909 Epilepsy, unspecified, not intractable, without status epilepticus; Z91.148 Patient's other noncompliance with medication regimen for other reason; Z79.82 Long term (current) use of aspirin; Z79.899 Other long term (current) drug therapy
CPT/HCPCS: 36415; 70450; 71045; 80048; 80076; 80307; 81001; 81003; 82550; 83735; 83880; 84439; 84443; 84484; 85025; 85027; 85610; 85730; 93005; 97162; 99285; J1650

== ENCOUNTER 2023-06-26 12:48 | Inpatient (IN) | payer OTHER, SELFPAY ==
[2023-06-26] VITALS (8 sets, daily range): BP systolic 161–204; BP diastolic 89–116; PULSE 68–82; RESP 14–21; TEMP 36.4–37; O2SAT 97–99; BMI 23.7
--- NOTE | ~2023-06-26 | MR_ITS ---
MRI OF THE BRAIN WITHOUT IV CONTRAST INDICATION: Transient paralysis versus CVA/posterior circulation. COMPARISON: Head CT 06/26/2023. TECHNIQUE: Multiplanar multisequence MR imaging of the brain was obtained without IV contrast. MR/MR head/brain wo con FINDINGS/IMPRESSION: This is a very limited and incomplete motion degraded MRI of the brain. The patient could not tolerate this study secondary to claustrophobia. There are no acute infarcts on the diffusion series accounting for artifact. The blood sensitive gradient series is incomplete and nondiagnostic. Axial FLAIR imaging is significantly motion degraded, demonstrating global cerebral volume loss and chronic microangiopathy.
--- NOTE | ~2023-06-26 | CT_ITS ---
EXAMINATION: CT HEAD WITHOUT CONTRAST CLINICAL INFORMATION: Weakness and unsteady gait. COMPARISON: CT scan of the head 04/19/2023 MRI scan the brain 12/24/2022. TECHNIQUE: Multidetector CT imaging of the head was obtained without the use of intravenous contrast. Coronal and sagittal reformatted images were generated at the technologist workstation. This CT examination was performed using dose optimization techniques as appropriate, variously including the following: *Automated exposure control *Adjustment of mA and/or kV according to patient size (this includes techniques or standardized protocols for targeted exams where dose is matched to indication/reason for exam; i.e. extremities or head) *Use of iterative reconstruction technique DLP: 700 mGy-cm. FINDINGS: Some levels are suboptimally visualized due to patient motion artifact. There is no evidence of acute intracranial hemorrhage or territorial infarction. No abnormal mass-effect or midline shift is seen. Eldridge to white matter differentiation is well preserved. No extra-axial fluid collections are identified. The ventricles and sulci are commensurately prominent consistent with moderate diffuse volume loss. There are extensive areas of low-attenuation the periventricular subcortical white matter, consistent with chronic microvascular ischemic disease and demonstrated on prior imaging. There are chronic infarcts in the periventricular regions bilaterally, and in the left willis. There are no acute osseous or soft tissue abnormalities. The mastoid air cells and visualized paranasal sinuses are well aerated. CT/CT head/brain wo IV con IMPRESSION: 1. Some areas of suboptimally visualized due to patient motion artifact. 2. There are no acute bleeds or territorial infarcts. No masses are demonstrated. 3. There are chronic microvascular ischemic changes and lacunar infarcts. There is diffuse volume loss.
--- NOTE | ~2023-06-26 | XR_ITS ---
EXAMINATION: XR CHEST CLINICAL INFORMATION: Weakness. COMPARISON: 04/20/2023 chest radiograph. TECHNIQUE: Frontal view of the chest was obtained. FINDINGS: No significant abnormality is noted involving the heart, lungs, mediastinum, bony thorax or soft tissues. XR/XR chest 1V IMPRESSION: No acute cardiopulmonary process.
--- NOTE | 2023-06-26 12:56 | ECG_ITS ---
Test Reason : WEAKNESS Blood Pressure : / mmHG Vent. Rate : 077 BPM Atrial Rate : 077 BPM P-R Int : 158 ms QRS Dur : 082 ms QT Int : 406 ms P-R-T Axes : 068 -50 -45 degrees QTc Int : 459 ms Normal sinus rhythm Possible Left atrial enlargement T-wave inversion in Inferior leads Left axis deviation Septal infarct , age undetermined Abnormal ECG When compared with ECG of 20-APR-2023 12:03, Septal infarct is now Present Referred By: Netta Dubon Electronically Signed By:CARLEE MILLER
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
[2023-06-26] MEDS: LORazepam 2 MG/ML VIAL IVPUSH (13:17)
[2023-06-26 13:22] LABS: MANUAL DIFF FLAG NO
[2023-06-26 13:30] LABS: Basophils Percent Auto 0.4 % (0-2); Eosinophils Percent Auto 0.4 % (0-4); Hematocrit 41.3 % (42.0-52.0); Hemoglobin 13.5 g/dl (14.0-18.0); Imm Gran Abs Auto 0.02 X10*3/uL (0.00-0.03); Imm Gran Pct Auto 0.4 % (0.0-0.4); Lymphocytes Percent Auto 19.5 % (20-40); Mean Corpuscular HGB Conc 32.7 g/dl (31.0-36.0); Mean Corpuscular Hemoglobin 29.3 pg (27.0-33.0); Mean Corpuscular Volume 89.6 fL (80.0-98.0); Mean Platelet Volume 9.7 fL (9.4-12.4); Monocytes Absolute Auto 0.5 X10*3/uL (0.1-1.2); Monocytes Percent Auto 8.8 % (2-11); Neutrophils Absolute Auto 3.6 x10*3/uL (2.0-8.3); Neutrophils Percent Auto 70.5 % (45-73); Platelet Count 295 X10*3/uL (160-400); Red Blood Count 4.61 X10*6/uL (4.60-5.80); Red Cell Distribution Width 12.8 % (11.0-16.0); White Blood Count 5.1 X10*3/uL (4.8-10.8)
[2023-06-26 13:33] LABS: Prothrombin Time 11.9 SEC (11.1-13.3)
[2023-06-26 13:36] LABS: Partial Thromboplastin Time 34.5 SEC (26.0-36.4)
[2023-06-26 13:45] LABS: COVID-19 Test Negative (Negative); IDNOW Serial# 08D9AD1C
[2023-06-26 13:50] LABS: Alanine Aminotransferase 12 U/L (0-40); Albumin Level 4.2 g/dL (3.5-5.0); Alkaline Phosphatase 74 U/L (39-117); Anion Gap 10 (12-20); Aspartate Amino Transferase 21 U/L (5-37); Bilirubin Direct 0.2 mg/dL (0.0-0.5); Bilirubin Total 0.6 mg/dL (0.0-1.0); Blood Urea Nitrogen 15 mg/dL (9-16); Carbon Dioxide 28 mmol/L (22-29); Chloride 106 mmol/L (96-108); Creatinine Clr Calc Pharmacy 63.2; Estimated Glomerular Filt Rate > 60; Ethanol < 10 mg/dL; Glucose Random 67 mg/dL (60-115); Magnesium 2.3 mg/dL (1.6-2.6); Potassium 4.4 mmol/L (3.3-5.1); Sodium 140 mmol/L (135-145); Total Protein 7.8 g/dL (6.5-8.0)
[2023-06-26 13:52] LABS: Troponin-I High Sensitivity 10.9 ng/L (<3.5-35.0)
--- NOTE | 2023-06-26 13:52 | PC.NURSE ---
PT HAS EXPRESSED DEEP +SI THOUGHTS I BETTER OFF WITH A BULLET IN MY HEAD . MY TIME IS COMING AND I FEEL SUICIDAL TO THE PCT (TOMAS) DIANE/ AWARE.
--- NOTE | 2023-06-26 13:58 | PC.NURSE ---
PT HAS ALSO EXPRESSED +SI TO THE XRAY STAFF. PT TO BE CHANGED OVER AND HAVE A 1:1 SITTER AT BEDSIDE. MD/MLP AWARE
[2023-06-26 14:06] LABS: TSH reflex Free T4 0.07 uIU/mL (0.32-4.0)
[2023-06-26] MEDS: Labetalol HCL 100 MG/20 ML VIAL 10 MG IVPUSH (14:53)
[2023-06-26 15:24] LABS: Free T4 (Free Thyroxine) 1.08 ng/dL (0.71-1.85)
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
--- NOTE | 2023-06-26 16:28 | PHA.MEDREC ---
Pharmacy Consult ? Medication Reconciliation Pharmacy has completed the medication reconciliation. Patient non adherent to medications. Reports he is taking the medications from when he was here last. Meds including something from blood and something to prevent stroke. Ayesha Darden, PharmD
[2023-06-26] MEDS: Enoxaparin Sodium 40 MG/0.4 ML SYRINGE SUBCUT (18:12)
--- NOTE | 2023-06-26 18:14 | PC.NURSE ---
Micki juarez to assess patient. Told Brodie ALLEN about blood pressure at 1814 of 204/136. states he will order something.
[2023-06-26 18:30] LABS: Appearance Urine Clear; Color Urine Yellow; Glucose Urine UA 100 mg/dL (Negative); Leukocyte Esterase Urine Negative (Negative); Nitrite Urine Negative (Negative); PH 6.5 (5.0-9.0); Urine Blood Negative (Negative); Urine Ketones Negative (Negative); Urine Protein Negative (Neg-Trace)
[2023-06-26] MEDS: amLODIPine Besylate 10 MG TABLET PO (18:30)
[2023-06-26] MEDS: Aspirin Enteric Coated 81 MG TABLET.DR PO (18:31)
[2023-06-26 18:35] LABS: Amphetamine Screen Urine Not Detected (Not Detect); Barbiturates, Urine Not Detected (Not Detect); Benzodiazepines Screen Urine Not Detected (Not Detect); Cannabinoid Screen Urine Not Detected (Not Detect); Cocaine Screen Urine Not Detected (Not Detect); Fentanyl, urine POSITIVE (Not Detect); Opiate Screen Urine Not Detected (Not Detect); Phencyclidine Screen Urine Not Detected (Not Detect)
[2023-06-26] MEDS: levETIRAcetam 500 MG TABLET PO (21:42)
[2023-06-26] MEDS: Atorvastatin Calcium 40 MG TABLET PO (21:42)
[2023-06-26] MEDS: carvediloL 12.5 MG TABLET PO (21:43)
[2023-06-27] VITALS (7 sets, daily range): BP systolic 136–187; BP diastolic 76–107; PULSE 64–100; RESP 18; TEMP 36.6–36.9; O2SAT 96–99
--- NOTE | 2023-06-27 | EEG_ITS ---
This is a 16 channel EEG with an EKG lead. The patient is reported awake and restless during the tracing. Background EEG rhythm is low amplitude fast with no obvious asymmetry or paroxysmal tendency. Some lead and muscle artifacts are noted. Photic stimulation is unremarkable. Hyperventilation is not performed. Cardiac lead does not reveal any significant abnormality. IMPRESSION: Unremarkable EEG. MD ALBERTO Newton/BRANDEE / [id number]
--- NOTE | 2023-06-27 00:52 | P.EN_ITS ---
Event Note Date of Service: 06/27/23 Event Note: a rapid response was called on this patient as he became unresponsive. Attended by ICU NURSING STAFFING COORDINATOR. it appears that patient has suddenly lost consciousness, and nurse reported the patient's eyes rolled back in his head and was not responding to his name. This lasts a few minutes. On waking up patient was not postictal, no evidence of confusion, there was no evidence of tonic clonic seizures. Patient was teary eyed, otherwise denies any chest pain, no palpitations, no acute symptoms. While the rapid response was occurring patient had another similar episode, but be episode was abruptly interrupted by ICU NURSING STAFFING COORDINATOR waking the patient up. Once again patient appear to have possible short episode of unconsciousness this is suspicious for possible pseudoseizures will obtain EEG patient otherwise hemodynamically stable Time Spent With Patient Time: Total time managing care of this patient today ____ minutes.
--- NOTE | 2023-06-27 00:54 | PM.EVENT ---
Event Note Date of Service: 06/27/23 Time Spent With Patient Time: Total time managing care of this patient today ____ minutes.
[2023-06-27] MEDS: traZODone HCL 50 MG TABLET PO (01:26)
[2023-06-27] MEDS: hydrALAZINE HCl 20 MG/ML VIAL 5 MG IVPUSH (01:26)
--- NOTE | 2023-06-27 03:01 | PC.NURSE ---
during shift assessment at approximately 0020 while talking to patient, he was answering appropriate, asking for a cup of coffee, and then stopped talking, eyes rolled back in his head, then closed completely. he did not awaken to gently shake and name calling for under a minute, tele monitor in use, hr 77, breathing without difficulty but just not responding. rapid response called, team arrived, patient now with eyes open bp, 175/107-77. quiet but talking, denied any pain, unsure why he drifted off. then while talking with ICU AGENCY SALES DEVELOPMENT ASSOCIATE noted short episode of word find difficulty. Nursing scouring pads supervisor at bedside and hospitalist updated. new orders for a.m. EEG and hydralazine ivp now and po trazadone. bp to 168/98-73. patient continued to deny pain, headache, chest pain, dizziness, or any discomforts. Sitter at bedside and will continue monitor closely. See hospitalist event note also. (noted similar episodes in ed setting, see report).
[2023-06-27 06:54] LABS: Hematocrit 42.2 % (42.0-52.0); Hemoglobin 13.6 g/dl (14.0-18.0); Mean Corpuscular HGB Conc 32.2 g/dl (31.0-36.0); Mean Corpuscular Hemoglobin 28.9 pg (27.0-33.0); Mean Corpuscular Volume 89.8 fL (80.0-98.0); Mean Platelet Volume 10.2 fL (9.4-12.4); Platelet Count 262 X10*3/uL (160-400); Red Cell Distribution Width 12.6 % (11.0-16.0); White Blood Count 6.6 X10*3/uL (4.8-10.8)
[2023-06-27 07:10] LABS: Anion Gap 13 (12-20); Blood Urea Nitrogen 15 mg/dL (9-16); Calcium 10.2 mg/dL (8.4-10.2); Carbon Dioxide 23 mmol/L (22-29); Chloride 109 mmol/L (96-108); Creatinine Clr Calc Pharmacy 68.5; Estimated Glomerular Filt Rate > 60; Glucose Random 116 mg/dL (60-115); Potassium 4.1 mmol/L (3.3-5.1); Sodium 141 mmol/L (135-145)
--- NOTE | 2023-06-27 09:47 | MHC.CM.PN ---
Addendum entered by Shilpa Boland 06/27/23 15:19: Spoke with Marga, [facility] regarding preventable Acute hospitalizations. Marga provided contact info for the patients PCP. She will also communicate with the patients critical care nurse practitioner, Perla. Services will be put in place at home. PCP Magali Beaulieu [phone] office contacted. The patient is scheduled for an appointment with Dr Beaulieu on Friday06/30/23. The patient was provided with his PCPs contact info. He was informed of his appt Friday. He has been to see his MD at the location in the past. [facility]. MD was informed of the appointment and [facility] initiating home services. [facility] has been referred at the pt request. Original Note: IMM 06/27/23 Male lives by himself. DX weakness HTN SZ r/t unable to obtain meds. PMH CVA x2, most recent 1 month ago. Patient states that he needs assist with obtaining medications and transportation to appointments. He has lost contact with Dr Rivera since MD moved to [place]. DP [facility] services needed in the home. Plan to speak with Marga, transitions to arrange safe discharge. A PT eval will be done. DP STR vs home w [facility] services. Patient will need assist with transportation.
[2023-06-27] MEDS: Aspirin Enteric Coated 81 MG TABLET.DR PO (11:31)
[2023-06-27] MEDS: amLODIPine Besylate 10 MG TABLET PO (11:31)
[2023-06-27] MEDS: levETIRAcetam 500 MG TABLET PO ×2 (11:31→22:33)
[2023-06-27] MEDS: 0.9 % Sodium Chloride Flush 3 ML SYRINGE IVFLUSH ×3 (11:32→22:36)
[2023-06-27] MEDS: carvediloL 12.5 MG TABLET PO ×2 (11:32→22:33)
[2023-06-27] MEDS: lisinopriL 40 MG TABLET PO (11:32)
[2023-06-27] MEDS: LORazepam 2 MG/ML VIAL 1 MG IVPUSH (13:08)
--- NOTE | 2023-06-27 13:18 | P.PNIM_ITS ---
Subjective Subjective Date of Service: 06/27/23 Interval History: uncontrolled htn ,seizure ? Review of Systems Today morning seems to be improving Denies any weakness or numbness Overnight had rapid response for question of seizure? Physical Exam Vital Signs: Vital Signs: Last Vital Signs Temp 98.4 F 06/27/23 11:59 Pulse 71 06/27/23 11:59 Resp 18 06/27/23 11:59 BP 142/82 H 06/27/23 11:59 Pulse Ox 98 06/27/23 11:59 O2 Del Method Room Air 06/27/23 11:59 BMI result Body Mass Index 23.7 Appearance: Alert.? Oriented X3.? not in distress.? cvs: rrr, [id number] , no murmur res: clear to auscultation ,no rhonchii or wheezing abd: no rebound or guarding ,nt, bs present. ext pulses present , no cyanosis . neuro: axo3 , nonfocal. Objective Data Active Medications Acetaminophen (Acetaminophen 325 Mg Tablet) 650 mg PO Q6H PRN PRN Reason: Pain, Mild (Pain Scale 1-3) Amlodipine Besylate (Amlodipine Besylate 10 Mg Tablet) 10 mg PO DAILY [facility]; Protocol Last Admin: 06/27/23 11:31 Dose: 10 mg Documented By: ROSIE Aspirin (Aspirin Enteric Coated 81 Mg Tablet.) 81 mg PO DAILY [facility] Last Admin: 06/27/23 11:31 Dose: 81 mg Documented By: ROSIE Atorvastatin Calcium (Atorvastatin Calcium 40 Mg Tablet) 40 mg PO BEDTIME [facility] Last Admin: 06/26/23 21:42 Dose: 40 mg Documented By: BING Carvedilol (Carvedilol 12.5 Mg Tablet) 12.5 mg PO BID [facility]; Protocol Last Admin: 06/27/23 11:32 Dose: 12.5 mg Documented By: ROSIE Docusate Sodium (Docusate Sodium 100 Mg Capsule) 100 mg PO DAILY PRN PRN Reason: Constipation Enoxaparin Sodium (Enoxaparin Sodium 40 Mg/0.4 Ml Syringe) 40 mg SUBCUT Q24H [facility] Last Admin: 06/26/23 18:12 Dose: 40 mg Documented By: CHRISTIAN Hydroxyzine HCl (Hydroxyzine Hcl 25 Mg Tablet) 25 mg PO Q8H PRN PRN Reason: anxiety/restlessness Levetiracetam (Levetiracetam 500 Mg Tablet) 500 mg PO BID [facility] Last Admin: 06/27/23 11:31 Dose: 500 mg Documented By: ROSIE Lisinopril (Lisinopril 40 Mg Tablet) 40 mg PO DAILY [facility]; Protocol Last Admin: 06/27/23 11:32 Dose: 40 mg Documented By: ROSIE Melatonin (Melatonin 3 Mg Tablet) 6 mg PO BEDTIME PRN PRN Reason: Insomnia Ondansetron HCl (Ondansetron Hcl 4 Mg/2 Ml Vial) 4 mg IVPUSH Q8H PRN PRN Reason: Nausea and Vomiting Sodium Chloride (0.9 % Sodium Chloride Flush 3 Ml Syringe) 3 ml IVFLUSH QSHIFT [facility] Last Admin: 06/27/23 11:32 Dose: 3 ml Documented By: ROSIE Labs 06/27/23 06:43 06/27/23 06:43 Labs: Laboratory Results - last 24 hr 06/26/23 06/26/23 06/26/23 13:15 13:15 13:15 MCV 89.6 MCH 29.3 MCHC 32.7 RDW 12.8 Plt Count 295 MPV 9.7 Immature Gran % (Auto) 0.4 Neut % (Auto) 70.5 Lymph % (Auto) 19.5 L [place] % (Auto) 8.8 Eos % (Auto) 0.4 Baso % (Auto) 0.4 Lymph # (Auto) 1.0 L [place] # (Auto) 0.5 Eos # (Auto) 0.0 Baso # (Auto) 0.0 Abs Immat Gran (auto) 0.02 Absolute Neuts (auto) 3.6 Absolute Nucleated RBC 0.000 Nucleated RBC % (auto) 0.0 PT INR APTT Anion Gap 10 L Estim Creat Clear Calc 63.2 Estimated GFR > 60 Random Glucose 67 Calcium 10.0 Magnesium 2.3 Total Bilirubin 0.6 Direct Bilirubin 0.2 AST 21 ALT 12 Alkaline Phosphatase 74 Total Creatine Kinase 79 Total Protein 7.8 Albumin 4.2 TSH Free T4 Urine Color Urine Appearance Urine pH Ur Specific [place] Urine Protein Urine Glucose (UA) Urine Ketones Urine Blood Urine Nitrite Ur Leukocyte Esterase Urine Opiates Screen Urine Fentanyl Screen Ur Barbiturates Screen Ur Phencyclidine Scrn Ur Amphetamines Screen U Benzodiazepines Scrn Urine Cocaine Screen U Marijuana (THC) Screen Ethyl Alcohol COVID-19 (MARK) Negative COVID-19 Clin Com See Note 06/26/23 06/26/23 06/26/23 13:15 13:15 18:19 MCV MCH MCHC RDW Plt Count MPV Immature Gran % (Auto) Neut % (Auto) Lymph % (Auto) [place] % (Auto) Eos % (Auto) Baso % (Auto) Lymph # (Auto) [place] # (Auto) Eos # (Auto) Baso # (Auto) Abs Immat Gran (auto) Absolute Neuts (auto) Absolute Nucleated RBC Nucleated RBC % (auto) PT 11.9 INR 1.0 APTT 34.5 Anion Gap Estim Creat Clear Calc Estimated GFR Random Glucose Calcium Magnesium Total Bilirubin Direct Bilirubin AST ALT Alkaline Phosphatase Total Creatine Kinase Total Protein Albumin TSH 0.07 L Free T4 1.08 Urine Color Yellow Urine Appearance Clear Urine pH 6.5 Ur Specific [place] 1.010 Urine Protein Negative Urine Glucose (UA) 100 H Urine Ketones Negative Urine Blood Negative Urine Nitrite Negative Ur Leukocyte Esterase Negative Urine Opiates Screen Urine Fentanyl Screen Ur Barbiturates Screen Ur Phencyclidine Scrn Ur Amphetamines Screen U Benzodiazepines Scrn Urine Cocaine Screen U Marijuana (THC) Screen Ethyl Alcohol < 10 COVID-19 (MARK) COVID-19 [facility] Com 06/26/23 06/27/23 06/27/23 18:19 06:43 06:43 MCV 89.8 MCH 28.9 MCHC 32.2 RDW 12.6 Plt Count 262 MPV 10.2 Immature Gran % (Auto) Neut % (Auto) Lymph % (Auto) [place] % (Auto) Eos % (Auto) Baso % (Auto) Lymph # (Auto) [place] # (Auto) Eos # (Auto) Baso # (Auto) Abs Immat Gran (auto) Absolute Neuts (auto) Absolute Nucleated RBC 0.000 Nucleated RBC % (auto) 0.0 PT INR APTT Anion Gap 13 Estim Creat Clear Calc 68.5 Estimated GFR > 60 Random Glucose 116 H Calcium 10.2 Magnesium Total Bilirubin Direct Bilirubin AST ALT Alkaline Phosphatase Total Creatine Kinase Total Protein Albumin TSH Free T4 Urine Color Urine Appearance Urine pH Ur Specific [place] Urine Protein Urine Glucose (UA) Urine Ketones Urine Blood Urine Nitrite Ur Leukocyte Esterase Urine Opiates Screen Not Detected Urine Fentanyl Screen POSITIVE H Ur Barbiturates Screen Not Detected Ur Phencyclidine Scrn Not Detected Ur Amphetamines Screen Not Detected U Benzodiazepines Scrn Not Detected Urine Cocaine Screen Not Detected U Marijuana (THC) Screen Not Detected Ethyl Alcohol COVID-19 (MARK) COVID-19 Clin Com Assessment and Plan (1) Generalized weakness: Status: Acute (2) Hypertensive crisis: Status: Acute Plan 67-year-old male with a PMH significant for?poorly-controlled HTN, seizure disorder, hx of CVA, PSVT, and hx of substance abuse who presents to the ED?with worsening global weakness and difficulty walking x2 days.? 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 Pt will be admitted to the hospital for treatment and further management of hypertensive crisis and generalized deconditioning due to medication noncompliance. Hypertensive unconrtolled Likely secondary to medication noncompliance will start back Amlodipine 10 mg, carvedilol 12.5 mg,lisinopril. Monitor BP closely Monitor on telemetry Patient needs a good plan at discharge to ensure medication compliance, patient has been admitted multiple times for similar symptoms related to medication noncompliance Bilateral leg weakness: currently moving extermities well Likely due to deconditioning from poor po intake, medication noncompliance PT evaluation Hx of stroke Pt with previous stroke in December 2022 CT today with no evidence of acute intracranial pathology Continue aspirin, statin Seizure disorder Patient with possible episodes of focal seizures in the ED, possibly secondary to medication noncompliance Continue Keppra Monitor on telemetry eeg added mri Neurology eval noted -continue current management and need neuro workup. Full Code DVT Prophylaxis: Lovenox ongomin hospitalization: uncontrolled htn and generalized deconditioning due to medication noncompliance- continue home meds ,neuroworkup pending Time Spent With Patient Time: Total time managing care of this patient today ____ minutes. Quality Stroke Does the patient have a stroke diagnosis?: No VTE Prior VTE?: No VTE Risk Level:: Medical - moderate - high VTE Device Contraindication: Treatment Not Indicated VTE Drug Contraindication: N/A - Med Ordered
[2023-06-27] MEDS: hydrOXYzine HCL 25 MG TABLET PO (17:32)
[2023-06-27] MEDS: Atorvastatin Calcium 40 MG TABLET PO (22:33)
[2023-06-27] MEDS: Nicotine 21 MG PATCH.TD24 TRANSDERMA (22:33)
[2023-06-28 07:34] VITALS: BP 156/96; PULSE 69; RESP 16; TEMP 37.1; O2SAT 99
--- NOTE | 2023-06-28 08:11 | P.CNPS_ITS ---
History of Present Illness Date of Service: 06/27/2023 Chief Complaint: generalized weakness, diff. ambulating Reason for Consult: depression/capacity Requesting physician: Vicki Strong Discussed with referring provider: Yes Sources of Information: patient interviewed, chart reviewed and crisis/core team assessment reviewed HPI Narrative: Mr. Antoine is a 67 year-old male with hx of CVA, HTN, who has been seen at [facility] 4 times this year for similar presentation including generalized weakness and hypertensive crisis. Pt had head CT that shows atrophy, extensive areas of microvascular ischemic changes, infarct in left willis. Pt had reported day of admission that he did not want to live like this and consult for psychiatry was placed. It also has been of concern pt's ability to care for himself and follow up with recommended treatment. Pt presents as pleasant. He reports he has been in the hospital for about 3 days. He reports he was at work, although today we learned that rosendo found pt sitting on a bench in [place] and he appeared like having a stroke. Pt was taken to mobile clinic and his BP was high and he was sent, per pt request to [facility]. When asked what is preventing him from taking his medications, pt states I don't have money to pay for them. However, pt has [employer] which pays for medication without need for copay. Pt reports he gets medications where ever the doctor sends them. He was oriented to place, month, not date or day. He reports he is aware he is being treated for hypertension. He asks this race and sports book writer If I can bring him to get his medications so he never misses them again. In terms of depression, pt reports he does not remember making this statement. He found it somewhat suspicious that attending asked psychiatry to see me, are you trying to make me seen as crazy? He denied SI/HI. He reports he hopes to get a job at a [employer] in [place]. Pt denied suicidal or homicidal ideation. He presents slightly suspicious towards staff in hospital and at some point towards this race and sports book writer. He denies VH/AH. This race and sports book writer came later to speak again with pt, pt appeared to forget that we had talked about making sure he had visiting nurse and additional supports in the community. Pt had been pacing the bagley, going into other patient's rooms, asking for cigarettes, needing orientation to find his own room. Past Psychiatric History: IP: Denies hosps: denies SA: denies SIB: denies OP: denies any h/o outpt Tx Trials: Affirmed for 12/26 interview, denied for 03/25 interview, although did make reference to having been prescribed an anxiety medication for a long time, the name of which he could not recall. 12/26: Reports hx of treatment for anxiety and depression and temper issues. Reports he feliciano above symptoms in recovery, got a job, moved to [place], got an apartment and had a good life. 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 He sees medication as a dependence and wants to work on these issues without that. Medical Evaluation Reviewed: Yes [facility] Medical History CHIOMA (acute kidney injury) Cerebrovascular accident Depressive disorder No pertinent past medical history Noncompliance with medication regimen Physical deconditioning Recurrent major depression-severe Seizure Uncontrolled hypertension Surgical History History of left hip replacement Family History: Anxiety per 12/26 interview. per 03/25 interview denies psych FH, reports father was an alcoholic. Social History: from [place], moved to [place] in 2008, lost contact with family members in [place] at that time. says he has no family members left post-COVID and describes feeling incredibly lonely and without social supports. lives alone in an apartment, unemployed. Diagnostics Vital Signs (24Hr): Vital Signs - 24 hr 06/27/23 11:59 06/27/23 15:30 06/27/23 22:11 Temperature 98.4 F 97.9 F 97.8 F Pulse Rate 71 85 78 Respiratory Rate 18 18 18 Blood Pressure 142/82 H 187/106 H 182/107 H Pulse Oximetry 98 96 99 Oxygen Delivery Method Room Air Room Air Room Air 06/27/23 23:13 06/28/23 07:34 Temperature 97.9 F 98.7 F Pulse Rate 75 69 Respiratory Rate 18 16 Blood Pressure 150/86 H 156/96 H Pulse Oximetry 99 99 Oxygen Delivery Method Room Air BMI result Body Mass Index 23.7 Labs 06/27/23 06:43 06/27/23 06:43 Labs: Laboratory Results - last 48 hr 06/26/23 06/26/23 06/26/23 13:15 13:15 13:15 WBC 5.1 RBC 4.61 Hgb 13.5 L Hct 41.3 L MCV 89.6 MCH 29.3 MCHC 32.7 RDW 12.8 Plt Count 295 MPV 9.7 Immature Gran % (Auto) 0.4 Neut % (Auto) 70.5 Lymph % (Auto) 19.5 L Taylor % (Auto) 8.8 Eos % (Auto) 0.4 Baso % (Auto) 0.4 Lymph # (Auto) 1.0 L Taylor # (Auto) 0.5 Eos # (Auto) 0.0 Baso # (Auto) 0.0 Abs Immat Gran (auto) 0.02 Absolute Neuts (auto) 3.6 Absolute Nucleated RBC 0.000 Nucleated RBC % (auto) 0.0 PT INR APTT Sodium 140 Potassium 4.4 Chloride 106 Carbon Dioxide 28 Anion Gap 10 L BUN 15 Creatinine 1.05 Estim Creat Clear Calc 63.2 Estimated GFR > 60 Random Glucose 67 Calcium 10.0 Magnesium 2.3 Total Bilirubin 0.6 Direct Bilirubin 0.2 AST 21 ALT 12 Alkaline Phosphatase 74 Total Creatine Kinase 79 Troponin I High Sens Total Protein 7.8 Albumin 4.2 TSH Free T4 Urine Color Urine Appearance Urine pH Ur Specific [place] Urine Protein Urine Glucose (UA) Urine Ketones Urine Blood Urine Nitrite Ur Leukocyte Esterase Urine Opiates Screen Urine Fentanyl Screen Ur Barbiturates Screen Ur Phencyclidine Scrn Ur Amphetamines Screen U Benzodiazepines Scrn Urine Cocaine Screen U Marijuana (THC) Screen Ethyl Alcohol COVID-19 (MARK) Negative COVID-19 Clin Com See Note 06/26/23 06/26/23 06/26/23 13:15 13:15 13:15 WBC RBC Hgb Hct MCV MCH MCHC RDW Plt Count MPV Immature Gran % (Auto) Neut % (Auto) Lymph % (Auto) Taylor % (Auto) Eos % (Auto) Baso % (Auto) Lymph # (Auto) Taylor # (Auto) Eos # (Auto) Baso # (Auto) Abs Immat Gran (auto) Absolute Neuts (auto) Absolute Nucleated RBC Nucleated RBC % (auto) PT 11.9 INR 1.0 APTT 34.5 Sodium Potassium Chloride Carbon Dioxide Anion Gap BUN Creatinine Estim Creat Clear Calc Estimated GFR Random Glucose Calcium Magnesium Total Bilirubin Direct Bilirubin AST ALT Alkaline Phosphatase Total Creatine Kinase Troponin I High Sens 10.9 Total Protein Albumin TSH 0.07 L Free T4 1.08 Urine Color Urine Appearance Urine pH Ur Specific [place] Urine Protein Urine Glucose (UA) Urine Ketones Urine Blood Urine Nitrite Ur Leukocyte Esterase Urine Opiates Screen Urine Fentanyl Screen Ur Barbiturates Screen Ur Phencyclidine Scrn Ur Amphetamines Screen U Benzodiazepines Scrn Urine Cocaine Screen U Marijuana (THC) Screen Ethyl Alcohol < 10 COVID-19 (MARK) COVID-19 [employer] Com 06/26/23 06/26/23 06/27/23 18:19 18:19 06:43 WBC 6.6 RBC 4.70 Hgb 13.6 L Hct 42.2 MCV 89.8 MCH 28.9 MCHC 32.2 RDW 12.6 Plt Count 262 MPV 10.2 Immature Gran % (Auto) Neut % (Auto) Lymph % (Auto) Taylor % (Auto) Eos % (Auto) Baso % (Auto) Lymph # (Auto) Taylor # (Auto) Eos # (Auto) Baso # (Auto) Abs Immat Gran (auto) Absolute Neuts (auto) Absolute Nucleated RBC 0.000 Nucleated RBC % (auto) 0.0 PT INR APTT Sodium Potassium Chloride Carbon Dioxide Anion Gap BUN Creatinine Estim Creat Clear Calc Estimated GFR Random Glucose Calcium Magnesium Total Bilirubin Direct Bilirubin AST ALT Alkaline Phosphatase Total Creatine Kinase Troponin I High Sens Total Protein Albumin TSH Free T4 Urine Color Yellow Urine Appearance Clear Urine pH 6.5 Ur Specific [place] 1.010 Urine Protein Negative Urine Glucose (UA) 100 H Urine Ketones Negative Urine Blood Negative Urine Nitrite Negative Ur Leukocyte Esterase Negative Urine Opiates Screen Not Detected Urine Fentanyl Screen POSITIVE H Ur Barbiturates Screen Not Detected Ur Phencyclidine Scrn Not Detected Ur Amphetamines Screen Not Detected U Benzodiazepines Scrn Not Detected Urine Cocaine Screen Not Detected U Marijuana (THC) Screen Not Detected Ethyl Alcohol COVID-19 (MARK) COVID-19 [employer] Com 06/27/23 06:43 WBC RBC Hgb Hct MCV MCH MCHC RDW Plt Count MPV Immature Gran % (Auto) Neut % (Auto) Lymph % (Auto) Taylor % (Auto) Eos % (Auto) Baso % (Auto) Lymph # (Auto) Taylor # (Auto) Eos # (Auto) Baso # (Auto) Abs Immat Gran (auto) Absolute Neuts (auto) Absolute Nucleated RBC Nucleated RBC % (auto) PT INR APTT Sodium 141 Potassium 4.1 Chloride 109 H Carbon Dioxide 23 Anion Gap 13 BUN 15 Creatinine 0.97 Estim Creat Clear Calc 68.5 Estimated GFR > 60 Random Glucose 116 H Calcium 10.2 Magnesium Total Bilirubin Direct Bilirubin AST ALT Alkaline Phosphatase Total Creatine Kinase Troponin I High Sens Total Protein Albumin TSH Free T4 Urine Color Urine Appearance Urine pH Ur Specific [place] Urine Protein Urine Glucose (UA) Urine Ketones Urine Blood Urine Nitrite Ur Leukocyte Esterase Urine Opiates Screen Urine Fentanyl Screen Ur Barbiturates Screen Ur Phencyclidine Scrn Ur Amphetamines Screen U Benzodiazepines Scrn Urine Cocaine Screen U Marijuana (THC) Screen Ethyl Alcohol COVID-19 (MARK) COVID-19 Clin Com Imaging Radiology Impressions: ITS Impressions Head CT 06/26/23 13:42 IMPRESSION: 1. Some areas of suboptimally visualized due to patient motion artifact. 2. There are no acute bleeds or territorial infarcts. No masses are demonstrated. 3. There are chronic microvascular ischemic changes and lacunar infarcts. There is diffuse volume loss. Chest X-Ray 06/26/23 14:08 IMPRESSION: No acute cardiopulmonary process. Brain MRI 06/27/23 13:36 FINDINGS/IMPRESSION: This is a very limited and incomplete motion degraded MRI of the brain. The patient could not tolerate this study secondary to claustrophobia. There are no acute infarcts on the diffusion series accounting for artifact. The blood sensitive gradient series is incomplete and nondiagnostic. Axial FLAIR imaging is significantly motion degraded, demonstrating global cerebral volume loss and chronic microangiopathy. Mental Status Exam Mental Status Exam Narrative: Appearance: thin, unsteady on feet, fair hygiene, in NAD Behavior: cooperative, friendly but at times suspicious Psychomotor: some restlessness Speech: clear, normal rate/rhythm/volume, spontaneous TP: tangential, at times some derailment TC: wanting to go home soon Mood: good Affect: at times suspicious SI: denies HI: none AH/vh: none Delusions: somewhat suspicious Insight/judgment: impaired x 2. Memory/cog: alert, oriented to place, month, not date or day. Pt would benefit from MOCA Medications Medications Current Medications Acetaminophen (Acetaminophen 325 Mg Tablet) 650 mg PO Q6H PRN PRN Reason: Pain, Mild (Pain Scale 1-3) Amlodipine Besylate (Amlodipine Besylate 10 Mg Tablet) 10 mg PO DAILY [facility]; Protocol Last Admin: 06/27/23 11:31 Dose: 10 mg Aspirin (Aspirin Enteric Coated 81 Mg Tablet.Dr) 81 mg PO DAILY [facility] Last Admin: 06/27/23 11:31 Dose: 81 mg Atorvastatin Calcium (Atorvastatin Calcium 40 Mg Tablet) 40 mg PO BEDTIME [facility] Last Admin: 06/27/23 22:33 Dose: 40 mg Carvedilol (Carvedilol 12.5 Mg Tablet) 12.5 mg PO BID [facility]; Protocol Last Admin: 06/27/23 22:33 Dose: 12.5 mg Docusate Sodium (Docusate Sodium 100 Mg Capsule) 100 mg PO DAILY PRN PRN Reason: Constipation Enoxaparin Sodium (Enoxaparin Sodium 40 Mg/0.4 Ml Syringe) 40 mg SUBCUT Q24H [facility] Last Admin: 06/27/23 17:34 Dose: Not Given Hydroxyzine HCl (Hydroxyzine Hcl 25 Mg Tablet) 25 mg PO Q8H PRN PRN Reason: anxiety/restlessness Last Admin: 06/27/23 17:32 Dose: 25 mg Levetiracetam (Levetiracetam 500 Mg Tablet) 500 mg PO BID [facility] Last Admin: 06/27/23 22:33 Dose: 500 mg Lisinopril (Lisinopril 40 Mg Tablet) 40 mg PO DAILY [facility]; Protocol Last Admin: 06/27/23 11:32 Dose: 40 mg Melatonin (Melatonin 3 Mg Tablet) 6 mg PO BEDTIME PRN PRN Reason: Insomnia Nicotine (Nicotine 21 Mg Patch.Td24) 21 mg TRANSDERMA DAILY [facility] Last Admin: 06/27/23 22:33 Dose: 21 mg Ondansetron HCl (Ondansetron Hcl 4 Mg/2 Ml Vial) 4 mg IVPUSH Q8H PRN PRN Reason: Nausea and Vomiting Sodium Chloride (0.9 % Sodium Chloride Flush 3 Ml Syringe) 3 ml IVFLUSH QSHIFT [facility] Last Admin: 06/27/23 22:36 Dose: 3 ml Allergies Allergies Allergy/AdvReac Type Severity Reaction Status Date / Time fish derived [FISH] Allergy Unknown UNKNOWN Verified 01/07/23 16:24 morphine [MORPHINE] Allergy Unknown UNKNOWN Verified 01/07/23 16:24 cheese Allergy Anaphylaxis Uncoded 01/07/23 16:24 Assessment & Plan Assessment & Plan (1) Cognitive impairment: Status: Acute Code(s): R41.89 - Other symptoms and signs involving cognitive functions and awareness Plan Mr. Antoine does not present with acute psychiatric concerns in terms of depression or suicidality or psychosis. However, it is very concerning his ability to care for himself in the community. His ability to plan or execute, follow up with medical appointments and retain information. Initially pt had reported he was at work and call ambulance but today we found out by rosendo who call ambulance, who happens to be a PA at [facility] in [place] that pt was found in bench confused. He reports he did not have money to get medication and seemed surprise to learned that the health insurance he has had at least all this year cover his medications without copay. Recommend doing a MOCA to get better sense of extend of cognitive impairment and pattern of cognitive impairments, which suspect is most likely vascular (with a fairly intact orientation but impaired executive function, recall, attention and language). 1. Although Mr. Antoine is able to show some understanding as to medical conditions treated here- mostly he understands that his BP is high and that he needs to take medications for it. He is not able to make connection between complication of untreated high BP and hx of CVA. I do suspect that he has more severe cognitive impairments that affect his ability to care for himself. Recommend OT complete MOCA. Total time managing care of this patient today ____ minutes.
[2023-06-28] MEDS: lisinopriL 40 MG TABLET PO (10:43)
[2023-06-28] MEDS: carvediloL 12.5 MG TABLET PO ×2 (10:43→20:04)
[2023-06-28] MEDS: Aspirin Enteric Coated 81 MG TABLET.DR PO (10:43)
[2023-06-28] MEDS: amLODIPine Besylate 10 MG TABLET PO (10:44)
[2023-06-28] MEDS: Nicotine 21 MG PATCH.TD24 TRANSDERMA (10:44)
[2023-06-28] MEDS: levETIRAcetam 500 MG TABLET PO ×2 (10:44→20:04)
[2023-06-28] MEDS: 0.9 % Sodium Chloride Flush 3 ML SYRINGE IVFLUSH ×2 (10:44→16:29)
--- NOTE | 2023-06-28 11:14 | MHC.CM.PN ---
PER HOSPITALIST PT NOT ABLE TO D/C AMA, PSYCH CONSULT FOR CAPACITY PENDING.
--- NOTE | 2023-06-28 11:35 | MHC.CM.PN ---
CM MET W/PT AND YEN AT BEDSIDE, THEY WOULD LIKE REFERRAL PLACED TO [facility] FOR [facility]. REFERRAL PLACED AND CM AWAITING RESPONSE.
[2023-06-28 11:41] VITALS: BP 144/86; PULSE 102; RESP 16; TEMP 36.8; O2SAT 100
--- NOTE | 2023-06-28 12:24 | P.PNIM_ITS ---
Subjective Subjective Date of Service: 06/29/23 Interval History: uncontrolled htn ,seizure ? Review of Systems generalised weak still unsteady also does not seems has complete understandin of Physical Exam Vital Signs: Vital Signs: Last Vital Signs Temp 98.3 F 06/28/23 11:41 Pulse 102 H 06/28/23 11:41 Resp 16 06/28/23 11:41 BP 144/86 H 06/28/23 11:41 Pulse Ox 100 06/28/23 11:41 O2 Del Method Room Air 06/28/23 11:41 BMI result Body Mass Index 23.7 Appearance: Alert.? Oriented X3.? not in distress.? cvs: rrr, [id number] , no murmur res: clear to auscultation ,no rhonchii or wheezing abd: no rebound or guarding ,nt, bs present. ext pulses present , no cyanosis . neuro: axo3 , nonfocal. Objective Data Active Medications Acetaminophen (Acetaminophen 325 Mg Tablet) 650 mg PO Q6H PRN PRN Reason: Pain, Mild (Pain Scale 1-3) Amlodipine Besylate (Amlodipine Besylate 10 Mg Tablet) 10 mg PO DAILY [facility]; Protocol Last Admin: 06/28/23 10:44 Dose: 10 mg Documented By: BING Aspirin (Aspirin Enteric Coated 81 Mg Tablet.) 81 mg PO DAILY [facility] Last Admin: 06/28/23 10:43 Dose: 81 mg Documented By: BING Atorvastatin Calcium (Atorvastatin Calcium 40 Mg Tablet) 40 mg PO BEDTIME [facility] Last Admin: 06/27/23 22:33 Dose: 40 mg Documented By: SOLOMON Carvedilol (Carvedilol 12.5 Mg Tablet) 12.5 mg PO BID [facility]; Protocol Last Admin: 06/28/23 10:43 Dose: 12.5 mg Documented By: BING Docusate Sodium (Docusate Sodium 100 Mg Capsule) 100 mg PO DAILY PRN PRN Reason: Constipation Enoxaparin Sodium (Enoxaparin Sodium 40 Mg/0.4 Ml Syringe) 40 mg SUBCUT Q24H [facility] Last Admin: 06/27/23 17:34 Dose: Not Given Documented By: ROSIE Non-Admin Reason: Patient Refused Hydroxyzine HCl (Hydroxyzine Hcl 25 Mg Tablet) 25 mg PO Q8H PRN PRN Reason: anxiety/restlessness Last Admin: 06/27/23 17:32 Dose: 25 mg Documented By: ROSIE Levetiracetam (Levetiracetam 500 Mg Tablet) 500 mg PO BID [facility] Last Admin: 06/28/23 10:44 Dose: 500 mg Documented By: BING Lisinopril (Lisinopril 40 Mg Tablet) 40 mg PO DAILY [facility]; Protocol Last Admin: 06/28/23 10:43 Dose: 40 mg Documented By: BING Melatonin (Melatonin 3 Mg Tablet) 6 mg PO BEDTIME PRN PRN Reason: Insomnia Nicotine (Nicotine 21 Mg Patch.Td24) 21 mg TRANSDERMA DAILY [facility] Last Admin: 06/28/23 10:44 Dose: 21 mg Documented By: BING Ondansetron HCl (Ondansetron Hcl 4 Mg/2 Ml Vial) 4 mg IVPUSH Q8H PRN PRN Reason: Nausea and Vomiting Sodium Chloride (0.9 % Sodium Chloride Flush 3 Ml Syringe) 3 ml IVFLUSH QSHIFT [facility] Last Admin: 06/28/23 10:44 Dose: 3 ml Documented By: BING Labs 06/27/23 06:43 06/27/23 06:43 Assessment and Plan (1) Generalized weakness: Status: Acute (2) Hypertensive crisis: Status: Acute Plan 67-year-old male with a PMH significant for?poorly-controlled HTN, seizure disorder, hx of CVA, PSVT, and hx of substance abuse who presents to the ED?with worsening global weakness and difficulty walking x2 days.? 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 Pt will be admitted to the hospital for treatment and further management of hypertensive crisis and generalized deconditioning due to medication noncompliance. Hypertensive unconrtolled Likely secondary to medication noncompliance will start back Amlodipine 10 mg, carvedilol 12.5 mg,lisinopril. Monitor BP closely Monitor on telemetry Patient needs a good plan at discharge to ensure medication compliance, patient has been admitted multiple times for similar symptoms related to medication noncompliance Bilateral leg weakness: currently moving extermities ,still generalised weak,unsteady Likely due to deconditioning from poor po intake, medication noncompliance PT evaluation-refused today Hx of stroke Pt with previous stroke in December 2022 CT today with no evidence of acute intracranial pathology Continue aspirin, statin Seizure disorder Patient with possible episodes of focal seizures in the ED, possibly secondary to medication noncompliance Continue Keppra Monitor on telemetry eeg-Unremarkable EEG. mri-limited but neg for new cva fentanyl possitive in drug sceen Neurology eval - cotninue current management -added b12,lyme,syphlis serologies possbile cignitive dis : has sitter added psych for capacity evaluation- as per psych -does not have capapcity currently Full Code DVT Prophylaxis: Lovenox ongomin hospitalization: uncontrolled htn and generalized deconditioning due to medication noncompliance- continue home meds ,neuroworkup pending Time Spent With Patient Time: Total time managing care of this patient today ____ minutes. Quality Stroke Does the patient have a stroke diagnosis?: No VTE Prior VTE?: No VTE Risk Level:: Medical - moderate - high VTE Device Contraindication: Treatment Not Indicated VTE Drug Contraindication: N/A - Med Ordered
--- NOTE | 2023-06-28 15:20 | PM.NEUROCN ---
History of Present Illness Data of Consult Service Date: 06/28/23 Primary Care Provider: Unknown Physician HPI Reason for consult: Confusion 67 years old man with uncontrolled hypertension came to hospital with nonspecific symptoms of generalized weakness or lethargy and was noted to have quite high blood pressure. Apparently he might not have been taking is medicines. There was no or reasonable explanation. Initially there was some suspicion of seizure disorder but his EEG was okay. When I asked him why he came to hospital, he said he just did not feel well. Review of Systems Review of Systems: No recent cold or flu-like illness or trauma. [facility] Past Medical History Medical History CHIOMA (acute kidney injury) Cerebrovascular accident Depressive disorder No pertinent past medical history Noncompliance with medication regimen Physical deconditioning Recurrent major depression-severe Seizure Uncontrolled hypertension Family History Family History Mother No problems noted. Father No problems noted. Surgical History Surgical History History of left hip replacement Social History Social History Household Members: None Housing: Apartment Do you presently have visiting nurse or other home services: No Alcohol intake: unknown Patient Tobacco Use Status: Former Tobacco user Tobacco use type: Cigarette Cigarette Packs Per Day: 10 Smoked in Last 30 Days: No Second Hand Smoke Exposure: No Use of substances other than those prescribed or required for medical reasons: Refusing to respond Currently Displaying Signs/Symptoms of Drug Intoxication Withdrawal: No Advance Directives: Yes Advance Directives on File: Yes Advance Directives Date on File: 04/01/23 Do you have thoughts of harming others: None and Vague Do you have a plan to hurt others: Vague Recently lost weight without trying: Unsure Nutrition Risks: No Nutritional Risk service: Yes Current occupational status: unemployed Meds Allergies Allergy/AdvReac Type Severity Reaction Status Date / Time fish derived [FISH] Allergy Unknown UNKNOWN Verified 01/07/23 16:24 morphine [MORPHINE] Allergy Unknown UNKNOWN Verified 01/07/23 16:24 cheese Allergy Anaphylaxis Uncoded 01/07/23 16:24 Active Medications: Current Medications Acetaminophen (Acetaminophen 325 Mg Tablet) 650 mg PO Q6H PRN PRN Reason: Pain, Mild (Pain Scale 1-3) Amlodipine Besylate (Amlodipine Besylate 10 Mg Tablet) 10 mg PO DAILY [facility]; Protocol Last Admin: 06/28/23 10:44 Dose: 10 mg Aspirin (Aspirin Enteric Coated 81 Mg Tablet.Dr) 81 mg PO DAILY [facility] Last Admin: 06/28/23 10:43 Dose: 81 mg Atorvastatin Calcium (Atorvastatin Calcium 40 Mg Tablet) 40 mg PO BEDTIME [facility] Last Admin: 06/27/23 22:33 Dose: 40 mg Carvedilol (Carvedilol 12.5 Mg Tablet) 12.5 mg PO BID [facility]; Protocol Last Admin: 06/28/23 10:43 Dose: 12.5 mg Docusate Sodium (Docusate Sodium 100 Mg Capsule) 100 mg PO DAILY PRN PRN Reason: Constipation Enoxaparin Sodium (Enoxaparin Sodium 40 Mg/0.4 Ml Syringe) 40 mg SUBCUT Q24H [facility] Last Admin: 06/27/23 17:34 Dose: Not Given Hydroxyzine HCl (Hydroxyzine Hcl 25 Mg Tablet) 25 mg PO Q8H PRN PRN Reason: anxiety/restlessness Last Admin: 06/27/23 17:32 Dose: 25 mg Levetiracetam (Levetiracetam 500 Mg Tablet) 500 mg PO BID [facility] Last Admin: 06/28/23 10:44 Dose: 500 mg Lisinopril (Lisinopril 40 Mg Tablet) 40 mg PO DAILY [facility]; Protocol Last Admin: 06/28/23 10:43 Dose: 40 mg Melatonin (Melatonin 3 Mg Tablet) 6 mg PO BEDTIME PRN PRN Reason: Insomnia Nicotine (Nicotine 21 Mg Patch.Td24) 21 mg TRANSDERMA DAILY [facility] Last Admin: 06/28/23 10:44 Dose: 21 mg Ondansetron HCl (Ondansetron Hcl 4 Mg/2 Ml Vial) 4 mg IVPUSH Q8H PRN PRN Reason: Nausea and Vomiting Sodium Chloride (0.9 % Sodium Chloride Flush 3 Ml Syringe) 3 ml IVFLUSH QSHIFT [facility] Last Admin: 06/28/23 10:44 Dose: 3 ml Physical Exam Vital Signs: Vital Signs: Last Vital Signs Temp 98.3 F 06/28/23 11:41 Pulse 102 H 08/26/23 11:41 Resp 16 06/28/23 11:41 BP 144/86 H 06/28/23 11:41 Pulse Ox 100 06/28/23 11:41 O2 Del Method Room Air 06/28/23 11:41 BMI result Body Mass Index 23.7 Neuro: Other: He is alert and awake with somewhat angry affect. Spontaneity and fluency of speech are normal. Comprehension is intact. He is following commands. Face is symmetrical. Visual mobley are full. [id number] testing is normal. Deep tendon reflexes are 1+ with flexor plantars. He was noted to be unsteady on his feet. Results Labs 06/27/23 06:43 06/27/23 06:43 Labs: Noncontrast head CT revealed moderately severe diffuse cerebral atrophy somewhat more pronounced centrally than cortical E. MRI of brain was also performed that reveals similar atrophy and moderate amount of chronic microvascular ischemic changes with no acute lesion. EEG did not reveal any significant abnormality. 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 Dementia might have been the reason that he was not able to take care of himself and not following directions for medications. In addition, his tox screen was positive for fentanyl suggesting that he might also have been abusing drugs. There is no indication of any acute lesion such as stroke or seizure. Mainstay of management is appropriate place of residence, complete elimination of alcohol and drugs, and family education. I also recommend syphilis and Lyme serology and a vitamin B12 level (2) Cerebral microvascular disease: Status: Acute (3) Degenerative brain disorder: Status: Acute Time Spent With Patient Time: Total time managing care of this patient today ____ minutes. Procedures Date of Service Date of Service: 06/28/23
[2023-06-28 16:00] VITALS: BP 140/87; PULSE 84; RESP 18; TEMP 36.7; O2SAT 98
[2023-06-28 16:39] LABS: Vitamin B12 594 pg/mL (200-900)
--- NOTE | 2023-06-28 16:49 | PM.PSYCN ---
History of Present Illness Date of Service: 06/28/23 Chief Complaint: generalized weakness, diff. ambulating Discussed with referring provider: Yes Sources of Information: patient interviewed and chart reviewed HPI Narrative: Asked to evaluate patient for capacity around discharge planning and discharge AMA due to concerns around hypertension that is uncontrolled, multiple readmissions. Unsure if patient completely understands treatment and potential consequences if unable to manage same. Also requesting Neurology and PT evaluation. Noted from psychiatry evaluation yesterday i.e. 06/27/26: Pt presents as pleasant. He reports he has been in the hospital for about 3 days. He reports he was at work, although today we learned that rosendo found pt sitting on a bench in [place] and he appeared like having a stroke. Pt was taken to mobile clinic and his BP was high and he was sent, per pt request to [facility]. When asked what is preventing him from taking his medications, pt states I don't have money to pay for them. However, pt has [employer] which pays for medication without need for copay. Pt reports he gets medications where ever the doctor sends them. He was oriented to place, month, not date or day. He reports he is aware he is being treated for hypertension. He asks this pattern chart writer If I can bring him to get his medications so he never misses them again. In terms of depression, pt reports he does not remember making this statement. He found it somewhat suspicious that attending asked psychiatry to see me, are you trying to make me seen as crazy? He denied SI/HI. He reports he hopes to get a job at a [employer] in [place]. Pt denied suicidal or homicidal ideation. He presents slightly suspicious towards staff in hospital and at some point towards this pattern chart writer. He denies VH/AH. This pattern chart writer came later to speak again with pt, pt appeared to forget that we had talked about making sure he had visiting nurse and additional supports in the community. Pt had been pacing the bagley, going into other patient's rooms, asking for cigarettes, needing orientation to find his own room. Mr. Antoine does not present with acute psychiatric concerns in terms of depression or suicidality or psychosis. However, it is very concerning his ability to care for himself in the community. His ability to plan or execute, follow up with medical appointments and retain information. Initially pt had reported he was at work and call ambulance but today we found out by rosendo who call ambulance, who happens to be a PA at [facility] in [place] that pt was found in bench confused. He reports he did not have money to get medication and seemed surprise to learned that the health insurance he has had at least all this year cover his medications without copay. Recommend doing a MOCA to get better sense of extend of cognitive impairment and pattern of cognitive impairments, which suspect is most likely vascular (with a fairly intact orientation but impaired executive function, recall, attention and language)....Although Mr. Antoine is able to show some understanding as to medical conditions treated here- mostly he understands that his BP is high and that he needs to take medications for it. He is not able to make connection between complication of untreated high BP and hx of CVA. I do suspect that he has more severe cognitive impairments that affect his ability to care for himself. Recommend OT complete MOCA TODAY: Was with staff, wanting to go for a walk. Restless. Stated he knew pattern chart writer. We have never med however. Aware he has high blood pressure and needs to take medications. Not aware of there being any potential consequences of high blood pressure such as a stroke. Reports that he is open to having help at home as he is now older. Regarding admission circumstances, reports now being aware that somebody else called an ambulance. Was irritable and guarded throughout evaluation. When asked around mental health history etc. Became irritable why you trying to convince me I have problems? . PLEASE NOTE SOCIAL/PAST HX etc.. BASED OFF PSYCH NOTE YESTERDAY Past Psychiatric History: IP: Denies hosps: denies SA: denies SIB: denies OP: denies any h/o outpt Tx Trials: Affirmed for 12/26 interview, denied for 03/25 interview, although did make reference to having been prescribed an anxiety medication for a long time, the name of which he could not recall. 12/26: Reports hx of treatment for anxiety and depression and temper issues. Reports he feliciano above symptoms in recovery, got a job, moved to [place], got an apartment and had a good life. 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 He sees medication as a dependence and wants to work on these issues without that. [facility] Medical History CHIOMA (acute kidney injury) Cerebrovascular accident Depressive disorder No pertinent past medical history Noncompliance with medication regimen Physical deconditioning Recurrent major depression-severe Seizure Uncontrolled hypertension Surgical History History of left hip replacement Family History: Anxiety per 12/26 interview. per 03/25 interview denies psych FH, reports father was an alcoholic. Social History: from [place], moved to [place] in 2008, lost contact with family members in [place] at that time. says he has no family members left post-COVID and describes feeling incredibly lonely and without social supports. lives alone in an apartment, unemployed. Diagnostics Vital Signs (24Hr): Vital Signs - 24 hr 06/27/23 22:11 06/27/23 23:13 06/28/23 07:34 Temperature 97.8 F 97.9 F 98.7 F Pulse Rate 78 75 69 Respiratory Rate 18 18 16 Blood Pressure 182/107 H 150/86 H 156/96 H Pulse Oximetry 99 99 99 Oxygen Delivery Method Room Air Room Air 06/28/23 11:41 Temperature 98.3 F Pulse Rate 102 H Respiratory Rate 16 Blood Pressure 144/86 H Pulse Oximetry 100 Oxygen Delivery Method Room Air BMI result Body Mass Index 23.7 Labs 06/27/23 06:43 06/27/23 06:43 Labs: Laboratory Results - last 48 hr 06/26/23 06/26/23 06/27/23 18:19 18:19 06:43 WBC 6.6 RBC 4.70 Hgb 13.6 L Hct 42.2 MCV 89.8 MCH 28.9 MCHC 32.2 RDW 12.6 Plt Count 262 MPV 10.2 Absolute Nucleated RBC 0.000 Nucleated RBC % (auto) 0.0 Sodium Potassium Chloride Carbon Dioxide Anion Gap BUN Creatinine Estim Creat Clear Calc Estimated GFR Random Glucose Calcium Vitamin B12 Urine Color Yellow Urine Appearance Clear Urine pH 6.5 Ur Specific [place] 1.010 Urine Protein Negative Urine Glucose (UA) 100 H Urine Ketones Negative Urine Blood Negative Urine Nitrite Negative Ur Leukocyte Esterase Negative Urine Opiates Screen Not Detected Urine Fentanyl Screen POSITIVE H Ur Barbiturates Screen Not Detected Ur Phencyclidine Scrn Not Detected Ur Amphetamines Screen Not Detected U Benzodiazepines Scrn Not Detected Urine Cocaine Screen Not Detected U Marijuana (THC) Screen Not Detected 06/27/23 06/28/23 06:43 15:44 WBC RBC Hgb Hct MCV MCH MCHC RDW Plt Count MPV Absolute Nucleated RBC Nucleated RBC % (auto) Sodium 141 Potassium 4.1 Chloride 109 H Carbon Dioxide 23 Anion Gap 13 BUN 15 Creatinine 0.97 Estim Creat Clear Calc 68.5 Estimated GFR > 60 Random Glucose 116 H Calcium 10.2 Vitamin B12 594 Urine Color Urine Appearance Urine pH Ur Specific [place] Urine Protein Urine Glucose (UA) Urine Ketones Urine Blood Urine Nitrite Ur Leukocyte Esterase Urine Opiates Screen Urine Fentanyl Screen Ur Barbiturates Screen Ur Phencyclidine Scrn Ur Amphetamines Screen U Benzodiazepines Scrn Urine Cocaine Screen U Marijuana (THC) Screen Imaging Radiology Impressions: ITS Impressions Head CT 06/26/23 13:42 IMPRESSION: 1. Some areas of suboptimally visualized due to patient motion artifact. 2. There are no acute bleeds or territorial infarcts. No masses are demonstrated. 3. There are chronic microvascular ischemic changes and lacunar infarcts. There is diffuse volume loss. Chest X-Ray 06/26/23 14:08 IMPRESSION: No acute cardiopulmonary process. Brain MRI 06/27/23 13:36 FINDINGS/IMPRESSION: This is a very limited and incomplete motion degraded MRI of the brain. The patient could not tolerate this study secondary to claustrophobia. There are no acute infarcts on the diffusion series accounting for artifact. The blood sensitive gradient series is incomplete and nondiagnostic. Axial FLAIR imaging is significantly motion degraded, demonstrating global cerebral volume loss and chronic microangiopathy. Mental Status Exam Mental Status Exam Narrative: Appearance: thin, unsteady on feet, fair hygiene, in NAD Behavior: cooperative, friendly but at times suspicious Psychomotor: some restlessness Speech: clear, normal rate/rhythm/volume, spontaneous TP: tangential, at times some derailment TC: wanting to go home soon Mood: good Affect: at times suspicious SI: denies HI: none AH/vh: none Delusions: somewhat suspicious Insight/judgment: limited. Memory/cog: alert. Pt would benefit from MOCA Medications Medications Current Medications Acetaminophen (Acetaminophen 325 Mg Tablet) 650 mg PO Q6H PRN PRN Reason: Pain, Mild (Pain Scale 1-3) Amlodipine Besylate (Amlodipine Besylate 10 Mg Tablet) 10 mg PO DAILY [facility]; Protocol Last Admin: 06/28/23 10:44 Dose: 10 mg Aspirin (Aspirin Enteric Coated 81 Mg Tablet.Dr) 81 mg PO DAILY [facility] Last Admin: 06/28/23 10:43 Dose: 81 mg Atorvastatin Calcium (Atorvastatin Calcium 40 Mg Tablet) 40 mg PO BEDTIME [facility] Last Admin: 06/27/23 22:33 Dose: 40 mg Carvedilol (Carvedilol 12.5 Mg Tablet) 12.5 mg PO BID [facility]; Protocol Last Admin: 06/28/23 10:43 Dose: 12.5 mg Docusate Sodium (Docusate Sodium 100 Mg Capsule) 100 mg PO DAILY PRN PRN Reason: Constipation Enoxaparin Sodium (Enoxaparin Sodium 40 Mg/0.4 Ml Syringe) 40 mg SUBCUT Q24H [facility] Last Admin: 06/27/23 17:34 Dose: Not Given Hydroxyzine HCl (Hydroxyzine Hcl 25 Mg Tablet) 25 mg PO Q8H PRN PRN Reason: anxiety/restlessness Last Admin: 06/27/23 17:32 Dose: 25 mg Levetiracetam (Levetiracetam 500 Mg Tablet) 500 mg PO BID [facility] Last Admin: 06/28/23 10:44 Dose: 500 mg Lisinopril (Lisinopril 40 Mg Tablet) 40 mg PO DAILY [facility]; Protocol Last Admin: 06/28/23 10:43 Dose: 40 mg Melatonin (Melatonin 3 Mg Tablet) 6 mg PO BEDTIME PRN PRN Reason: Insomnia Nicotine (Nicotine 21 Mg Patch.Td24) 21 mg TRANSDERMA DAILY [facility] Last Admin: 06/28/23 10:44 Dose: 21 mg Ondansetron HCl (Ondansetron Hcl 4 Mg/2 Ml Vial) 4 mg IVPUSH Q8H PRN PRN Reason: Nausea and Vomiting Sodium Chloride (0.9 % Sodium Chloride Flush 3 Ml Syringe) 3 ml IVFLUSH QSHIFT [facility] Last Admin: 06/28/23 16:29 Dose: 3 ml Allergies Allergies Allergy/AdvReac Type Severity Reaction Status Date / Time fish derived [FISH] Allergy Unknown UNKNOWN Verified 01/07/23 16:24 morphine [MORPHINE] Allergy Unknown UNKNOWN Verified 01/07/23 16:24 cheese Allergy Anaphylaxis Uncoded 01/07/23 16:24 Assessment & Plan Assessment & Plan (1) Cognitive impairment: Status: Acute Code(s): R41.89 - Other symptoms and signs involving cognitive functions and awareness Plan No change from eval yesterday i.e. based off yesterday and today's evaluation, does not appear to show a clear understanding regarding medical concerns, complications and consequences. Cannot currently discharge against medical advice. No clear discharge plans/supports being suggested currently- would await occupational therapy evaluation and then treatment team to come up with treatment options outside of the hospital i.e. community-based options which patient could then be presented with, discussed risks and benefits of each i.e. accepting and declining and then capacity can be re-evaluated specifically regarding those decisions. Total time managing care of this patient today ____ minutes.
[2023-06-28] MEDS: Enoxaparin Sodium 40 MG/0.4 ML SYRINGE SUBCUT (18:08)
[2023-06-28 19:10] VITALS: BP 143/66; PULSE 83; RESP 16; TEMP 37.1; O2SAT 98
[2023-06-28] MEDS: Atorvastatin Calcium 40 MG TABLET PO (20:04)
[2023-06-29] VITALS (7 sets, daily range): BP systolic 139–150; BP diastolic 70–90; PULSE 66–78; RESP 15–20; TEMP 36.2–37.9; O2SAT 97–100
[2023-06-29] MEDS: 0.9 % Sodium Chloride Flush 3 ML SYRINGE IVFLUSH ×3 (00:46→16:57)
[2023-06-29] MEDS: hydrOXYzine HCL 25 MG TABLET PO (01:02)
[2023-06-29] MEDS: Acetaminophen 325 MG TABLET 650 MG PO (04:38)
[2023-06-29] MEDS: levETIRAcetam 500 MG TABLET PO ×2 (09:25→20:42)
[2023-06-29] MEDS: lisinopriL 40 MG TABLET PO (09:25)
[2023-06-29] MEDS: carvediloL 12.5 MG TABLET PO ×2 (09:25→20:42)
[2023-06-29] MEDS: Aspirin Enteric Coated 81 MG TABLET.DR PO (09:25)
[2023-06-29] MEDS: Nicotine 21 MG PATCH.TD24 TRANSDERMA (09:25)
[2023-06-29] MEDS: amLODIPine Besylate 10 MG TABLET PO (09:25)
--- NOTE | 2023-06-29 12:00 | HO.PM.IMPN ---
Subjective Subjective Date of Service: 06/30/23 Interval History: generalised weak Review of Systems generalised weak,still unsteady,also does not seems has complete understandin of current situation Physical Exam Vital Signs: Vital Signs: Last Vital Signs Temp 98.6 F 06/29/23 11:17 Pulse 78 06/29/23 11:17 Resp 16 06/29/23 11:17 BP 141/82 H 06/29/23 11:17 Pulse Ox 98 06/29/23 11:17 O2 Del Method Room Air 06/29/23 07:08 BMI result Body Mass Index 23.7 Appearance: Awake .? not in distress.? cvs: rrr, [id number] , no murmur res: clear to auscultation ,no rhonchii or wheezing abd: no rebound or guarding ,nt, bs present. ext pulses present , no cyanosis . neuro: nonfocal. Objective Data Active Medications Acetaminophen (Acetaminophen 325 Mg Tablet) 650 mg PO Q6H PRN PRN Reason: Pain, Mild (Pain Scale 1-3) Last Admin: 06/29/23 04:38 Dose: 650 mg Documented By: MIKEY Amlodipine Besylate (Amlodipine Besylate 10 Mg Tablet) 10 mg PO DAILY [facility]; Protocol Last Admin: 06/29/23 09:25 Dose: 10 mg Documented By: MELISSA Aspirin (Aspirin Enteric Coated 81 Mg Tablet.) 81 mg PO DAILY [facility] Last Admin: 06/29/23 09:25 Dose: 81 mg Documented By: MELISSA Atorvastatin Calcium (Atorvastatin Calcium 40 Mg Tablet) 40 mg PO BEDTIME [facility] Last Admin: 06/28/23 20:04 Dose: 40 mg Documented By: ASA Carvedilol (Carvedilol 12.5 Mg Tablet) 12.5 mg PO BID [facility]; Protocol Last Admin: 06/29/23 09:25 Dose: 12.5 mg Documented By: MELISSA Docusate Sodium (Docusate Sodium 100 Mg Capsule) 100 mg PO DAILY PRN PRN Reason: Constipation Enoxaparin Sodium (Enoxaparin Sodium 40 Mg/0.4 Ml Syringe) 40 mg SUBCUT Q24H [facility] Last Admin: 06/28/23 18:08 Dose: 40 mg Documented By: ASA Hydroxyzine HCl (Hydroxyzine Hcl 25 Mg Tablet) 25 mg PO Q8H PRN PRN Reason: anxiety/restlessness Last Admin: 06/29/23 01:02 Dose: 25 mg Documented By: MIKEY Levetiracetam (Levetiracetam 500 Mg Tablet) 500 mg PO BID [facility] Last Admin: 06/29/23 09:25 Dose: 500 mg Documented By: MELISSA Lisinopril (Lisinopril 40 Mg Tablet) 40 mg PO DAILY [facility]; Protocol Last Admin: 06/29/23 09:25 Dose: 40 mg Documented By: MELISSA Melatonin (Melatonin 3 Mg Tablet) 6 mg PO BEDTIME PRN PRN Reason: Insomnia Nicotine (Nicotine 21 Mg Patch.Td24) 21 mg TRANSDERMA DAILY [facility] Last Admin: 06/29/23 09:25 Dose: 21 mg Documented By: MELISSA Ondansetron HCl (Ondansetron Hcl 4 Mg/2 Ml Vial) 4 mg IVPUSH Q8H PRN PRN Reason: Nausea and Vomiting Sodium Chloride (0.9 % Sodium Chloride Flush 3 Ml Syringe) 3 ml IVFLUSH QSHIFT [facility] Last Admin: 06/29/23 09:26 Dose: 3 ml Documented By: MELISSA Labs 06/27/23 06:43 06/27/23 06:43 Labs: Laboratory Results - last 24 hr 06/28/23 15:44 Vitamin B12 594 Assessment and Plan (1) Generalized weakness: Status: Acute (2) Hypertensive crisis: Status: Acute Plan 67-year-old male with a PMH significant for?poorly-controlled HTN, seizure disorder, hx of CVA, PSVT, and hx of substance abuse who presents to the ED?with worsening global weakness and difficulty walking x2 days.? 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 Pt will be admitted to the hospital for treatment and further management of hypertensive crisis and generalized deconditioning due to medication noncompliance. Hypertensive unconrtolled Likely secondary to medication noncompliance will start back Amlodipine 10 mg, carvedilol 12.5 mg,lisinopril. Monitor BP closely Monitor on telemetry Patient needs a good plan at discharge to ensure medication compliance, patient has been admitted multiple times for similar symptoms related to medication noncompliance Bilateral leg weakness: currently moving extermities ,still generalised weak,unsteady Likely due to deconditioning from poor po intake, medication noncompliance PT evaluation-refused today Hx of stroke Pt with previous stroke in December 2022 CT today with no evidence of acute intracranial pathology Continue aspirin, statin Seizure disorder Patient with possible episodes of focal seizures in the ED, possibly secondary to medication noncompliance Continue Keppra Monitor on telemetry eeg-Unremarkable EEG. mri-limited but neg for new cva fentanyl possitive in drug sceen Neurology eval - cotninue current management -added b12,lyme,syphlis serologies possbile cignitive dis : has sitter added psych for capacity evaluation- as per psych -does not have capapcity currently may need PT eval-? rehab placement Full Code DVT Prophylaxis: Lovenox ongomin hospitalization: uncontrolled htn and generalized deconditioning due to medication noncompliance- continue home meds ,neuroworkup pending Time Spent With Patient Time: Total time managing care of this patient today ____ minutes. Quality Stroke Does the patient have a stroke diagnosis?: No VTE Prior VTE?: No VTE Risk Level:: Medical - moderate - high VTE Device Contraindication: Treatment Not Indicated VTE Drug Contraindication: N/A - Med Ordered
[2023-06-29] MEDS: Enoxaparin Sodium 40 MG/0.4 ML SYRINGE SUBCUT (19:03)
[2023-06-29] MEDS: Atorvastatin Calcium 40 MG TABLET PO (20:42)
[2023-06-30] MEDS: 0.9 % Sodium Chloride Flush 3 ML SYRINGE IVFLUSH ×4 (00:19→20:06)
[2023-06-30] MEDS: Melatonin 3 MG TABLET 6 MG PO (00:20)
[2023-06-30 04:00] VITALS: BP 146/85; PULSE 68; RESP 15; TEMP 36.9; O2SAT 97
[2023-06-30 04:34] LABS: Syphilis Screen Nonreactive (Nonreactive)
[2023-06-30 07:56] VITALS: BP 147/85; PULSE 66; RESP 20; TEMP 36.7; O2SAT 99
[2023-06-30] MEDS: levETIRAcetam 500 MG TABLET PO ×2 (09:23→20:06)
[2023-06-30] MEDS: Aspirin Enteric Coated 81 MG TABLET.DR PO (09:23)
[2023-06-30] MEDS: amLODIPine Besylate 10 MG TABLET PO (09:23)
[2023-06-30] MEDS: carvediloL 12.5 MG TABLET PO ×2 (09:23→20:06)
[2023-06-30] MEDS: lisinopriL 40 MG TABLET PO (09:23)
[2023-06-30 11:31] VITALS: BP 137/86; PULSE 61; RESP 18; TEMP 37.1; O2SAT 98
[2023-06-30 11:52] VITALS: PULSE 67
[2023-06-30 15:09] VITALS: BP 160/90; PULSE 66; RESP 20; TEMP 37.2; O2SAT 99
--- NOTE | 2023-06-30 15:28 | MHC.CM.PN ---
Addendum entered by Jackelin Strickland RN 06/30/23 15:53: CLARIFICATION PCP IS EDITH LEES, CM ATTEMPTED TO CONTACT HOWEVER WAS UNABLE TO STAY ON HOLD D/T JOB REQUIREMENTS Addendum entered by Jackelin Strickland RN 06/30/23 15:37: CM ATTEMPTED TO CONTACT PT'S SISTER/HCP JATIN AT 3:31PM AT NUMBER ON FILE, NO ANSWER AND DETAILED MESSAGE LEFT. Original Note: EMR REVIEWED, P.T. NOT RECOMMENDING HOME SERVICES/STR AND ARE RECOMMENDING PT USES A SINGLE POINT [facility], PSYCH HAS SEEN PT WHO THEY REPORT WILL NEED A LOT OF SUPPORTS AT HOME AND [facility] WELL FOR MED MANAGEMENT. CM WILL CONTACT PT'S SISTER TO SEE IF SHE COULD TAKE PT IN OR ASSIST W/APPT'S ETC. PT DID HAVE A PCP W/RICH LEES TODAY HOWEVER REMAINS INPT.
--- NOTE | 2023-06-30 15:53 | MHC.CM.PN ---
CM DISCUSSED CASE W/PSYCHIATRY AND HOSPITALIST, PT WOULD NEED AT LEAST VNA SERVICES W/MED MANAGEMENT IF POSSIBLE, PT WILL NEED A PHONE FOR COMMUNICATNG W/VNA/PCP/ETC, PER PT HE DOES HAVE A PHONE THAT HE LEFT AT HOME HOWEVER DOES NOT KNOW THE NUMBER, CM ATTEMPTED TO CONTACT [facility], NO ANSWER AND DETAILED MESSAGE LEFT W/REQUEST FOR PT'S PHONE NUMBER SO IT CAN BE PASSED ON TO [facility] WHO HAVE ACCEPTED PT FOR MED MANAGEMENT.
--- NOTE | 2023-06-30 16:14 | P.PNIM_ITS ---
Subjective Subjective Date of Service: 06/30/23 Interval History: uncontrolled htn ,seizure ? Review of Systems generalised weak still unsteady also does not seems has complete understandin -cognitive . Physical Exam Vital Signs: Vital Signs: Last Vital Signs Temp 99.0 F 06/30/23 15:09 Pulse 66 06/30/23 15:09 Resp 20 06/30/23 15:09 BP 160/90 H 06/30/23 15:09 Pulse Ox 99 06/30/23 15:09 O2 Del Method Room Air 06/30/23 15:09 BMI result Body Mass Index 23.7 Appearance: Alert.? Oriented X3.? not in distress.? cvs: rrr, [id number] , no murmur res: clear to auscultation ,no rhonchii or wheezing abd: no rebound or guarding ,nt, bs present. ext pulses present , no cyanosis . neuro: axo3 , nonfocal. Objective Data Active Medications Acetaminophen (Acetaminophen 325 Mg Tablet) 650 mg PO Q6H PRN PRN Reason: Pain, Mild (Pain Scale 1-3) Last Admin: 06/29/23 04:38 Dose: 650 mg Documented By: MIKEY Amlodipine Besylate (Amlodipine Besylate 10 Mg Tablet) 10 mg PO DAILY [facility]; Protocol Last Admin: 06/30/23 09:23 Dose: 10 mg Documented By: DAREK Aspirin (Aspirin Enteric Coated 81 Mg Tablet.) 81 mg PO DAILY [facility] Last Admin: 06/30/23 09:23 Dose: 81 mg Documented By: DAREK Atorvastatin Calcium (Atorvastatin Calcium 40 Mg Tablet) 40 mg PO BEDTIME [facility] Last Admin: 06/29/23 20:42 Dose: 40 mg Documented By: ASA Carvedilol (Carvedilol 12.5 Mg Tablet) 12.5 mg PO BID [facility]; Protocol Last Admin: 06/30/23 09:23 Dose: 12.5 mg Documented By: DAREK Docusate Sodium (Docusate Sodium 100 Mg Capsule) 100 mg PO DAILY PRN PRN Reason: Constipation Enoxaparin Sodium (Enoxaparin Sodium 40 Mg/0.4 Ml Syringe) 40 mg SUBCUT Q24H [facility] Last Admin: 06/29/23 19:03 Dose: 40 mg Documented By: HO.PACO Hydroxyzine HCl (Hydroxyzine Hcl 25 Mg Tablet) 25 mg PO Q8H PRN PRN Reason: anxiety/restlessness Last Admin: 06/29/23 01:02 Dose: 25 mg Documented By: MIKEY Levetiracetam (Levetiracetam 500 Mg Tablet) 500 mg PO BID [facility] Last Admin: 06/30/23 09:23 Dose: 500 mg Documented By: DAREK Lisinopril (Lisinopril 40 Mg Tablet) 40 mg PO DAILY [facility]; Protocol Last Admin: 06/30/23 09:23 Dose: 40 mg Documented By: DAREK Melatonin (Melatonin 3 Mg Tablet) 6 mg PO BEDTIME PRN PRN Reason: Insomnia Last Admin: 06/30/23 00:20 Dose: 6 mg Documented By: MAMIE Nicotine (Nicotine 21 Mg Patch.Td24) 21 mg TRANSDERMA DAILY [facility] Last Admin: 06/30/23 09:24 Dose: Not Given Documented By: DAREK Non-Admin Reason: Patient Refused Ondansetron HCl (Ondansetron Hcl 4 Mg/2 Ml Vial) 4 mg IVPUSH Q8H PRN PRN Reason: Nausea and Vomiting Sodium Chloride (0.9 % Sodium Chloride Flush 3 Ml Syringe) 3 ml IVFLUSH QSHIFT [facility] Last Admin: 06/30/23 09:23 Dose: 3 ml Documented By: DAREK Labs 06/27/23 06:43 06/27/23 06:43 Labs: Laboratory Results - last 24 hr 06/28/23 15:44 T.pallidum Ab (EIA) Nonreactive Assessment and Plan (1) Generalized weakness: Status: Acute (2) Hypertensive crisis: Status: Acute Plan 67-year-old male with a PMH significant for?poorly-controlled HTN, seizure disorder, hx of CVA, PSVT, and hx of substance abuse who presents to the ED?with worsening global weakness and difficulty walking x2 days.? 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 Pt will be admitted to the hospital for treatment and further management of hypertensive crisis and generalized deconditioning due to medication noncompliance. Hypertensive unconrtolled Likely secondary to medication noncompliance will start back Amlodipine 10 mg, carvedilol 12.5 mg,lisinopril. Monitor BP closely Monitor on telemetry Patient needs a good plan at discharge to ensure medication compliance, patient has been admitted multiple times for similar symptoms related to medication noncompliance Bilateral leg weakness: currently moving extermities ,still generalised weak,unsteady Likely due to deconditioning from poor po intake, medication noncompliance PT evaluation-refused today Hx of stroke Pt with previous stroke in December 2022 CT today with no evidence of acute intracranial pathology Continue aspirin, statin Seizure disorder Patient with possible episodes of focal seizures in the ED, possibly secondary to medication noncompliance Continue Keppra Monitor on telemetry eeg-Unremarkable EEG. mri-limited but neg for new cva fentanyl possitive in drug sceen Neurology eval - cotninue current management -added b12,lyme,syphlis serologies possbile cognitive dis : has sitter question of cognitive dis ,does not seems to have capacity may need PT eval oted Full Code DVT Prophylaxis: Lovenox ongomin hospitalization: uncontrolled htn and generalized deconditioning ,cognitive deficiet - need vna /cca for safe dispo ,also called his siter and message left. Psych on board if any questions Time Spent With Patient Time: Total time managing care of this patient today ____ minutes. Quality Stroke Does the patient have a stroke diagnosis?: No VTE Prior VTE?: No VTE Risk Level:: Medical - moderate - high VTE Device Contraindication: Treatment Not Indicated VTE Drug Contraindication: N/A - Med Ordered
--- NOTE | 2023-06-30 16:22 | P.CNPS_ITS ---
History of Present Illness Date of Service: 06/30/2023 Chief Complaint: generalized weakness, diff. ambulating Reason for Consult: cognitive impairment Requesting physician: Vicki Strong Discussed with referring provider: Yes Sources of Information: patient interviewed, chart reviewed and crisis/core team assessment reviewed HPI Narrative: Interim Hx: pt presents as pleasant. He reports he just need to make sure he does not run out of medications. He reports feeling better physically. He denies SI/HI. No signs of psychosis or delusions. MOCA completed over the weekend by OT- scored / most impairments in executive function, visuo spatial, recall (3/5), attention and language fluency. His orientation is fairly intact. Past Psychiatric History: IP: Denies hosps: denies SA: denies SIB: denies OP: denies any h/o outpt Tx Trials: Affirmed for 12/26 interview, denied for 03/25 interview, although did make reference to having been prescribed an anxiety medication for a long time, the name of which he could not recall. 12/26: Reports hx of treatment for anxiety and depression and temper issues. Reports he feliciano above symptoms in recovery, got a job, moved to [place], got an apartment and had a good life. 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 He sees medication as a dependence and wants to work on these issues without that. [facility] Medical History CHIOMA (acute kidney injury) Cerebrovascular accident Depressive disorder No pertinent past medical history Noncompliance with medication regimen Physical deconditioning Recurrent major depression-severe Seizure Uncontrolled hypertension Surgical History History of left hip replacement Family History: Anxiety per 12/26 interview. per 03/25 interview denies psych FH, reports father was an alcoholic. Social History: from [place], moved to [place] in 2008, lost contact with family members in [place] at that time. says he has no family members left post-COVID and describes feeling incredibly lonely and without social supports. lives alone in an apartment, unemployed. Diagnostics Vital Signs (24Hr): Vital Signs - 24 hr 06/29/23 19:03 06/29/23 23:57 06/30/23 04:00 Temperature 97.7 F 98.8 F 98.5 F Pulse Rate 68 69 68 Respiratory Rate 20 15 15 Blood Pressure 144/88 H 142/70 H 146/85 H Pulse Oximetry 100 97 97 Oxygen Delivery Method Room Air Room Air Room Air 06/30/23 07:56 06/30/23 11:31 06/30/23 11:52 Temperature 98.1 F 98.8 F Pulse Rate 66 61 67 Respiratory Rate 20 18 Blood Pressure 147/85 H 137/86 Pulse Oximetry 99 98 Oxygen Delivery Method Room Air Room Air 06/30/23 15:09 Temperature 99.0 F Pulse Rate 66 Respiratory Rate 20 Blood Pressure 160/90 H Pulse Oximetry 99 Oxygen Delivery Method Room Air BMI result Body Mass Index 23.7 Labs 06/27/23 06:43 06/27/23 06:43 Labs: Laboratory Results - last 48 hr 06/28/23 06/28/23 15:44 15:44 Vitamin B12 594 T.pallidum Ab (EIA) Nonreactive Imaging Radiology Impressions: ITS Impressions Head CT 06/26/23 13:42 IMPRESSION: 1. Some areas of suboptimally visualized due to patient motion artifact. 2. There are no acute bleeds or territorial infarcts. No masses are demonstrated. 3. There are chronic microvascular ischemic changes and lacunar infarcts. There is diffuse volume loss. Chest X-Ray 06/26/23 14:08 IMPRESSION: No acute cardiopulmonary process. Brain MRI 06/27/23 13:36 FINDINGS/IMPRESSION: This is a very limited and incomplete motion degraded MRI of the brain. The patient could not tolerate this study secondary to claustrophobia. There are no acute infarcts on the diffusion series accounting for artifact. The blood sensitive gradient series is incomplete and nondiagnostic. Axial FLAIR imaging is significantly motion degraded, demonstrating global cerebral volume loss and chronic microangiopathy. Mental Status Exam Mental Status Exam Narrative: Appearance: thin, unsteady on feet, fair hygiene, in NAD Behavior: cooperative, friendly but at times suspicious Psychomotor: some restlessness Speech: clear, normal rate/rhythm/volume, spontaneous TP: tangential, at times some derailment TC: wanting to go home soon Mood: good Affect: at times suspicious SI: denies HI: none AH/vh: none Delusions: somewhat suspicious Insight/judgment: limited. Memory/cog: alert. MOCA 21/30- most impairments in executive function, visuo spatial, language fluency, recall and attention. Oriantation fairly intact. Medications Medications Current Medications Acetaminophen (Acetaminophen 325 Mg Tablet) 650 mg PO Q6H PRN PRN Reason: Pain, Mild (Pain Scale 1-3) Last Admin: 06/29/23 04:38 Dose: 650 mg Amlodipine Besylate (Amlodipine Besylate 10 Mg Tablet) 10 mg PO DAILY [facility]; Protocol Last Admin: 06/30/23 09:23 Dose: 10 mg Aspirin (Aspirin Enteric Coated 81 Mg Tablet.Dr) 81 mg PO DAILY [facility] Last Admin: 06/30/23 09:23 Dose: 81 mg Atorvastatin Calcium (Atorvastatin Calcium 40 Mg Tablet) 40 mg PO BEDTIME [facility] Last Admin: 06/29/23 20:42 Dose: 40 mg Carvedilol (Carvedilol 12.5 Mg Tablet) 12.5 mg PO BID [facility]; Protocol Last Admin: 06/30/23 09:23 Dose: 12.5 mg Docusate Sodium (Docusate Sodium 100 Mg Capsule) 100 mg PO DAILY PRN PRN Reason: Constipation Enoxaparin Sodium (Enoxaparin Sodium 40 Mg/0.4 Ml Syringe) 40 mg SUBCUT Q24H [facility] Last Admin: 06/29/23 19:03 Dose: 40 mg Hydroxyzine HCl (Hydroxyzine Hcl 25 Mg Tablet) 25 mg PO Q8H PRN PRN Reason: anxiety/restlessness Last Admin: 06/29/23 01:02 Dose: 25 mg Levetiracetam (Levetiracetam 500 Mg Tablet) 500 mg PO BID [facility] Last Admin: 06/30/23 09:23 Dose: 500 mg Lisinopril (Lisinopril 40 Mg Tablet) 40 mg PO DAILY [facility]; Protocol Last Admin: 06/30/23 09:23 Dose: 40 mg Melatonin (Melatonin 3 Mg Tablet) 6 mg PO BEDTIME PRN PRN Reason: Insomnia Last Admin: 06/30/23 00:20 Dose: 6 mg Nicotine (Nicotine 21 Mg Patch.Td24) 21 mg TRANSDERMA DAILY [facility] Last Admin: 06/30/23 09:24 Dose: Not Given Ondansetron HCl (Ondansetron Hcl 4 Mg/2 Ml Vial) 4 mg IVPUSH Q8H PRN PRN Reason: Nausea and Vomiting Sodium Chloride (0.9 % Sodium Chloride Flush 3 Ml Syringe) 3 ml IVFLUSH QSHIFT [facility] Last Admin: 06/30/23 09:23 Dose: 3 ml Allergies Allergies Allergy/AdvReac Type Severity Reaction Status Date / Time fish derived [FISH] Allergy Unknown UNKNOWN Verified 01/07/23 16:24 morphine [MORPHINE] Allergy Unknown UNKNOWN Verified 01/07/23 16:24 cheese Allergy Anaphylaxis Uncoded 01/07/23 16:24 Assessment & Plan Assessment & Plan (1) Cognitive impairment: Status: Acute Code(s): R41.89 - Other symptoms and signs involving cognitive functions and awareness Plan Mr. Antoine is a 67 year-old male with hx of HTN, CVA, 4 recent medical admission for exacerbation of chronic conditions due to not taking medications at home. It does appear that his ability to follow up with care in the community as well as keeping up with medication refills is impaired due to his underlying cognitive impairments. Pt is in agreement to have additional supports in the community including VNA, case management from [facility]. Recommend PCP to continue to monitor cognitive decline which appears to have a vascular type of impairment. Total time managing care of this patient today ____ minutes.
[2023-06-30] MEDS: Enoxaparin Sodium 40 MG/0.4 ML SYRINGE SUBCUT (17:07)
[2023-06-30 19:09] VITALS: BP 148/87; PULSE 88; RESP 20; TEMP 37.1; O2SAT 95
[2023-06-30] MEDS: Atorvastatin Calcium 40 MG TABLET PO (20:06)
[2023-06-30 21:23] LABS: Lyme Abs Screen <0.90 index
[2023-07-01] VITALS: BP 146/82; PULSE 67; RESP 15; TEMP 36.9; O2SAT 97
[2023-07-01] MEDS: hydrOXYzine HCL 25 MG TABLET PO (01:44)
[2023-07-01] MEDS: Melatonin 3 MG TABLET 6 MG PO (01:44)
[2023-07-01 07:11] VITALS: BP 132/81; PULSE 77; RESP 20; TEMP 37.1; O2SAT 97
[2023-07-01] MEDS: levETIRAcetam 500 MG TABLET PO (07:27)
[2023-07-01] MEDS: 0.9 % Sodium Chloride Flush 3 ML SYRINGE IVFLUSH (07:27)
[2023-07-01] MEDS: amLODIPine Besylate 10 MG TABLET PO (07:27)
[2023-07-01] MEDS: carvediloL 12.5 MG TABLET PO (07:27)
[2023-07-01] MEDS: Aspirin Enteric Coated 81 MG TABLET.DR PO (07:27)
[2023-07-01] MEDS: lisinopriL 40 MG TABLET PO (07:28)
--- NOTE | 2023-07-01 10:24 | P.PNIM_ITS ---
Subjective Subjective Date of Service: 07/01/23 Physical Exam Vital Signs: Vital Signs: Last Vital Signs Temp 98.8 F 07/01/23 07:11 Pulse 77 07/01/23 07:11 Resp 20 07/01/23 07:11 BP 132/81 07/01/23 07:11 Pulse Ox 97 07/01/23 07:11 O2 Del Method Room Air 07/01/23 07:11 BMI result Body Mass Index 23.7 Objective Data Active Medications Acetaminophen (Acetaminophen 325 Mg Tablet) 650 mg PO Q6H PRN PRN Reason: Pain, Mild (Pain Scale 1-3) Last Admin: 06/29/23 04:38 Dose: 650 mg Documented By: MIKEY Amlodipine Besylate (Amlodipine Besylate 10 Mg Tablet) 10 mg PO DAILY [facility]; Protocol Last Admin: 07/01/23 07:27 Dose: 10 mg Documented By: DAREK Aspirin (Aspirin Enteric Coated 81 Mg Tablet.) 81 mg PO DAILY [facility] Last Admin: 07/01/23 07:27 Dose: 81 mg Documented By: DAREK Atorvastatin Calcium (Atorvastatin Calcium 40 Mg Tablet) 40 mg PO BEDTIME [facility] Last Admin: 06/30/23 20:06 Dose: 40 mg Documented By: YUKI Carvedilol (Carvedilol 12.5 Mg Tablet) 12.5 mg PO BID [facility]; Protocol Last Admin: 07/01/23 07:27 Dose: 12.5 mg Documented By: DAREK Docusate Sodium (Docusate Sodium 100 Mg Capsule) 100 mg PO DAILY PRN PRN Reason: Constipation Enoxaparin Sodium (Enoxaparin Sodium 40 Mg/0.4 Ml Syringe) 40 mg SUBCUT Q24H [facility] Last Admin: 06/30/23 17:07 Dose: 40 mg Documented By: DAREK Hydroxyzine HCl (Hydroxyzine Hcl 25 Mg Tablet) 25 mg PO Q8H PRN PRN Reason: anxiety/restlessness Last Admin: 07/01/23 01:44 Dose: 25 mg Documented By: YUKI Levetiracetam (Levetiracetam 500 Mg Tablet) 500 mg PO BID [facility] Last Admin: 07/01/23 07:27 Dose: 500 mg Documented By: DAREK Lisinopril (Lisinopril 40 Mg Tablet) 40 mg PO DAILY [facility]; Protocol Last Admin: 07/01/23 07:28 Dose: 40 mg Documented By: DAREK Melatonin (Melatonin 3 Mg Tablet) 6 mg PO BEDTIME PRN PRN Reason: Insomnia Last Admin: 07/01/23 01:44 Dose: 6 mg Documented By: YUKI Nicotine (Nicotine 21 Mg Patch.Td24) 21 mg TRANSDERMA DAILY [facility] Last Admin: 07/01/23 07:28 Dose: Not Given Documented By: DAREK Non-Admin Reason: Patient Refused Ondansetron HCl (Ondansetron Hcl 4 Mg/2 Ml Vial) 4 mg IVPUSH Q8H PRN PRN Reason: Nausea and Vomiting Sodium Chloride (0.9 % Sodium Chloride Flush 3 Ml Syringe) 3 ml IVFLUSH QSHIFT [facility] Last Admin: 07/01/23 07:27 Dose: 3 ml Documented By: DAREK Labs 06/27/23 06:43 06/27/23 06:43 Labs: Laboratory Results - last 24 hr 06/28/23 15:44 Lyme Screen IgG & IgM <0.90 Assessment and Plan Time Spent With Patient Time: Total time managing care of this patient today ____ minutes. Quality Stroke Does the patient have a stroke diagnosis?: No VTE Prior VTE?: No VTE Risk Level:: Medical - moderate - high VTE Device Contraindication: Treatment Not Indicated VTE Drug Contraindication: N/A - Med Ordered
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
[2023-07-01 11:18] VITALS: BP 136/75; PULSE 74; RESP 18; TEMP 36.3; O2SAT 96
--- NOTE | 2023-07-01 12:19 | MHC.CM.PN ---
DP: PT HAS BEEN MEDICALLY CLEARED FOR DC HOME WITH [facility] FOR MED MANAGEMENT. [facility] NOTIFIED OF TODAY'S DC. RN AWARE. HCP/SISTER JATIN NOTIFIED. IMM ADDRESSED. BLS TRANSPORT SET UP FOR 3:30 PM VIA [employer].
--- NOTE | 2023-07-01 14:45 | W.MHC.F2F ---
Service Date Service Date: 07/01/23 Encounter Date of encounter: 07/01/23 Reasons for Services Signs and symptoms assessed: weakness, elevated blood pressure Reason for retirement: medication management, medication treatment and teach disease management Homebound: Leaving the home is medically contraindicated at this time without the asist of a device and/or another person due th the listed conditions above and below. Reason homebound: leg weakness Homebound supporting statement: homebound due to weakness likely realated to uncontrolled HTN, memory issues and therefore needs the assistance of anoter person Certification: Based on the above findings, I certify that this patient is confined to the home and needs intermittent retirement care, physical therapy and/or speech therapy, or continues to need occupational therapy. The patient is under my care, and I have initiated the establishment of the plan of care. The patient will be followed by a physician who will periodically review the plan of care. Time Spent With Patient Time: Total time managing care of this patient today ____ minutes.
== END 2023-07-01 16:15 | disposition home health service (06) | DRG 305 ==
LOC: HO.ED 15:38 → HO.EDOVER 17:13 → HO.IMC 18:11
PROVIDERS: Internal Medicine; Physician Assistant; Admitting Provider Student in an Organized Health Care Education/Training Program; Emergency Provider Emergency Medicine; Visit Provider Internal Medicine
DX: I16.0 Hypertensive urgency (principal); I69.354 Hemiplegia and hemiparesis following cerebral infarction affecting left non-dominant side; R45.851 Suicidal ideations; R62.7 Adult failure to thrive; Z68.23 Body mass index [BMI] 23.0-23.9, adult; F03.90 Unspecified dementia, unspecified severity, without behavioral disturbance, psychotic disturbance, mood disturbance, and anxiety; G40.909 Epilepsy, unspecified, not intractable, without status epilepticus; I10 Essential (primary) hypertension; F32.A Depression, unspecified; G31.84 Mild cognitive impairment of uncertain or unknown etiology; Z91.128 Patient's intentional underdosing of medication regimen for other reason; F41.9 Anxiety disorder, unspecified; Z87.891 Personal history of nicotine dependence; Z79.82 Long term (current) use of aspirin; Z79.899 Other long term (current) drug therapy
CPT/HCPCS: 36415; 70450; 70551; 71045; 80048; 80076; 80307; 81003; 82550; 82607; 83735; 84439; 84443; 84484; 85025; 85027; 85610; 85730; 86617; 86618; 86780; 87635; 93005; 95816; 97161; 99285; J1650; J2060

== ENCOUNTER → 2023-06-26 16:55 | Outpatient (BNV) | payer OTHER, SELFPAY | PROVIDERS: Admitting Provider Student in an Organized Health Care Education/Training Program; Emergency Provider Emergency Medicine; Visit Provider Student in an Organized Health Care Education/Training Program | DX: I16.9 Hypertensive crisis, unspecified (principal); R53.1 Weakness | CPT/HCPCS: 99223; 99231; 99232; 99239; 99499; G0180 ==

== ENCOUNTER → 2023-06-26 16:55 | Outpatient (BNV) | payer OTHER, SELFPAY | PROVIDERS: Admitting Provider Student in an Organized Health Care Education/Training Program; Emergency Provider Emergency Medicine; Visit Provider Social Worker | DX: R41.89 Other symptoms and signs involving cognitive functions and awareness (principal) | CPT/HCPCS: 99232 ==

== ENCOUNTER 2023-10-26 12:23 | Emergency (ER) | payer MEDICARE, MEDICAID, SELFPAY ==
[2023-10-26 12:30] VITALS: BP 108/56; O2SAT 96
[2023-10-26 12:45] VITALS: BP 119/80; PULSE 97; RESP 20; TEMP 36.4; O2SAT 98; BMI 21.3
--- NOTE | 2023-10-26 15:23 | ED_ITS ---
HPI - General Adult General Chief complaint: Altered Mental Status Stated complaint: ?UNDER INF,?ASS VS TRAUMA,VERBAL OUTBURST PER EMS Time Seen by Provider: 10/26/23 13:33 Source: patient and EMS Mode of arrival: EMS History of Present Illness HPI narrative: 67-year-old male who is brought in by EMS after he was found by the please department and they felt that he was altered mental status although he denies any substance or alcohol use. Patient does have difficulty staying on topic but states that he does not want to be here, he is declining all lab work and states that he wants to go home and although he is noted to be moaning he denies any chest pain or difficulty with breathing. Related Data Previous Rx's Medication Instructions Recorded amlodipine 10 mg tablet 10 mg PO DAILY #30 tabs 07/01/23 aspirin 81 mg tablet,delayed 81 mg PO DAILY #30 tabs 07/01/23 release atorvastatin 40 mg tablet 40 mg PO BEDTIME #30 tabs 07/01/23 carvedilol 12.5 mg tablet 12.5 mg PO BID #60 tabs 07/01/23 docusate sodium 100 mg capsule 100 mg PO DAILY PRN Constipation 07/01/23 #30 caps levetiracetam 500 mg tablet 500 mg PO BID #60 tabs 07/01/23 lisinopril 40 mg tablet 40 mg PO DAILY #30 tabs 07/01/23 melatonin 3 mg tablet 6 mg (2 x 3 mg) PO BEDTIME PRN 07/01/23 Insomnia #30 tabs Allergies Allergy/AdvReac Type Severity Reaction Status Date / Time fish derived [FISH] Allergy Unknown UNKNOWN Verified 01/07/23 16:24 morphine [MORPHINE] Allergy Unknown UNKNOWN Verified 01/07/23 16:24 cheese Allergy Anaphylaxis Uncoded 01/07/23 16:24 Review of Systems Review of Systems: Pertinent positives and negatives as stated in HPI PMFSH Past Medical History Source: nursing notes reviewed Medical History Noncompliance with medication regimen Depressive disorder Physical deconditioning Seizure Uncontrolled hypertension Recurrent major depression-severe No pertinent past medical history CHIOMA (acute kidney injury) Cerebrovascular accident Surgical History History of left hip replacement Family History Family History Mother No problems noted. Father No problems noted. Social History Social History Household Members: None Housing: Apartment Do you presently have visiting nurse or other home services: No Alcohol intake: unknown Comment: 1:1 sitter Patient Tobacco Use Status: Former Tobacco user Tobacco use type: Cigarette Cigarette Packs Per Day: 10 Second Hand Smoke Exposure: No Advance Directives: Yes Advance Directives on File: Yes Advance Directives Date on File: 04/01/23 service: Yes Current occupational status: unemployed Physical Exam ED Vital Signs: Vital Signs - 24 hr 10/26/23 12:45 Temperature 97.6 F Pulse Rate 97 Respiratory Rate 20 Blood Pressure 119/80 Pulse Oximetry 98 Oxygen Delivery Method Room Air BMI result Body Mass Index 21.3 VITAL SIGNS: Reviewed. GENERAL: Well developed, well nourished, in no acute distress. HEAD: Normocephalic/atraumatic EYES: PERRLA, EOMI EARS: Ext canals without abnormality NOSE: Nares patent bilateral OROPHARYNX: no oral lesions noted, posterior pharynx clear NECK: Supple, no adenopathy LUNGS: Normal breath sounds. No adventitious sounds or accessory muscle use. SpO2<98> CARDIOVASCULAR: Regular rate and rhythm without noted murmurs ABDOMEN: Soft, non-tender, non-distended with bowel sounds. MUSCULOSKELETAL: No tenderness, deformities, or effusions noted on gross inspection. EXTREMITIES: No cyanosis, clubbing or edema. SKIN: Inspection of the skin reveals no rashes NEUROLOGIC: Alert and oriented x 3. Strength and sensation to light touch were grossly intact x 4. Medical Decision Making Medical Decision Making MDM Narrative: 67-year-old male who is refusing all lab work, swabs and is refusing chest x- ray. He is not found to be focal in appears to be alert and oriented. He does moan but states that is just something that he does. He otherwise states that he wants to go home and is willing to sign against medical advice. He understands that this could mean that he will have worsening of his condition although he states there is nothing wrong with him. Differential Diagnosis Differential Diagnoses: The differential diagnosis associated with the presentation includes Please see the discussion above Admission/Observation Consideration of admission/observation: Escalation of care including admission/observation considered Please see the discussion above External Record Review External record reviewed: Outpatient record, Prior outpatient labs and Prior outpatient radiology Critical Care Time Critical Care Time Critical Care Time: Yes Total Critical Care Time: 30 Attestation: I personally attest to this time spent taking care of the patient. Discharge Plan Discharge Clinical Impression: Generalized weakness, Mild fentanyl use disorder Patient Disposition: Left Against Medical Advice Instructions: Weakness (ED), Polysubstance Abuse (ED) Additional Instructions: Follow-up with your primary care doctor on Friday. Return to the ER for any worsening symptoms. Prescriptions: No Action atorvastatin 40 mg Tablet 40 mg PO BEDTIME Qty: 30 0RF carvedilol 12.5 mg Tablet 12.5 mg PO BID Qty: 60 0RF Protocol: Hold for SBP/HR < HOLD for SBP < : 90 HOLD for HR < : 60 aspirin 81 mg Tablet,Delayed Release (Dr/Ec) 81 mg PO DAILY Qty: 30 0RF amlodipine 10 mg Tablet 10 mg PO DAILY Qty: 30 0RF Protocol: Hold for SBP< HOLD for SBP < : 90 lisinopril 40 mg Tablet 40 mg PO DAILY Qty: 30 0RF Protocol: Hold for SBP< HOLD for SBP < : 90 levetiracetam 500 mg Tablet 500 mg PO BID Qty: 60 0RF docusate sodium 100 mg Capsule 100 mg PO DAILY PRN (Reason: Constipation) Qty: 30 0RF melatonin 3 mg Tablet 6 mg PO BEDTIME PRN (Reason: Insomnia) Qty: 30 0RF Stand Alone Forms: Against Medical Advice
--- NOTE | 2023-10-26 17:00 | PC.NURSE ---
per charge nurse, pt has been refusing all labs and EKG, aware. ready for dispo
== END 2023-10-26 17:11 | disposition left against medical advice (07) ==
PROVIDERS: Emergency Provider Student in an Organized Health Care Education/Training Program
DX: R53.1 Weakness (principal); F11.90 Opioid use, unspecified, uncomplicated; I10 Essential (primary) hypertension
CPT/HCPCS: 99282

== ENCOUNTER 2025-04-12 06:46 | Inpatient (IN) | payer OTHER, SELFPAY ==
[2025-04-12] VITALS (10 sets, daily range): BP systolic 105–142; BP diastolic 67–85; PULSE 64–75; RESP 10–16; TEMP 36.2–37.1; O2SAT 95–96; BMI 25.4
--- NOTE | ~2025-04-12 | CT_ITS ---
EXAMINATION: CT HEAD WITHOUT IV CONTRAST HISTORY: AMS. TECHNIQUE: Unenhanced helical CT of the head was performed per standard departmental protocol. Coronal and sagittal reformats of the head were also evaluated. One or more of the following techniques was used for dose reduction: Automated exposure control, adjustment of the mA and/or kV according to patient size, use of iterative reconstruction technique. DLP: 805 mGy-cm COMPARISON: There is an is made with the prior examination dated 06/26/2023. FINDINGS: BRAIN: There is diffuse prominence of the ventricular system and cortical sulci, consistent with atrophy. Periventricular and subcortical white matter hypodensities are noted which are nonspecific, but often seen in the setting of small vessel ischemic disease. There is no mass effect or midline shift. No intra- or extra-axial fluid collections are identified. SINUSES: The visualized paranasal sinuses are clear. The mastoid air cells and middle ear cavities are well pneumatized. ORBITS: The visualized orbits are unremarkable. BONES/SOFT TISSUES: The extracranial soft tissues are unremarkable. The calvarium is intact. No suspicious lytic or sclerotic lesions. CT/CT head/brain wo IV con IMPRESSION: No acute intracranial abnormality. Electronically signed by: Tung Pfeiffer MD 04/12/2025 10:18 AM EDT
--- NOTE | ~2025-04-12 | XR_ITS ---
EXAMINATION: XR CHEST CLINICAL INFORMATION: AMS COMPARISON: None available. TECHNIQUE: Frontal view of the chest was obtained. FINDINGS: Mild elevated right hemidiaphragm. The cardiac, hilar, and mediastinal contours are normal. Mild aortic mural calcification. The lungs appear clear bilaterally. No pneumothorax or effusion. No focal osseous or soft tissue abnormality. XR/XR chest 1V IMPRESSION: No active pulmonary disease. Electronically signed by: Jayy Mendoza MD 04/12/2025 11:41 AM EDT
--- NOTE | ~2025-04-12 | CT_ITS ---
EXAMINATION: CT ABDOMEN PELVIS WITHOUT IV CONTRAST HISTORY: Worsening kidney function COMPARISON: There are no prior studies available for comparison. TECHNIQUE: CT scan of the abdomen and pelvis was performed without contrast using standard departmental protocol. Coronal and sagittal reformatted images were generated and reviewed. Oral contrast material was not administered at the request of the referring physician. This CT exam was performed with one or more of the following dose reduction techniques: automated exposure control, adjustment of the mA and/or kV according to patient size, use of iterative reconstruction technique. DLP: 657 mGy-cm FINDINGS: LOWER CHEST: The visualized lung bases are clear. There is no pleural effusion. CARDIOVASCULATURE: The heart is normal in size. There is no pericardial effusion. LIVER: The liver is normal in size and contour. The liver has an unremarkable unenhanced appearance. GALLBLADDER / BILE DUCTS: The gallbladder is unremarkable. There is no intra or extrahepatic biliary ductal dilatation. SPLEEN: The spleen is normal in size and has an unremarkable unenhanced appearance. PANCREAS: There is probable dilatation of the pancreatic duct. Evaluation is limited on this unenhanced examination. ADRENAL GLANDS: There is a 1.6 cm right adrenal nodule which measures 7.5 HU in density, compatible with an adenoma. The left adrenal gland is unremarkable. KIDNEYS/RETROPERITONEUM: No renal calculi are identified. There is no hydronephrosis. There is a lobulated 3.0 cm hyperdense (37 HU) mass at the upper pole of the left kidney. LYMPH NODES: There are multiple subcentimeter para-aortic lymph nodes which are more notable for number than size. VASCULATURE: The abdominal aorta is normal in caliber. MESENTERY/PERITONEUM: No free fluid. No masses. There is no free intraperitoneal gas. STOMACH: The stomach is collapsed, limiting evaluation. SMALL BOWEL: The small bowel is normal in caliber. COLON: The colon is unremarkable. APPENDIX: Normal. URINARY BLADDER/PELVIC ORGANS: Portions of the urinary bladder are obscured by streak artifact from a left total hip arthroplasty. The prostate is normal in size. 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 CT/CT abdomen pelvis wo IV con IMPRESSION: 1. Lobulated 3.0 cm hyperdense mass at the upper pole of the left kidney, suspicious for neoplasm. Renal protocol CT or MRI is recommended. 2. 1.6 cm right adrenal adenoma. 3. Probable dilatation of the pancreatic duct. This could also be evaluated at the time of renal protocol CT or MRI. Electronically signed by: Tung Pfeiffer MD 04/12/2025 11:45 AM EDT
--- NOTE | 2025-04-12 07:30 | PC.NURSE ---
Pt coming to ED, noted agitated, groaning making strange noises. Erratic behavior. Has attempted to answer some questions but difficult to understand. Has not reported any pain when asked. Noted with fecal incontinence, cleaned and placed in hospital attire. Pt scratching self. Placed on engine monitor and NSR noted but pt is pulling at clarissa and leads. Unk substance use [employer].
--- OUTSIDE RECORDS SUMMARY | 2025-04-12 07:40 | XMS_ITS | Patient Health Record ---
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 Role Phone Debora Ortiz Primary Care Provider [phone] Allergies Allergen (clinical drug ingredient) Drug/Non Drug Allergy documented on EMR Reaction Allergy Type Onset Date Status morphine morphine rash Drug Allergy Active dairy (uncoded) stomach upset Allergy Active Fish fish (uncoded) Unknown Allergy Activ e Reason For Referral No Information Medications Medication SIG (Take, Route, Frequency, Duration) Notes Start Date End Date Status naproxen 500 mg 1 tab(s) orally 2 times a day as needed for pain for 28 days 07/22/2019 Not-Taking aspirin 325 mg 1 tab(s) orally bid Not-Taking lisinopril 10 mg 1 tab(s) orally once a day for 30 day(s) 11/27/2021 Active hydroCHLOROthiazide 25 mg 1 tab(s) orall y once a day for 30 days Active atorvastatin 40 mg 1 tab(s) orally once a day to prevent heart attack and stroke for 30 days Active nitroglycerin 0.4 mg 1 tab(s) sublingual ly every 5 minutes as needed for chest pain for 28 days Not-Taking cloNIDine 0.1 mg 1 tab(s) orally PRN for elevated BP for 28 days Active Immunizations Vaccine Route Administration Date Status Comme nts PPD planted Unknown 04/03/2012 Administered Tdap offered and declined Unknown 05/29/2012 Administered PPD planted ID Intradermal 05/29/2012 Administered Pneumococcal: declined Unknown 06/09/2012 Administered PPD negative Unknown 10/23/2012 Administered Influenza: Declined Unknown 12/26/2012 Administered PPD planted ID Intradermal 10/21/2012 Administered PPD planted ID Intradermal 03/09/2013 Administered PPD negative Unknown 03/11/2013 Administered 0 mm redne ss or induration after 48 hrs. Moderna Covid-19 Vaccine Administration - First Dose (Single Dose 100MCG/0.5ML 1ST) IM Intramuscular 12/15/2020 Administered Pfizer-BioNTech Covid-19 Booster Administration - Third Dose (Single Dose 30 mcg/0.3 mL) Unknown 11/13/2021 Administered Social History Tobacco Use: Social History Observation Description Date Details (start date - stop date) Current Smoker NA - NA Tobacco Use Assessment MU Question Answer Notes What is your current smoking status? current smo ker How often do you smoke? every day How many cigarettes a day do you smoke? 6-10 How soon after you wake up d o you smoke your first cigarette? 6-30 minutes Are you interested in quitting? thinking about q uitting Patient counseled on the gracie gers of tobacco use and advised to quit: 09/19/2020 Section Notes: Pt is very guarded and decli hussein to share much of this information. Housing Situation: Homeless at [facility] 2009 then in [place] prior to migrating up to [place] 12/2011, then to detox, [facility] summer 2011, then to [facility] - where relapsed, back streets and 08/2012. Housing Situation: Homeless at [facility] 2009 then in [place] prior to migrating up to [place] 12/2011, then to detox, [facility] summer 2011, then to [facility] - where relapsed, back streets and 08/2012. Housing Situation: Homeless at [facility] 2009 then in [place] prior to migrating up to [place] 12/2011, then to detox, [facility] summer 2011, then to [facility] - where relapsed, back streets and 08/2012. Housing Situation: Homeless at [facility] 2009 then in [place] prior to migrating up to [place] 12/2011, then to detox, [facility] summer 2011, then to [facility] - where relapsed, back streets and 08/2012. Housing Situation: Homeless at [facility] 2009 then in [place] prior to migrating up to [place] 12/2011, then to detox, [facility] summer 2011, then to [facility] - where relapsed, back streets and 08/2012. Housing Situation: Homeless at [facility] 2009 then in [place] prior to migrating up to [place] 12/2011, then to detox, [facility] summer 2011, then to [facility] - where relapsed, back streets and [facility] 08/2012. Housing Situation: Homeless at [facility] 2009 then in [place] prior to migrating up to [place] 12/2011, then to detox, [facility] summer 2011, then to [facility] - where relapsed, back streets and [facility] 08/2012. Housing Situation: Homeless at [facility] 2009 then in [place] prior to migrating up to [place] 12/2011, then to detox, [facility] summer 2011, then to [facility] - where relapsed, back streets and [facility] 08/2012. Housing Situation: Homeless at [facility] 2009 then in [place] prior to migrating up to [place] 12/2011, then to detox, [facility] summer 2011, then to [facility] - where relapsed, back streets and [facility] 08/2012. Housing Situation: Homeless at [facility] 2009 then in [place] prior to migrating up to [place] 12/2011, then to detox, [facility] summer 2011, then to [facility] - where relapsed, back streets and [facility] 08/2012. Housing Situation: Homeless at [facility] 2009 then in [place] prior to migrating up to [place] 12/2011, then to detox, [facility] summer 2011, then to [facility] - where relapsed, back streets and [facility] 08/2012. Housing Situation: Homeless at [facility] 2009 then in [place] prior to migrating up to [place] 12/2011, then to detox, [facility] summer 2011, then to [facility] - where relapsed, back streets and [facility] 08/2012. Housing Situation: Homeless at [facility] 2009 then in [place] prior to migrating up to [place] 12/2011, then to detox, [facility] summer 2011, then to [facility] - where relapsed, back streets and [facility] 08/2012. Housing Situation: Homeless at [facility] 2009 then in [place] prior to migrating up to [place] 12/2011, then to detox, [facility] summer 2011, then to [facility] - where relapsed, back streets and [facility] 08/2012. Housing Situation: Homeless at [facility] 2009 then in [place] prior to migrating up to [place] 12/2011, then to detox, [facility] summer 2012, then to [facility] - where relapsed, back streets and [facility] 08/2012. Housing Situation: Homeless at [facility] 2009 then in [place] prior to migrating up to [place] 12/2011, then to detox, [facility] summer 2011, then to [facility] - where relapsed, back streets and [facility] 08/2012. Housing Situation: Homeless at [facility] 2009 then in [place] prior to migrating up to [place] 12/2011, then to detox, [facility] summer 2011, then to [facility] - where relapsed, back streets and [facility] 08/2012. Housing Situation: Homeless at [facility] 2009 then in [place] prior to migrating up to [place] 12/2011, then to detox, [facility] summer 2011, then to [facility] - where relapsed, back streets and [facility] 08/2012. Housing Situation: Homeless at [facility] 2009 then in [place] prior to migrating up to [place] 12/2011, then to detox, [facility] summer 2011, then to [facility] - where relapsed, back streets and [facility] 08/2012. Housing Situation: Homeless at [facility] 2009 then in [place] prior to migrating up to [place] 12/2011, then to detox, [facility] summer 2011, then to [facility] - where relapsed, back streets and [facility] 08/2012. Housing Situation: Homeless at [facility] 2009 then in [place] prior to migrating up to [place] 12/2011, then to detox, [facility] summer 2011, then to [facility] - where relapsed, back streets and [facility] 08/2012. Housing Situation: Homeless at [facility] 2009 then in [place] prior to migrating up to [place] 12/2011, then to detox, [facility] 2011, then to [facility] - where relapsed, back streets and [facility] 08/2012. Housing Situation: Homeless at [facility] 2009 then in [place] prior to migrating up to [place] 12/2011, then to detox, [facility] summer 2011, then to [facility] - where relapsed, back streets and [facility] 08/2012. Housing Situation: Homeless at [facility] 2009 then in [place] prior to migrating up to [place] 12/2011, then to detox, [facility] 2011, then to [facility] - where relapsed, back streets and [facility] 08/2012. getting SSI now- 700/mo. has aps for 2 places- [facility] and [facility] list. Working with [facility]. Housing Situation: Homeless at [facility] 2009 then in [place] prior to migrating up to [place] 12/2011, then to detox, [facility] 2011, then to [facility] - where relapsed, back streets and [facility] 08/2012. getting SSI now- 700/mo. has aps for 2 places- [facility] and [facility] the list. Working with [facility]. Housing Situation: Homeless at [facility] 2009 then in [place] prior to migrating up to [place] 12/2011, then to detox, [facility] summer 2011, then to [facility] - where relapsed, back streets and [facility] 08/2012. getting SSI now- 700/mo. has aps for 2 places- [facility] and [facility] the list. Working with [facility]. Housing Situation: Homeless at [facility] 2009 then in [place] prior to migrating up to [place] 12/2011, then to detox, [facility] summer 2011, then to [facility] - where relapsed, back streets and [facility] 08/2012. getting SSI now- 700/mo. has aps for 2 places- [facility] and [facility] the list. Working with [facility]. Housing Situation: Homeless at [facility] 2009 then in [place] prior to migrating up to [place] 12/2011, then to detox, [facility] summer 2011, then to [facility] - where relapsed, back streets and [facility] 08/2012. getting SSI now- 700/mo. has aps for 2 places- [facility] and [facility] the list. Working with [facility]. Housing Situation: Homeless at [facility] 2009 then in [place] prior to migrating up to [place] 12/2011, then to detox, [facility] summer 2011, then to [facility] - where relapsed, back streets and [facility] 08/2012. getting SSI now- 700/mo. has aps for 2 places- [facility] and [facility] the list. Working with [facility]. Housing Situation: Homeless at [facility] 2009 then in [place] prior to migrating up to [place] 12/2011, then to detox, [facility] summer 2011, then to [facility] - where relapsed, back streets and [facility] 08/2012. getting SSI now- 700/mo. has aps for 2 places- [facility] and [facility] the list. Working with [facility]. Housing Situation: Homeless at [facility] 2009 then in [place] prior to migrating up to [place] 12/2011, then to detox, [facility] summer 2011, then to [facility] - where relapsed, back streets and [facility] 08/2012. getting SSI now- 700/mo. has aps for 2 places- [facility] and [facility] the list. Working with [facility]. Housing Situation: Homeless at [facility] 2009 then in [place] prior to migrating up to [place] 12/2011, then to detox, [facility] summer 2011, then to [facility] - where relapsed, back streets and [facility] 08/2012. getting SSI now- 700/mo. has aps for 2 places- [facility] and [facility] the list. Working with [facility]. Housing Situation: Homeless at [facility] 2009 then in [place] prior to migrating up to [place] 12/2011, then to detox, [facility] summer 2011, then to [facility] - where relapsed, back streets and [facility] 08/2012. getting SSI now- 700/mo. has aps for 2 places- [facility] and [facility] on the list. Working with [facility]. Housing Situation: Homeless at [facility] 2009 then in [place] prior to migrating up to [place] 12/2011, then to detox, [facility] summer 2011, then to [facility] - where relapsed, back streets and [facility] 08/2012. getting SSI now- 700/mo. has aps for 2 places- [facility] and [facility] the list. Working with [facility]. Housing Situation: Homeless at [facility] 2009 then in [place] prior to migrating up to [place] 12/2011, then to detox, [facility] summer 2011, then to [facility] - where relapsed, back streets and [facility] 08/2012. getting SSI now- 700/mo. has aps for 2 places- [facility] and [facility] the list. Working with [facility]. Housing Situation: Homeless at [facility] 2009 then in [place] prior to migrating up to [place] 12/2011, then to detox, [facility] summer 2011, then to [facility] - where relapsed, back streets and [facility] 08/2012. getting SSI now- 700/mo. has aps for 2 places- [facility] and [facility] the list. Working with [facility]. Housing Situation: Homeless at [facility] 2009 then in [place] prior to migrating up to [place] 12/2011, then to detox, [facility] summer 2011, then to [facility] - where relapsed, back streets and [facility] 08/2012. getting SSI now- 700/mo. has aps for 2 places- [facility] and [facility] on the list. Working with [facility]. Housing Situation: Homeless at [facility] 2009 then in [place] prior to migrating up to [place] 12/2011, then to detox, [facility] summer 2011, then to [facility] - where relapsed, back streets and [facility] 08/2012. getting SSI now- 700/mo. has aps for 2 places- [facility] and [facility] on the list. Working with [facility]. Housing Situation: Homeless at [facility] 2009 then in [place] prior to migrating up to [place] 12/2011, then to detox, [facility] summer 2011, then to [facility] - where relapsed, back streets and [facility] 08/2012. getting SSI now- 700/mo. has aps for 2 places- [facility] and [facility] the list. Working with [facility]. Housing Situation: Homeless at [facility] 2009 then in [place] prior to migrating up to [place] 12/2011, then to detox, [facility] summer 2011, then to [facility] - where relapsed, back streets and [facility] 08/2012. getting SSI now- 700/mo. has aps for 2 places- [facility] and [facility] the list. Working with [facility]. Housing Situation: Homeless at [facility] 2009 then in [place] prior to migrating up to [place] 12/2011, then to detox, [facility] summer 2011, then to [facility] - where relapsed, back streets and [facility] 08/2012. getting SSI now- 700/mo. has aps for 2 places- [facility] and [facility] the list. Working with [facility] A. Housing Situation: Homeless at [facility] 2009 then in [place] prior to migrating up to [place] 12/2011, then to detox, [facility] summer 2011, then to [facility] - where relapsed, back streets and [facility] 08/2012. getting SSI now- 700/mo. has aps for 2 places- [facility] and [facility] the list. Working with [facility]ley A. Housing Situation: Homeless at [facility] 2009 then in [place] prior to migrating up to [place] 12/2011, then to detox, [facility] summer 2011, then to [facility] - where relapsed, back streets and [place] 08/2012. getting SSI now- 700/mo. has aps for 2 places- [facility] and [facility] the list. Working with [facility]ley A. Housing Situation: Homeless at [facility] 2009 then in [place] prior to migrating up to [place] 12/2011, then to detox, [facility] summer 2011, then to [facility] - where relapsed, back streets and [place] 08/2012. getting SSI now- 700/mo. has aps for 2 places- [facility] and [facility] the list. Working with [facility]ley A. Housing Situation: Homeless at [facility] 2009 then in [place] prior to migrating up to [place] 12/2011, then to detox, [facility] summer 2011, then to [facility] - where relapsed, back streets and [place] 08/2012. getting SSI now- 700/mo. has aps for 2 places- [facility] and [facility] the list. Working with [facility] A. Housing Situation: Homeless at [facility] 2009 then in [place] prior to migrating up to [place] 12/2011, then to detox, [facility] summer 2011, then to [facility] - where relapsed, back streets and [place] 08/2012. getting SSI now- 700/mo. has aps for 2 places- [facility] and [facility] the list. Working with [facility]ley A. Housing Situation: Homeless at [facility] 2009 then in [place] prior to migrating up to [place] 12/2011, then to detox, [facility] summer 2011, then to [facility] - where relapsed, back streets and [facility] 08/2012. getting SSI now- 700/mo. has aps for 2 places- [facility] and [facility] the list. Working with [facility]ley A. Housing Situation: Homeless at [facility] 2009 then in [place] prior to migrating up to [place] 12/2011, then to detox, [facility] summer 2011, then to [facility] - where relapsed, back streets and [facility] 08/2012. getting SSI now- 700/mo. has aps for 2 places- [facility] and [facility] the list. Working with [facility]ley A. Housing Situation: Homeless at [facility] 2009 then in [place] prior to migrating up to [place] 12/2011, then to detox, [facility] summer 2011, then to [facility] - where relapsed, back streets and [facility] 08/2012. getting SSI now- 700/mo. has aps for 2 places- [facility] and [facility] the list. Working with [facility]ley A. Housing Situation: Homeless at [facility] 2009 then in [place] prior to migrating up to [place] 12/2011, then to detox, [facility] summer 2011, then to [facility] - where relapsed, back streets and [place] 08/2012. getting SSI now- 700/mo. has aps for 2 places- [facility] and [facility] the list. Working with [facility]. Housing Situation: Homeless at [facility] 2009 then in [place] prior to migrating up to [place] 12/2011, then to detox, [facility] summer 2011, then to [facility] - where relapsed, back streets and [place] 08/2012. getting SSI now- 700/mo. has aps for 2 places- [facility] and [facility] the list. Working with [facility] A. Housing Situation: Homeless at [facility] 2009 then in [place] prior to migrating up to [place] 12/2011, then to detox, [facility] summer 2011, then to [facility] - where relapsed, back streets and [place] 08/2012. getting SSI now- 700/mo. has aps for 2 places- [facility] and [facility] list. Working with [facility] A. Housing Situation: Homeless at [facility] 2009 then in [place] prior to migrating up to [place] 12/2011, then to detox, [facility] summer 2011, then to [facility] - where relapsed, back streets and [place] 08/2012. getting SSI now- 700/mo. has aps for 2 places- [facility] and [facility]. Working with [facility] A. Housing Situation: Homeless at [facility] 2009 then in [place] prior to migrating up to [place] 12/2011, then to detox, [facility] summer 2011, then to [facility] - where relapsed, back streets and [place] 08/2012. getting SSI now- 700/mo. has aps for 2 places- [facility] and [facility] list. Working with [facility] A. Housing Situation: Homeless at [facility] 2009 then in [place] prior to migrating up to [place] 12/2011, then to detox, [facility] summer 2011, then to [facility] - where relapsed, back streets and [place] 08/2012. getting SSI now- 700/mo. has aps for 2 places- [facility] and [facility] the list. Working with [facility] A. Housing Situation: Homeless at [facility] 2009 then in [place] prior to migrating up to [place] 12/2011, then to detox, [facility] summer 2011, then to [facility] - where relapsed, back streets and [place] 08/2012. getting SSI now- 700/mo. has aps for 2 places- [facility] and [facility] the list. Working with [facility] A. Housing Situation: Homeless at [facility] 2009 then in [place] prior to migrating up to [place] 12/2011, then to detox, [facility] summer 2011, then to [facility] - where relapsed, back streets and [place] 08/2012. getting SSI now- 700/mo. has aps for 2 places- [facility] and [facility] list. Working with [facility]. Housing Situation: Homeless at [facility] 2009 then in [place] prior to migrating up to [place] 12/2011, then to detox, [facility] summer 2011, then to [facility] - where relapsed, back streets and [place] 08/2012. getting SSI now- 700/mo. has aps for 2 places- [facility] and [facility] list. Working with [facility] A. Housing Situation: Homeless at [facility] 2009 then in [place] prior to migrating up to [place] 12/2011, then to detox, [facility] summer 2011, then to [facility] - where relapsed, back streets and [place] 08/2012. getting SSI now- 700/mo. has aps for 2 places- [facility] and [facility] list. Working with [facility]. Housing Situation: Homeless at [facility] 2009 then in [place] prior to migrating up to [place] 12/2011, then to detox, [facility] summer 2011, then to [facility] - where relapsed, back streets and [place] 08/2012. getting SSI now- 700/mo. has aps for 2 places- [facility] and [facility] the list. Working with [facility] A. Housing Situation: Homeless at [facility] 2009 then in [place] prior to migrating up to [place] 12/2011, then to detox, [facility] summer 2011, then to [facility] - where relapsed, back streets and [place] 08/2012. getting SSI now- 700/mo. has aps for 2 places- [facility] and [facility] the list. Working with [facility]ley A. Housing Situation: Homeless at [facility] 2009 then in [place] prior to migrating up to [place] 12/2011, then to detox, [facility] summer 2011, then to [facility] - where relapsed, back streets and 08/2012. getting SSI now- 700/mo. has aps for 2 places- [facility] and [facility] the list. Working with [facility] A. Housing Situation: Homeless at [facility] 2009 then in [place] prior to migrating up to [place] 12/2011, then to detox, [facility] summer 2011, then to [facility] - where relapsed, back streets and 08/2012. getting SSI now- 700/mo. still around [facility] (not alwasy) 03/2013 has aps for 2 places- [facility] and [facility] the list. Working with [facility]ley A. Housing Situation: Homeless at [facility] 2009 then in [place] prior to migrating up to [place] 12/2011, then to detox, [facility] summer 2011, then to [facility] - where relapsed, back streets and [place] 08/2012. getting SSI now- 700/mo. still around [facility] (not always) 03/2013 has aps for 2 places- [facility] and [facility] the list. Working with [facility]ley A. Housing Situation: Homeless at [facility] 2009 then [facility] to migrating up to [place] 12/2011, then to detox, [facility] summer 2011, then to [facility] - where relapsed, back streets and [place] 08/2012. getting SSI now- 700/mo. has aps for 2 places- [facility] and [facility] the list. Working with [facility]ley A. Housing Situation: Homeless at [facility] 2009 then in [place] prior to migrating up to [place] 12/2011, then to detox, [facility] summer 2011, then to [facility] - where relapsed, back streets and [place] 08/2012. getting SSI now- 700/mo. has aps for 2 places- [facility] and [facility] the list. Working with [facility]ley A. Housing Situation: Homeless at [facility] 2009 then in [place] prior to migrating up to [place] 12/2011, then to detox, [facility] summer 2011, then to [facility] - where relapsed, back streets and [place] 08/2012. getting SSI now- 700/mo. has aps for 2 places- [facility] and [facility] the list. Working with [facility]ley A. Housing Situation: Homeless at [facility] 2009 then in [place] prior to migrating up to [place] 12/2011, then to detox, [facility] summer 2011, then to [facility] - where relapsed, back streets and [place] 08/2012. getting SSI now- 700/mo. has aps for 2 places- [facility] and [facility] the list. Working with [facility] A. Housing Situation: Homeless at [facility] 2009 then in [place] prior to migrating up to [place] 12/2011, then to detox, [facility] summer 2011, then to [facility] - where relapsed, back streets and 08/2012. getting SSI now- 700/mo. has aps for 2 places- [facility] and [facility] on the list. Working with Hayley A. Housing Situation: Homeless at [facility] 2009 then in [place] prior to migrating up to [place] 12/2011, then to detox, [facility] summer 2011, then to [facility] - where relapsed, back streets and [facility] 08/2012. getting SSI now- 700/mo. has aps for 2 places- [facility] ([facility]) and [facility] on the list. Working with Hayley A. Housing Situation: Homeless at [facility] 2009 then in [place] prior to migrating up to [place] 12/2011, then to detox, [facility] summer 2011, then to [facility] - where relapsed, back streets and [facility] 08/2012. getting SSI now- 700/mo. has aps for 2 places- [facility] ([facility]) and [facility] on the list. Working with Hayley A. Housing Situation: Homeless at [facility] 2009 then in [place] prior to migrating up to [place] 12/2011, then to detox, [facility] summer 2011, then to [facility] - where relapsed, back streets and [facility] 08/2012. getting SSI now- 700/mo. has aps for 2 places- [facility]) and [facility] on the list. Working with Hayley A. Housing Situation: Homeless at [facility] 2009 then in [place] prior to migrating up to [place] 12/2011, then to detox, [facility] summer 2011, then to [facility] - where relapsed, back streets and [facility] 08/2012. getting SSI now- 700/mo. has aps for 2 places- [facility] and [facility] on the list. Working with Hayley A. Housing Situation: Homeless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
--- NOTE | 2025-04-12 08:00 | ED.GENADULT ---
HPI - General Adult General Chief complaint: Altered Mental Status Stated complaint: L side pain & AMS Time Seen by Provider: 04/12/25 08:00 Source: patient, EMS and RN notes reviewed Mode of arrival: EMS Limitations: altered mental status History of Present Illness ED Provider: Libia Dickerson PA-C HPI narrative: This is a 69-year-old male, with a past medical history of poorly-controlled hypertension, seizure disorder, CVA, paroxysmal SVT, and substance abuse, who presents emergency department via EMS after being found on street by bystanders. Per bystanders, patient is homeless, was sleeping and awoke acting strange groaning and stiff. Unknown substance abuse. On arrival, patient groaning, irritable, rolling around in emergency room stretcher. He was found to have fecal incontinence. He is awake however not alert oriented. MD complaint: Altered mental status Onset (ago): unknown Related Data Home Medications ?Medication ?Instructions ?Recorded ?Confirmed aripiprazole 2 mg tablet 2 mg PO DAILY 04/12/25 04/12/25 carvedilol 3.125 mg tablet 3.125 mg PO BID 04/12/25 04/12/25 hydralazine 25 mg tablet 25 mg PO BID 04/12/25 04/12/25 mirtazapine 30 mg tablet 30 mg PO BEDTIME 04/12/25 04/12/25 naproxen 500 mg tablet 500 mg PO BID 04/12/25 04/12/25 Previous Rx's ?Medication ?Instructions ?Recorded amlodipine 10 mg tablet 10 mg PO DAILY #30 tabs 07/01/23 atorvastatin 40 mg tablet 40 mg PO BEDTIME #30 tabs 07/01/23 levetiracetam 500 mg tablet 500 mg PO BID #60 tabs 07/01/23 lisinopril 40 mg tablet 40 mg PO DAILY #30 tabs 07/01/23 Allergies Allergy/AdvReac Type Severity Reaction Status Date / Time fish derived [FISH] Allergy Unknown UNKNOWN Verified 04/12/25 07:25 morphine [MORPHINE] Allergy Unknown UNKNOWN Verified 04/12/25 07:25 cheese Allergy Anaphylaxis Uncoded 01/07/23 16:24 Review of Systems Review of Systems: Yes Unobtainable due to mental status Constitutional: Constitutional: Reports as per HPI Neurologic: Reports confusion Psychiatric: Psychiatric: Reports confusion PMFSH Past Medical History Medical History Noncompliance with medication regimen Depressive disorder Physical deconditioning Seizure Uncontrolled hypertension Recurrent major depression-severe No pertinent past medical history CHIOMA (acute kidney injury) Cerebrovascular accident Surgical History History of left hip replacement Family History Family History Mother No problems noted. Father No problems noted. Social History Social History Household Members: None Housing: Apartment Do you presently have visiting nurse or other home services: No Unable to assess alcohol history related to: Unknown Alcohol intake: unknown Comment: 1:1 sitter Patient Tobacco Use Status: Former Tobacco user Tobacco use type: Cigarette Cigarette Packs Per Day: 10 Second Hand Smoke Exposure: No Use of substances other than those prescribed or required for medical reasons: Unknown Advance Directives: Yes Advance Directives on File: Yes Advance Directives Date on File: 04/01/23 service: Yes Current occupational status: unemployed Physical Exam ED Vital Signs: Vital Signs - 24 hr 04/12/25 07:22 04/12/25 07:26 04/12/25 08:02 Temperature 97.1 F Pulse Rate 74 Respiratory Rate 12 Blood Pressure 105/67 Pulse Oximetry 95 95 Oxygen Delivery Method Room Air Room Air 04/12/25 09:21 04/12/25 10:39 04/12/25 13:16 Temperature 98.1 F Pulse Rate 73 69 75 Respiratory Rate 12 10 L 11 L Blood Pressure 107/77 116/69 142/81 H Pulse Oximetry 95 96 96 Oxygen Delivery Method Room Air Room Air Room Air BMI result Body Mass Index 25.4 Const General: awake, Physically active, confusion, intoxicated appearing and poor hygiene Nutritional Appearance: thin Orientation/consciousness: confusion Limitations: altered mental status HENID Head: Yes normal to inspection, Yes normocephalic and Yes atraumatic General nose exam: Normal external nose present Face and sinus: Yes normal facial exam Mouth: Normal oral and palatal mucosa present, oropharynx normal and moist mucous membranes Throat: Yes posterior oropharynx normal Eyes Other: Pinpoint pupils, reactive General: appearance normal, both eyes and all related structures Eyelids: Yes eyelids normal Conjunctivae: conjunctivae normal Sclerae: sclerae normal Pupils: Equal, round and reactive pupils present EOM: EOMs intact bilaterally Neck Neck: Yes normal visual inspection, Yes full ROM and Yes no lymphadenopathy Lymphatic: no lymphadenopathy noted Chest Chest palpation & inspection: normal inspection of the chest Resp Effort & Inspection: normal respiratory effort and able to speak in complete sentences Auscultation: clear to auscultation bilaterally, no crackles, no rales, no rhonchi and no wheezes Cardio Rate: regular rate Rhythm: regular rhythm Heart sounds: S1 normal heart sound present and S2 normal heart sound present GI Inspection: Yes normal to inspection Skin General skin exam: no rashes or lesions noted Trauma: no lacerations or abrasions Wounds: no wounds Neuro General: moves all extremities and confusion Cranial nerves: Yes Equal, round and reactive pupils present Cognition (Neuro): abnormal cognition Extrem Other: No lower extremity edema. General: Yes normal to inspection Right upper extremity: normal to inspection Left upper extremity: normal to inspection Right lower extremity: normal to inspection Left lower extremity: normal to inspection Medications Administered Generic Name Dose Route Start Last Admin Trade Name Freq PRN Reason Stop Dose Admin Lactated Ringer's 1,000 mls @ 150 mls/hr 04/12/25 14:45 04/12/25 14:48 Lr IVCONT 150 mls/hr .[id number] ALONZO Administration Sodium Chloride 3 ml 04/12/25 16:00 04/12/25 14:49 0.9 % Sodium Chloride Flush 3 Ml Syringe IVFLUSH Not Given QSHIFT ALONZO Discontinued Medications Generic Name Dose Route Start Last Admin Trade Name Freq PRN Reason Stop Dose Admin Diphenhydramine HCl 50 mg 04/12/25 08:09 04/12/25 08:22 Diphenhydramine Hcl 50 Mg/Ml Vial IM 04/12/25 08:10 50 mg ONCE ONE Administration Haloperidol Lactate 5 mg 04/12/25 08:09 04/12/25 08:21 Haloperidol Lactate 5 Mg/Ml Vial IM 04/12/25 08:10 5 mg ONCE ONE Administration Sodium Chloride 2,000 mls @ 999 mls/hr 04/12/25 09:14 04/12/25 12:45 Ns IVCONT 04/12/25 11:14 Infused .Q2H1M ONE Infusion Midazolam HCl 2 mg 04/12/25 08:09 04/12/25 08:22 Midazolam Hcl 2 Mg/2 Ml Vial IM 04/12/25 08:10 2 mg ONCE ONE Administration Medical Decision Making Medical Decision Making [facility] Narrative: This is a 69-year-old male who presents emergency department for evaluation after being found on the street. On arrival, vital signs within normal limits. He is moaning, rolling around in stretcher, not alert and oriented. Unable to give a history from patient. Differential diagnoses include substance abuse, intoxication, ICH, metabolic encephalopathy. Will obtain labs, CT head, EKG, IVF. Will continue to closely monitor. He is protecting his airway however given irritability, thrashing, patient medicated with Haldol, Versed, and Benadryl. Course: Lactic acid returns and is elevated at 2.1. He does have a history of seizure disorder - med list showing that he is on keppra. Pt is not tachycardic, afebrile. Will defer antibiotics at this time and will continue to hydrate patient. Sister, Kell called, stating that she has not heard from him or spoken to him in the last 4-5 months. She states that he was previously living at a detention home but was known to have walked out several times. She states that he has a history of substance use disorder. Patient remains to be hemodynamically stable, resting comfortably however remains to be altered. Patient also has a normocytic anemia with an H&H of 12.4/39.9, patient has slight respiratory acidosis at 7.3, bicarb of 27, pCO2 at 54. Patient has significant kidney injury with a creatinine of 3.05, and a BUN of 38, baseline appears to be around 1. Lactic acidosis likely secondary to kidney injury/failure and dehydration and infection is not suspected. Patient does have elevated magnesium at 2.8, AST elevated at 39, ammonia elevated at 64, and CPK elevated at 1103. Discussed with my attending, we will continue to hydrate patient. First troponin 26, will repeat, TSH 1.1, urine does not appear to be infected. Given elevated kidney function, will obtain CT to rule out hydronephrosis/obstructive process Second lactic returns, still remains to be elevated at 2.2, infection is not suspected. He does have a history of seizure disorder. Of note, patient was discharged AMA from [facility] yesterday, we will attempt to get records from [facility]. CT abdomen still pending. 1334 - CT abdomen and pelvis revealing lobulated 3 cm hyperdense mass at the upper pole of the left kidney, suspicious for neoplasm, you do also a 1.6 right adrenal adenoma, and probable dilatation of the pancreatic duct. Chest x-ray unremarkable. At this time, patient is resting comfortably, will be best served on the hospital service for treatment of acute kidney failure, rhabdomyolysis, and altered mental status. Discussed case with hospitalist, transfer of care initiated. Differential Diagnosis Differential Diagnoses: The differential diagnosis associated with the presentation includes See above Admission/Observation Consideration of admission/observation: Escalation of care including admission/observation considered Patient requiring admission. Consult Healthcare Provider Management of the patient was discussed with: Hospitalist Lab Data MDM Lab Attestation statement: I reviewed the patient's lab results. See MDM and course 04/12/25 09:32 04/12/25 09:32 Labs: Lab Results 04/12/25 04/12/25 04/12/25 Range/Units 09:05 09:27 09:32 WBC 8.5 (4.8-10.8) X10*3/uL RBC 4.35 L (4.60-5.80) X10*6/uL Hgb 12.4 L (14.0-18.0) g/dl Hct 39.9 L (42.0-52.0) % MCV 91.7 (80.0-98.0) fL MCH 28.5 (27.0-33.0) pg MCHC 31.1 (31.0-36.0) g/dl RDW 13.4 (11.0-16.0) % Plt Count 200 (160-400) X10*3/uL MPV 10.4 (9.4-12.4) fL Immature Gran % (Auto) 0.5 H (0.0-0.4) % Neut % (Auto) 77.0 H (45-73) % Lymph % (Auto) 12.4 L (20-40) % [place] % (Auto) 9.5 (2-11) % Eos % (Auto) 0.2 (0-4) % Baso % (Auto) 0.4 (0-2) % Lymph # (Auto) 1.1 L (1.2-4.9) X10*3/uL [place] # (Auto) 0.8 (0.1-1.2) X10*3/uL Eos # (Auto) 0.0 (0.0-0.4) X10*3/uL Baso # (Auto) 0.0 (0.0-0.2) X10*3/uL Abs Immat Gran (auto) 0.04 H (0.00-0.03) X10*3/uL Absolute Neuts (auto) 6.5 (2.0-8.3) x10*3/uL Absolute Nucleated RBC 0.000 (0.0-0.012) X10*3/uL Nucleated RBC % (auto) 0.0 (0.0-0.2) /100WBC VBG pH (7.32-7.43) VBG pCO2 mmHg VBG pO2 mmHg VBG HCO3 (22-26) mmol/L VBG O2 Saturation % VBG Base Excess mmol/L Sodium 139 (135-145) mmol/L Potassium 4.4 (3.3-5.1) mmol/L Chloride 105 (96-108) mmol/L Carbon Dioxide 25 (22-29) mmol/L Anion Gap 13 (12-20) BUN 38 H (9-16) mg/dL Creatinine 3.05 H (0.5-1.4) mg/dL Estim Creat Clear Calc 25.0 Estimated GFR 21 Random Glucose 80 (60-115) mg/dL Lactic Acid 2.1 H* (0.5-2.0) mmol/L Lactic Acid F/U @ 2Hr (0.5-2.0) mmol/L Calcium 9.0 D (8.4-10.2) mg/dL Phosphorus 5.1 H (2.7-4.5) mg/dL Magnesium 2.8 H (1.6-2.6) mg/dL Total Bilirubin 0.6 (0.0-1.0) mg/dL Direct Bilirubin 0.3 (0.0-0.5) mg/dL AST 39 H (5-37) U/L ALT 22 (0-40) U/L Alkaline Phosphatase 89 (39-117) U/L Ammonia 64 H (13-55) umol/L Total Creatine Kinase 1103 H (38-174) U/L Troponin I High Sens 26.7 D (<3.5-35.0) ng/L B-Natriuretic Peptide 27 (<100) pg/mL Total Protein 7.7 (6.5-8.0) g/dL Albumin 4.7 (3.5-5.0) g/dL Lipase 16 (8-78) U/L TSH 1.11 (0.32-4.0) uIU/mL Urine Color Dark Yellow Urine Appearance Clear Urine pH 5.5 (5.0-9.0) Ur Specific [place] 1.020 (1.005-1.025) Urine Protein 30 (1+) H (Neg-Trace) mg/dL Urine Glucose (UA) Negative (Negative) mg/dL Urine Ketones Trace (Negative) mg/dL Urine Blood Negative (Negative) Urine Nitrite Negative (Negative) Ur Leukocyte Esterase Negative (Negative) Urine RBC 0-2 (0-2) /HPF Urine WBC 0-5 (0-5) /HPF Ur Squamous Epith Cells 0-2 (0-2) /HPF Urine Bacteria None Seen (None Seen) Hyaline Casts 3-5 (0-2) /LPF Salicylates < 5.0 L (15-30) mg/dL Urine Opiates Screen POSITIVE H (Not Detect) Ur Buprenorphine Scrn Not Detected (Not Detect) ng/mL Ur Oxycodone Screen Positive H (Not Detect) ng/mL Urine Methadone Screen Not Detected (Not Detect) ng/mL Urine Fentanyl Screen POSITIVE H (Not Detect) Acetaminophen < 3 (<30) mcg/mL Ur Barbiturates Screen Not Detected (Not Detect) Ur Phencyclidine Scrn Not Detected (Not Detect) Ur Amphetamines Screen Not Detected (Not Detect) U Benzodiazepines Scrn Not Detected (Not Detect) Urine Cocaine Screen Not Detected (Not Detect) U Marijuana (THC) Screen Not Detected (Not Detect) Ethyl Alcohol < 10 mg/dL Influenza Type A (PCR) NEGATIVE (Negative) Influenza Type B (PCR) NEGATIVE (Negative) RSV RNA Qual (PCR) NEGATIVE (Negative) SARS-CoV-2 RNA (RT-PCR) NEGATIVE (Negative) 04/12/25 04/12/25 04/12/25 Range/Units 09:36 11:33 12:42 WBC (4.8-10.8) X10*3/uL RBC (4.60-5.80) X10*6/uL Hgb (14.0-18.0) g/dl Hct (42.0-52.0) % MCV (80.0-98.0) fL MCH (27.0-33.0) pg MCHC (31.0-36.0) g/dl RDW (11.0-16.0) % Plt Count (160-400) X10*3/uL MPV (9.4-12.4) fL Immature Gran % (Auto) (0.0-0.4) % Neut % (Auto) (45-73) % Lymph % (Auto) (20-40) % [place] % (Auto) (2-11) % Eos % (Auto) (0-4) % Baso % (Auto) (0-2) % Lymph # (Auto) (1.2-4.9) X10*3/uL [place] # (Auto) (0.1-1.2) X10*3/uL Eos # (Auto) (0.0-0.4) X10*3/uL Baso # (Auto) (0.0-0.2) X10*3/uL Abs Immat Gran (auto) (0.00-0.03) X10*3/uL Absolute Neuts (auto) (2.0-8.3) x10*3/uL Absolute Nucleated RBC (0.0-0.012) X10*3/uL Nucleated RBC % (auto) (0.0-0.2) /100WBC VBG pH 7.30 L (7.32-7.43) VBG pCO2 54 mmHg VBG pO2 46 mmHg VBG HCO3 27 H (22-26) mmol/L VBG O2 Saturation 64.0 % VBG Base Excess -0.2 mmol/L Sodium (135-145) mmol/L Potassium (3.3-5.1) mmol/L Chloride (96-108) mmol/L Carbon Dioxide (22-29) mmol/L Anion Gap (12-20) BUN (9-16) mg/dL Creatinine (0.5-1.4) mg/dL Estim Creat Clear Calc Estimated GFR Random Glucose (60-115) mg/dL Lactic Acid (0.5-2.0) mmol/L Lactic Acid F/U @ 2Hr 2.2 H* (0.5-2.0) mmol/L Calcium (8.4-10.2) mg/dL Phosphorus (2.7-4.5) mg/dL Magnesium (1.6-2.6) mg/dL Total Bilirubin (0.0-1.0) mg/dL Direct Bilirubin (0.0-0.5) mg/dL AST (5-37) U/L ALT (0-40) U/L Alkaline Phosphatase (39-117) U/L Ammonia (13-55) umol/L Total Creatine Kinase (38-174) U/L Troponin I High Sens 21.0 (<3.5-35.0) ng/L B-Natriuretic Peptide (<100) pg/mL Total Protein (6.5-8.0) g/dL Albumin (3.5-5.0) g/dL Lipase (8-78) U/L TSH (0.32-4.0) uIU/mL Urine Color Urine Appearance Urine pH (5.0-9.0) Ur Specific [place] (1.005-1.025) Urine Protein (Neg-Trace) mg/dL Urine Glucose (UA) (Negative) mg/dL Urine Ketones (Negative) mg/dL Urine Blood (Negative) Urine Nitrite (Negative) Ur Leukocyte Esterase (Negative) Urine RBC (0-2) /HPF Urine WBC (0-5) /HPF Ur Squamous Epith Cells (0-2) /HPF Urine Bacteria (None Seen) Hyaline Casts (0-2) /LPF Salicylates (15-30) mg/dL Urine Opiates Screen (Not Detect) Ur Buprenorphine Scrn (Not Detect) ng/mL Ur Oxycodone Screen (Not Detect) ng/mL Urine Methadone Screen (Not Detect) ng/mL Urine Fentanyl Screen (Not Detect) Acetaminophen (<30) mcg/mL Ur Barbiturates Screen (Not Detect) Ur Phencyclidine Scrn (Not Detect) Ur Amphetamines Screen (Not Detect) U Benzodiazepines Scrn (Not Detect) Urine Cocaine Screen (Not Detect) U Marijuana (THC) Screen (Not Detect) Ethyl Alcohol mg/dL Influenza Type A (PCR) (Negative) Influenza Type B (PCR) (Negative) RSV RNA Qual (PCR) (Negative) SARS-CoV-2 RNA (RT-PCR) (Negative) Independent Interpretation I performed an independent interpretation of an: EKG Interpretation: EKG normal sinus rhythm at a ventricular rate of 76 beats per minute, CA interval 180, QT QTC 426, 479, no STEMI. Radiology Impression Discussion of test interpretation with radiology: I have reviewed the radiologist's reading. Radiologist Impression: EXAMINATION: XR CHEST CLINICAL INFORMATION: AMS COMPARISON: None available. TECHNIQUE: Frontal view of the chest was obtained. FINDINGS: Mild elevated right hemidiaphragm. The cardiac, hilar, and mediastinal contours are normal. Mild aortic mural calcification. The lungs appear clear bilaterally. No pneumothorax or effusion. No focal osseous or soft tissue abnormality. XR/XR chest 1V IMPRESSION: No active pulmonary disease. Electronically signed by: Jayy Mendoza MD 04/12/2025 11:41 AM EDT RP Dictated By: Jayy Mnedoza MD FINDINGS: LOWER CHEST: The visualized lung bases are clear. There is no pleural effusion. CARDIOVASCULATURE: The heart is normal in size. There is no pericardial effusion. LIVER: The liver is normal in size and contour. The liver has an unremarkable unenhanced appearance. GALLBLADDER / BILE DUCTS: The gallbladder is unremarkable. There is no intra or extrahepatic biliary ductal dilatation. SPLEEN: The spleen is normal in size and has an unremarkable unenhanced appearance. PANCREAS: There is probable dilatation of the pancreatic duct. Evaluation is limited on this unenhanced examination. ADRENAL GLANDS: There is a 1.6 cm right adrenal nodule which measures 7.5 HU in density, compatible with an adenoma. The left adrenal gland is unremarkable. KIDNEYS/RETROPERITONEUM: No renal calculi are identified. There is no hydronephrosis. There is a lobulated 3.0 cm hyperdense (37 HU) mass at the upper pole of the left kidney. LYMPH NODES: There are multiple subcentimeter para-aortic lymph nodes which are more notable for number than size. VASCULATURE: The abdominal aorta is normal in caliber. MESENTERY/PERITONEUM: No free fluid. No masses. There is no free intraperitoneal gas. STOMACH: The stomach is collapsed, limiting evaluation. SMALL BOWEL: The small bowel is normal in caliber. COLON: The colon is unremarkable. APPENDIX: Normal. URINARY BLADDER/PELVIC ORGANS: Portions of the urinary bladder are obscured by streak artifact from a left total hip arthroplasty. The prostate is normal in size. 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 CT/CT abdomen pelvis wo IV con IMPRESSION: 1. Lobulated 3.0 cm hyperdense mass at the upper pole of the left kidney, suspicious for neoplasm. Renal protocol CT or MRI is recommended. 2. 1.6 cm right adrenal adenoma. 3. Probable dilatation of the pancreatic duct. This could also be evaluated at the time of renal protocol CT or MRI. Electronically signed by: Tung Pfeiffer MD 04/12/2025 11:45 AM EDT RP Dictated By: Tung Pfeiffer MD Chronic Conditions Patient?s care impacted by: Other (Polysubstance abuse) Social Determinants Patient?s care significantly limited by Social Determinants of Health including: Inadequate housing Critical Care Time Critical Care Time Critical Care Time: Yes Total Critical Care Time: 57 Attestation: I have personally provided critical care time exclusive of time spent on separately billable procedures. Time includes review of lab data, radiology results, discussion with consultants, and monitoring for potential decompensation. Intervention performed as documented. Discharge Plan Discharge Clinical Impression: Acute kidney failure, Mental status alteration, Elevated CPK
--- NOTE | 2025-04-12 08:05 | ECG_ITS ---
Test Reason : ams Blood Pressure : */* mmHG Vent. Rate : 76 BPM Atrial Rate : 76 BPM P-R Int : 180 ms QRS Dur : 88 ms QT Int : 426 ms P-R-T Axes : 72 -30 -19 degrees QTcB Int : 479 ms Normal sinus rhythm Left axis deviation Possible Lateral infarct , age undetermined Abnormal ECG When compared with ECG of 26-Jun-2023 13:46, Criteria for Septal infarct are no longer Present No significant change was found Referred By: Libia Dickerson Electronically Signed By: NICHOL SWARTZ MD
[2025-04-12] MEDS: Haloperidol Lactate 5 MG/ML VIAL IM (08:21)
[2025-04-12] MEDS: Midazolam HCl 2 MG/2 ML VIAL IM (08:22)
[2025-04-12] MEDS: diphenhydrAMINE HCL 50 MG/ML VIAL IM (08:22)
--- NOTE | 2025-04-12 08:26 | PC.NURSE ---
Pt medicated as charted to assist with presentation. Other interventions needed pending effect from meds given.
[2025-04-12] MEDS: 0.9 % Sodium Chloride 2,000 ML 999 ML IVCONT (09:19)
[2025-04-12 09:20] LABS: Ammonia 64 umol/L (13-55)
[2025-04-12 09:31] LABS: Lactic Acid 2.1 mmol/L (0.5-2.0)
[2025-04-12 09:34] LABS: Ethanol < 10 mg/dL
[2025-04-12 09:37] LABS: Venous Blood Gas Refer to POC result
[2025-04-12 09:39] LABS: MANUAL DIFF FLAG NO
[2025-04-12 09:40] LABS: VBG Base Excess -0.2 mmol/L; VBG HCO3 27 mmol/L (22-26); VBG pCO2 54 mmHg; VBG pO2 46 mmHg
[2025-04-12 09:41] LABS: Basophils Percent Auto 0.4 % (0-2); Eosinophils Percent Auto 0.2 % (0-4); Hematocrit 39.9 % (42.0-52.0); Hemoglobin 12.4 g/dl (14.0-18.0); Imm Gran Abs Auto 0.04 X10*3/uL (0.00-0.03); Imm Gran Pct Auto 0.5 % (0.0-0.4); Lymphocytes Absolute Auto 1.1 X10*3/uL (1.2-4.9); Lymphocytes Percent Auto 12.4 % (20-40); Mean Corpuscular HGB Conc 31.1 g/dl (31.0-36.0); Mean Corpuscular Hemoglobin 28.5 pg (27.0-33.0); Mean Corpuscular Volume 91.7 fL (80.0-98.0); Mean Platelet Volume 10.4 fL (9.4-12.4); Monocytes Absolute Auto 0.8 X10*3/uL (0.1-1.2); Monocytes Percent Auto 9.5 % (2-11); Neutrophils Absolute Auto 6.5 x10*3/uL (2.0-8.3); Platelet Count 200 X10*3/uL (160-400); Red Blood Count 4.35 X10*6/uL (4.60-5.80); Red Cell Distribution Width 13.4 % (11.0-16.0); White Blood Count 8.5 X10*3/uL (4.8-10.8)
[2025-04-12 09:42] LABS: Appearance Urine Clear; Color Urine Dark Yellow; Glucose Urine UA Negative (Negative); Leukocyte Esterase Urine Negative (Negative); Nitrite Urine Negative (Negative); PH 5.5 (5.0-9.0); UMIC TRIGGER UACC YES; Urine Blood Negative (Negative); Urine Ketones Trace mg/dL (Negative); Urine Protein 30 (1+) mg/dL (Neg-Trace)
[2025-04-12 09:48] LABS: Thyroid Stimulating Hormone 1.11 uIU/mL (0.32-4.0)
--- NOTE | 2025-04-12 09:48 | PC.NURSE ---
+ effect from meds given. Plan of care initiated. Pt out of room for CT scan at this time. Vitals remain stable. Difficult stick, able to place 22g to right wrist. Fluids infusing.
[2025-04-12 09:55] LABS: Bacteria Urine None Seen (None Seen); RBC Urine 0-2 /HPF (0-2); Squamous Epithelial Cell Urine 0-2 /HPF (0-2); WBC Urine 0-5 /HPF (0-5)
[2025-04-12 10:00] LABS: B Type Natriuretic Peptide 27 pg/mL (<100)
[2025-04-12 10:07] LABS: Alanine Aminotransferase 22 U/L (0-40); Albumin Level 4.7 g/dL (3.5-5.0); Alkaline Phosphatase 89 U/L (39-117); Anion Gap 13 (12-20); Aspartate Amino Transferase 39 U/L (5-37); Bilirubin Direct 0.3 mg/dL (0.0-0.5); Bilirubin Total 0.6 mg/dL (0.0-1.0); Blood Urea Nitrogen 38 mg/dL (9-16); Carbon Dioxide 25 mmol/L (22-29); Chloride 105 mmol/L (96-108); Estimated Glomerular Filt Rate 21; Glucose Random 80 mg/dL (60-115); Lipase 16 U/L (8-78); Magnesium 2.8 mg/dL (1.6-2.6); Potassium 4.4 mmol/L (3.3-5.1); Sodium 139 mmol/L (135-145); Total Protein 7.7 g/dL (6.5-8.0)
[2025-04-12 10:08] LABS: Acetaminophen LAB < 3 mcg/mL (<30); Salicylate < 5.0 mg/dL (15-30)
[2025-04-12 10:09] LABS: Amphetamine Screen Urine Not Detected (Not Detect); Barbiturates, Urine Not Detected (Not Detect); Benzodiazepines Screen Urine Not Detected (Not Detect); Buprenorphine Scr Not Detected (Not Detect); Cannabinoid Screen Urine Not Detected (Not Detect); Cocaine Screen Urine Not Detected (Not Detect); Fentanyl, urine POSITIVE (Not Detect); Methadone Screen, Urine Not Detected (Not Detect); Opiate Screen Urine POSITIVE (Not Detect); Oxycodone Screen Urine Positive (Not Detect); Phencyclidine Screen Urine Not Detected (Not Detect)
[2025-04-12 10:16] LABS: Troponin-I High Sensitivity 26.7 ng/L (<3.5-35.0)
[2025-04-12 10:25] LABS: Influenza A PCR NEGATIVE (Negative); Influenza B PCR NEGATIVE (Negative); Resp Syncy Virus RNA Qual PCR NEGATIVE (Negative); SARS COV2 PCR INHOUSE NEGATIVE (Negative)
[2025-04-12 11:08] LABS: Reflex Lactate? Lactic Acid Added
[2025-04-12 12:06] LABS: ~Lactic Acid-LAB USE ONLY 2.2 mmol/L (0.5-2.0)
--- NOTE | 2025-04-12 13:09 | PC.NURSE ---
Call from preparation room worker Antonia [phone] who states pt was just section 35'd on 04/05 and then sent to [facility] on 04/07 but left AMA on 04/11 in which at that time pt was getting worked up for Leukemia diagnosis. Pt has h/o of heroin abuse and has overdosed while admitted in [facility] x 3. Belongings removed from room and placed in frank port (in the corner) with cane. She states pt an become agitated when awake At this time pt remains asleep, repeat Troponin sent. Fluids completed. VSS
--- NOTE | 2025-04-12 13:29 | MHC.EDTECH ---
pt belongings is in the frank port, pt stuff is in the corner with pt black cane.
[2025-04-12 13:37] LABS: Reflex Lactate? 2 Y
[2025-04-12 14:22] LABS: ~Lactic Acid-LAB USE ONLY 2.4 mmol/L (0.5-2.0)
--- NOTE | 2025-04-12 14:41 | MHC.EDTECH ---
pt belongings is in the frank port, pt stuff is in the corner with pt black cane on the floor towards the right!
[2025-04-12] MEDS: Lactated Ringers 1,000 ML 150 ML IVCONT ×2 (14:48→21:15)
--- NOTE | 2025-04-12 15:35 | PHA.MEDREC ---
Addendum entered by Edvin Sarah [facility] 04/12/25 15:45: med rec reviewed Original Note: Pharmacy Consult ? Medication Reconciliation Pharmacy has completed the medication reconciliation. Was not able to speak with pt per nursing(pt aggressive and poor historian) . I tired pt's sister, Kell, but her phone number was not in service. I found pt outreach workers (Antonia) phone number and I gave her a call to see if she could confirm the medications and Antonia informed me the pt has been in a rehab facility for the last 2-3 months and Antonia has not seen the pt since and her list she had was outdated but she was able to confirm what she thinks the pt should still be taking and I utilized claims to confirm the rest of the med rec.
--- NOTE | 2025-04-12 16:51 | PM.IMHP ---
History of Present Illness Date of Service: 04/12/25 Attending physician on admission: Kali Bronson Chief Complaint: Found on street by bystanders Dewey Antoine is a 69 years old man brought to the ED after he was found by bystanders active strange, groaning and stiff. I could not obtain any information from the patient as he was sedated after receiving IV benzos and Haldol. Per ED, the patient was very irritable and running around in the stretcher. He also was found to have fecal incontinence According to chart he has history of poorly controlled hypertension, seizure disorder, CVA, paroxysmal SVT and substance abuse. In the ED, he was found to have stable vital signs. Blood workup showed no leukocytosis. Hemoglobin is 12.4 which is around baseline. Platelets are normal. Venous blood gas showed mild acidosis 7.30, pCO2 54 and HC03 27. There are no significant electrolyte imbalances this is a 4 elevated magnesium. Creatinine is 3.05 (0.97 in 202). There is mild lactic acidosis. Troponin is negative x2 and LFTs are normal. TSH is 1.11. Total CK is 1103. Urinalysis showed proteinuria with no evidence of UTI or hematuria. Urine toxicology is positive for opiates, oxycodone and fentanyl. Viral testing for COVID-19, influenza and RSV is negative. Head CT scan showed no acute intracranial abnormality. Abdominal CT scan showed lobulated 3.0 cm mass in the upper pole of the left kidney suspicious for neoplasm, 1.6 cm right adrenal adenoma and profile dilatation of pancreatic ducts. CXR is negative. ED tx: Naloxone 4 mg nostril, Haldol 5 mg IM, Versed 2 mg IM, Benadryl 50 mg IM, NS 2 L bolus Review of Systems Review of Systems: Yes Unobtainable due to mental status [facility] Medical History Noncompliance with medication regimen Depressive disorder Physical deconditioning Seizure Uncontrolled hypertension Recurrent major depression-severe No pertinent past medical history CHIOMA (acute kidney injury) Cerebrovascular accident Family History Mother No problems noted. Father No problems noted. Surgical History History of left hip replacement Social History Household Members: None Housing: Apartment Do you presently have visiting nurse or other home services: No Unable to assess alcohol history related to: Unknown Alcohol intake: unknown Comment: 1:1 sitter Patient Tobacco Use Status: Former Tobacco user Tobacco use type: Cigarette Cigarette Packs Per Day: 10 Second Hand Smoke Exposure: No Use of substances other than those prescribed or required for medical reasons: Unknown Advance Directives: Yes Advance Directives on File: Yes Advance Directives Date on File: 04/01/23 service: Yes Current occupational status: unemployed Meds Allergies Allergy/AdvReac Type Severity Reaction Status Date / Time fish derived [FISH] Allergy Unknown UNKNOWN Verified 04/12/25 07:25 morphine [MORPHINE] Allergy Unknown UNKNOWN Verified 04/12/25 07:25 cheese Allergy Anaphylaxis Uncoded 01/07/23 16:24 Active Medications: Current Medications Heparin Sodium (Porcine) (Heparin Sodium,Porcine 5,000 Unit/Ml Vial) 5,000 unit SUBCUT Q12H [facility] Lactated Ringer's (Lr) 1,000 mls @ 150 mls/hr IVCONT .Q6H40M [facility] Last Admin: 04/12/25 14:48 Dose: 150 mls/hr Melatonin (Melatonin 3 Mg Tablet) 6 mg PO BEDTIME PRN PRN Reason: Insomnia Sodium Chloride (0.9 % Sodium Chloride Flush 3 Ml Syringe) 3 ml IVFLUSH QSHIFT [facility] Last Admin: 04/12/25 14:49 Dose: Not Given Home Medications ?Medication ?Instructions ?Recorded ?Confirmed ?Last Taken ?Type aripiprazole 2 mg tablet 2 mg PO DAILY 04/12/25 04/12/25 Unknown History carvedilol 3.125 mg tablet 3.125 mg PO BID 04/12/25 04/12/25 Unknown History hydralazine 25 mg tablet 25 mg PO BID 04/12/25 04/12/25 Unknown History mirtazapine 30 mg tablet 30 mg PO BEDTIME 04/12/25 04/12/25 Unknown History naproxen 500 mg tablet 500 mg PO BID 04/12/25 04/12/25 Unknown History Physical Exam Vital Signs and Narrative: Vital Signs: Last Vital Signs Temp 98.1 F 04/12/25 13:16 Pulse 75 04/12/25 13:16 Resp 11 L 04/12/25 13:16 BP 142/81 H 04/12/25 13:16 Pulse Ox 96 04/12/25 13:16 O2 Del Method Room Air 04/12/25 13:16 BMI result Body Mass Index 25.4 Constitutional - Sedated. Sleeping. Easy to arouse but falls asleep immediately. HEENT - PERRL. Normal sclerae. Dry oral mucosa. Heart - S1S2, RRR, No murmurs Lungs - Normal lung expansion, Normal respiratory effort, No respiratory distress, CTA bilaterally Abdomen - NT / ND; +BS; No rebound or guarding Extremities - no calf tenderness bilaterally, no swelling Musculoskeletal - Normal inspection, normal ROM Skin - Warm/Dry Neurological - Sedated, sleeping. Psychological - Sedated. Results Labs 04/12/25 09:32 04/12/25 09:32 Labs: Laboratory Results - last 24 hr 04/12/25 04/12/25 04/12/25 09:05 09:27 09:32 MCV 91.7 MCH 28.5 MCHC 31.1 RDW 13.4 Plt Count 200 MPV 10.4 Immature Gran % (Auto) 0.5 H Neut % (Auto) 77.0 H Lymph % (Auto) 12.4 L Mccormick % (Auto) 9.5 Eos % (Auto) 0.2 Baso % (Auto) 0.4 Lymph # (Auto) 1.1 L Mccormick # (Auto) 0.8 Eos # (Auto) 0.0 Baso # (Auto) 0.0 Abs Immat Gran (auto) 0.04 H Absolute Neuts (auto) 6.5 Absolute Nucleated RBC 0.000 Nucleated RBC % (auto) 0.0 VBG pH VBG pCO2 VBG pO2 VBG HCO3 VBG O2 Saturation VBG Base Excess Anion Gap 13 Estim Creat Clear Calc 25.0 Estimated GFR 21 Random Glucose 80 Lactic Acid 2.1 H* Lactic Acid F/U @ 2Hr Lactic Acid F/U @ 4Hr Calcium 9.0 D Magnesium 2.8 H Total Bilirubin 0.6 Direct Bilirubin 0.3 AST 39 H ALT 22 Alkaline Phosphatase 89 Ammonia 64 H Total Creatine Kinase 1103 H Troponin I High Sens 26.7 D B-Natriuretic Peptide 27 Total Protein 7.7 Albumin 4.7 Lipase 16 TSH 1.11 Urine Color Dark Yellow Urine Appearance Clear Urine pH 5.5 Ur Specific [place] 1.020 Urine Protein 30 (1+) H Urine Glucose (UA) Negative Urine Ketones Trace Urine Blood Negative Urine Nitrite Negative Ur Leukocyte Esterase Negative Urine RBC 0-2 Urine WBC 0-5 Ur Squamous Epith Cells 0-2 Urine Bacteria None Seen Hyaline Casts 3-5 Salicylates < 5.0 L Urine Opiates Screen POSITIVE H Ur Buprenorphine Scrn Not Detected Ur Oxycodone Screen Positive H Urine Methadone Screen Not Detected Urine Fentanyl Screen POSITIVE H Acetaminophen < 3 Ur Barbiturates Screen Not Detected Ur Phencyclidine Scrn Not Detected Ur Amphetamines Screen Not Detected U Benzodiazepines Scrn Not Detected Urine Cocaine Screen Not Detected U Marijuana (THC) Screen Not Detected Ethyl Alcohol < 10 Influenza Type A (PCR) NEGATIVE Influenza Type B (PCR) NEGATIVE RSV RNA Qual (PCR) NEGATIVE SARS-CoV-2 RNA (RT-PCR) NEGATIVE 04/12/25 04/12/25 04/12/25 09:36 11:33 12:42 MCV MCH MCHC RDW Plt Count MPV Immature Gran % (Auto) Neut % (Auto) Lymph % (Auto) Mccormick % (Auto) Eos % (Auto) Baso % (Auto) Lymph # (Auto) Mccormick # (Auto) Eos # (Auto) Baso # (Auto) Abs Immat Gran (auto) Absolute Neuts (auto) Absolute Nucleated RBC Nucleated RBC % (auto) VBG pH 7.30 L VBG pCO2 54 VBG pO2 46 VBG HCO3 27 H VBG O2 Saturation 64.0 VBG Base Excess -0.2 Anion Gap Estim Creat Clear Calc Estimated GFR Random Glucose Lactic Acid Lactic Acid F/U @ 2Hr 2.2 H* Lactic Acid F/U @ 4Hr Calcium Magnesium Total Bilirubin Direct Bilirubin AST ALT Alkaline Phosphatase Ammonia Total Creatine Kinase Troponin I High Sens 21.0 B-Natriuretic Peptide Total Protein Albumin Lipase TSH Urine Color Urine Appearance Urine pH Ur Specific [place] Urine Protein Urine Glucose (UA) Urine Ketones Urine Blood Urine Nitrite Ur Leukocyte Esterase Urine RBC Urine WBC Ur Squamous Epith Cells Urine Bacteria Hyaline Casts Salicylates Urine Opiates Screen Ur Buprenorphine Scrn Ur Oxycodone Screen Urine Methadone Screen Urine Fentanyl Screen Acetaminophen Ur Barbiturates Screen Ur Phencyclidine Scrn Ur Amphetamines Screen U Benzodiazepines Scrn Urine Cocaine Screen U Marijuana (THC) Screen Ethyl Alcohol Influenza Type A (PCR) Influenza Type B (PCR) RSV RNA Qual (PCR) SARS-CoV-2 RNA (RT-PCR) 04/12/25 13:50 MCV MCH MCHC RDW Plt Count MPV Immature Gran % (Auto) Neut % (Auto) Lymph % (Auto) Mccormick % (Auto) Eos % (Auto) Baso % (Auto) Lymph # (Auto) Mccormick # (Auto) Eos # (Auto) Baso # (Auto) Abs Immat Gran (auto) Absolute Neuts (auto) Absolute Nucleated RBC Nucleated RBC % (auto) VBG pH VBG pCO2 VBG pO2 VBG HCO3 VBG O2 Saturation VBG Base Excess Anion Gap Estim Creat Clear Calc Estimated GFR Random Glucose Lactic Acid Lactic Acid F/U @ 2Hr Lactic Acid F/U @ 4Hr 2.4 H* Calcium Magnesium Total Bilirubin Direct Bilirubin AST ALT Alkaline Phosphatase Ammonia Total Creatine Kinase Troponin I High Sens B-Natriuretic Peptide Total Protein Albumin Lipase TSH Urine Color Urine Appearance Urine pH Ur Specific [place] Urine Protein Urine Glucose (UA) Urine Ketones Urine Blood Urine Nitrite Ur Leukocyte Esterase Urine RBC Urine WBC Ur Squamous Epith Cells Urine Bacteria Hyaline Casts Salicylates Urine Opiates Screen Ur Buprenorphine Scrn Ur Oxycodone Screen Urine Methadone Screen Urine Fentanyl Screen Acetaminophen Ur Barbiturates Screen Ur Phencyclidine Scrn Ur Amphetamines Screen U Benzodiazepines Scrn Urine Cocaine Screen U Marijuana (THC) Screen Ethyl Alcohol Influenza Type A (PCR) Influenza Type B (PCR) RSV RNA Qual (PCR) SARS-CoV-2 RNA (RT-PCR) Imaging Radiologist's Impressions: Impressions Head CT 04/12/25 08:48 IMPRESSION: No acute intracranial abnormality. Electronically signed by: Tung Pfeiffer MD 04/12/2025 10:18 AM EDT Abdomen/Pelvis CT 04/12/25 10:15 IMPRESSION: 1. Lobulated 3.0 cm hyperdense mass at the upper pole of the left kidney, suspicious for neoplasm. Renal protocol CT or MRI is recommended. 2. 1.6 cm right adrenal adenoma. 3. Probable dilatation of the pancreatic duct. This could also be evaluated at the time of renal protocol CT or MRI. Electronically signed by: Tung Pfeiffer MD 04/12/2025 11:45 AM EDT Chest X-Ray 04/12/25 10:22 IMPRESSION: No active pulmonary disease. Electronically signed by: Jayy Mendoza MD 04/12/2025 11:41 AM EDT RP Assessment and Plan (1) Acute kidney failure: Qualifiers: Acute renal failure type: unspecified Qualified Code(s): N17.9 - Acute kidney failure, unspecified Status: Acute (2) Rhabdomyolysis: Qualifiers: Rhabdomyolysis type: traumatic Encounter type: initial encounter Qualified Code(s): T79.6XXA - Traumatic ischemia of muscle, initial encounter Status: Acute Plan Dewey Antoine is a 69 years old man admitted with: Acute kidney injury secondary to rhabdomyolysis. Admit to hospitalist service. Aggressive IV hydration. Hold lisinopril. Continue to monitor total CK. Nephrology consult. Mildly elevated lactate, likely secondary to above. No criteria for sepsis. Continue IV fluids. Essential hypertension. Continue amlodipine, carvedilol and hydralazine. Opiate abuse. COWS. Valium IV as needed. Addiction medicine consult. Hyperlipidemia. Continue statin. Seizure disorder. Continue levetiracetam. DVT prophylaxis: Heparin Code status: Full Patient will need hospitalization for at least 2 midnights for CHIOMA secondary to rhabdomyolysis treatment with IV fluids and evaluation by specialists. Quality Stroke Does the patient have a stroke diagnosis?: No VTE Prior VTE?: No VTE Risk Level:: Medical - moderate - high VTE Device Contraindication: Treatment Not Indicated VTE Drug Contraindication: N/A - Med Ordered
[2025-04-12 17:31] LABS: Phosphorus 5.1 mg/dL (2.7-4.5)
[2025-04-12 17:43] LABS: Cancel Lactic Acid Canceled
--- NOTE | 2025-04-12 17:50 | PC.NURSE ---
Pt awoke, assisted to use urinal and voided 500ml of dark urine. Requesting coffee but informed pt is NPO at this time. Linens changed and pt assisted back to bed. FLuids continue to infuse
--- NOTE | 2025-04-12 18:30 | P.CNUR_ITS ---
History of Present Illness Consult details Consult date: 04/12/25 Narrative: Dewey Antoine is a 69 years old man brought to the ED after he was found by bystanders due to acting strange. Past medical history--poorly controlled hypertension, seizure disorder, CVA, paroxysmal SVT and substance abuse. In the ED, labs: Creatinine 3.05, elevated lactic acid, urinalysis negative for blood or indication of UTI. Urinalysis showed proteinuria. Urine toxicology is positive for opiates, oxycodone and fentanyl. CTAP-Lobulated 3.0 cm hyperdense mass at the upper pole of the left kidney, suspicious for neoplasm. 1.6 cm right adrenal adenoma. Prostate normal size. Review of Systems 2 Review of Systems: Yes Unobtainable due to mental status PMF[facility] Past Medical History Medical History CHIOMA (acute kidney injury) Noncompliance with medication regimen Depressive disorder Physical deconditioning Seizure Uncontrolled hypertension Recurrent major depression-severe No pertinent past medical history Cerebrovascular accident Family History Family History Mother No problems noted. Father No problems noted. Surgical History Surgical History History of left hip replacement Social History Social History Household Members: None Housing: Homeless Do you presently have visiting nurse or other home services: No Unable to assess alcohol history related to: Unknown Alcohol intake: unknown Comment: 1:1 sitter Patient Tobacco Use Status: Former Tobacco user Tobacco use type: Cigarette Cigarette Packs Per Day: 10 Second Hand Smoke Exposure: No Advance Directives: Yes Advance Directives on File: Yes Advance Directives Date on File: 04/01/23 service: No Current occupational status: unemployed Meds Allergies Allergy/AdvReac Type Severity Reaction Status Date / Time fish derived [FISH] Allergy Unknown UNKNOWN Verified 04/14/25 13:20 morphine [MORPHINE] Allergy Unknown UNKNOWN Verified 04/14/25 13:20 cheese Allergy Anaphylaxis Uncoded 01/07/23 16:24 Active Medications: Current Medications Amlodipine Besylate (Amlodipine Besylate 10 Mg Tablet) 10 mg PO DAILY [facility]; Protocol Aripiprazole (Aripiprazole 2 Mg Tablet) 2 mg PO DAILY [facility] Atorvastatin Calcium (Atorvastatin Calcium 40 Mg Tablet) 40 mg PO BEDTIME [facility] Carvedilol (Carvedilol 3.125 Mg Tablet) 3.125 mg PO BID [facility]; Protocol Diazepam (Diazepam 10 Mg/2 Ml Cartridge) 10 mg IVPUSH Q6H PRN PRN Reason: Opiate Withdrawal Haloperidol Lactate (Haloperidol Lactate 5 Mg/Ml Vial) 5 mg IM ONCE PRN PRN Reason: agitation Heparin Sodium (Porcine) (Heparin Sodium,Porcine 5,000 Unit/Ml Vial) 5,000 unit SUBCUT Q12H [facility] Hydralazine HCl (Hydralazine Hcl 25 Mg Tablet) 25 mg PO BID [facility]; Protocol Lactated Ringer's (Lr) 1,000 mls @ 150 mls/hr IVCONT .Q6H40M [facility] Last Admin: 04/12/25 14:48 Dose: 150 mls/hr Levetiracetam (Keppra) 500 mg in 100 mls @ 400 mls/hr IV ONCE ONE Stop: 04/12/25 21:14 Levetiracetam (Levetiracetam 500 Mg Tablet) 500 mg PO BID [facility] Melatonin (Melatonin 3 Mg Tablet) 6 mg PO BEDTIME PRN PRN Reason: Insomnia Mirtazapine (Mirtazapine 30 Mg Tablet) 30 mg PO BEDTIME [facility] Naproxen (Naproxen 500 Mg Tablet) 500 mg PO BID [facility] Sodium Chloride (0.9 % Sodium Chloride Flush 3 Ml Syringe) 3 ml IVFLUSH QSHIFT [facility] Last Admin: 04/12/25 14:49 Dose: Not Given Home Medications ?Medication ?Instructions ?Recorded ?Confirmed ?Last Taken ?Type naproxen 500 mg tablet 500 mg PO BID 04/12/25 04/12/25 Unknown History Physical Exam 2 Vital Signs: Vital Signs: Last Vital Signs Temp 98.1 F 04/12/25 17:01 Pulse 72 04/12/25 17:01 Resp 16 04/12/25 17:01 BP 115/85 04/12/25 17:01 Pulse Ox 95 04/12/25 17:01 O2 Del Method Room Air 04/12/25 17:01 BMI result Body Mass Index 25.4 Results Labs 04/14/25 06:15 04/14/25 06:15 Labs: Abnormal lab results 0604/12/25 04/12/25 Range/Units 09:05 09:27 09:32 RBC 4.35 L (4.60-5.80) X10*6/uL Hgb 12.4 L (14.0-18.0) g/dl Hct 39.9 L (42.0-52.0) % Immature Gran % (Auto) 0.5 H (0.0-0.4) % Neut % (Auto) 77.0 H (45-73) % Lymph % (Auto) 12.4 L (20-40) % Lymph # (Auto) 1.1 L (1.2-4.9) X10*3/uL Abs Immat Gran (auto) 0.04 H (0.00-0.03) X10*3/uL VBG pH (7.32-7.43) VBG HCO3 (22-26) mmol/L BUN 38 H (9-16) mg/dL Creatinine 3.05 H (0.5-1.4) mg/dL Lactic Acid 2.1 H* (0.5-2.0) mmol/L Lactic Acid F/U @ 2Hr (0.5-2.0) mmol/L Lactic Acid F/U @ 4Hr (0.5-2.0) mmol/L Phosphorus 5.1 H (2.7-4.5) mg/dL Magnesium 2.8 H (1.6-2.6) mg/dL AST 39 H (5-37) U/L Ammonia 64 H (13-55) umol/L Total Creatine Kinase 1103 H (38-174) U/L Urine Protein 30 (1+) H (Neg-Trace) mg/dL Salicylates < 5.0 L (15-30) mg/dL Urine Opiates Screen POSITIVE H (Not Detect) Ur Oxycodone Screen Positive H (Not Detect) ng/mL Urine Fentanyl Screen POSITIVE H (Not Detect) 04/12/25 04/12/25 04/12/25 Range/Units 09:36 11:33 13:50 RBC (4.60-5.80) X10*6/uL Hgb (14.0-18.0) g/dl Hct (42.0-52.0) % Immature Gran % (Auto) (0.0-0.4) % Neut % (Auto) (45-73) % Lymph % (Auto) (20-40) % Lymph # (Auto) (1.2-4.9) X10*3/uL Abs Immat Gran (auto) (0.00-0.03) X10*3/uL VBG pH 7.30 L (7.32-7.43) VBG HCO3 27 H (22-26) mmol/L BUN (9-16) mg/dL Creatinine (0.5-1.4) mg/dL Lactic Acid (0.5-2.0) mmol/L Lactic Acid F/U @ 2Hr 2.2 H* (0.5-2.0) mmol/L Lactic Acid F/U @ 4Hr 2.4 H* (0.5-2.0) mmol/L Phosphorus (2.7-4.5) mg/dL Magnesium (1.6-2.6) mg/dL AST (5-37) U/L Ammonia (13-55) umol/L Total Creatine Kinase (38-174) U/L Urine Protein (Neg-Trace) mg/dL Salicylates (15-30) mg/dL Urine Opiates Screen (Not Detect) Ur Oxycodone Screen (Not Detect) ng/mL Urine Fentanyl Screen (Not Detect) Short CBC 04/12/25 Range/Units 09:32 WBC 8.5 (4.8-10.8) X10*3/uL Hgb 12.4 L (14.0-18.0) g/dl Hct 39.9 L (42.0-52.0) % Plt Count 200 (160-400) X10*3/uL BMP 04/12/25 09:32 Sodium 139 Potassium 4.4 Chloride 105 Carbon Dioxide 25 BUN 38 H Creatinine 3.05 H Calcium 9.0 D Cardiac Enzymes 04/12/25 Range/Units 09:05 Total Creatine Kinase 1103 H (38-174) U/L Liver Function 04/12/25 Range/Units 09:32 Total Bilirubin 0.6 (0.0-1.0) mg/dL Direct Bilirubin 0.3 (0.0-0.5) mg/dL AST 39 H (5-37) U/L ALT 22 (0-40) U/L Alkaline Phosphatase 89 (39-117) U/L Albumin 4.7 (3.5-5.0) g/dL Urine 04/12/25 Range/Units 09:27 Urine Color Dark Yellow Urine Appearance Clear Urine pH 5.5 (5.0-9.0) Ur Specific [place] 1.020 (1.005-1.025) Urine Protein 30 (1+) H (Neg-Trace) mg/dL Urine Glucose (UA) Negative (Negative) mg/dL Imaging Abdomen CT scan report/results: report reviewed and image reviewed CT scan - pelvis: report reviewed and image reviewed Additional studies: Date of Service: 04/12/25 EXAMINATION: CT ABDOMEN PELVIS WITHOUT IV CONTRAST HISTORY: Worsening kidney function COMPARISON: There are no prior studies available for comparison. TECHNIQUE: CT scan of the abdomen and pelvis was performed without contrast using standard departmental protocol. Coronal and sagittal reformatted images were generated and reviewed. Oral contrast material was not administered at the request of the referring physician. This CT exam was performed with one or more of the following dose reduction techniques: automated exposure control, adjustment of the mA and/or kV according to patient size, use of iterative reconstruction technique. DLP: 657 mGy-cm FINDINGS: LOWER CHEST: The visualized lung bases are clear. There is no pleural effusion. CARDIOVASCULATURE: The heart is normal in size. There is no pericardial effusion. LIVER: The liver is normal in size and contour. The liver has an unremarkable unenhanced appearance. GALLBLADDER / BILE DUCTS: The gallbladder is unremarkable. There is no intra or extrahepatic biliary ductal dilatation. SPLEEN: The spleen is normal in size and has an unremarkable unenhanced appearance. PANCREAS: There is probable dilatation of the pancreatic duct. Evaluation is limited on this unenhanced examination. ADRENAL GLANDS: There is a 1.6 cm right adrenal nodule which measures 7.5 HU in density, compatible with an adenoma. The left adrenal gland is unremarkable. KIDNEYS/RETROPERITONEUM: No renal calculi are identified. There is no hydronephrosis. There is a lobulated 3.0 cm hyperdense (37 HU) mass at the upper pole of the left kidney. LYMPH NODES: There are multiple subcentimeter para-aortic lymph nodes which are more notable for number than size. VASCULATURE: The abdominal aorta is normal in caliber. MESENTERY/PERITONEUM: No free fluid. No masses. There is no free intraperitoneal gas. STOMACH: The stomach is collapsed, limiting evaluation. SMALL BOWEL: The small bowel is normal in caliber. COLON: The colon is unremarkable. APPENDIX: Normal. URINARY BLADDER/PELVIC ORGANS: Portions of the urinary bladder are obscured by streak artifact from a left total hip arthroplasty. The prostate is normal in size. 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 IMPRESSION: 1. Lobulated 3.0 cm hyperdense mass at the upper pole of the left kidney, suspicious for neoplasm. Renal protocol CT or MRI is recommended. 2. 1.6 cm right adrenal adenoma. 3. Probable dilatation of the pancreatic duct. This could also be evaluated at the time of renal protocol CT or MRI. Assessment and Plan (1) Renal mass of unknown nature: Status: Acute Plan Patient currently with acute kidney injury. 3 cm left kidney mass needs renal mass protocol CT or MRI when kidney function improves for further assessment. Can be done as outpatient with urology f/u Procedures Date of Service Date of Service: 04/19/25
[2025-04-12] MEDS: NaPROXEN 500 MG TABLET PO (20:04)
[2025-04-12] MEDS: Mirtazapine 30 MG TABLET PO (20:04)
[2025-04-12] MEDS: carvediloL 3.125 MG TABLET PO (20:04)
[2025-04-12] MEDS: levETIRAcetam in NaCl (iso-os) 500 MG/100 ML PIGGYBACK 400 MG IV (20:05)
[2025-04-13] VITALS (9 sets, daily range): BP systolic 119–176; BP diastolic 73–95; PULSE 60–83; RESP 14–20; TEMP 36.5–37.4; O2SAT 93–98; BMI 28.8
[2025-04-13] MEDS: Lactated Ringers 1,000 ML 150 ML IVCONT ×2 (03:44→10:18)
[2025-04-13 05:25] LABS: MANUAL DIFF FLAG NO
[2025-04-13 05:31] LABS: Basophils Percent Auto 0.2 % (0-2); Eosinophils Absolute Auto 0.2 X10*3/uL (0.0-0.4); Eosinophils Percent Auto 3.9 % (0-4); Hematocrit 36.5 % (42.0-52.0); Hemoglobin 11.6 g/dl (14.0-18.0); Imm Gran Abs Auto 0.02 X10*3/uL (0.00-0.03); Imm Gran Pct Auto 0.3 % (0.0-0.4); Lymphocytes Absolute Auto 1.2 X10*3/uL (1.2-4.9); Lymphocytes Percent Auto 20.7 % (20-40); Mean Corpuscular HGB Conc 31.8 g/dl (31.0-36.0); Mean Corpuscular Volume 91.3 fL (80.0-98.0); Neutrophils Absolute Auto 3.4 x10*3/uL (2.0-8.3); Neutrophils Percent Auto 57.9 % (45-73); Platelet Count 196 X10*3/uL (160-400); Red Cell Distribution Width 13.2 % (11.0-16.0); White Blood Count 5.9 X10*3/uL (4.8-10.8)
[2025-04-13 05:52] LABS: Anion Gap 11 (12-20); Blood Urea Nitrogen 27 mg/dL (9-16); Calcium 8.4 mg/dL (8.4-10.2); Carbon Dioxide 24 mmol/L (22-29); Chloride 111 mmol/L (96-108); Creatinine Clr Calc Pharmacy 48.3; Estimated Glomerular Filt Rate 44; Glucose Random 139 mg/dL (60-115); Magnesium 2.4 mg/dL (1.6-2.6); Potassium 4.1 mmol/L (3.3-5.1); Sodium 142 mmol/L (135-145); Uric Acid 7.9 mg/dL (3.4-7.0)
--- NOTE | 2025-04-13 07:34 | PC.NURSE ---
Pt A+OX3; vss@ baseline; pt states when he tries to get OOB, he feels like his legs are weak; IVF's infusing per orders
[2025-04-13] MEDS: Heparin Sodium,Porcine 5,000 UNIT/ML VIAL 5000 UNIT SUBCUT (08:41)
[2025-04-13] MEDS: carvediloL 3.125 MG TABLET PO ×2 (08:42→20:13)
[2025-04-13] MEDS: levETIRAcetam 500 MG TABLET PO ×2 (08:42→20:13)
[2025-04-13] MEDS: amLODIPine Besylate 10 MG TABLET PO (08:43)
[2025-04-13] MEDS: hydrALAZINE HCl 25 MG TABLET PO ×2 (08:43→20:13)
--- NOTE | 2025-04-13 09:15 | PM.CNNEP ---
History of Present Illness Reason for Consult Consult date: 04/13/25 Chief Complaint Chief complaint: Acute Kidney Injury Rhabdomyolysis History of Present Illness Narrative: 69 y/o male with a medical history of HTN, seizures, CVA, paroxysmal SVT, substance abuse. presented 04/12 after being found by bystanders with concern for his behavior- groaning, stiff. urine tox positive for opiates, oxycodone, fentanyl. Nephrology consulted for CHIOMA, rhabdomyolysis. creatinine 3.05 on 04/12, down to 1.58 04/13 after receiving IVF overnight last creatinine on file 0.97 in 2022 CK 1272 patient awake and alert at bedside. States he cannot remember how he got here to the ED. states his breathing is ok, denies chest pain, abdominal pain, flank pain, denies urinary symptoms. states he takes lisinopril at home, also takes ibuprofen occasionally for headaches. States he used to take drugs- cocaine, heroin, and others, but denies any recent use. Review of Systems Constitutional: Reports fatigue Cardiovascular: Denies chest pain, Denies leg edema and Denies dyspnea Respiratory: Denies dyspnea Gastrointestinal: Denies abdominal pain, Denies diarrhea, Denies nausea and Denies vomiting Genitourinary: Denies hematuria, Denies dysuria and Denies flank pain Musculoskeletal: Denies arthralgias and Denies muscle cramps Skin/Breast: Denies rash Denies tremor(s) Endocrine: Reports fatigue PMFSH Past Medical History Medical History (Updated 04/13/25 @ 12:17 by Jackelin Langston, JYOTHI, [employer]-) CHIOMA (acute kidney injury) Noncompliance with medication regimen Depressive disorder Physical deconditioning Seizure Uncontrolled hypertension Recurrent major depression-severe No pertinent past medical history Cerebrovascular accident Family History Family History Mother No problems noted. Father No problems noted. Surgical History Surgical History History of left hip replacement Social History Social History Household Members: None Housing: Apartment Do you presently have visiting nurse or other home services: No Unable to assess alcohol history related to: Unknown Alcohol intake: unknown Comment: 1:1 sitter Patient Tobacco Use Status: Former Tobacco user Tobacco use type: Cigarette Cigarette Packs Per Day: 10 Second Hand Smoke Exposure: No Advance Directives Date on File: 04/01/23 service: Yes Current occupational status: unemployed Meds Allergies Allergy/AdvReac Type Severity Reaction Status Date / Time fish derived [FISH] Allergy Unknown UNKNOWN Verified 04/12/25 07:25 morphine [MORPHINE] Allergy Unknown UNKNOWN Verified 04/12/25 07:25 cheese Allergy Anaphylaxis Uncoded 01/07/23 16:24 Active Medications: Current Medications Amlodipine Besylate (Amlodipine Besylate 10 Mg Tablet) 10 mg PO DAILY [facility]; Protocol Last Admin: 04/13/25 08:43 Dose: 10 mg Aripiprazole (Aripiprazole 2 Mg Tablet) 2 mg PO DAILY [facility] Last Admin: 04/13/25 09:01 Dose: Not Given Atorvastatin Calcium (Atorvastatin Calcium 40 Mg Tablet) 40 mg PO BEDTIME [facility] Carvedilol (Carvedilol 3.125 Mg Tablet) 3.125 mg PO BID [facility]; Protocol Last Admin: 04/13/25 08:42 Dose: 3.125 mg Diazepam (Diazepam 10 Mg/2 Ml Cartridge) 10 mg IVPUSH Q6H PRN PRN Reason: Opiate Withdrawal Haloperidol Lactate (Haloperidol Lactate 5 Mg/Ml Vial) 5 mg IM ONCE PRN PRN Reason: agitation Heparin Sodium (Porcine) (Heparin Sodium,Porcine 5,000 Unit/Ml Vial) 5,000 unit SUBCUT Q12H [facility] Last Admin: 04/13/25 08:41 Dose: 5,000 unit Hydralazine HCl (Hydralazine Hcl 25 Mg Tablet) 25 mg PO BID [facility]; Protocol Last Admin: 04/13/25 08:43 Dose: 25 mg Lactated Ringer's (Lr) 1,000 mls @ 150 mls/hr IVCONT .Q6H40M [facility] Last Admin: 04/13/25 03:44 Dose: 150 mls/hr Levetiracetam (Levetiracetam 500 Mg Tablet) 500 mg PO BID [facility] Last Admin: 04/13/25 08:42 Dose: 500 mg Melatonin (Melatonin 3 Mg Tablet) 6 mg PO BEDTIME PRN PRN Reason: Insomnia Mirtazapine (Mirtazapine 30 Mg Tablet) 30 mg PO BEDTIME [facility] Last Admin: 04/12/25 20:04 Dose: 30 mg Naproxen (Naproxen 500 Mg Tablet) 500 mg PO BID [facility] Last Admin: 04/12/25 20:04 Dose: 500 mg Sodium Chloride (0.9 % Sodium Chloride Flush 3 Ml Syringe) 3 ml IVFLUSH QSHIFT [facility] Last Admin: 04/13/25 07:15 Dose: Not Given Home Medications ?Medication ?Instructions ?Recorded ?Confirmed ?Last Taken ?Type aripiprazole 2 mg tablet 2 mg PO DAILY 04/12/25 04/12/25 Unknown History carvedilol 3.125 mg tablet 3.125 mg PO BID 04/12/25 04/12/25 Unknown History hydralazine 25 mg tablet 25 mg PO BID 04/12/25 04/12/25 Unknown History mirtazapine 30 mg tablet 30 mg PO BEDTIME 04/12/25 04/12/25 Unknown History naproxen 500 mg tablet 500 mg PO BID 04/12/25 04/12/25 Unknown History Physical Exam Vital Signs: Last Vital Signs Temp 98.0 F 04/13/25 05:59 Pulse 72 04/13/25 08:42 Resp 14 04/13/25 05:59 BP 155/93 H 04/13/25 08:43 Pulse Ox 96 04/13/25 05:59 O2 Del Method Room Air 04/13/25 05:59 BMI result Body Mass Index 25.4 Const General: no acute distress, alert and awake Resp Effort & Inspection: normal respiratory effort and able to speak in complete sentences Auscultation: clear to auscultation bilaterally Cardio Rate: regular rate Rhythm: regular rhythm Heart sounds: S1 normal heart sound present and S2 normal heart sound present GI Palpation (GI): Soft to palpation and nontender General: Yes no CVA tenderness Back/Spine/Pelvis Back: no CVA tenderness Skin Rashes: no rashes Extrem General: No edema Results Lab Results 04/13/25 04:21 04/13/25 04:21 Lab results: Chemistry 04/12/25 04/12/25 04/13/25 09:05 09:32 04:21 Sodium 139 142 Potassium 4.4 4.1 Carbon Dioxide 25 24 BUN 38 H 27 H Creatinine 3.05 H 1.58 H Calcium 9.0 D 8.4 D Phosphorus 5.1 H Hematology 04/12/25 04/13/25 09:32 04:21 WBC 8.5 5.9 Hgb 12.4 L 11.6 L Plt Count 200 196 Urinalysis 04/12/25 09:27 Urine Color Dark Yellow Urine Appearance Clear Urine pH 5.5 Ur Specific [place] 1.020 Urine Protein 30 (1+) H Urine Glucose (UA) Negative Urine Ketones Trace Urine Blood Negative Urine Nitrite Negative Ur Leukocyte Esterase Negative Urine RBC 0-2 Urine WBC 0-5 Ur Squamous Epith Cells 0-2 Hyaline Casts 3-5 Assessment and Plan (1) Elevated CPK: Status: Acute (2) CHIOMA (acute kidney injury): Status: Acute Plan CHIOMA likely secondary to hypovolemia given creatinine has improved overnight with hydration Improving. CHIOMA unlikely related to rhabdomyolysis given CK level *recommend outpatient urology follow up for renal mass recommend continued hydration/fluids recommend avoiding nephrotoxins recommend daily renal function and electrolyte panel continue supportive care Discussed with Dr Keenan Procedures Date of Service Date of Service: 04/13/25
--- NOTE | 2025-04-13 12:58 | HO.PM.IMPN ---
Subjective Subjective Date of Service: 04/13/25 Interval History: Seen and evaluated this morning more alert and interactive Cr improving no other overnight events Review of Systems Review of Systems: Yes all other systems are reviewed and are negative Physical Exam Vital Signs: Vital Signs: Last Vital Signs Temp 98.5 F 04/13/25 11:10 Pulse 71 04/13/25 11:10 Resp 16 04/13/25 11:10 BP 170/95 H 04/13/25 11:10 Pulse Ox 97 04/13/25 11:10 O2 Del Method Room Air 04/13/25 11:10 BMI result Body Mass Index 28.8 Const: Other: Constitutional : interactive, not in distress Cardiovascular : no JVP, no lower extremity edema Respiratory : bilateral chest movement, not in resp distress Gastrointestinal: soft, lax, Non tender Skin : Warm, Dry Neurological : Alert & oriented , No focal deficit Objective Data Active Medications Amlodipine Besylate (Amlodipine Besylate 10 Mg Tablet) 10 mg PO DAILY [facility]; Protocol Last Admin: 04/13/25 08:43 Dose: 10 mg Documented By: SRIDHAR Aripiprazole (Aripiprazole 2 Mg Tablet) 2 mg PO DAILY [facility] Last Admin: 04/13/25 09:01 Dose: Not Given Documented By: SRIDHAR Non-Admin Reason: Patient Refused Atorvastatin Calcium (Atorvastatin Calcium 40 Mg Tablet) 40 mg PO BEDTIME [facility] Carvedilol (Carvedilol 3.125 Mg Tablet) 3.125 mg PO BID [facility]; Protocol Last Admin: 04/13/25 08:42 Dose: 3.125 mg Documented By: SRIDHAR Diazepam (Diazepam 10 Mg/2 Ml Cartridge) 10 mg IVPUSH Q6H PRN PRN Reason: Opiate Withdrawal Haloperidol Lactate (Haloperidol Lactate 5 Mg/Ml Vial) 5 mg IM ONCE PRN PRN Reason: agitation Heparin Sodium (Porcine) (Heparin Sodium,Porcine 5,000 Unit/Ml Vial) 5,000 unit SUBCUT Q12H [facility] Last Admin: 04/13/25 08:41 Dose: 5,000 unit Documented By: SRIDHAR Hydralazine HCl (Hydralazine Hcl 25 Mg Tablet) 25 mg PO BID [facility]; Protocol Last Admin: 04/13/25 08:43 Dose: 25 mg Documented By: SRIDHAR Lactated Ringer's (Lr) 1,000 mls @ 150 mls/hr IVCONT .Q6H40M [facility] Last Admin: 04/13/25 10:18 Dose: 150 mls/hr Documented By: SRIDHAR Levetiracetam (Levetiracetam 500 Mg Tablet) 500 mg PO BID [facility] Last Admin: 04/13/25 08:42 Dose: 500 mg Documented By: SRIDHAR Melatonin (Melatonin 3 Mg Tablet) 6 mg PO BEDTIME PRN PRN Reason: Insomnia Mirtazapine (Mirtazapine 30 Mg Tablet) 30 mg PO BEDTIME [facility] Last Admin: 04/12/25 20:04 Dose: 30 mg Documented By: LALITOOPEBrandyn Naproxen (Naproxen 500 Mg Tablet) 500 mg PO BID [facility] Last Admin: 04/12/25 20:04 Dose: 500 mg Documented By: LALITOOPEBrandyn Sodium Chloride (0.9 % Sodium Chloride Flush 3 Ml Syringe) 3 ml IVFLUSH QSHIFT [facility] Last Admin: 04/13/25 07:15 Dose: Not Given Documented By: SRIDHAR Non-Admin Reason: IV Running Labs 04/13/25 04:21 04/13/25 04:21 Labs: Laboratory Results - last 24 hr 04/12/25 04/12/25 04/12/25 09:05 12:42 13:50 MCV MCH MCHC RDW Plt Count MPV Immature Gran % (Auto) Neut % (Auto) Lymph % (Auto) [place] % (Auto) Eos % (Auto) Baso % (Auto) Lymph # (Auto) [place] # (Auto) Eos # (Auto) Baso # (Auto) Abs Immat Gran (auto) Absolute Neuts (auto) Absolute Nucleated RBC Nucleated RBC % (auto) Anion Gap Estim Creat Clear Calc Estimated GFR Random Glucose Lactic Acid F/U @ 4Hr 2.4 H* Uric Acid Calcium Phosphorus 5.1 H Magnesium Total Creatine Kinase Troponin I High Sens 21.0 04/13/25 04:21 MCV 91.3 MCH 29.0 MCHC 31.8 RDW 13.2 Plt Count 196 MPV 10.0 Immature Gran % (Auto) 0.3 Neut % (Auto) 57.9 Lymph % (Auto) 20.7 [place] % (Auto) 17.0 H Eos % (Auto) 3.9 Baso % (Auto) 0.2 Lymph # (Auto) 1.2 [place] # (Auto) 1.0 Eos # (Auto) 0.2 Baso # (Auto) 0.0 Abs Immat Gran (auto) 0.02 Absolute Neuts (auto) 3.4 Absolute Nucleated RBC 0.000 Nucleated RBC % (auto) 0.0 Anion Gap 11 L Estim Creat Clear Calc 48.3 Estimated GFR 44 Random Glucose 139 H Lactic Acid F/U @ 4Hr Uric Acid 7.9 H Calcium 8.4 D Phosphorus Magnesium 2.4 Total Creatine Kinase 1272 H Troponin I High Sens Microbiology Microbiology Results: Microbiology 04/12/25 09:32 Blood Culture - Preliminary Blood - Venous No growth after 24 hours. 04/12/25 09:05 Blood Culture - Preliminary Blood - Venous No growth after 24 hours. Assessment and Plan (1) CHIOMA (acute kidney injury): Status: Acute (2) Renal mass of unknown nature: Status: Acute (3) Rhabdomyolysis: Status: Acute Plan Dewey Antoine is a 69 years old man admitted with: Acute kidney injury Could be secondary to rhabdomyolysis\HTN urgency\Lisinopril Improving continue IV hydration Hold lisinopril. CK trending down Nephrology consult, outpatient urology follow up for renal mass Acute lactic acidosis No criteria for sepsis on IV fluids. Essential hypertension. Continue amlodipine, carvedilol and hydralazine. Opiate abuse. COWS. Valium IV as needed. Addiction medicine consult. Hyperlipidemia. Continue statin. Seizure disorder. Continue levetiracetam. DVT prophylaxis: Heparin Code status: Full Patient will need hospitalization for overnight for CHIOMA treatment with IV fluids and evaluation by specialists. Quality Stroke Does the patient have a stroke diagnosis?: No VTE Prior VTE?: No VTE Risk Level:: Medical - moderate - high VTE Device Contraindication: Treatment Not Indicated VTE Drug Contraindication: N/A - Med Ordered
--- NOTE | 2025-04-13 15:19 | MHC.CM.PN ---
spoke with roro whois the community nurse for the [facility] working out of dr phan payne office she has known pt a long time he was released from a [facility] april 05 ,was at [facility] and left [facility]a april and now is here he has recently overdosed twice while a pt at [facility] ,pt has refused suboxone and methadone treatmnents he was at [facility] and [facility] ..she expects pt to sign out ama from here also suspects that if he has viasitors they are bringing him in drugs ,it is felt he hides them in his cane ,,he gets his drugs in [place] let her know where pt is dcd to or sent
[2025-04-13] MEDS: methADONE HCl 20 MG/2 ML ORAL.CONC PO (17:27)
[2025-04-13] MEDS: Lactated Ringers 1,000 ML 120 ML IVCONT (18:37)
[2025-04-13] MEDS: Atorvastatin Calcium 40 MG TABLET PO (20:13)
[2025-04-13] MEDS: Mirtazapine 30 MG TABLET PO (20:18)
[2025-04-14] MEDS: Lactated Ringers 1,000 ML 120 ML IVCONT (02:36)
[2025-04-14 03:02] VITALS: BP 157/81; PULSE 72; RESP 20; TEMP 36.8; O2SAT 92
[2025-04-14 06:42] LABS: MANUAL DIFF FLAG NO
[2025-04-14 07:09] LABS: Basophils Percent Auto 0.5 % (0-2); Eosinophils Absolute Auto 0.3 X10*3/uL (0.0-0.4); Eosinophils Percent Auto 4.6 % (0-4); Hematocrit 41.2 % (42.0-52.0); Hemoglobin 12.9 g/dl (14.0-18.0); Imm Gran Abs Auto 0.02 X10*3/uL (0.00-0.03); Imm Gran Pct Auto 0.4 % (0.0-0.4); Lymphocytes Absolute Auto 1.8 X10*3/uL (1.2-4.9); Lymphocytes Percent Auto 32.4 % (20-40); Mean Corpuscular HGB Conc 31.3 g/dl (31.0-36.0); Mean Corpuscular Hemoglobin 28.7 pg (27.0-33.0); Mean Corpuscular Volume 91.8 fL (80.0-98.0); Mean Platelet Volume 10.4 fL (9.4-12.4); Monocytes Absolute Auto 0.7 X10*3/uL (0.1-1.2); Neutrophils Absolute Auto 2.7 x10*3/uL (2.0-8.3); Neutrophils Percent Auto 49.1 % (45-73); Platelet Count 221 X10*3/uL (160-400); Red Blood Count 4.49 X10*6/uL (4.60-5.80); Red Cell Distribution Width 13.1 % (11.0-16.0); White Blood Count 5.5 X10*3/uL (4.8-10.8)
[2025-04-14 07:10] LABS: Anion Gap 15 (12-20); Blood Urea Nitrogen 21 mg/dL (9-16); Calcium 9.2 mg/dL (8.4-10.2); Carbon Dioxide 25 mmol/L (22-29); Chloride 106 mmol/L (96-108); Creatinine Clr Calc Pharmacy 68.1; Estimated Glomerular Filt Rate 59; Glucose Random 113 mg/dL (60-115); Potassium 4.3 mmol/L (3.3-5.1); Sodium 142 mmol/L (135-145)
[2025-04-14 07:20] VITALS: BP 143/98; PULSE 67; RESP 15; TEMP 36.5; O2SAT 97
--- NOTE | 2025-04-14 08:20 | P.F2F_ITS ---
Service Date Service Date: 04/14/25 Encounter Date of encounter: 04/14/25 Reasons for Services Signs and symptoms assessed: Physical deconditioning Medications non-compliance Reason for senior care: medication management and teach disease management Reason for physical therapy: home safety and mobility and therapeutic exercises Homebound: Leaving the home is medically contraindicated at this time without the asist of a device and/or another person due th the listed conditions above and below. Reason homebound: unable to drive Certification: Based on the above findings, I certify that this patient is confined to the home and needs intermittent senior care care, physical therapy and/or speech therapy, or continues to need occupational therapy. The patient is under my care, and I have initiated the establishment of the plan of care. The patient will be followed by a physician who will periodically review the plan of care. Time Spent With Patient Time: Total time managing care of this patient today ____ minutes.
--- NOTE | 2025-04-14 08:21 | P.DS_ITS ---
DS: Providers Provider Date of Service: 04/14/25 Date of admission: 04/12/25 13:50 Date of discharge: 04/14/25 Primary care physician: Unknown Physician Consults: 04/12/25 17:14 Consult to Nephrology Routine Consulting Provider: [facility] Reason for consultation: CHIOMA, Rhabdo. Has provider been notified: No Consult to Urology Routine Consulting Provider: [facility] Reason for consultation: CHIOMA, rhabdo, ?left kidney neoplasm. Has provider been notified: No 04/12/25 17:38 Addiction Medicine Provider Routine Consulting Provider: Addiction Covering Reason for consultation: Opiate abuse Has provider been notified: No DS: Diagnosis Discharge Diagnosis (1) CHIOMA (acute kidney injury): Status: Acute (2) Renal mass of unknown nature: Status: Acute (3) Rhabdomyolysis: Status: Acute (4) Mental status alteration: Status: Acute (5) Elevated CPK: Status: Acute DS: Summary Hospital Course Hospital Course: Admission note HPI Dewey Antoine is a 69 years old man brought to the ED after he was found by bystanders active strange, groaning and stiff. I could not obtain any information from the patient as he was sedated after receiving IV benzos and Haldol. Per ED, the patient was very irritable and running around in the stretcher. He also was found to have fecal incontinence According to chart he has history of poorly controlled hypertension, seizure disorder, CVA, paroxysmal SVT and substance abuse. In the ED, he was found to have stable vital signs. Blood workup showed no leukocytosis. Hemoglobin is 12.4 which is around baseline. Platelets are normal. Venous blood gas showed mild acidosis 7.30, pCO2 54 and HC03 27. There are no significant electrolyte imbalances this is a 4 elevated magnesium. Creatinine is 3.05 (0.97 in 2023). There is mild lactic acidosis. Troponin is negative x2 and LFTs are normal. TSH is 1.11. Total CK is 1103. Urinalysis showed proteinuria with no evidence of UTI or hematuria. Urine toxicology is positive for opiates, oxycodone and fentanyl. Viral testing for COVID-19, influenza and RSV is negative. Head CT scan showed no acute intracranial abnormality. Abdominal CT scan showed lobulated 3.0 cm mass in the upper pole of the left kidney suspicious for neoplasm, 1.6 cm right adrenal adenoma and profile dilatation of pancreatic ducts. CXR is negative. ED tx: Naloxone 4 mg nostril, Haldol 5 mg IM, Versed 2 mg IM, Benadryl 50 mg IM, NS 2 L bolus Hospital course The patient was admitted for evaluation of altered mental status. the story was unclear on admission and the patient has no recall of what happened. he reports not taking his seizure medications for sometime though. could be seizure attack and post-ictal statue on admission. improved back to baseline. restarted on K eppra. Script was sent to his pharmacy and he was advised to take his medications. For Acute kidney injury complicated with acute lactic acidosis could be secondary to rhabdomyolysis\HTN urgency\Lisinopril. Improved back to baseline with IV hydration as we Held lisinopril. CK trended down. He was followed by Nephrology team. He will need outpatient urology follow up for renal mass. To be arranged by PCP as he decided to leave the hospital early in the morning and did not want to wait until we finalized his paperwor. Discharge plan Take medications as prescribed Follow with PCP for medications management will need outpatient urology follow up for renal mass Time Attestation Discharge Coordination Time (in mins): 39 Quality: Safe Use of Opioids Does Pt have an Active Cancer Diagnosis on the Problem List?: No Quality: Stroke Does the patient have a stroke diagnosis?: No Physical Exam Vital Signs: Vital Signs: Last Vital Signs Temp 97.7 F 04/14/25 07:20 Pulse 67 04/14/25 07:20 Resp 15 04/14/25 07:20 BP 143/98 H 04/14/25 07:20 Pulse Ox 97 04/14/25 07:20 O2 Del Method Room Air 04/14/25 07:20 BMI result Body Mass Index 28.8 Const: Other: Constitutional : interactive, not in distress Cardiovascular : no JVP, no lower extremity edema Respiratory : bilateral chest movement, not in resp distress Gastrointestinal: soft, lax, Non tender Skin : Warm, Dry Neurological : Alert & oriented , No focal deficit DS: Data Data Completed and Pending Labs on day of discharge: Laboratory Results - last 24 hr 04/14/25 06:15 WBC 5.5 RBC 4.49 L Hgb 12.9 L Hct 41.2 L MCV 91.8 MCH 28.7 MCHC 31.3 RDW 13.1 Plt Count 221 MPV 10.4 Immature Gran % (Auto) 0.4 Neut % (Auto) 49.1 Lymph % (Auto) 32.4 [place] % (Auto) 13.0 H Eos % (Auto) 4.6 H Baso % (Auto) 0.5 Lymph # (Auto) 1.8 [place] # (Auto) 0.7 Eos # (Auto) 0.3 Baso # (Auto) 0.0 Abs Immat Gran (auto) 0.02 Absolute Neuts (auto) 2.7 Absolute Nucleated RBC 0.000 Nucleated RBC % (auto) 0.0 Sodium 142 Potassium 4.3 Chloride 106 Carbon Dioxide 25 Anion Gap 15 BUN 21 H Creatinine 1.23 Estim Creat Clear Calc 68.1 Estimated GFR 59 Random Glucose 113 Calcium 9.2 D Preliminary micro results at discharge 04/12/25 09:32 Blood Culture - Preliminary Blood - Venous No growth after 24 hours. 04/12/25 09:05 Blood Culture - Preliminary Blood - Venous No growth after [address] scan - abdomen: Radiologist's impression: ITS Impressions Head CT 04/12/25 08:48 IMPRESSION: No acute intracranial abnormality. Electronically signed by: Tung Pfeiffer MD 04/12/2025 10:18 AM EDT Abdomen/Pelvis CT 04/12/25 10:15 IMPRESSION: 1. Lobulated 3.0 cm hyperdense mass at the upper pole of the left kidney, suspicious for neoplasm. Renal protocol CT or MRI is recommended. 2. 1.6 cm right adrenal adenoma. 3. Probable dilatation of the pancreatic duct. This could also be evaluated at the time of renal protocol CT or MRI. Electronically signed by: Tung Pfeiffer MD 04/12/2025 11:45 AM EDT RP Chest X-Ray 04/12/25 10:22 IMPRESSION: No active pulmonary disease. Electronically signed by: Jayy Mendoza MD 04/12/2025 11:41 AM EDT Discharge Plan Discharge Anticipated Discharge Date/Time: 04/14/25 08:16 Patient Disposition: Home Health Service Discharge Diagnosis: Acute renal failure Kidney mass Altered mentation Referrals: [facility] [Outside] - 1 Week (HOME SERVICES FOR CARE HOME AND PHYSICAL THERAPY- A NURSE WILL CONTACT YOU TO SET UP FIRST VISIT.) Physician,Unknown J [Physician] - 1 Week Discharge Medications: Continued naproxen 500 mg tablet 500 mg PO BID atorvastatin 40 mg Tablet 40 mg PO BEDTIME Qty: 90 0RF levetiracetam 500 mg Tablet 500 mg PO BID Qty: 180 0RF hydralazine 25 mg tablet 25 mg PO BID Qty: 180 0RF carvedilol 3.125 mg tablet 3.125 mg PO BID Qty: 180 0RF amlodipine 10 mg Tablet 10 mg PO DAILY Qty: 90 0RF Protocol: Hold for SBP< HOLD for SBP < : 90 mirtazapine 30 mg tablet 30 mg PO BEDTIME Qty: 90 0RF lisinopril 40 mg Tablet 40 mg PO DAILY Qty: 90 0RF Protocol: Hold for SBP< HOLD for SBP < : 90 aripiprazole 2 mg tablet 2 mg PO DAILY Qty: 90 0RF Discharge Orders: Discharge Order (Routine); Ordered 04/14/25 Ordered By: Westley Caro Diet: Low salt diet Activity on Discharge: As tolerated Stand Alone Forms: Patient Portal Discharge page Print Language: Unable To Collect Care Plan Goals: Take medications as prescribed Follow with PCP for medications adjustment will need outpatient urology follow up for renal mass Health Concerns: Elevated blood pressure Seizure disorder Plan of Treatment: Keppra Blood pressure medications Assessment: as above Discharge Date/Time: 04/14/25 08:34
--- NOTE | 2025-04-14 08:45 | MHC.CM.PN ---
Addendum entered by Erlinda Veloz 04/14/25 08:53: THIS CM SPOKE WITH CHIOMA (COMMUNITY NURSE NAVIGATOR) PER CHIOMA, PT IS HOMELESS AND HAS NO PHONE THUS UNABLE TO PROVIDE CONTACT INFORMATION TO A VNA. DR. SANDRA NOTIFIED OF THIS SITUATION. Original Note: DP: PT HAS BEEN MEDICALLY CLEARED FOR DC, CM UNABLE TO SPEAK WITH PT REGARDING PLAN HE LEFT HOSPITAL BEFORE CM COULD SEE HIM. UNABLE TO VERIFY CONTACT PHONE # FOR VNA. CM WILL CONTACT NURSE NAVIGATOR AT [facility] TO TRY AND OBTAIN #.
[2025-04-16 01:48] LABS: Levetiracetam Keppra <2.0 mcg/mL (6.0-46.0)
== END 2025-04-14 08:34 | disposition home health service (06) | DRG 683 ==
LOC: HO.ED 10:32 → HO.EDOVER 15:04 → HO.S3 04-13 10:12
PROVIDERS: Physician Assistant Medical; Admitting Provider Internal Medicine; Emergency Provider Emergency Medicine Emergency Medical Services; PCP Family Medicine; Visit Provider Student in an Organized Health Care Education/Training Program
DX: N17.9 Acute kidney failure, unspecified (principal); E87.21 Acute metabolic acidosis; M62.82 Rhabdomyolysis; I10 Essential (primary) hypertension; E86.1 Hypovolemia; F11.10 Opioid abuse, uncomplicated; E78.5 Hyperlipidemia, unspecified; I16.0 Hypertensive urgency; N28.89 Other specified disorders of kidney and ureter; G40.909 Epilepsy, unspecified, not intractable, without status epilepticus; T42.6X6A Underdosing of other antiepileptic and sedative-hypnotic drugs, initial encounter; Z87.891 Personal history of nicotine dependence; Z20.822 Contact with and (suspected) exposure to COVID-19; Z79.899 Other long term (current) drug therapy
CPT/HCPCS: 0241U; 36415; 70450; 71045; 74176; 80048; 80076; 80143; 80177; 80179; 80307; 81001; 82140; 82550; 82803; 83605; 83690; 83735; 83880; 84100; 84443; 84484; 84550; 85025; 87040; 93005; 97162; 99285; J1200; J1630; J1644; J1953; J2250; J7120

== ENCOUNTER → 2025-04-12 08:05 | Outpatient (BNV) | payer MEDICARE, MEDICAID, SELFPAY | PROVIDERS: Emergency Provider Emergency Medicine Emergency Medical Services; Visit Provider Internal Medicine Cardiovascular Disease | DX: R94.31 Abnormal electrocardiogram [ECG] [EKG] (principal); R41.82 Altered mental status, unspecified | CPT/HCPCS: 93010 ==

== ENCOUNTER → 2025-04-12 08:11 | Outpatient (BNV) | payer MEDICARE, MEDICAID, SELFPAY | PROVIDERS: Emergency Provider Emergency Medicine Emergency Medical Services; Visit Provider Radiology Diagnostic Radiology | DX: N28.1 Cyst of kidney, acquired (principal); D35.01 Benign neoplasm of right adrenal gland; R41.82 Altered mental status, unspecified | CPT/HCPCS: 70450; 71045; 74176 ==

== ENCOUNTER → 2025-04-12 13:50 | Outpatient (BNV) | payer MEDICARE, MEDICAID, SELFPAY | PROVIDERS: Admitting Provider Internal Medicine; Emergency Provider Emergency Medicine Emergency Medical Services; Visit Provider Internal Medicine | DX: N17.9 Acute kidney failure, unspecified (principal); N28.89 Other specified disorders of kidney and ureter; T79.6XXA Traumatic ischemia of muscle, initial encounter | CPT/HCPCS: 99233 ==

== ENCOUNTER → 2025-04-12 13:50 | Outpatient (BNV) | payer OTHER, SELFPAY | PROVIDERS: Admitting Provider Internal Medicine; Emergency Provider Emergency Medicine Emergency Medical Services; PCP Family Medicine; Visit Provider Urology | DX: N28.89 Other specified disorders of kidney and ureter (principal) | CPT/HCPCS: 99222 ==

== ENCOUNTER → 2025-04-12 13:50 | Outpatient (BNV) | payer OTHER, SELFPAY | PROVIDERS: Admitting Provider Internal Medicine; Emergency Provider Emergency Medicine Emergency Medical Services; Visit Provider Nurse Practitioner Family | DX: R74.8 Abnormal levels of other serum enzymes (principal); N17.9 Acute kidney failure, unspecified | CPT/HCPCS: 99221 ==

== ENCOUNTER 2025-04-14 13:07 | Emergency (ER) | payer OTHER, SELFPAY ==
[2025-04-14 13:11] VITALS: BP 189/100; PULSE 90; O2SAT 96
[2025-04-14 13:18] VITALS: BP 147/87; PULSE 78; RESP 20; TEMP 36.6; O2SAT 97; BMI 25.8
--- NOTE | 2025-04-14 14:20 | ED.OVERDOSE ---
HPI - Overdose General Chief Complaint: Overdose Stated Complaint: NOT FEELINGWELL,UNREP,NARCan given w/good result Time Seen by Provider: 04/14/25 13:12 Source: patient, EMS, RN notes reviewed and old records reviewed Mode of arrival: EMS History of Present Illness ED Provider: Pari Wayne PA-C HPI Narrative: 69-year-old male with a past medical history of CHIOMA, seizures, HTN, depression, CVA, substance abuse, discharged from our facility this morning for CHIOMA/renal mass/rhabdomyolysis presenting to the ED today via EMS s/p unresponsive episode after going into liquor store & stating he did not feel well. Patient was sat down, no reported trauma, EMS bag patient and gave 4 mg of IM Narcan with good result. PD found heroin on patient. Patient denies EtOH or illicit substance use today. Denies SI/HI. Denies pain at present Related Data Home Medications ?Medication ?Instructions ?Recorded ?Confirmed naproxen 500 mg tablet 500 mg PO BID 04/12/25 04/12/25 Previous Rx's ?Medication ?Instructions ?Recorded amlodipine 10 mg tablet 10 mg PO DAILY #90 tabs 04/14/25 aripiprazole 2 mg tablet 2 mg PO DAILY #90 tabs 04/14/25 atorvastatin 40 mg tablet 40 mg PO BEDTIME #90 tabs 04/14/25 carvedilol 3.125 mg tablet 3.125 mg PO BID #180 tabs 04/14/25 hydralazine 25 mg tablet 25 mg PO BID #180 tabs 04/14/25 levetiracetam 500 mg tablet 500 mg PO BID #180 tabs 04/14/25 lisinopril 40 mg tablet 40 mg PO DAILY #90 tabs 04/14/25 mirtazapine 30 mg tablet 30 mg PO BEDTIME #90 tabs 04/14/25 Allergies Allergy/AdvReac Type Severity Reaction Status Date / Time fish derived [FISH] Allergy Unknown UNKNOWN Verified 04/14/25 13:20 morphine [MORPHINE] Allergy Unknown UNKNOWN Verified 04/14/25 13:20 cheese Allergy Anaphylaxis Uncoded 01/07/23 16:24 Review of Systems Review of Systems: Yes all other systems are reviewed and are negative Constitutional: Constitutional: Reports as per HPI [facility] Past Medical History Attestation statement: The following information was validated with the patient. Source: old records reviewed Medical History CHIOMA (acute kidney injury) Noncompliance with medication regimen Depressive disorder Physical deconditioning Seizure Uncontrolled hypertension Recurrent major depression-severe No pertinent past medical history Cerebrovascular accident Surgical History History of left hip replacement Family History Family History Mother No problems noted. Father No problems noted. Social History Social History Household Members: None Housing: Homeless Do you presently have visiting nurse or other home services: No Unable to assess alcohol history related to: Unknown Alcohol intake: unknown Comment: 1:1 sitter Patient Tobacco Use Status: Former Tobacco user Tobacco use type: Cigarette Cigarette Packs Per Day: 10 Second Hand Smoke Exposure: No Advance Directives: Yes Advance Directives on File: Yes Advance Directives Date on File: 04/01/23 service: No Current occupational status: unemployed Physical Exam Vital Signs: Vital Signs: Last Vital Signs Temp 97.8 F 04/14/25 16:27 Pulse 78 04/14/25 16:27 Resp 20 04/14/25 16:27 BP 147/87 H 04/14/25 16:27 Pulse Ox 97 04/14/25 16:27 O2 Del Method Room Air 04/14/25 16:27 BMI result Body Mass Index 25.8 Const: Other: Appears under the influence, easily arousable General: cooperative, no acute distress and alert Orientation/consciousness: patient oriented x3 Limitations: no limitations HEENT: Head: Yes normal to inspection and Yes atraumatic Ears: hearing grossly normal bilaterally General nose exam: Normal external nose present Face and sinus: Yes normal facial exam Eyes: General: appearance normal, both eyes and all related structures EOM: EOMs intact bilaterally Neck: Neck: Yes normal visual inspection and Yes no meningeal signs Resp: Effort & Inspection: normal respiratory effort and no respiratory distress Cardio: Rate: regular rate Skin: Rashes: no rashes Wounds: no wounds Neuro: General: patient oriented x3, tone normal, no meningeal signs and CN's II-XI intact bilaterally Cranial nerves: Yes CN's II-XII intact bilaterally Extrem: General: Yes normal to inspection Psych: Thought content: suicidality, no homicidality, no hallucinations and No Depressive thoughts present Course Course Course Narrative: -1612--patient has been observed in the ED for 3 hours, is now awake and alert, ambulating with steady gait. Safe for discharge home at this time. Will be discharged with Narcan to go. Denies SI/HI Results discussed with patient including worrisome signs and symptoms and strict return precautions, and when to return to the emergency department. They verbalized understanding and feel safe for discharge at this time. Medications Administered Discontinued Medications Generic Name Dose Route Start Last Admin Trade Name Tobiasq PRN Reason Stop Dose Admin Naloxone HCl 8 mg 04/14/25 13:16 04/14/25 16:28 Naloxone Hcl Nasal Take Home 4 Mg [place] NOSTRILALT 04/14/25 13:17 8 mg ONCE ONE Administration Medical Decision Making Medical Decision Making [facility] Narrative: 69-year-old male with a past medical history of CHIOMA, seizures, HTN, depression, CVA, substance abuse, discharged from our facility this morning for CHIOMA/renal mass/rhabdomyolysis presenting to the ED today via EMS s/p unresponsive episode after going into liquor store & stating he did not feel well. Patient was sat down, no reported trauma, EMS bag patient and gave 4 mg of IM Narcan with good result. On exam vital signs stable, NAD, nontoxic appearing, awake and alert, does appear under the influence, denies SI/HI. No evidence of trauma. Concern for overdose. Lower suspicion for ICH, metabolic abnormalities or infectious etiology. Plan: HART, observe and re-evaluate for clinical sobriety. Patient will be discharged with Narcan to go Please refer to course for remaining clinical decision making, interpretation of labs/imaging results, and discussions with consultants and/or family members. Differential Diagnosis Differential Diagnoses: The differential diagnosis associated with the presentation includes As above Lab Data [facility] Lab Attestation statement: I reviewed the patient's lab results. Labs: Lab Results 04/14/25 Range/Units 16:22 Urine Opiates Screen POSITIVE H (Not Detect) Ur Buprenorphine Scrn Not Detected (Not Detect) ng/mL Ur Oxycodone Screen Not Detected (Not Detect) ng/mL Urine Methadone Screen Positive H (Not Detect) ng/mL Urine Fentanyl Screen POSITIVE H (Not Detect) Ur Barbiturates Screen Not Detected (Not Detect) Ur Phencyclidine Scrn Not Detected (Not Detect) Ur Amphetamines Screen Not Detected (Not Detect) U Benzodiazepines Scrn Not Detected (Not Detect) Urine Cocaine Screen Not Detected (Not Detect) U Marijuana (THC) Screen Not Detected (Not Detect) Independent Historian Clinical information obtained from an independent historian. History obtained from or confirmed by: EMS External Record Review External record reviewed: Inpatient record, Office record, Outpatient record, Prior outpatient labs, Prior outpatient radiology, Primary care record and Outside ED record Tests considered The following testing was considered but not selected: As above Prescription Management I considered prescription management with: Other Chronic Conditions Patient?s care impacted by: Other Social Determinants Patient?s care significantly limited by Social Determinants of Health including: Alcoholism and drug addiction in family, Problems related to primary support group and Other Social Determinant of Health Discharge Plan Discharge Clinical Impression: Overdose Patient Disposition: Home, Self-Care Instructions: Adult Overdose (ED) Additional Instructions: Overdose You were seen in our Emergency Department for an overdose today. You received narcan in order to reverse the effects of overdose. Narcan only lasts about 45 min to 1 hour in the system. You may have been given narcan to take home with you today, please keep it near you if you are going to use again, so others can use it if needed.? The number one risk for fatal overdose is using alone? [facility] is a / hotline where you can be on the phone with someone while you use, and they can call for help if they suspect an overdose: [phone] Things to look out for when you leave include severe vomiting or diarrhea, headaches, muscle cramps, fever, coughing, chest pain, or if you feel so short of breath you cannot walk to the bathroom. Please seek care and return any time for worsening symptoms.? You may have been provided with safer injection?items, please take time to take care of YOU and your health. Use new supplies whenever possible to lessen the chances of infections and other illnesses.? If you need more supplies, please go [facility],? [address] [place], [place] you can call or text to coordinate delivery of safer supplies. If you decide you want to stop or cut down on how much you?re using, please call the numbers on the list provided to you or you can come to our outpatient Addiction Treatment office [facility] ([facility] 9am-5p) [address] [place] [address]. [phone] Opiate use disorder You were seen in our Emergency Department today for treatment of opiate use disorder. You may have been dosed with medication for opiate use disorder (MOUD) in the form of suboxone or methadone. You may experience feeling some withdrawal symptoms and this is normal. The? dose in the Emergency Department is a starting dose and meant to be titrated up once you follow up with a clinic. Please do not feel discouraged, it is a process. The nurse has reviewed with you where to follow up and what information to bring with you, to continue treatment. You also may have been given naloxone (narcan) to take home with you. This medication is used to potentially treat opiate overdose. If you decide you want to stop or cut down on how much you?re using, you can call or walk into our outpatient Addiction Treatment office: [facility] ([facility] 9am-5p) [address] [place] [address] [phone] You may have been provided with safer injection?items, please take time to take care of YOU and your health. Use new supplies whenever possible to lessen the chances of infections and other illnesses.? ?If you need more supplies, please go [facility],? [address] [place] [address] [place] you can call or text to coordinate delivery of safer supplies. You were also provided a list of several treatment providers in the area.? If you experience any worsening symptoms you cannot control please return to the ED or call 911. Please follow up at your next appointment. Things to look out for are fevers, chest pain, shortness of breath, severe pain, dizziness, fainting or any other concerns. Prescriptions: No Action naproxen 500 mg tablet 500 mg PO BID atorvastatin 40 mg Tablet 40 mg PO BEDTIME Qty: 90 0RF levetiracetam 500 mg Tablet 500 mg PO BID Qty: 180 0RF hydralazine 25 mg tablet 25 mg PO BID Qty: 180 0RF carvedilol 3.125 mg tablet 3.125 mg PO BID Qty: 180 0RF amlodipine 10 mg Tablet 10 mg PO DAILY Qty: 90 0RF Protocol: Hold for SBP< HOLD for SBP < : 90 mirtazapine 30 mg tablet 30 mg PO BEDTIME Qty: 90 0RF lisinopril 40 mg Tablet 40 mg PO DAILY Qty: 90 0RF Protocol: Hold for SBP< HOLD for SBP < : 90 aripiprazole 2 mg tablet 2 mg PO DAILY Qty: 90 0RF [facility]errals: [facility] [Provider Group] [facility] [Outside] Interventions: ED Discharge Assessment Last Done: 04/14/25 16:27 Discharge Date/Time: 04/14/25 16:31 Print Language: Micronesian
--- NOTE | 2025-04-14 16:08 | PC.NURSE ---
patient alert and oriented, ambulated to the bathroom using own cane with steady gait. requesting to be discharged, IV removed
[2025-04-14 16:27] VITALS: BP 147/87; PULSE 78; RESP 20; TEMP 36.6; O2SAT 97
[2025-04-14] MEDS: Naloxone HCl Nasal TAKE HOME 4 MG SPRAY 8 MG NOSTRILALT (16:28)
[2025-04-14 16:57] LABS: Amphetamine Screen Urine Not Detected (Not Detect); Barbiturates, Urine Not Detected (Not Detect); Benzodiazepines Screen Urine Not Detected (Not Detect); Buprenorphine Scr Not Detected (Not Detect); Cannabinoid Screen Urine Not Detected (Not Detect); Cocaine Screen Urine Not Detected (Not Detect); Fentanyl, urine POSITIVE (Not Detect); Methadone Screen, Urine Positive (Not Detect); Opiate Screen Urine POSITIVE (Not Detect); Oxycodone Screen Urine Not Detected (Not Detect); Phencyclidine Screen Urine Not Detected (Not Detect)
--- OUTSIDE RECORDS SUMMARY | 2025-04-14 18:19 | XMS_ITS | Patient Health Record ---
Author Organization [facility] Address [address], [place] [id number] Care Team Providers Care Denier Control Operator Name Role Phone Debora Ortiz Primary Care Provider Allergies Allergen (clinical drug ingredient) Drug/Non Drug [...] of this information. Housing Situation: Homeless at [facility] 2009 then in [place] prior to migrating up to [place] 12/2011, then to detox, [facility] 2011, then to [facility] - where relapsed, back streets and 08/2012. Housing Situation: Homeless at [facility] 2009 then in [place] prior to migrating up to [place] 12/2011, then to detox, [facility] summer 2011, then to [facility] - where relapsed, back streets and 08/2012. Housing Situation: Homeless at [facility] 2009 then in [place] prior to migrating up to [place] 12/2011, then to detox, [facility] summer 2011, then to [facility] - where relapsed, back streets and 08/2012. Housing Situation: Homeless at [facility] 2009 then in [place] prior to migrating up to [place] 12/2011, then to detox, [facility] summer 2011, then to [facility] - where relapsed, back streets and 08/2012. Housing Situation: Homeless at [facility] 2009 then in [place] prior to migrating up to [place] 12/2011, then to detox, [facility] summer 2011, then to [facility] - where relapsed, back streets and 08/2012. Housing Situation: Homeless at [facility] 2009 then in [place] prior to migrating up to [place] 12/2011, then to detox, [facility] summer 2011, then to [facility] - where relapsed, back streets and [facility] 08/2012. Housing Situation: Homeless at [facility] 2009 then in [place] prior to migrating up to [place] 12/2011, then to detox, [facility] 2011, then to [facility] - where relapsed, back streets and [facility] 08/2012. Housing Situation: Homeless at [facility] 2009 then in [place] prior to migrating up to [place] 12/2011, then to detox, [facility] summer 2011, then to [facility] - where relapsed, back streets and [facility] 08/2012. Housing Situation: Homeless at [facility] 2009 then in [place] prior to migrating up to [place] 12/2011, then to detox, [facility] summer 2011, then to [facility] - where relapsed, back streets and [facility] 08/2012. Housing Situation: Homeless at [facility] 2009 then in [place] prior to migrating up to [place] 12/2011, then to detox, [facility] summer 2011, then to [facility] - where relapsed, back streets and [facility] 08/2012. Housing Situation: Homeless at [facility] 2009 then in [place] prior to migrating up to [place] 12/2011, then to detox, [facility] summer 2011, then to [facility] - where relapsed, back streets and [facility] 08/2012. Housing Situation: Homeless at [facility] 2009 then in [place] prior to migrating up to [place] 12/2011, then to detox, [facility] summer 2011, then to [facility] - where relapsed, back streets and [facility] 08/2012. Housing Situation: Homeless at [facility] 2009 then in [place] prior to migrating up to [place] 12/2011, then to detox, [facility] summer 2011, then to [facility] - where relapsed, back streets and [facility] 08/2012. Housing Situation: Homeless at [facility] 2009 then in [place] prior to migrating up to [place] 12/2011, then to detox, [facility] summer 2011, then to [facility] - where relapsed, back streets and [facility] 08/2012. Housing Situation: Homeless at [facility] 2009 then in [place] prior to migrating up to [place] 12/2011, then to detox, [facility] summer 2012, then to [facility] - where relapsed, back streets and [facility] 08/2012. Housing Situation: Homeless at [facility] 2009 then in [place] prior to migrating up to [place] 12/2011, then to detox, [facility] summer 2011, then to [facility] - where relapsed, back streets and [facility] 08/2012. Housing Situation: Homeless at [facility] 2009 then in [place] prior to migrating up to [place] 12/2011, then to detox, [facility] summer 2011, then to [facility] - where relapsed, back streets and [facility] 08/2012. Housing Situation: Homeless at [facility] 2009 then in [place] prior to migrating up to [place] 12/2011, then to detox, [facility] summer 2011, then to [facility] - where relapsed, back streets and [facility] 08/2012. Housing Situation: Homeless at [facility] 2009 then in [place] prior to migrating up to [place] 12/2011, then to detox, [facility] summer 2011, then to [facility] - where relapsed, back streets and [facility] 08/2012. Housing Situation: Homeless at [facility] 2009 then in [place] prior to migrating up to [place] 12/2011, then to detox, [facility] summer 2011, then to [facility] - where relapsed, back streets and [facility] 08/2012. Housing Situation: Homeless at [facility] 2009 then in [place] prior to migrating up to [place] 12/2011, then to detox, [facility] 2011, then to [facility] - where relapsed, back streets and [facility] 08/2012. Housing Situation: Homeless at [facility] 2009 then in [place] prior to migrating up to [place] 12/2011, then to detox, [facility] summer 2011, then to [facility] - where relapsed, back streets and [place] 08/2012. Housing Situation: Homeless at [facility] 2009 then in [place] prior to migrating up to [place] 12/2011, then to detox, [facility] summer 2011, then to [facility] - where relapsed, back streets and [facility] 08/2012. Housing Situation: Homeless at [facility] 2009 then in [place] prior to migrating up to [place] 12/2011, then to detox, [facility] 2011, then to [facility] - where relapsed, back streets and [facility] 08/2012. getting SSI now- 700/mo. has aps for 2 places- [facility] and [facility] list. Working with [facility] Housing Situation: Homeless at [facility] 2009 then in [place] prior to migrating up to [place] 12/2011, then to detox, [facility] summer 2011, then to [facility] - where relapsed, back streets and [facility] 08/2012. getting SSI now- 700/mo. has aps for 2 places- [facility] and [facility] the list. Working with [facility]. Housing Situation: Homeless at [facility] 2009 then in [place] prior to migrating up to [place] 12/2011, then to detox, [facility] summer 2011, then to [facility] - where relapsed, back streets and [place] 08/2012. getting SSI now- 700/mo. has aps for 2 places- [facility] and [facility] on the list. Working with [facility]. Housing Situation: Homeless at [facility] 2009 then in [place] prior to migrating up to [place] 12/2011, then to detox, [facility] summer 2011, then to [facility] - where relapsed, back streets and [facility] 08/2012. getting SSI now- 700/mo. has aps for 2 places- [facility] and [facility] the list. Working with [facility]. Housing Situation: Homeless at [facility] 2009 then in [place] prior to migrating up to [place] 12/2011, then to detox, [facility] summer 2011, then to [facility] - where relapsed, back streets and [place] 08/2012. getting SSI now- 700/mo. has aps for 2 places- [facility] and [facility] the list. Working with [facility]. Housing Situation: Homeless at [facility] 2009 then in [place] prior to migrating up to [place] 12/2011, then to detox, [facility] summer 2011, then to [facility] - where relapsed, back streets and [place] 08/2012. getting SSI now- 700/mo. has aps for 2 places- [facility] and [facility] on the list. Working with [facility]. Housing Situation: Homeless at [facility] 2009 then in [place] prior to migrating up to [place] 12/2011, then to detox, [facility] 2011, then to [facility] - where relapsed, back streets and [facility] 08/2012. getting SSI now- 700/mo. has aps for 2 places- [facility] and [facility] on the list. Working with [facility]. Housing Situation: Homeless at [facility] 2009 then in [place] prior to migrating up to [place] 12/2011, then to detox, [facility] summer 2011, then to [facility] - where relapsed, back streets and [place] 08/2012. getting SSI now- 700/mo. has aps for 2 places- [facility] and [facility] on the list. Working with [facility]. Housing Situation: Homeless at [facility] 2009 then in [place] prior to migrating up to [place] 12/2011, then to detox, [facility] summer 2011, then to [facility] - where relapsed, back streets and [place] 08/2012. getting SSI now- 700/mo. has aps for 2 places- [facility] and [facility] on the list. Working with [facility]. Housing Situation: Homeless at [facility] 2009 then in [place] prior to migrating up to [place] 12/2011, then to detox, [facility] summer 2011, then to [facility] - where relapsed, back streets and [facility] 08/2012. getting SSI now- 700/mo. has aps for 2 places- [facility] and [facility] on the list. Working with [facility]. Housing Situation: Homeless at [facility] 2009 then in [place] prior to migrating up to [place] 12/2011, then to detox, [facility] summer 2011, then to [facility] - where relapsed, back streets and [place] 08/2012. getting SSI now- 700/mo. has aps for 2 places- [facility] and [facility] on the list. Working with [facility]. Housing Situation: Homeless at [facility] 2009 then in [place] prior to migrating up to [place] 12/2011, then to detox, [facility] summer 2011, then to [facility] - where relapsed, back streets and [facility] 08/2012. getting SSI now- 700/mo. has aps for 2 places- [facility] and [facility] on the list. Working with [facility]. Housing Situation: Homeless at [facility] 2009 then in [place] prior to migrating up to [place] 12/2011, then to detox, [facility] summer 2011, then to [facility] - where relapsed, back streets and [place] 08/2012. getting SSI now- 700/mo. has aps for 2 places- [facility] and [facility] on the list. Working with [facility]. Housing Situation: Homeless at [facility] 2009 then in [place] prior to migrating up to [place] 12/2011, then to detox, [facility] summer 2011, then to [facility] - where relapsed, back streets and [place] 08/2012. getting SSI now- 700/mo. has aps for 2 places- [facility] and [facility] on the list. Working with [facility]. Housing Situation: Homeless at [facility] 2009 then in [place] prior to migrating up to [place] 12/2011, then to detox, [facility] summer 2011, then to [facility] - where relapsed, back streets and [place] 08/2012. getting SSI now- 700/mo. has aps for 2 places- [facility] and [facility] on the list. Working with [facility]. Housing Situation: Homeless at [facility] 2009 then in [place] prior to migrating up to [place] 12/2011, then to detox, [facility] summer 2011, then to [facility] - where relapsed, back streets and [place] 08/2012. getting SSI now- 700/mo. has aps for 2 places- [facility] and [facility] on the list. Working with [facility]. Housing Situation: Homeless at [facility] 2009 then in [place] prior to migrating up to [place] 12/2011, then to detox, [facility] summer 2011, then to [facility] - where relapsed, back streets and [place] 08/2012. getting SSI now- 700/mo. has aps for 2 places- [facility] and [facility] on the list. Working with [facility]. Housing Situation: Homeless at [facility] 2009 then in [place] prior to migrating up to [place] 12/2011, then to detox, [facility] summer 2011, then to [facility] - where relapsed, back streets and [place] 08/2012. getting SSI now- 700/mo. has aps for 2 places- [facility] and [facility] on the list. Working with [facility]. Housing Situation: Homeless at [facility] 2009 then in [place] prior to migrating up to [place] 12/2011, then to detox, [facility] summer 2011, then to [facility] - where relapsed, back streets and [place] 08/2012. getting SSI now- 700/mo. has aps for 2 places- [facility] and [facility] on the list. Working with [facility]. Housing Situation: Homeless at [facility] 2009 then in [place] prior to migrating up to [place] 12/2011, then to detox, [facility] summer 2011, then to [facility] - where relapsed, back streets and [place] 08/2012. getting SSI now- 700/mo. has aps for 2 places- [facility] and [facility] on the list. Working with [facility]. Housing Situation: Homeless at [facility] 2009 then in [place] prior to migrating up to [place] 12/2011, then to detox, [facility] summer 2011, then to [facility] - where relapsed, back streets and [place] 08/2012. getting SSI now- 700/mo. has aps for 2 places- [facility] and [facility] on the list. Working with [facility]. Housing Situation: Homeless at [facility] 2009 then in [place] prior to migrating up to [place] 12/2011, then to detox, [facility] summer 2011, then to [facility] - where relapsed, back streets and [place] 08/2012. getting SSI now- 700/mo. has aps for 2 places- [facility] and [facility] on the list. Working with [facility]. Housing Situation: Homeless at [facility] 2009 then in [place] prior to migrating up to [place] 12/2011, then to detox, [facility] summer 2011, then to [facility] - where relapsed, back streets and [place] 08/2012. getting SSI now- 700/mo. has aps for 2 places- [facility] and [facility] on the list. Working with [facility]. Housing Situation: Homeless at [facility] 2009 then in [place] prior to migrating up to [place] 12/2011, then to detox, [facility] summer 2011, then to [facility] - where relapsed, back streets and [place] 08/2012. getting SSI now- 700/mo. has aps for 2 places- [facility] and [facility] on the list. Working with [facility]. Housing Situation: Homeless at [facility] 2009 then [place] prior to migrating up to [place] 12/2011, then to detox, [facility] summer 2011, then to [facility] - where relapsed, back streets and [place] 08/2012. getting SSI now- 700/mo. has aps for 2 places- [facility] and [facility] on the list. Working with [facility]. Housing Situation: Homeless at [facility] 2009 then in [place] prior to migrating up to [place] 12/2011, then to detox, [facility] summer 2011, then to [facility] - where relapsed, back streets and [place] 08/2012. getting SSI now- 700/mo. has aps for 2 places- [facility] and [facility] on the list. Working with [facility]. Housing Situation: Homeless at [facility] 2009 then in [place] prior to migrating up to [place] 12/2011, then to detox, [facility] summer 2011, then to [facility] - where relapsed, back streets and [place] 08/2012. getting SSI now- 700/mo. has aps for 2 places- [facility] and [facility] on the list. Working with [facility]. Housing Situation: Homeless at [facility] 2009 then in [place] prior to migrating up to [place] 12/2011, then to detox, [facility] summer 2011, then to [facility] - where relapsed, back streets and [place] 08/2012. getting SSI now- 700/mo. has aps for 2 places- [facility] and [facility] on the list. Working with [facility] A. Housing Situation: Homeless at [facility] 2009 then in [place] prior to migrating up to [place] 12/2011, then to detox, [facility] summer 2011, then to [facility] - where relapsed, back streets and [place] 08/2012. getting SSI now- 700/mo. has aps for 2 places- [facility] and [facility] the list. Working with [facility]. Housing Situation: Homeless at [facility] 2009 then in [place] prior to migrating up to [place] 12/2011, then to detox, [facility] summer 2011, then to [facility] - where relapsed, back streets and [place] 08/2012. getting SSI now- 700/mo. has aps for 2 places- [facility] and [facility] the list. Working with [facility]. Housing Situation: Homeless at [facility] 2009 then in [place] prior to migrating up to [place] 12/2011, then to detox, [facility] summer 2011, then to [facility] - where relapsed, back streets and [place] 08/2012. getting SSI now- 700/mo. has aps for 2 places- [facility] and [facility] on the list. Working with [facility] A. Housing Situation: Homeless at [facility] 2009 then in [place] prior to migrating up to [place] 12/2011, then to detox, [facility] summer 2011, then to [facility] - where relapsed, back streets and [place] 08/2012. getting SSI now- 700/mo. has aps for 2 places- [facility] and [facility] on the list. Working with [facility]. Housing Situation: Homeless at [facility] 2009 then in [place] prior to migrating up to [place] 12/2011, then to detox, [facility] summer 2011, then to [facility] - where relapsed, back streets and [place] 08/2012. getting SSI now- 700/mo. has aps for 2 places- [facility] and [facility] on the list. Working with [facility]. Housing Situation: Homeless at [facility] 2009 then in [place] prior to migrating up to [place] 12/2011, then to detox, [facility] summer 2011, then to [facility] - where relapsed, back streets and [place] 08/2012. getting SSI now- 700/mo. has aps for 2 places- [facility] and [facility] on the list. Working with [facility]. Housing Situation: Homeless at [facility] 2009 then in [place] prior to migrating up to [place] 12/2011, then to detox, [facility] summer 2011, then to [facility] - where relapsed, back streets and [place] 08/2012. getting SSI now- 700/mo. has aps for 2 places- [facility] and [facility] on the list. Working with [facility]. Housing Situation: Homeless at [facility] 2009 then in [place] prior to migrating up to [place] 12/2011, then to detox, [facility] summer 2011, then to [facility] - where relapsed, back streets and [place] 08/2012. getting SSI now- 700/mo. has aps for 2 places- [facility] and [facility] on the list. Working with [facility]. Housing Situation: Homeless at [facility] 2009 then in [place] prior to migrating up to [place] 12/2011, then to detox, [facility] summer 2011, then to [facility] - where relapsed, back streets and [place] 08/2012. getting SSI now- 700/mo. has aps for 2 places- [facility] and [facility] on the list. Working with [facility]. Housing Situation: Homeless at [facility] 2009 then in [place] prior to migrating up to [place] 12/2011, then to detox, [facility] summer 2011, then to [facility] - where relapsed, back streets and [place] 08/2012. getting SSI now- 700/mo. has aps for 2 places- [facility] and [facility] on the list. Working with [facility]. Housing Situation: Homeless at [facility] 2009 then in [place] prior to migrating up to [place] 12/2011, then to detox, [facility] summer 2011, then to [facility] - where relapsed, back streets and 08/2012. getting SSI now- 700/mo. has aps for 2 places- [facility] and [facility] on the list. Working with [facility]. Housing Situation: Homeless at [facility] 2009 then in [place] prior to migrating up to [place] 12/2011, then to detox, [facility] summer 2011, then to [facility] - where relapsed, back streets and 08/2012. getting SSI now- 700/mo. still around [facility] (not alwasy) 03/2013 has aps for 2 places- [facility] and [facility] on the list. Working with [facility]. Housing Situation: Homeless at [facility] 2009 then in [place] prior to migrating up to [place] 12/2011, then to detox, [facility] summer 2011, then to [facility] - where relapsed, back streets and [place] 08/2012. getting SSI now- 700/mo. still around [facility] (not always) 03/2013 has aps for 2 places- [facility] and [facility] on the list. Working with [facility]. Housing Situation: Homeless at [facility] 2009 then [place] [facility] prior to migrating up to [place] 12/2011, then to detox, [facility] summer 2011, then to [facility] - where relapsed, back streets and [place] 08/2012. getting SSI now- 700/mo. has aps for 2 places- [facility] and [facility] on the list. Working with [facility]. Housing Situation: Homeless at [facility] 2009 then in [place] prior to migrating up to [place] 12/2011, then to detox, [facility] summer 2011, then to [facility] - where relapsed, back streets and [place] 08/2012. getting SSI now- 700/mo. has aps for 2 places- [facility] and [facility] on the list. Working with [facility]. Housing Situation: Homeless at [facility] 2009 then in [place] prior to migrating up to [place] 12/2011, then to detox, [facility] summer 2011, then to [facility] - where relapsed, back streets and [place] 08/2012. getting SSI now- 700/mo. has aps for 2 places- [facility] and [facility] on the list. Working with [facility] A. Housing Situation: Homeless at [facility] 2009 then in [place] prior to migrating up to [place] 12/2011, then to detox, [facility] summer 2011, then to [facility] - where relapsed, back streets and [place] 08/2012. getting SSI now- 700/mo. has aps for 2 places- [facility] and [facility] on the list. Working with [facility] A. Housing Situation: Homeless at [facility] 2009 then in [place] prior to migrating up to [place] 12/2011, then to detox, [facility] summer 2011, then to [facility] - where relapsed, back streets and 08/2012. getting SSI now- 700/mo. has aps for 2 places- [facility] and [facility] on the list. Working with [facility]. Housing Situation: Homeless at [facility] 2009 then in [place] prior to migrating up to [place] 12/2011, then to detox, [facility] summer 2011, then to [facility] - where relapsed, back streets and [place] 08/2012. getting SSI now- 700/mo. has aps for 2 places- [facility] and [facility] on the list. Working with [facility] A. Housing Situation: Homeless at [facility] 2009 then in [place] prior to migrating up to [place] 12/2011, then to detox, [facility] summer 2011, then to [facility] - where relapsed, back streets and [place] 08/2012. getting SSI now- 700/mo. has aps for 2 places- [facility] and [facility] on the list. Working with [facility]ley A. Housing Situation: Homeless at [facility] 2009 then in [place] prior to migrating up to [place] 12/2011, then to detox, [facility] summer 2011, then to [facility] - where relapsed, back streets and [place] 08/2012. getting SSI now- 700/mo. has aps for 2 places- [facility] and [facility] on the list. Working with [facility] A. Housing Situation: Homeless at [facility] 2009 then in [place] prior to migrating up to [place] 12/2011, then to detox, [facility] summer 2011, then to [facility] - where relapsed, back streets and [place] 08/2012. getting SSI now- 700/mo. has aps for 2 places- [facility] and [facility] on the list. Working with [facility] A. Housing Situation: Homeless at [facility] 2009 then in [place] prior to migrating up to [place] 12/2011, then to detox, [facility] summer 2011, then to [facility] - where relapsed, back streets and [place] 08/2012. getting SSI now- 700/mo. has aps for 2 places- [facility] and [facility] on the list. Working with [facility] A. Housing Situation: Homeless at [facility] 2009 then in [place] prior to migrating up to [place] 12/2011, then to detox, [facility] summer 2011, then to [facility] - where relapsed, back streets and [place] 08/2012. getting SSI now- 700/mo. has aps for 2 places- [facility] and [facility] on the list. Working with Hayley A. Housing Situation: Homeless at [facility] 2009 then in [place] prior to migrating up to [place] 12/2011, then to detox, [facility] summer 2011, then to [facility] - where relapsed, back streets and [place] 08/2012. getting SSI now- 700/mo. has aps for 2 places- [facility] ([facility]) and [facility] [employer] on the list. Working with Hayley A. Housing Situation: Homeless at [facility] 2009 then in [place] prior to migrating up to [place] 12/2011, then to detox, [facility] summer 2011, then to [facility] - where relapsed, back streets and [facility] 08/2012. getting SSI now- 700/mo. has aps for 2 places- [facility] ([facility]) and [facility] [employer] on the list. Working with Hayley A. Housing Situation: Homeless at [facility] 2009 then in [place] prior to migrating up to [place] 12/2011, then to detox, [facility] summer 2011, then to [facility] - where relapsed, back streets and [place] 08/2012. getting SSI now- 700/mo. has aps for 2 places- [facility] ([facility]) and [facility] [employer] on the list. Working with Hayley A. Housing Situation: Homeless at [facility] 2009 then in [place] prior to migrating up to [place] 12/2011, then to detox, [facility] summer 2011, then to [facility] - where relapsed, back streets and [place] 08/2012. getting SSI now- 700/mo. has aps for 2 places- [facility] ([facility]) and [facility] on the list. Working with Hayley A. Housing Situation: Homeless at [facility] 2009 then in [place] prior to migrating up to [place] 12/2011, then to detox, [facility] summer 2011, then to [facility] - where relapsed, back streets and [place] 08/2012. getting SSI now- 700/mo. has aps for 2 places- [facility] ([facility]) and [facility] on the list. Working with Hayley A. Housing Situation: Homeless at [facility] 2009 then in [place] prior to migrating up to [place] 12/2011, then to detox, [facility] summer 2011, then to [facility] - where relapsed, back streets and [place] 08/2012. getting SSI now- 700/mo. has aps for 2 places- [facility] ([facility]) and [facility] [employer] on the list. Working with Hayley A. Housing Situation: Homeless at [facility] 2009 then in [place] prior to migrating up to [place] 12/2011, then to detox, [facility] summer 2011, then to [facility] - where relapsed, back streets and [place] 08/2012. getting SSI now- 700/mo. has aps for 2 places- [facility] ([facility]) and [facility] on the list. Working with Hayley A. Housing Situation: Homeless at [facility] 2009 then in [place] prior to migrating up to [place] 12/2011, then to detox, [facility] summer 2011, then to [facility] - where relapsed, back streets and [place] 08/2012. getting SSI now- 700/mo. has aps for 2 places- [facility] and [facility] on the list. Working with Hayley A. Housing Situation: Homeless at [facility] 2009 then in [place] prior to migrating up to [place] 12/2011, then to detox, [facility] summer 2011, then to [facility] - where relapsed, back streets and [place] 08/2012. getting SSI now- 700/mo. has aps for 2 places- [facility] ([facility]) and [facility] [employer] on the list. Working with Hayley A. Housing Situation: Homeless at [facility] 2009 then in [place] prior to migrating up to [place] 12/2011, then to detox, [facility] summer 2011, then to [facility] - where relapsed, back streets and [place] 08/2012. getting SSI now- 700/mo. has aps for 2 places- [facility] ([facility]) and [facility] [employer] on the list. Working with Hayley A. Housing Situation: Homeless at [facility] 2009 then in [place] prior to migrating up to [place] 12/2011, then to detox, [facility] summer 2011, then to [facility] - where relapsed, back streets and [place] 08/2012. getting SSI now- 700/mo. has aps for 2 places- [facility] ([facility]) and [facility] [employer] on the list. Working with Hayley A. Housing Situation: Homeless at [facility] 2009 then in [place] prior to migrating up to [place] 12/2011, then to detox, [facility] summer 2011, then to [facility] - where relapsed, back streets and [place] 08/2012. getting SSI now- 700/mo. has aps for 2 places- [facility] ([facility]) and [facility] [employer] on the list. Working with Hayley A. Housing Situation: Homeless at [facility] 2009 then in [place] prior to migrating up to [place] 12/2011, then to detox, [facility] summer 2011, then to [facility] - where relapsed, back streets and [place] 08/2012. getting SSI now- 700/mo. has aps for 2 places- [facility] ([facility]) and [facility] [employer] on the list. Working with Hayley A. Housing Situation: Homeless at [facility] 2009 then in [place] prior to migrating up to [place] 12/2011, then to detox, [facility] summer 2011, then to [facility] - where relapsed, back streets and [place] 08/2012. getting SSI now- 700/mo. has aps for 2 places- [facility] ([facility]) and [facility] [employer] on the list. Working with Hayley A. Housing Situation: Homeless at [facility] 2009 then in [place] prior to migrating up to [place] 12/2011, then to detox, [facility] summer 2011, then to [facility] - where relapsed, back streets and [place] 08/2012. getting SSI now- 700/mo. has aps for 2 places- [facility] ([facility]) and [facility] [employer] on the list. Working with Hayley A. Housing Situation: Homeless at [facility] 2009 then in [place] prior to migrating up to [place] 12/2011, then to detox, [facility] summer 2011, then to [facility] - where relapsed, back streets and [place] 08/2012. getting SSI now- 700/mo. has aps for 2 places- [facility] ([facility]) and [facility] [employer] on the list. Working with Hayley A. Housing Situation: Homeless at [facility] 2009 then in [place] prior to migrating up to [place] 12/2011, then to detox, [facility] summer 2011, then to [facility] - where relapsed, back streets and 08/2012. getting SSI now- 700/mo. has aps for 2 places- [facility] ([facility]) and [employer] [employer] on the list. Working with Hayley Guajardo. Housing Situation: Homeless at [facility] 2009 then in [place] prior to migrating up to [place] 12/2011, then to detox, [facility] summer 2011, then to [facility] - where relapsed, back streets and 08/2012. getting SSI now- 700/mo. has aps for 2 places- [facility] ([facility]) and [employer] on the list. Working with Hayley Guajardo. Housing Situation: Homeless at [facility] 2009 then in [place] prior to migrating up to [place] 12/2011, then to detox, [facility] summer 2011, then to [facility] - where relapsed, back streets and 08/2012. getting SSI now- 700/mo. has aps for 2 places- [facility] ([facility]) and [employer] [employer] on the list. 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 confirmed Problem Essential hypertension (59897197) Essential (primary) hypertension (I10) Active confirmed Problem Localized, primary osteoarthritis of the pelvic region and thigh (706613239) Unilateral primary osteoarthritis, left hip (M16.12) Active confirmed Problem Chest pain (27782285) Chest pain, unspecified (R07.9) Active confirmed Problem Ataxia (46401689) Ataxia, unspecified (R27.0) Active confirmed Problem Abnormal weight loss (364799325) Abnormal weight loss (R63.4) Active confirmed Problem Unspecified intracranial injury with loss of consciousness of unspecified duration, sequela (S06.9X9S) Active confirmed Problem Body mass index 20-24 - normal (381186189) Body mass index [BMI] 22.0-22.9, adult (Z68.22) [...] Insured Coverage Start Date Coverage End Date [facility] [address] ALEJANDRO HERNANDEZ [phone] [id number] [employer] Dewey Antoine Self - patient is the insured 0 [facility] [address] [place] [phone] [id number] Dewey Antoine Self - patient is the [...]
== END 2025-04-14 16:31 | disposition home or self-care (01) ==
LOC: HO.ED 16:30
PROVIDERS: Physician Assistant; Emergency Provider Emergency Medicine Emergency Medical Services
DX: T40.1X1A Poisoning by heroin, accidental (unintentional), initial encounter (principal); R40.4 Transient alteration of awareness; Z51.81 Encounter for therapeutic drug level monitoring; Z86.73 Personal history of transient ischemic attack (TIA), and cerebral infarction without residual deficits; Z79.899 Other long term (current) drug therapy; Z87.891 Personal history of nicotine dependence; Y92.9 Unspecified place or not applicable
CPT/HCPCS: 80307; 99282; 99283